=== PATIENT | male | born 1955 | race Hispanic/Latino ===

== ENCOUNTER 2017-04-12 15:05 | Emergency (ER) | payer MEDICARE ==
[~2017-04-12] VITALS: Ht 170.2 cm; Wt 64.4 kg
[~2017-04-12 15:05] MED LIST: ACTOS15 MG PO; ASPI325T32 PO; ATEN50TA PO; GABA-488 PO; HYDR1CAP2 PO; INSASP10V SC; LEVE1U SQ; METO-310 PO; NFMET1000 PO; OMEP20TA7 PO; PANT40TA2 PO; PREG50C PO; SUCR1TAB36 PO
--- OUTSIDE RECORDS SUMMARY | 2017-04-12 15:11 | XMS REPORT ---
Author Author ARACELI TOLBERT Organization [employer] Address Unknown Phone Unavailable Care Team Providers Care E/M Engineer Name Role Phone ARACELI TOLBERT CP Unavailable Allergies No Known Allergies Problems Problem Type Condition Code Onset Dates Condition Status Problem Hyperglycemia R73.9 Active Problem Diabetes 250.00 Active Problem Type 2 diabetes mellitus without complications E11.9 Active Problem Cough 786.2 Active Medications No Known Medications Results No Known Results Summary Purpose eClinicalWorks Submission
--- OUTSIDE RECORDS SUMMARY | 2017-04-12 15:11 | XMS REPORT ---
Author Author DEIDRA CORTEZ Organization [facility] Address [address] [place] [address] Care Team Providers Care Feeder Driver Name Role Phone DEIDRA CORTEZ Unavailable PROBLEMS Type Condition ICD9-CM Code [id number] Code Onset Dates Condition Status SNOMED Code Problem Diabetes type 2, uncontrolled E11.65 Active 306125310 Problem Type 2 diabetes mellitus without complications E11.9 Active 538057886 Problem Cough 786.2 Active 83467777 Problem Hyperglycemia R73.9 Active 33233288 Problem Diabetes 250.00 Active 20991994 ALLERGIES Substance Reaction Event Type Date Status N.K.D.A. Unknown Non Drug Allergy Jul, Unknown SOCIAL HISTORY No smoking Hx information available PLAN OF CARE Activity Details Follow Up 1 Week Reason:establish with new PCP VITAL SIGNS Height 67 in 2016-07-29 Weight 142.6 lbs 2016-07-29 Temperature 97.7 degrees Fahrenheit 2016-07-29 Heart Rate 76 bpm 2016-07-29 Respiratory Rate 18 2016-07-29 BMI 22.33 kg/m2 2016-07-29 Blood pressure systolic 164 mmHg 2016-07-29 Blood pressure diastolic 88 mmHg 2016-07-29 MEDICATIONS Medication Instructions Dosage Frequency Start Date End Date Duration Status Jeovany Contour Next Test 50 as directed May, Active Metformin HCl 1000 MG Orally Twice a day 1 tablet with meals 12h Active Lantus 100 UNIT/ML Subcutaneous BID 17 units 12h 30 days Active NovoLog 100 UNIT/ML 15 units subcutaneous. 8h Sep, Active Insulin Syringes (Disposable) U-100 1 ML as directed May, Active Ferrous Sulfate 325 (65 Fe) MG Orally Once a day 1 tablet 24h Nov, 30 day(s) Active Blood Glucose Meter Feb, Active RESULTS No Results PROCEDURES Procedure Date Ordered Related Diagnosis Body Site [facility] VISIT ESTABLISHED PATIENT Jul 29, 2016 Office Visit, Est Pt., Level 3 Jul 29, 2016 IMMUNIZATIONS No Known Immunizations
--- OUTSIDE RECORDS SUMMARY | 2017-04-12 15:11 | XMS REPORT ---
Author Author ARACELI TOLBERT Organization [employer] Address Unknown Phone Unavailable Care Team Providers Care Gluer Name Role Phone ARACELI TOLBERT CP Unavailable Allergies No Known Allergies Problems Problem Type Condition Code Onset Dates Condition Status Problem Hyperglycemia R73.9 Active Problem Diabetes 250.00 Active Problem Type 2 diabetes mellitus without complications E11.9 Active Problem Cough 786.2 Active Medications No Known Medications Results No Known Results Summary Purpose eClinicalWorks Submission
--- OUTSIDE RECORDS SUMMARY | 2017-04-12 15:11 | XMS REPORT ---
Author Author HERNÁN Cummins [facility] Address Unknown Care Team Providers Care Thread Inspector Name Role Phone niniHERNÁN PITTS Unavailable PROBLEMS Type Condition ICD9-CM Code [id number] Code Onset Dates Condition Status SNOMED Code Problem Diabetes type 2, uncontrolled E11.65 Active 320522994 Problem Type 2 diabetes mellitus without complications E11.9 Active 248562456 Problem Cough 786.2 Active 39857677 Problem Hyperglycemia R73.9 Active 25027158 Problem Diabetes 250.00 Active 96759800 ALLERGIES Substance Reaction Event Type Date Status N.K.D.A. Unknown Non Drug Allergy Jun, Unknown SOCIAL HISTORY No smoking Hx information available PLAN OF CARE Activity Details Follow Up 1 Week Reason:te VITAL SIGNS Height 67 in 2016-07-05 Blood pressure systolic 153 mmHg 2016-07-05 Blood pressure diastolic 96 mmHg 2016-07-05 MEDICATIONS Medication Instructions Dosage Frequency Start Date End Date Duration Status Ferrous Sulfate 325 (65 Fe) MG Orally Once a day 1 tablet 24h Nov, 30 day(s) Active Jeovany Contour Next Test 50 as directed May, Active NovoLog 100 UNIT/ML 15 units subcutaneous. 8h Sep, Active Amoxicillin 500 MG Orally Four times a day 1 capsule 6h Jun,Jul 7 days Active Metformin HCl 1000 MG Orally Twice a day 1 tablet with meals 12h Active Insulin Syringes (Disposable) U-100 1 ML as directed May, Active Cephalexin 500 MG Orally Three times a day 1 capsule 8h Active Levemir 100 UNIT/ML 20 units subcutaneous Sep, Active Brompheniramine-Phenylephrine 2-5 MG/5ML Orally every 6 hrs 10 ml as needed 6h 14 Jan, 2016 Active Blood Glucose Meter Feb, Active RESULTS No Results PROCEDURES Procedure Date Ordered Related Diagnosis Body Site LTD ORAL EVALUATION - PROBLEM FOCUS Jul 05, 2016 INTRAORL-PERIAPICAL 1 FILM 93603 Jul 05, 2016 INTRAORL-PERIAPICAL EA ADD FILM Jul 05, 2016 IMMUNIZATIONS No Known Immunizations
--- OUTSIDE RECORDS SUMMARY | 2017-04-12 15:11 | XMS REPORT ---
Author ARACELI Malloy [facility] eClinicalWorks Address Unknown Phone Unavailable Care Team Providers Care Deputy United [place] Marshal Name Role Phone ARACELI TOLBERT CP Unavailable Allergies, Adverse Reactions, Alerts Substance Reaction Event Type N.K.D.A. Info Not Available Non Drug Allergy Problems Problem Type Condition Code Onset Dates Condition Status Problem Hyperglycemia R73.9 Active Problem Diabetes 250.00 Active Problem Type 2 diabetes mellitus without complications E11.9 Active Problem Cough 786.2 Active Assessment Anemia, unspecified type D64.9 Active Medications Medication Code System Code Instructions Start Date End Date Status Dosage Gabapentin [facility] [address]-73 300 MG Orally Three times a day Apr 08, 2015 as directed Metformin HCl [facility] [address]-73 1000 MG Orally Twice a day 1 tablet with meals Jeovany Contour Next Test [facility] [address]-01 50 Jun 01, 2015 as directed Levemir [facility] [address]-50 100 UNIT/ML Once a day, voucher Sep 15, 2014 13 units subcutaneous NovoLog [facility] [address]-93 100 UNIT/ML 3 times a day Sep 15, 2014 13 units subcutaneous. Naproxen [facility] 69278079417 500 MG Orally every 12 hrs 1 tablet as needed Colace [facility] [address]-58 100 MG Orally Once a day Aug 31, 2015 February 27, 2016 1 capsule as needed Omeprazole [facility] [address]-56 20 MG Orally Once a day Aug 17, 2015 1 capsule Insulin Syringes (Disposable) [facility] 8080-467617 U-100 1 ML Jun 01, 2015 as directed Blood Glucose Meter [facility] 0 February 05, 2015 not defined Reglan [facility] [address]-71 10 MG Orally 2 times a day Aug 17, 2015 1 tablet Procedures Procedure Coding System Code Date Office Visit, Est Pt., Level 3 CPT-4 90610 Aug 31, 2015 AUTOMATED RETICULOCYTE COUNT CPT-4 85425 Aug 31, 2015 [facility] VISIT ESTABLISHED PATIENT CPT-4 G0467 Aug 31, 2015 VENIPUNCT, ROUTINE* CPT-4 11173 Aug 31, 2015 [facility] NO[facility] Aug 31, 2015 Vital Signs Date/Time: Aug 31, 2015 Temperature 97.8 F Weight 141 lbs Height 67 in BMI 22.08 Index Blood Pressure Diastolic 56 mmHg Blood Pressure Systolic 126 mmHg Cardiac Monitoring Heart Rate 96 bpm Results Name Result Date Reference Range Unit Abnormality Flag ANEMIA PANEL ----RDW 16.5 [id number] 12.3-15.4 % H ----MCHC 28.5 31971971 31.5-35.7 g/dL L ----Neutrophils 54 50535676 % ----RBC 4.25 83889887 4.14-5.80 x10E6/uL ----Platelets 688 99095362 150-379 x10E3/uL H ----WBC 6.5 39249959 3.4-10.8 x10E3/uL ----Monocytes 9 17520382 % ----Folate (Folic Acid), Serum 15.5 36912498 >3.0 ng/mL ----Lymphs 33 02841410 % ----Vitamin B12 688 12565807 211-946 pg/mL ----Ferritin, Serum 5 97724714 30-400 ng/mL L ----Hematocrit 32.3 24869939 37.5-51.0 % L ----Hemoglobin 9.2 75115075 12.6-17.7 g/dL L ----MCH 21.6 34195128 26.6-33.0 pg L ----MCV 76 49541120 79-97 fL L ----Eos 3 61412348 % ----Basos 1 89319831 % ----Neutrophils (Absolute) 3.5 24512227 1.4-7.0 x10E3/uL ----Lymphs (Absolute) 2.2 49617965 0.7-3.1 x10E3/uL ----Monocytes(Absolute) 0.6 02203201 0.1-0.9 x10E3/uL ----Eos (Absolute) 0.2 59123446 0.0-0.4 x10E3/uL ----Baso (Absolute) 0.1 20150831 0.0-0.2 x10E3/uL ----Immature Granulocytes 0 20150831 % ----Immature Grans (Abs) 0.0 20150831 0.0-0.1 x10E3/uL ----Reticulocyte Count 0.6 20150831 0.6-2.6 % ----Iron Bind.Cap.(TIBC) 368 20150831 250-450 ug/dL ----UIBC 355 20150831 111-343 ug/dL H ----Iron, Serum 13 20150831 38-169 ug/dL L ----Iron Saturation 4 20150831 15-55 % LL Summary Purpose eClinicalWorks Submission
--- OUTSIDE RECORDS SUMMARY | 2017-04-12 15:12 | XMS REPORT ---
Author Author HERNÁN Cummins [facility] Address Unknown Care Team Providers Care Drophammer Operator Name Role Phone HERNÁN Cummins Unavailable PROBLEMS Type Condition ICD9-CM Code XQI22-SE Code Onset Dates Condition Status SNOMED Code Problem Diabetes type 2, uncontrolled E11.65 Active 418127153 Problem Type 2 diabetes mellitus without complications E11.9 Active 954793934 Problem Cough 786.2 Active 54502208 Problem Hyperglycemia R73.9 Active 81505438 Problem Diabetes 250.00 Active 79216898 ALLERGIES Unknown Allergies SOCIAL HISTORY No smoking Hx information available PLAN OF CARE VITAL SIGNS MEDICATIONS Unknown Medications RESULTS No Results PROCEDURES Procedure Date Ordered Related Diagnosis Body Site Dental Prep[facility] for Future Services Aug 17, 2016 IMMUNIZATIONS No Known Immunizations
--- OUTSIDE RECORDS SUMMARY | 2017-04-12 15:12 | XMS REPORT ---
Author Author HERNÁN Cummins [facility] Address Unknown Care Team Providers Care Dimension Mill Worker Name Role Phone HERNÁN Cummins Unavailable PROBLEMS Type Condition ICD9-CM Code [id number] Code Onset Dates Condition Status SNOMED Code Problem Diabetes type 2, uncontrolled E11.65 Active 654419775 Problem Type 2 diabetes mellitus without complications E11.9 Active 103206364 Problem Cough 786.2 Active 00008028 Problem Hyperglycemia R73.9 Active 83979232 Problem Diabetes 250.00 Active 30501181 ALLERGIES Substance Reaction Event Type Date Status N.K.D.A. Unknown Non Drug Allergy Jul, Unknown SOCIAL HISTORY No smoking Hx information available PLAN OF CARE VITAL SIGNS Height 67 in 2016-07-12 Blood pressure systolic 162 mmHg 2016-07-12 Blood pressure diastolic 80 mmHg 2016-07-12 MEDICATIONS Medication Instructions Dosage Frequency Start Date End Date Duration Status Insulin Syringes (Disposable) U-100 1 ML as directed May, Active Ferrous Sulfate 325 (65 Fe) MG Orally Once a day 1 tablet 24h Nov, 30 day(s) Active Metformin HCl 1000 MG Orally Twice a day 1 tablet with meals 12h Active Brompheniramine-Phenylephrine 2-5 MG/5ML Orally every 6 hrs 10 ml as needed 6h 14 Jan, 2016 Active Levemir 100 UNIT/ML 20 units subcutaneous Sep, Active Blood Glucose Meter Feb, Active Jeovany Contour Next Test 50 as directed May, Active NovoLog 100 UNIT/ML 15 units subcutaneous. 8h Sep, Active Cephalexin 500 MG Orally Three times a day 1 capsule 8h Active Amoxicillin 500 MG Orally Four times a day 1 capsule 6h Jun,Jul 7 days Active RESULTS No Results PROCEDURES Procedure Date Ordered Related Diagnosis Body Site Dental no charge Jul 12, 2016 IMMUNIZATIONS No Known Immunizations
--- OUTSIDE RECORDS SUMMARY | 2017-04-12 15:12 | XMS REPORT ---
Author ARACELI Malloy [facility] eClinicalWorks Address Unknown Phone Unavailable Care Team Providers Care Stamping Press Operator Name Role Phone ARACELI TOLBERT CP Unavailable Allergies, Adverse Reactions, Alerts Substance Reaction Event Type N.K.D.A. Info Not Available Non Drug Allergy Problems Problem Type Condition Code Onset Dates Condition Status Problem Hyperglycemia R73.9 Active Problem Diabetes 250.00 Active Problem Type 2 diabetes mellitus without complications E11.9 Active Assessment Non-intractable vomiting with nausea, vomiting of unspecified type R11.2 Active Problem Cough 786.2 Active Assessment Type 2 diabetes mellitus without complications E11.9 Active Medications Medication Code System Code Instructions Start Date End Date Status Dosage Gabapentin [facility] [address]-43 300 MG Orally Three times a day Apr 08, 2015 as directed Naproxen [facility] [address]-77 500 MG Orally every 12 hrs Apr 08, 2015 1 tablet as needed NovoLog [facility] [address]-82 100 UNIT/ML 3 times a day Sep 15, 2014 13 units subcutaneous. Jeovany Contour Next Test [facility] [address]-94 50 Jun 01, 2015 as directed Metformin HCl [facility] [address]-96 1000 MG Orally Twice a day 1 tablet with meals Blood Glucose Meter [facility] 0 February 05, 2015 not defined Reglan [facility] [address]-30 10 MG Orally 2 times a day Aug 17, 2015 1 tablet Insulin Syringes (Disposable) [facility] 8080-985957 U-100 1 ML Jun 01, 2015 as directed Omeprazole [facility] [address]-00 20 MG Orally Once a day Aug 17, 2015 1 capsule Levemir [facility] [address]-34 100 UNIT/ML Once a day, voucher Sep 15, 2014 13 units subcutaneous Procedures Procedure Coding System Code Date MICROALBUMIN, SEMIQUANT CPT-4 22478 Aug 17, 2015 [facility] CPT-4 NOBLL Aug 17, 2015 GLYCATED HEMOGLOBIN TEST CPT-4 74178 Aug 17, 2015 [facility] VISIT ESTABLISHED PATIENT CPT-4 G0467 Aug 17, 2015 CHEST X-RAY CPT-4 49670 Aug 17, 2015 Office Visit, Est Pt., Level 3 CPT-4 96269 Aug 17, 2015 Vital Signs Date/Time: Aug 17, 2015 Temperature 98.2 F Weight 145.2 lbs Height 67 in BMI 22.74 Index Blood Pressure Diastolic 64 mmHg Blood Pressure Systolic 130 mmHg Cardiac Monitoring Heart Rate 88 bpm Results Name Result Date Reference Range Unit Abnormality Flag A1C (IN HOUSE) ----A1C IN HOUSE 10.4 20150817 4.30 - 5.6 % ----Previous A1c 12.7 20150817 ----Lot # [id number] ----Exp date [id number] MICROALBUMIN, URINE (IN HOUSE) ----CRE 200 mg/dL 20150817 ----ALB 150 mg/L 20150817 ----A:C (IN HOUSE) 30-300mg/g 20150817 ----Clarity clear 20150817 ----Color orange 20150817 ----Lot # [id number] ----Exp date 20150817 ----MICROALBUMIN abnormal 20150817 Summary Purpose eClinicalWorks Submission
--- OUTSIDE RECORDS SUMMARY | 2017-04-12 15:12 | XMS REPORT ---
Author ARACELI Malloy Organization [employer] Address Unknown Phone Unavailable Care Team Providers Care Supervisor Tunnel Heading Name Role Phone ARACELI TOLBERT CP Unavailable Allergies No Known Allergies Problems Problem Type Condition Code Onset Dates Condition Status Problem Type 2 diabetes mellitus without complications E11.9 Active Problem Hyperglycemia R73.9 Active Problem Diabetes type 2, uncontrolled E11.65 Active Problem Diabetes 250.00 Active Problem Cough 786.2 Active Medications Medication Code System Code Instructions Start Date End Date Status Dosage Ferrous Sulfate [facility] [address]-72 325 (65 Fe) MG Orally Once a day November 1 tablet Results No Known Results Summary Purpose eClinicalWorks Submission
--- OUTSIDE RECORDS SUMMARY | 2017-04-12 15:12 | XMS REPORT ---
Author Author ARACELI TOLBERT Organization [employer] Address Unknown Phone Unavailable Care Team Providers Care Professor Of Criminal Justice Name Role Phone ARACELI TOLBERT CP Unavailable Allergies No Known Allergies Problems Problem Type Condition Code Onset Dates Condition Status Problem Cough 786.2 Active Assessment Type 2 diabetes mellitus without complications E11.9 Active Problem Diabetes 250.00 Active Medications Medication Code System Code Instructions Start Date End Date Status Dosage Insulin Syringes (Disposable) [facility] 8080-401146 U-100 1 ML Jun 01, 2015 as directed Jeovany Contour Next Test [facility] [address]-45 50 Jun 01, 2015 as directed Results No Known Results Summary Purpose eClinicalWorks Submission
--- OUTSIDE RECORDS SUMMARY | 2017-04-12 15:12 | XMS REPORT ---
Author Author KARINE QURESHI [facility] eClinicalWorks Address Unknown Phone Unavailable Care Team Providers Care Border Patrol Agent Name Role Phone KARINE QURESHI Unavailable Allergies, Adverse Reactions, Alerts Substance Reaction Event Type N.K.D.A. Info Not Available Non Drug Allergy Problems Problem Type Condition Code Onset Dates Condition Status Problem Diabetes 250.00 Active Problem Cough 786.2 Active Problem Hyperglycemia R73.9 Active Assessment Hyperglycemia R73.9 Active Assessment Abdominal pain, generalized R10.84 Active Medications Medication Code System Code Instructions Start Date End Date Status Dosage Naproxen [facility] [address]-93 500 MG Orally every 12 hrs Apr 08, 2015 1 tablet as needed Insulin Syringes (Disposable) [facility] 8080-771179 U-100 1 ML Jun 01, 2015 as directed NovoLog [facility] [address]-61 100 UNIT/ML 3 times a day Sep 15, 2014 13 units subcutaneous. Gabapentin [facility] [address]-39 100 MG Orally Three times a day Apr 08, 2015 as directed Levemir [facility] [address]-32 100 UNIT/ML Once a day, voucher Sep 15, 2014 13 units subcutaneous Blood Glucose Meter [facility] 0 February 05, 2015 not defined Metformin HCl [facility] [address]-94 1000 MG Orally Twice a day 1 tablet with meals Jeovany Contour Next Test [facility] [address]-38 50 Jun 01, 2015 as directed Procedures Procedure Coding System Code Date VENIPUNCT, ROUTINE* CPT-4 35361 Jun 19, 2015 X-RAY EXAM OF ABDOMEN CPT-4 25850 Jun 19, 2015 HEMOGLOBIN CHROMOTOGRAPHY CPT-4 01272 Jun 19, 2015 Office Visit, Est Pt., Level 3 CPT-4 25993 Jun 19, 2015 [facility] VISIT ESTABLISHED PATIENT CPT-4 G0467 Jun 19, 2015 Vital Signs Date/Time: Jun 19, 2015 Temperature 98.2 F Weight 156.6 lbs Height 67 in BMI 24.52 Index Blood Pressure Diastolic 76 mmHg Blood Pressure Systolic 142 mmHg Cardiac Monitoring Heart Rate 102 bpm Results Name Result Date Reference Range Unit Abnormality Flag ROUTINE VENIPUNCTURE Summary Purpose eClinicalWorks Submission
--- OUTSIDE RECORDS SUMMARY | 2017-04-12 15:12 | XMS REPORT ---
Author ARACELI Malloy [facility] eClinicalWorks Address Unknown Phone Unavailable Care Team Providers Care Toddler Guide Name Role Phone ARACELI TOLBERT CP Unavailable Allergies, Adverse Reactions, Alerts Substance Reaction Event Type N.K.D.A. Info Not Available Non Drug Allergy Problems Problem Type Condition Code Onset Dates Condition Status Problem Type 2 diabetes mellitus without complications E11.9 Active Problem Hyperglycemia R73.9 Active Problem Diabetes type 2, uncontrolled E11.65 Active Assessment H. pylori infection A04.8 Active Problem Diabetes 250.00 Active Problem Cough 786.2 Active Medications Medication Code System Code Instructions Start Date End Date Status Dosage Levemir [facility] [address]-67 100 UNIT/ML Once a day, voucher Sep 15, 2014 20 units subcutaneous Metronidazole [facility] [address]-02 500 MG Orally Twice a day November 26, 2015 December 10, 2015 1 tablet Blood Glucose Meter [facility] 0 February 05, 2015 not defined NovoLog [facility] [address]-21 100 UNIT/ML 3 times a day Sep 15, 2014 15 units subcutaneous. Amoxicillin [facility] [address]-23 500 MG Orally twice a day November 26, 2015 December 10, 2015 2 capsules Metformin HCl [facility] [address]-66 1000 MG Orally Twice a day 1 tablet with meals Jeovany Contour Next Test [facility] [address]-25 50 Jun 01, 2015 as directed Insulin Syringes (Disposable) [facility] 8080-183524 U-100 1 ML Jun 01, 2015 as directed Procedures Procedure Coding System Code Date Office Visit, Est Pt., Level 3 CPT-4 43886 November 26, 2015 [facility] NO[facility] November 26, [facility] PAT[facility] CPT-4 G0467 November 26, 2015 VENIPUNCT, ROUTINE* CPT-4 29873 November 26, 2015 Vital Signs Date/Time: November 26, 2015 Temperature 97.8 F Weight 143.7 lbs Height 67 in BMI 22.50 Index Blood Pressure Diastolic 64 mmHg Blood Pressure Systolic 130 mmHg Cardiac Monitoring Heart Rate 100 bpm Results Name Result Date Reference Range Unit Abnormality Flag ROUTINE VENIPUNCTURE Summary Purpose eClinicalWorks Submission
--- OUTSIDE RECORDS SUMMARY | 2017-04-12 15:12 | XMS REPORT ---
Author Author ARACELI TOLBERT Organization [employer] Address Unknown Phone Unavailable Care Team Providers Care Wood Treating Inspector Name Role Phone ARACELI TOLBERT CP Unavailable Allergies No Known Allergies Problems Problem Type Condition Code Onset Dates Condition Status Problem Hyperglycemia R73.9 Active Problem Diabetes 250.00 Active Problem Type 2 diabetes mellitus without complications E11.9 Active Problem Cough 786.2 Active Assessment Type 2 diabetes mellitus without complications E11.9 Active Medications No Known Medications Procedures Procedure Coding System Code Date VENIPUNCT, ROUTINE* CPT-4 26822 Aug 21, 2015 LAB NOT BILLED BY [facility] CPT-4 NOBLL Aug 21, 2015 Results Name Result Date Reference Range Unit Abnormality Flag ROUTINE VENIPUNCTURE Summary Purpose eClinicalWorks Submission
[2017-04-12] MEDS ORDERED: TETANUS,DIPTH,PERTUSS P/F (BOOSTRIX) 0.5 ML VIAL IM ONE (15:45)
[2017-04-12] MEDS ORDERED: LIDOCAINE/EPI 1%-1:100,000 (XYLOCAINE) 20ML INJ ONE (15:45)
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
--- NOTE | 2017-04-12 16:22 | Diagnostic Imaging Report ---
CLINICAL INDICATION: Patient with left-sided neck pain and bilateral jaw pain with headache. EXAMS: Head CT without IV contrast. Axial CT scan of the maxillofacial structures with coronal reformatted images. Axial CT scan of the cervical spine with sagittal and coronal reformations. COMPARISON: None. FINDINGS: HEAD CT: There is no evidence of acute cerebral infarct, intracranial hemorrhage, or gross mass effect. There are a few focal areas of low-attenuation white matter changes throughout both cerebral hemispheres, likely representing chronic small vessel ischemic disease. There is a focal calcification near the parasagittal right parietal lobe and by the right tentorium, likely inconsequential. There is normal yin/white matter distinction. The brain parenchymal volume appears appropriate for the patient's age. There is no significant midline shift or herniation. There is no evidence of hydrocephalus. The basal cisterns are unremarkable. MAXILLOFACIAL CT: There is a small area of extracranial soft tissue swelling involving the left side of the head. There is no skull fracture. Otherwise, the skull, extracranial soft tissue, and orbits are unremarkable. The paranasal sinuses are unremarkable. CERVICAL SPINE CT: There is no acute cervical spine fracture or dislocation. There are multiple lucent/lytic appearing areas scattered throughout the visualized cervical and upper thoracic spine. There is multilevel cervical spine degenerative disease with vertebral body spurs which is most pronounced at the C6-C7 level with suggestion of diffuse disc bulge and posterior disc spurs. There is at least mild central canal narrowing at the C6-C7 level. There are posterior disc herniations at the C3-C4 and C4-C5 levels which cause at least mild to moderate central canal narrowing. There is no significant neck soft tissue abnormality. The visualized lung apices show no significant abnormality. IMPRESSION: 1. There is no evidence of an acute intracranial process. There is no intracranial hemorrhage. 2. There is a small area of extracranial soft tissue swelling on the left side of the head. There is no skull or maxillofacial fracture. 3. There is no acute cervical spine fracture or dislocation. 4. There are multiple lucent or lytic appearing areas involving the visualized cervical and upper thoracic spine. These are nonspecific but etiologies such as metastatic disease or multiple myeloma should be excluded. 5. Multilevel cervical spine degenerative disease. . Dictated by: Dictated on workstation # [id number]
[2017-04-12] MEDS ORDERED: LIDOCAINE 1% INJ 20 ML (XYLOCAINE) VIAL ONE (16:52)
[2017-04-12 17:15] VITALS: BP 180/100
== END 2017-04-12 17:15 | disposition home or self-care (01) ==
LOC: EDUNIT# 15:05 → ER 15:07
DX: S01.01XA Laceration without foreign body of scalp, initial encounter (principal); M89.9 Disorder of bone, unspecified; E11.9 Type 2 diabetes mellitus without complications; Z23 Encounter for immunization; Z79.4 Long term (current) use of insulin; Z90.2 Acquired absence of lung [part of]; Z79.84 Long term (current) use of oral hypoglycemic drugs; V49.40XA Driver injured in collision with unspecified motor vehicles in traffic accident, initial encounter; Y92.410 Unspecified street and highway as the place of occurrence of the external cause
CPT/HCPCS: 12031; 70450; 70486; 72125; 90471; 90715

== ENCOUNTER 2017-07-21 09:35 | Outpatient (RCR) | payer MEDICARE | END 2017-08-30 | disposition home or self-care (01) | PROVIDERS: ATTEND Family Medicine | DX: S13.4XXD Sprain of ligaments of cervical spine, subsequent encounter (principal); M54.2 Cervicalgia; V49.49XD Driver injured in collision with other motor vehicles in traffic accident, subsequent encounter ==

== ENCOUNTER 2017-11-11 22:12 | Inpatient (IN) | payer MEDICARE, OTHER ==
[~2017-11-11] VITALS: Ht 170.2 cm; Wt 61.9 kg
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
--- OUTSIDE RECORDS SUMMARY | 2017-11-11 22:19 | XMS REPORT ---
Author Author ARACELI TOLBERT Organization [facility] Address [address] [place] [address] Care Team Providers Care Java Development Manager Name Role Phone ARACELI TOLBERT Unavailable PROBLEMS Type Condition ICD9-CM Code PUI82-EX Code Onset Dates Condition Status SNOMED Code Problem Type 2 diabetes mellitus without complications E11.9 Active 505659486 Problem Type 2 diabetes mellitus with hyperglycemia E11.65 Active 779945195 Problem Diabetic mononeuropathy associated with type 2 diabetes mellitus E11.41 Active 166620312 Problem Diabetes type 2, uncontrolled E11.65 Active 481466528 Problem longterm current use of insulin Z79.4 Active 874235200 Problem Postconcussion syndrome F07.81 Active 70750799 ALLERGIES No Information ENCOUNTERS Encounter Location Date Diagnosis [place] [id number] [address] Oct, [facility] [address] [address] Sep, Type 2 diabetes mellitus without complications E11.9 [place] [address] [address] 14 Sep, 2017 Type 2 diabetes mellitus with hyperglycemia E11.65 ; longterm current use of insulin Z79.4 and Coughing R05 [facility] [address] [place] [id number] [place] [address] -[address]38 05 Sep, 2017 Cough R05 and Bronchitis J40 [facility] [address] [address] Jun, Type 2 diabetes mellitus without complications E11.9 [facility] [address] [address] Jun, Type 2 diabetes mellitus without complications E11.9 [place] [address], [place] [address] May, Type 2 diabetes mellitus without complications E11.9 [facility] [address] [place] [id number] [place] [address] 82091- 0044 May, [facility] [address] [place] [id number] [place] [address] 60627- 2004 24 May, 2017 [facility] [address] [place] [id number] [place] [address] -3871 16 Apr, 2017 [facility] [address] [place] [id number] [place] [address] 35017 -2075 13 Apr, 2017 Strain of rectus abdominis muscle, initial encounter S39.011A and Pectoralis muscle strain, initial encounter S29.011A [place] [address] [place] [address] 49463- 6[address] 07 Apr, 2017 Type 2 diabetes mellitus without complications E11.9 ; 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 ; Postconcussion syndrome F07.81 ; Diabetic mononeuropathy associated with type 2 diabetes mellitus E11.41 and Cervicalgia M54.2 [place] [address] [place] [id number] [place] [address]26- 9243 Feb, [place] [address] [place] [id number] [place] [address] 16176- 3621 Feb, Type 2 diabetes mellitus without complications E11.9 [place] [address] [place] [id number] [place] [address] 41296- 7835 Jan, Type 2 diabetes mellitus without complications E11.9 [facility] [address] [place] [address] [phone] Sep, Dental caries K02.9 [facility] [address] [place] [id number] [place] [address] [phone] Aug, Encounter for other specified administrative purpose Z02.89 [facility] [address] [place] [id number] [place] [address] 20520 -8482 Jul, Diabetes type 2, uncontrolled E11.65 and Wound healing well on examination R23.8 [facility] [address] [place] [address] 69023- 2377 06 Jul, 2016 Dental examination Z01.20 [facility] [address] [place] [id number] [place] [address] 53128- 2831 29 Jun, 2016 Dental examination Z01.20 [facility] [address] [place] [id number] [place] [address] 41702- 4264 14 Jan, 2016 Sore throat J02.9 and Post-nasal drip R09.82 [place] [address] [place] [id number] [place] [address] 54998- 8228 Nov, [place] [address] [place] [id number] [place] [address] 46609- 1506 Nov, H. pylori infection A04.8 [place] [address] [place] [id number] [place] [address] 01748- 7032 Oct, [place] [address] [place] [id number] [place] [address] 16351- 0151 Sep, Diabetes type 2, uncontrolled E11.65 and Gastric ulcer K25.9 [facility] [address] [place] [id number] [place] [address] 95892- 5697 Sep, [place] [address] [place] [address] 13392- 8665 Aug, [facility] [address] [place] [id number] [place] [address] 04677- 3100 Aug, [facility] [address] [place] [id number] [place] [address] 70620- 5150 Aug, Anemia, unspecified type D64.9 [facility] [address] [place] [id number] [place] [address] 41438- 8018 Aug, Type 2 diabetes mellitus without complications E11.9 [facility] [address] [place] [id number] [place] [address] 21113- 7553 Aug, Type 2 diabetes mellitus without complications E11.9 and Non -intractable vomiting with nausea, vomiting of unspecified type R11.2 [facility] [address] [place] [id number] [place] [address] 68136 -3201 Jun, Hyperglycemia R73.9 and Abdominal pain, generalized R10.84 [facility] [address] [place] [id number] [place] [address] 92084- 1841 May, Type 2 diabetes mellitus without complications E11.9 [facility] [address] [place] [id number] [place] [address] 14575- 2989 Apr, Diabetes 250.00 ; Arthritis 716.90 and Neuropathy 355.9 [facility] [address] [place] [id number] [place] [address] 96376- 0512 Feb, Diabetes 250.00 [facility] [address] [place] [id number] [place] [address] 35874- 1252 Feb, [facility] [address] [place] [id number] [place] [address] 02830- 6501 Nov, [facility] [address] [place] [id number] [place] [address] 68762- 1527 Nov, [facility] [address] [place] [id number] [place] [address] 95456- 9187 Sep, [facility] [address] [place] [id number] [place] [address] 71333- 9131 Sep, [facility] [address] [place] [id number] [place] [address] 62781- 8351 Sep, [facility] [address] [place] [id number] [place] [address] 96924- 3508 Sep, [facility] [address] [place] [id number] [place] [address] 493846- 5986 Sep, [facility] [address] [place] [id number] [place] [address] 86803- 3556 May, [facility] [place] [facility] [address] [id number] [place] [address] May, [facility] [place] [facility] [address] [id number] [place] [address]- 1649 Apr, [facility] [place] [facility] [address] [id number] [place] [address]- 3084 Apr, [facility] [place] [facility] [address] [id number] [place] [address]- 0693 Feb, [facility] [place] [facility] [address] [id number] [place] [address]- 9196 Feb, [facility] [place] [facility] [address] [id number] [place] [address]- 6554 Feb, [facility] [place] [facility] [address] [id number] [place] [address]- 3337 Feb, [facility] [place] [facility] [address] [id number] [place] [address]- 8723 Oct, [facility] [place] [facility] [address] [id number] [place] [address]- 6248 Oct, [facility] [place] [facility] [address] [id number] [place] [address]- 1031 Sep, [facility] [place] [facility] [address] [id number] [place] [address]- 9486 Sep, [facility] [place] [facility] [address] [id number] [place] [address]- 1129 Aug, [facility] [place] [facility] [address] [id number] [place] [address]- 8149 Aug, [facility] [place] [facility] [address] [id number] [place] [address]- 0876 Jul, [facility] [place] [facility] [address] [id number] [place] [address]- 7592 Jul, [facility] [place] [facility] [address] [id number] [address] Jul, [facility] [address] [id number] [place] [address]- 5240 Jul, [facility] [place] [facility] [address] [id number] [place] [address]- 4826 Feb, [facility] [place] [facility] [address] [facility] [id number] [place] [address]- 7399 Sep, [facility] [place] [facility] [address] [id number] [place] [address]- 8106 May, [facility] [place] [facility] [address] [id number] [place] [address]- 0281 May, [facility] [place] [facility] [address] [facility] [id number] [place] [address]- 3254 Apr, [facility] [address] [place] [id number] [place] [address]- 9209 Apr, [facility] [place] [facility] [address] [facility] [id number] [place] [address]- 7836 Mar, [facility] [place] [facility] [address] [place] [id number] [place] [address]- 1173 Oct, [facility] [place] [facility] [address] [facility] [id number] [place] [address]- 0276 Sep, [facility] [place] [facility] [address] [facility] [id number] [place] [address]- 1494 Aug, [facility] [place] [facility] [address] [facility] [id number] [place] [address]- 6791 Jul, [facility] [place] [facility] [address] [id number] [place] [address]- 2186 Jun, [facility] [place] [facility] [address] [facility] [id number] [place] [address]- 2513 Jun, [facility] [place] [facility] [address] [facility] [id number] [place] [address]- 2764 Jun, [facility] [place] [facility] [address] [facility] [id number], [place] [address]- [address]28 May, [facility] [address] [facility] [id number], [place] [address]- 7842 May, [facility] [address] [facility] [id number], [place] [address]- 6766 Sep, [facility] [address] [facility] [id number], [place] [address]- 3048 Jul, [facility] [address] [facility] [id number], [place] [address]- 1045 Mar, [facility] [address] [facility] [id number], [place] [address]- 1599 Feb, [facility] [address] Jul, [facility] [address] Jul, [facility] [address] [address] Jul, [facility] [address] Jan, [facility] [address] [place] [id number] [address]- 2749 Jul, [facility] [address] [place] [id number] [address]- 4779 May, IMMUNIZATIONS No Known Immunizations SOCIAL HISTORY Never Assessed REASON FOR VISIT insulin PLAN OF CARE VITAL SIGNS MEDICATIONS Medication Instructions Dosage Frequency Start Date End Date Duration Status Lantus 100 UNIT/ML Subcutaneous BID 17 units 12h 30 days Active RESULTS No Results PROCEDURES No Known procedures INSTRUCTIONS MEDICATIONS ADMINISTERED No Known Medications MEDICAL (GENERAL) HISTORY Type Description Date Medical History diabetes mellitus Surgical History lung 2007 Surgical History EGD; ulcer, h.pylori 10/2015 Hospitalization History surgeries
--- OUTSIDE RECORDS SUMMARY | 2017-11-11 22:19 | XMS REPORT ---
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 636799171 Problem Postconcussion syndrome F07.81 Active 32809704 Problem Type 2 diabetes mellitus without complications E11.9 Active 163658940 Problem Hyperglycemia R73.9 Active 35503227 Problem Diabetic mononeuropathy associated with type 2 diabetes mellitus E11.41 Active 558257302 Problem Diabetes type 2, uncontrolled E11.65 Active 691698749 ALLERGIES No Known Allergies SOCIAL HISTORY Never Assessed PLAN OF CARE Activity Details Follow Up prn Reason:PROPHY VITAL SIGNS Height 67 in 2016-10-04 Blood pressure systolic 138 mmHg 2016-10-04 Blood pressure diastolic 90 mmHg 2016-10-04 MEDICATIONS Medication Instructions Dosage Frequency Start Date End Date Duration Status Insulin Syringes (Disposable) U-100 1 ML as directed May, Active Blood Glucose Meter Feb, Active NovoLog 100 UNIT/ML 15 units subcutaneous. 8h 09 Sep, 2014 Active Jeovany Contour Next Test 50 as directed May, Active Metformin HCl 1000 MG Orally Twice a day 1 tablet with meals 12h Active Lantus 100 UNIT/ML Subcutaneous BID 17 units 12h 30 days Active Ferrous Sulfate 325 (65 Fe) MG Orally Once a day 1 tablet 24h Nov, 30 day(s) Active RESULTS No Results PROCEDURES Procedure Date Ordered Result Body Site EXTRAC ERUPTED TOOTH/EXPOSED ROOT Oct 04, 2016 EXTRAC ERUPTED TOOTH/EXPOSED ROOT Oct 04, 2016 IMMUNIZATIONS No Known Immunizations MEDICAL (GENERAL) HISTORY Type Description Date Medical History diabetes mellitus Surgical History lung 2006 Surgical History EGD; ulcer, h.pylori 10/2015 Hospitalization History surgeries
--- NOTE | 2017-11-11 22:42 | ED Lower Extremity ---
General Stated Complaint: TOE SWOLLEN,DIABETIC Source: patient, family, official court interpreter (SON IS CATERING SERVER) Exam Limitations: language barrier (PT SPEAKS VERY MINIMAL TOGOLESE) History of Present Illness Date Seen by Provider: Nov 11, 2017 Time Seen by Provider: 22:30 Initial Comments C/O PAIN AND SWELLING TO LEFT GREAT TOE--NOTICED TODAY NO KNOWN INJURY NO KNOWN FEVER NO DRAINAGE FROM AREA PT IS INSULIN DEPENDENT DIABETIC, WITH LIKELY PERIPHERAL NEUROPATHY--STATES HE DOESN'T HAVE MUCH FEELING IN FEET/TOES PT IS VERY NON-COMPLIANT, DOES NOT CHECK HIS BLOOD SUGARS ON A REGULAR BASIS, AND WHEN HE DOES, HE JUST TAKES HOWEVER MUCH INSULIN HE FEELS LIKE HE NEEDS. PT DOES NOT FOLLOW UP WITH [facility] ON A REGULAR BASIS EITHER PT DOES NOT KNOWN ANY OF HIS MEDICATIONS, ONLY THAT HE TAKES INSULIN, AND SON DOES NOT KNOW MEDICATIONS EITHER. PCP: [facility], VIOLA TOLBERT Allergies and Home Medications Allergies Coded Allergies: NKANo Known Allergies (Verified Allergy, Unknown, 01/30/07) Home Medications Gabapentin 300 Mg Capsule, 300 MG PO TID, (Reported) Insulin Aspart 10 Unit/0.1 Ml Susp, 13 UNIT SC BID, (Reported) Insulin Determir 100 U/Ml Insuln.pen, 13 UNITS SQ BID, (Reported) Metformin Hcl 1,000 Mg Tablet, 1,000 MG PO BID, (Reported) Pantoprazole Sodium 40 Mg Tablet.dr, 40 MG PO BID Prescribed by: FABIOLA RODRIGUEZ on 09/22/15 1203 Sucralfate 1 Gm Tablet, 1 GM PO QID Prescribed by: AFBIOLA RODRIGUEZ on 09/22/15 1203 Patient Home Medication List Home Medication List Reviewed: Yes Constitutional: no symptoms reported, No fever Respiratory: no symptoms reported Cardiovascular: no symptoms reported Musculoskeletal: see HPI Skin: see HPI Psychiatric/Neurological: See HPI Past Nuuliyd-Yvyveu-Bwdrwt Hx Patient Social History Alcohol Use: Denies Use Recreational Drug Use: No Smoking Status: Never a Smoker 2nd Hand Smoke Exposure: No Recent Hopitalizations: No Immunizations Up To Date Tetanus Booster (TDap): Unknown Past Medical History Surgeries: Yes (RIGHT LOWER LUNG LOBECTOMY--FUNGAL INFECTION; COLONOSCOPY/EGD) Lobectomy Respiratory: Yes (RIGHT LOWER LUNG LOBECTOMY--FUNGAL INFECTION) Cardiac: Yes (SVT) Irregular Heartbeat Neurological: Yes (LIKELY PERIPHERAL NEUROPATHY IN FEET) Neuropathy Reproductive Disorders: No Genitourinary: No Gastrointestinal: Yes (GASTRIC ULCER) Ulcer Musculoskeletal: No Endocrine: Yes Diabetes, Insulin dep HEENT: No Cancer: No Psychosocial: No Integumentary: No Blood Disorders: No Physical Exam Vital Signs Vital Signs - First Documented 11/11/17 22:20 Temp 98.2 Pulse 74 Resp 16 B/P (MAP) 155/89 (111) Pulse Ox 97 O2 Delivery Room Air Capillary Refill : General Appearance: WD/WN, no apparent distress, other (SMILING, DOES NOT APPEAR ILL OR TO BE IN ANY DISCOMFORT ) Feet: left foot other (MODERATE SWELLING OF ENTIRE LEFT FOOT, TO JUST ABOVE ANKLE. MILD ERYTHEMA TO DISTAL ASPECT OF FOOT. NO OPEN WOUNDS NOTED. LEFT GREAT TOE WITH SLIGHT TENDERNESS TO MEDIAL TIP OF NAIL EDGE. NAIL ITSELF IS COMPLETELY DETATCHED ALREADY--JUST BEING HELD IN PLACE BY OLD/DRIED CUTICLE AND SURROUNDING OLD/DRIED SKIN AROUND NAIL EDGE--LITERALLY 1 MM OR LESS. NAIL BED WITH SCANT AMOUNT OF SEROUS DRAINAGE. NAILBED VERY DEFORMED. NO STREAKS OR AREAS OF FLUCTUANCE. PT HAS GOOD CAPILLARY REFILL, AND FOOT/TOE IS WARM, AND VERY PINK. HAS FULL ROM, BUT HAS DECREASED SENSATION TO FOOT AND TOES. 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 operator II-XII nml as tested, alert, normal mood/affect, oriented x 3 Skin: normal color, warm/dry, other ( ABOVE) Progress/Results/Core Measures Lab Results Laboratory Tests Test 11/11/17 22:40 11/11/17 23:14 Range/Units White Blood Count 5.6 4.3-11.0 10^3/uL Red Blood Count 4.29 L 4.35-5.85 10^6/uL Hemoglobin 12.7 L 13.3-17.7 G/DL Hematocrit 36 L 40-54 % Mean Corpuscular Volume 85 80-99 FL Mean Corpuscular Hemoglobin 30 25-34 PG Mean Corpuscular Hemoglobin Concent 35 32-36 G/DL Red Cell Distribution Width 12.7 10.0-14.5 % Platelet Count 347 130-400 10^3/uL Mean Platelet Volume 9.4 7.4-10.4 FL Neutrophils (%) (Auto) 39 L 42-75 % Lymphocytes (%) (Auto) 44 12-44 % Monocytes (%) (Auto) 12 0-12 % Eosinophils (%) (Auto) 5 0-10 % Basophils (%) (Auto) 1 0-10 % Neutrophils # (Auto) 2.2 1.8-7.8 X 10^3 Lymphocytes # (Auto) 2.4 1.0-4.0 X 10^3 Monocytes # (Auto) 0.6 0.0-1.0 X 10^3 Eosinophils # (Auto) 0.3 0.0-0.3 10^3/uL Basophils # (Auto) 0.0 0.0-0.1 10^3/uL Erythrocyte Sedimentation Rate 55 H 0-30 MM/HR Prothrombin Time 12.7 12.2-14.7 SEC INR Comment 0.9 0.8-1.4 Activated Partial Thromboplast Time 28 24-35 SEC Sodium Level 137 135-145 MMOL/L Potassium Level 4.2 3.6-5.0 MMOL/L Chloride Level 102 98-107 MMOL/L Carbon Dioxide Level 29 21-32 MMOL/L Anion Gap 6 5-14 MMOL/L Blood Urea Nitrogen 15 7-18 MG/DL Creatinine 0.78 0.60-1.30 MG/DL Estimat Glomerular Filtration Rate > 60 BUN/Creatinine Ratio 19 Glucose Level 196 H 70-105 MG/DL Lactic Acid Level 0.92 0.50-2.00 MMOL/L Calcium Level 8.9 8.5-10.1 MG/DL Total Bilirubin 0.4 0.1-1.0 MG/DL Aspartate Amino Transf (AST/SGOT) 31 5-34 U/L Alanine Aminotransferase (ALT/SGPT) 30 0-55 U/L Alkaline Phosphatase 108 40-136 U/L C-Reactive Protein High Sensitivity 0.27 0.00-0.50 MG/DL Total Protein 7.6 6.4-8.2 GM/DL Albumin 3.8 3.2-4.5 GM/DL Glucometer 155 H 70-110 MG/DL My Orders Orders - LISA VU DO Saline Lock/Iv-Start (11/11/17 22:34) Ct Extremity Lower Left Wo (11/11/17 22:34) Cbc With Automated Diff (11/11/17 22:34) Comprehensive Metabolic Panel (11/11/17 22:34) Hs C Reactive Protein (11/11/17 22:34) Erythrocyte Sedimentation Rate (11/11/17 22:34) Lactic Acid Analyzer (11/11/17 22:34) Protime With Inr (11/11/17 22:34) Partial Thromboplastin Time (11/11/17 22:34) Blood Culture (11/11/17 22:34) Foot, Left, 3 Views (11/11/17 22:34) Wound Culture (11/11/17 23:24) Vancomycin Injection (Vancomycin Injecti (11/11/17 23:30) Medications Given in ED Current Medications Medications Dose Ordered Sig/Edu Route Start Time Stop Time Status Last Admin Dose Admin Vancomycin HCl 1000 mg/Sodium Chloride 250 ml @ 250 mls/hr ONCE ONCE IV 11/11/17 23:30 11/12/17 00:49 DC 11/11/17 23:40 250 MLS/HR Vital Signs/I&O 11/11/17 22:20 Temp 98.2 Pulse 74 Resp 16 B/P (MAP) 155/89 (111) Pulse Ox 97 O2 Delivery Room Air Comments XRAYS LEFT FOOT--NO ACUTE PROCESS, PENDING RADIOLOGIST REVIEW CT LEFT FOOT--CELLULITIS, NO SOFT TISSUE ABSCESS OR GAS. NO EVIDENCE OF OSTEOMYELITIS OR OSSEOUS ABNORMALITY. PER [facility] VIA FAX @ [phone] Reviewed: Reviewed by Hi Departure Communication (Admissions) 8160--SPOKE WITH DR. SERRATO, ACCEPTS PT FOR ADMIT. Impression Primary Impression: Cellulitis of left foot Additional Impressions: Insulin dependent diabetes mellitus Cellulitis of great toe of left foot NON TRAUMATIC AVULSION OF LEFT GREAT TOENAIL Non-compliance Disposition: ADMITTED INPATIENT Condition: Stable Admissions Decision to Admit Reason: Admit from ER (General) Decision to Admit/Date: Nov 11, 2017 Time/Decision to Admit Time: 23:30 Departure-Patient Inst. Referrals: NO,LOCAL PHYSICIAN (PCP/Family) Primary Care Physician LISA VU DO Nov 11, 2017 22:42
[2017-11-11 22:58] LABS: BASOPHILS % (AUTO) 1 % (0-10); EOSINOPHILS # (AUTO) 0.3 10^3/uL (0.0-0.3); EOSINOPHILS % (AUTO) 5 % (0-10); HEMATOCRIT 36 % (40-54); HEMOGLOBIN 12.7 G/DL (13.3-17.7); LYMPHOCYTES # (AUTO) 2.4 X 10^3 (1.0-4.0); LYMPHOCYTES % (AUTO) 44 % (12-44); MEAN CORPUSCULAR HEMOGLOBIN 30 PG (25-34); MEAN CORPUSCULAR HGB CONC 35 G/DL (32-36); MEAN CORPUSCULAR VOLUME 85 FL (80-99); MEAN PLATELET VOLUME 9.4 FL (7.4-10.4); MONOCYTES # (AUTO) 0.6 X 10^3 (0.0-1.0); MONOCYTES % (AUTO) 12 % (0-12); NEUTROPHILS # (AUTO) 2.2 X 10^3 (1.8-7.8); NEUTROPHILS % (AUTO) 39 % (42-75); PLATELET COUNT 347 10^3/uL (130-400); RED BLOOD COUNT 4.29 10^6/uL (4.35-5.85); RED CELL DISTRIBUTION WIDTH 12.7 % (10.0-14.5); WHITE BLOOD COUNT 5.6 10^3/uL (4.3-11.0)
[2017-11-11 23:06] LABS: INR 0.9 (0.8-1.4); PROTHROMBIN TIME PATIENT 12.7 SEC (12.2-14.7)
[2017-11-11 23:17] LABS: ALANINE AMINOTRANSFERASE 30 U/L (0-55); ALBUMIN 3.8 GM/DL (3.2-4.5); ALKALINE PHOSPHATASE 108 U/L (40-136); BILIRUBIN,TOTAL 0.4 MG/DL (0.1-1.0); BUN/CREATININE RATIO 19; CALCIUM 8.9 MG/DL (8.5-10.1); CARBON DIOXIDE 29 MMOL/L (21-32); CHLORIDE 102 MMOL/L (98-107); CREATININE SERUM 0.78 MG/DL (0.60-1.30); GFR ESTIMATED > 60; GLUCOSE 196 MG/DL (70-105); POTASSIUM 4.2 MMOL/L (3.6-5.0); SODIUM 137 MMOL/L (135-145); TOTAL PROTEIN 7.6 GM/DL (6.4-8.2)
[2017-11-11 23:18] LABS: ERYTHROCYTE SEDIMENTATION RATE 55 MM/HR (0-30)
[2017-11-11] MEDS ORDERED: VANCOMYCIN INJECTION 1,000 MG in NS (IVPB) 250 ML IV ONE (23:30)
[2017-11-11] MEDS ORDERED: VANCOMYCIN 1000 MG/VIAL ONE (23:31)
[2017-11-11] MEDS ORDERED: NS (IVPB) 250 ML ONE (23:31)
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
[2017-11-12 02:27] VITALS: BP 164/70
[2017-11-12 04:48] LABS: BASOPHILS # (AUTO) 0.1 10^3/uL (0.0-0.1); BASOPHILS % (AUTO) 1 % (0-10); EOSINOPHILS # (AUTO) 0.2 10^3/uL (0.0-0.3); EOSINOPHILS % (AUTO) 4 % (0-10); HEMATOCRIT 36 % (40-54); HEMOGLOBIN 12.4 G/DL (13.3-17.7); LYMPHOCYTES # (AUTO) 2.1 X 10^3 (1.0-4.0); LYMPHOCYTES % (AUTO) 38 % (12-44); MEAN CORPUSCULAR HEMOGLOBIN 30 PG (25-34); MEAN CORPUSCULAR HGB CONC 35 G/DL (32-36); MEAN CORPUSCULAR VOLUME 85 FL (80-99); MEAN PLATELET VOLUME 9.5 FL (7.4-10.4); MONOCYTES # (AUTO) 0.5 X 10^3 (0.0-1.0); MONOCYTES % (AUTO) 10 % (0-12); NEUTROPHILS # (AUTO) 2.7 X 10^3 (1.8-7.8); NEUTROPHILS % (AUTO) 48 % (42-75); PLATELET COUNT 336 10^3/uL (130-400); RED CELL DISTRIBUTION WIDTH 12.6 % (10.0-14.5); WHITE BLOOD COUNT 5.6 10^3/uL (4.3-11.0)
[2017-11-12 04:55] VITALS: BP 165/73
[2017-11-12 05:15] LABS: ALANINE AMINOTRANSFERASE 29 U/L (0-55); ALBUMIN 3.4 GM/DL (3.2-4.5); ALKALINE PHOSPHATASE 101 U/L (40-136); BILIRUBIN,TOTAL 0.4 MG/DL (0.1-1.0); BUN/CREATININE RATIO 18; CALCIUM 9.1 MG/DL (8.5-10.1); CARBON DIOXIDE 25 MMOL/L (21-32); CHLORIDE 105 MMOL/L (98-107); GFR ESTIMATED > 60; GLUCOSE 290 MG/DL (70-105); POTASSIUM 4.3 MMOL/L (3.6-5.0); SODIUM 138 MMOL/L (135-145); TOTAL PROTEIN 6.7 GM/DL (6.4-8.2)
[2017-11-12] MEDS: inSUlin (REGULAR) HUMAN 1 UNIT/0.01 ML (CHARGE PER UNIT) SC SCH ×2 (05:54→11:03)
--- NOTE | 2017-11-12 07:32 | Diagnostic Imaging Report ---
EXAMINATION: Left foot series INDICATION: Foot swelling. FINDINGS: Alignment of the foot appears normal. There is no evidence of an acute fracture. There is no dislocation. There is mild soft tissue swelling but no focal soft tissue abnormality or foreign body. IMPRESSION: 1. Mild soft tissue swelling about the foot without evidence of acute fracture or malalignment. Dictated by: Dictated on workstation # [id number]
--- NOTE | 2017-11-12 07:35 | Discharge Instructions ---
Discharge Inst-[facility] Discharge Medications Continued Medications: Gabapentin (Gabapentin) 300 Mg Capsule 300 MG PO TID, CAP Insulin Aspart (Novolog Vial) 10 Unit/0.1 Ml Susp 13 UNIT SC BID Insulin Determir (Levemir Pen) 100 U/Ml Insuln.pen 13 UNITS SQ BID Metformin Hcl (Glucophage) 1,000 Mg Tablet 1000 MG PO BID Pantoprazole Sodium (Protonix) 40 Mg Tablet.dr 40 MG PO BID for 30 Days, TAB 3 Refills Sucralfate (Carafate) 1 Gm Tablet 1 GM PO QID for 30 Days, TAB 3 Refills Patient Instructions Goal/[facility]u appointment this week. Activity & Diet Discharge Diet: ADA Diet Orders-Post D/C & Referrals Pneu Vac Indicated: Yes CECILIO SERRATO DO Nov 12, 2017 07:35
[2017-11-12] MEDS ORDERED: CEPH-507 PO (07:36)
--- NOTE | 2017-11-12 07:38 | Short Stay Summary ---
History of Present Illness History of Present Illness Reason for visit/HPI This is a 61 yo male with hx of uncontrolled DM who presented to the ER with complaints of his toenail coming off. Pt denies any known trauma. States he has had some mild swelling to the toe but denies pain or drainage. Denies fever. Toenail was attached only by the cuticle and was removed in the ER by Dr. Raymond. Pt was admitted for cellulitis of the foot. CBC, CRP, lactic acid normal. Pt was diagnosed with cellulitis and admitted for IV vancomycin. This am patient reports no pain or swelling to the L great toe or foot. No fever since admission. Date of Admission Nov 11, 2017 at 23:30 Date of Discharge November 12, 2017 Time Seen by Provider: 06:45 Attending Physician Cecilio Serrato DO Admitting Physician Consult Allergies and Home Medications Allergies Coded Allergies: NKANo Known Allergies (Verified Allergy, Unknown, 01/30/07) Home Medications Cephalexin 500 Mg Capsule, 500 MG PO QID Prescribed by: CECILIO SERRATO on 11/12/17 0736 Gabapentin 100 Mg Capsule, 100 MG PO TID Prescribed by: CECILIO SERRATO on 11/12/17 09 Glipizide 10 Mg Tablet, 10 MG PO DAILY, (Reported) Insulin Glargine,Hum.rec.anlog 100 Unit/1 Ml Vial, 18 UNITS SQ BID Prescribed by: CECILIO SERRATO on 11/12/17921 Losartan Potassium 25 Mg Tablet, 25 MG PO DAILY, (Reported) Metformin HCl 1,000 Mg Tablet, 1,000 MG PO BID Prescribed by: CECILIO SERRATO on 11/12/17921 Metformin Hcl 1,000 Mg Tablet, 1,000 MG PO BID, (Reported) Patient Home Medication List Home Medication List Reviewed: Yes Past Qvflgal-Ecypim-Tjtrkf Hx Patient Social History Alcohol Use: Denies Use Recreational Drug Use: No Smoking Status: Never a Smoker 2nd Hand Smoke Exposure: No Physical Abuse Screen: No Sexual Abuse: No Recent Foreign Travel: No Contact w/other who traveled: No Recent Hopitalizations: No Recent Infectious Disease Expo: No Immunizations Up To Date Tetanus Booster (TDap): Unknown Surgeries Yes (RIGHT LOWER LUNG LOBECTOMY--FUNGAL INFECTION; COLONOSCOPY/EGD) Lobectomy Respiratory Yes (RIGHT LOWER LUNG LOBECTOMY--FUNGAL INFECTION) Currently Using CPAP: No Currently Using BIPAP: No Cardiovascular Yes (SVT) Irregular Heartbeat Neurological Yes (LIKELY PERIPHERAL NEUROPATHY IN FEET/HANDS) Neuropathy Reproductive System Hx Reproductive Disorders: No Genitourinary No Gastrointestinal Yes (GASTRIC ULCER) Ulcer Musculoskeletal No Endocrine History of Endocrine Disorders: Yes Endocrine Disorders: Diabetes, Insulin dep Are Your Blood Sugars Over 250: Yes HEENT History of HEENT Disorders: Yes (double vision-resolved at this time) Loss of Vision: Denies Hearing Impairment: Denies Cancer No Psychosocial History of Psychiatric Problem: No Integumentary History of Skin or Integumenta: No Blood Transfusions History of Blood Disorders: No Constitutional: No chills, No fever EENTM: no symptoms reported Respiratory: cough Cardiovascular: no symptoms reported Gastrointestinal: no symptoms reported Genitourinary: no symptoms reported Skin: see HPI Physical Exam Vital Signs Vital Signs - First Documented 11/11/17 22:20 Temp 98.2 Pulse 74 Resp 16 B/P (MAP) 155/89 (111) Pulse Ox 97 O2 Delivery Room Air Capillary Refill : Less Than 3 Seconds General Appearance: No Apparent Distress, WD/WN HEENT: PERRL/EOMI Respiratory: Lungs Clear, Normal Breath Sounds Cardiovascular: Regular Rate, Rhythm, No Edema Gastrointestinal: Normal Bowel Sounds Extremity: No Pedal Edema, Other (bandage removed from L great toe, no erythema , swelling or drainage noted; toenail previously removed but no evidence of trauma or active infection) Clinical Quality Measures DVT/VTE Risk/Contraindication: Risk Factor Score Per Nursin RFS Level Per Nursing on Admit: 3=High Short Stay Diagnosis Discharge Diagnosis-Short Stay Admission Diagnosis: 1. Cellulitis L great toe 2. DM Type 2 w/ peripheral neuropathy; uncontrolled Final Discharge Diagnosis: 1. avulsion of L great toenail w/o evidence of active infection 2. DM Type 2 w/ peripheral neuropathy; uncontrolled Conclusion Labs Laboratory Tests 11/11/17 22:40: White Blood Count 5.6, Red Blood Count 4.29L, Hemoglobin 12.7L, Hematocrit 36L, Mean Corpuscular Volume 85, Mean Corpuscular Hemoglobin 30, Mean Corpuscular Hemoglobin Concent 35, Red Cell Distribution Width 12.7, Platelet Count 347, Mean Platelet Volume 9.4, Neutrophils (%) (Auto) 39L, Lymphocytes (%) (Auto) 44 , Monocytes (%) (Auto) 12, Eosinophils (%) (Auto) 5, Basophils (%) (Auto) 1, Neutrophils # (Auto) 2.2, Lymphocytes # (Auto) 2.4, Monocytes # (Auto) 0.6, Eosinophils # (Auto) 0.3, Basophils # (Auto) 0.0, Erythrocyte Sedimentation Rate 55H, Prothrombin Time 12.7, INR Comment 0.9, Activated Partial Thromboplast Time 28, Sodium Level 137, Potassium Level 4.2, Chloride Level 102 , Carbon Dioxide Level 29, Anion Gap 6, Blood Urea Nitrogen 15, Creatinine 0.78 , Estimat Glomerular Filtration Rate > 60, BUN/Creatinine Ratio 19, Glucose Level 196H, Lactic Acid Level 0.92, Calcium Level 8.9, Total Bilirubin 0.4, Aspartate Amino Transf (AST/SGOT) 31, Alanine Aminotransferase (ALT/SGPT) 30, Alkaline Phosphatase 108, C-Reactive Protein High Sensitivity 0.27, Total Protein 7.6, Albumin 3.8 11/11/17 23:14: Glucometer 155H 11/12/17 04:25: White Blood Count 5.6, Red Blood Count 4.20L, Hemoglobin 12.4L, Hematocrit 36L, Mean Corpuscular Volume 85, Mean Corpuscular Hemoglobin 30, Mean Corpuscular Hemoglobin Concent 35, Red Cell Distribution Width 12.6, Platelet Count 336, Mean Platelet Volume 9.5, Neutrophils (%) (Auto) 48, Lymphocytes (%) (Auto) 38, Monocytes (%) (Auto) 10, Eosinophils (%) (Auto) 4, Basophils (%) (Auto) 1, Neutrophils # (Auto) 2.7, Lymphocytes # (Auto) 2.1, Monocytes # (Auto) 0.5, Eosinophils # (Auto) 0.2, Basophils # (Auto) 0.1, Sodium Level 138, Potassium Level 4.3, Chloride Level 105, Carbon Dioxide Level 25, Anion Gap 8, Blood Urea Nitrogen 14, Creatinine 0.80, Estimat Glomerular Filtration Rate > 60, BUN/ Creatinine Ratio 18, Glucose Level 290H, Calcium Level 9.1, Total Bilirubin 0.4 , Aspartate Amino Transf (AST/SGOT) 36H, Alanine Aminotransferase (ALT/SGPT) 29 , Alkaline Phosphatase 101, Total Protein 6.7, Albumin 3.4 Conclusion/Plan 1. avulsion of L great toenail w/o evidence of active infection - CBC, CRP normal; clinically no evidence of active infection - DC w/ prescription for Keflex x7d as pt is at risk for infection due to uncontrolled DM - thickened toenail on the R secondary to fungus - at risk for trauma and avulsion - recommend f/u w/ Podiatry. 2. DM Type 2 w/ peripheral neuropathy; uncontrolled - A1c in 09/2017 was 12.0% - Reviewed home medications per clinic record: Metformin discontinued per clinic record. Per pt report he was told he could stop it as his BS were not improving while on it. Lantus/Levemir - pt reports taking 18 units BID as he has episodes of hypoglycemia if he takes 20-25 units BID as prescribed. Glipizide - taking 10mg daily - Recommend re-starting Metformin to help with insulin sensitivity but will not be able to use it as monotherapy - new rx send to [facility]. - Continue Lantus/Levemir 18 units BID - Consider alternative to Glipizide as this along with insulin can contribute to episodes of hypoglycemia; BS not well controlled on current regimen w/ last A1c 12%. May need meal time short-acting insulin instead of Glipizide. Will continue on DC but need to be discussed with patient and treatment plan determine as out-patient - Recommend f/u w/ DM Educator at [facility]. Discharge Medications New, Converted or Re-Newed RX: Transmitted to Pharmacy ([facility]) New Medications: Cephalexin (Keflex) 500 Mg Capsule 500 MG PO QID for 5 Days, #20 CAP Metformin HCl (Metformin HCl) 1,000 Mg Tablet 1000 MG PO BID, #60 TAB 0 Refills Changed Medications: Insulin Glargine,Hum.rec.anlog (Lantus) 100 Unit/1 Ml Vial 18 UNITS SQ BID, #1 VIAL 0 Refills (Changed from: 25 UNITS; Refills: ) Continued Medications: Gabapentin (Gabapentin) 100 Mg Capsule 100 MG PO TID, #90 CAP Glipizide (Glipizide) 10 Mg Tablet 10 MG PO DAILY Losartan Potassium (Losartan Potassium) 25 Mg Tablet 25 MG PO DAILY Patient Instructions Goal/Follow Up Appt: [facility] patient to schedule follow-up appointment this week. Patient Instructions: New prescription for Keflex (antibiotic) sent to [facility] Re-started metformin 1000mg twice daily - sent to [facility] Activity & Diet Discharge Diet: ADA Diet Orders-Post D/C & Referrals Pneu Vac Indicated: Yes CECILIO SERRATO DO Nov 12, 2017 07:38
[2017-11-12] MEDS ORDERED: LISI-552 PO (07:56)
[2017-11-12] MEDS ORDERED: GLIP10TA13 PO (07:56)
[2017-11-12] MEDS ORDERED: LOSA25TA21 PO (07:56)
[2017-11-12] MEDS ORDERED: INSU100V6 SQ ×3 (07:56→09:22)
--- NOTE | 2017-11-12 08:10 | Diagnostic Imaging Report ---
PROCEDURE: CT left lower extremity without contrast. TECHNIQUE: Multiple contiguous axial images were obtained through the left lower extremity without the use of intravenous contrast. Sagittal and coronal reformations were then performed. INDICATION: Left foot swelling and redness, Mainly at the great toe, diabetes Comparison: None Findings: No acute fracture or dislocation is seen in the left foot. Alignment appears normal. There are mild degenerative changes scattered throughout the left foot. There is a moderate-sized Achilles tendon enthesophyte. A small plantar calcaneal enthesophyte is seen. No significant left ankle joint effusion is seen. No aggressive osseous lesions or cortical erosions are seen. There is calcific atherosclerosis. Moderate to marked subcutaneous and superficial fascial edema is seen at the medial and lateral aspects of the ankle. The musculature is unremarkable. IMPRESSION: 1. Superficial edema about the left ankle, medial more than lateral. No definite drainable fluid collection is seen, although suboptimally evaluated in the absence of contrast. 2. No acute osseous abnormality or CT evidence of osteomyelitis is seen. Dictated by: Dictated on workstation # [id number]
[2017-11-12 08:30] VITALS: BP 140/66
[2017-11-12] MEDS ORDERED: SILVER SULFADIAZINE 50 GM CREAM TOP SCH ×2 (09:00)
[2017-11-12] MEDS ORDERED: VANCOMYCIN 1 GM/NS 250 ML IVPB IV SCH ×2 (09:00)
[2017-11-12] MEDS ORDERED: GABA-486 PO (09:08)
[2017-11-12] MEDS ORDERED: METF1000 PO (09:22)
--- NOTE | 2017-11-12 09:25 | Discharge Instructions ---
Discharge [facility] Discharge Medications New, Converted or Re-Newed RX: [facility] New Medications: Cephalexin (Keflex) 500 Mg Capsule 500 MG PO QID for 5 Days, #20 CAP Metformin HCl (Metformin HCl) 1,000 Mg Tablet 1000 MG PO BID, #60 TAB 0 Refills Changed Medications: Insulin Glargine,Hum.rec.anlog (Lantus) 100 Unit/1 Ml Vial 18 UNITS SQ BID, #1 VIAL 0 Refills (Changed from: 25 UNITS; Refills: ) Continued Medications: Gabapentin (Gabapentin) 100 Mg Capsule 100 MG PO TID, #90 CAP Glipizide (Glipizide) 10 Mg Tablet 10 MG PO DAILY Losartan Potassium (Losartan Potassium) 25 Mg Tablet 25 MG PO DAILY Patient Instructions Goal/Follow Up Appt[facility] to schedule follow-up appointment this week. Patient Instructions: [facility] Activity & Diet Discharge Diet: ADA Diet Orders-Post D/C & Referrals Pneu Vac Indicated: Yes CECILIO SERRATO DO Nov 12, 2017 08:00
[2017-11-12 10:30] VITALS: BP 140/66
[2017-11-13] MEDS ORDERED: VANCOMYCIN 1 GM/NS 250 ML IVPB IV SCH ×2
[2017-11-13] MEDS ORDERED: TROUGH ORDER-PHARMACY XX NR (08:00)
== END 2017-11-12 10:40 | disposition home or self-care (01) | DRG 605 ==
LOC: EDUNIT# 22:12 → ER 22:14 → 4TH 23:30
PROVIDERS: ADMIT Family Medicine; ATTEND Family Medicine
DX: S91.202A Unspecified open wound of left great toe with damage to nail, initial encounter (principal); E11.65 Type 2 diabetes mellitus with hyperglycemia; E11.42 Type 2 diabetes mellitus with diabetic polyneuropathy; I47.1 Supraventricular tachycardia; B35.1 Tinea unguium; Z79.4 Long term (current) use of insulin; Z91.14 Patient's other noncompliance with medication regimen
CPT/HCPCS: 36415; 73630; 73700; 80053; 82962; 83605; 85025; 85610; 85652; 85730; 86141; 87040; 87070; 87077; 87186; 87205; 96365

== ENCOUNTER → 2018-09-11 | Outpatient (CLI) | payer MEDICARE ==
[~2018-09-11] MED LIST changes: +CEPH-507 PO; +GABA-486 PO; +GLIP10TA13 PO; +INSU100V6 SQ; +LISI-552 PO; +LOSA25TA41 PO; +METF-399 PO
--- NOTE | 2018-09-11 11:19 | Diagnostic Imaging Report ---
INDICATION: Left lower quadrant pain, hematuria. TECHNIQUE: CT of the abdomen and pelvis obtained without IV contrast. COMPARISON: 10/10/2008 FINDINGS: Visualized portions of the lung bases show some parenchymal scarring in the right base with pleural thickening along the right medial pleural surface. The liver shows no focal lesion without contrast. The spleen, adrenals, and kidneys appear unremarkable. There is no radiopaque stone or hydronephrosis. Pancreas is somewhat atrophic but shows no focal abnormality. There is no retroperitoneal mass or adenopathy. There is no ascites or abnormal fluid collection. There is moderately prominent stool in the colon. There is no overt bowel obstruction. Urinary bladder appears grossly unremarkable without contrast. There is no pelvic adenopathy. IMPRESSION: No evidence of urinary tract stone or hydronephrosis. There is some parenchymal scarring in the right lung base with pleural thickening in the right medial pleural surface inferiorly. There is no abdominal mass or abnormal fluid collection seen. There is moderately prominent stool in the colon with no overt bowel obstruction. Dictated by: Dictated on workstation # [id number]
== END ==
LOC: RAD 09:10
PROVIDERS: ATTEND Physician Assistant
DX: J92.9 Pleural plaque without asbestos (principal); J98.4 Other disorders of lung; R10.32 Left lower quadrant pain; R31.9 Hematuria, unspecified
CPT/HCPCS: 74176

== ENCOUNTER → 2019-06-04 | Outpatient (CLI) | payer MEDICARE ==
[~2019-06-04] MED LIST changes: +ACHD5005 PO; +AMLO10TA7 PO; +AMOX-358 PO; +GBPN600T PO; +IBUP-30 PO; +INSU100I14 SQ; +INSU100I29 SC; +LOSA50TA63 PO; +NYST1000 PO
--- NOTE | 2019-06-04 13:08 | Diagnostic Imaging Report ---
EXAMINATION: Left foot 3 views HISTORY: Soft tissue wound. FINDINGS: Comparison is 11/11/2017. Gas is seen in the subcutaneous tissues inferior to the left first metatarsophalangeal joint. No erosions are seen at this location to indicate osteomyelitis. No fracture. Alignment is normal. Joint spaces are normal. IMPRESSION: 1. Subcutaneous gas inferior to left first metatarsophalangeal joint without erosions of the underlying bone to indicate osteomyelitis. Dictated by: Dictated on workstation # [id number]
== END ==
LOC: RAD 10:58
PROVIDERS: ATTEND Nurse Practitioner
DX: E11.621 Type 2 diabetes mellitus with foot ulcer (principal); L97.522 Non-pressure chronic ulcer of other part of left foot with fat layer exposed; S91.302A Unspecified open wound, left foot, initial encounter
CPT/HCPCS: 36415; 73630; 83036

== ENCOUNTER → 2019-06-04 | Outpatient (CLI) | payer MEDICARE ==
[~2019-06-04] MED LIST changes: -ACHD5005 PO; -AMLO10TA7 PO; -AMOX-358 PO; -GBPN600T PO; -IBUP-30 PO; -INSU100I14 SQ; -INSU100I29 SC; -LOSA50TA63 PO; -NYST1000 PO
== END ==
LOC: WOUNDCARE 08:34
PROVIDERS: ATTEND Nurse Practitioner
DX: E11.621 Type 2 diabetes mellitus with foot ulcer (principal); L97.522 Non-pressure chronic ulcer of other part of left foot with fat layer exposed
CPT/HCPCS: 99214

== ENCOUNTER → 2019-06-05 | Outpatient (CLI) | payer MEDICARE | LOC: WOUNDCARE 13:51 | PROVIDERS: ATTEND Surgery | DX: M65.072 Abscess of tendon sheath, left ankle and foot (principal); E11.621 Type 2 diabetes mellitus with foot ulcer; E11.42 Type 2 diabetes mellitus with diabetic polyneuropathy; L97.523 Non-pressure chronic ulcer of other part of left foot with necrosis of muscle; E11.52 Type 2 diabetes mellitus with diabetic peripheral angiopathy with gangrene | CPT/HCPCS: 11043; 87070; 87077; 87186; 87205 ==

== ENCOUNTER 2019-06-09 00:58 | Emergency (ER) | payer MEDICARE ==
[2019-06-09] MEDS ORDERED: PIPERACILLIN SODIUM/TAZOBACTAM 4.5 GM in NS (IVPB) 100 ML IV ONE (01:15)
[2019-06-09] MEDS ORDERED: VANCOMYCIN INJECTION 1,000 MG in NS (IVPB) 250 ML IV ONE (01:15)
[2019-06-09 01:43] LABS: BILIRUBIN,URINE NEGATIVE (NEGATIVE); CLARITY,URINE CLEAR; COLOR,URINE YELLOW; GLUCOSE, URINE (UA) NEGATIVE (NEGATIVE); KETONES,URINE NEGATIVE (NEGATIVE); LEUKOCYTE ESTERASE ,URINE 1+ (NEGATIVE); NITRITE,URINE NEGATIVE (NEGATIVE); PH,URINE 6 (5-9); PROTEIN,URINE 3+ (NEGATIVE)
[2019-06-09 01:53] LABS: BACTERIA,URINE TRACE /HPF; RBC,URINE RARE /HPF; SQUAMOUS EPITHELIAL CELL,UR RARE /HPF
--- NOTE | 2019-06-09 02:40 | NUR ---
pt signs ama form despite conversations with dr solis and this nurse about the possible consequences of his decision.
--- NOTE | 2019-06-09 06:14 | Diagnostic Imaging Report ---
INDICATION: Left foot pain COMPARISON: 06/04/2019 FINDINGS: 3 views of the left foot demonstrate gas in the soft tissues adjacent to the 1st metatarsophalangeal joint. There is no radiopaque foreign body. No osteomyelitis, fracture-dislocation is seen. IMPRESSION: Soft tissue gas without underlying osteomyelitis or fracture Dictated by: Dictated on workstation # [id number]
== END 2019-06-09 02:40 | disposition left against medical advice (07) ==
LOC: EDUNIT# 00:58 → ER 01:00
DX: S91.302A Unspecified open wound, left foot, initial encounter (principal); X58.XXXA Exposure to other specified factors, initial encounter
CPT/HCPCS: 73630; 81000; 87088; 99282

== ENCOUNTER 2019-06-12 14:53 | Inpatient (IN) | payer MEDICARE ==
[~2019-06-12] VITALS: Ht 167.7 cm; Wt 67.4 kg
[~2019-06-12 14:53] MED LIST changes: -GBPN600T PO; -IBUP-30 PO; -INSU100I29 SC
[2019-06-12] MEDS ORDERED: ONDANSETRON 4 MG/2 ML (SDV) Z0FRAN IVP PRN (15:15)
[2019-06-12] MEDS ORDERED: fentaNYL INJECTION 100 MCG/2 ML AMP IVP PRN (15:15)
[2019-06-12] MEDS ORDERED: diphenhydrAMINE 25 MG TAB (BENADRYL) PO PRN (15:15)
[2019-06-12] MEDS ORDERED: MELATONIN 3 MG TABLET PO PRN (15:15)
[2019-06-12] MEDS ORDERED: LOPERAMIDE 2 MG (IMODIUM) TABLET PO PRN (15:15)
[2019-06-12] MEDS ORDERED: DOCUSATE SODIUM 100 MG (COLACE) CAP PO PRN (15:15)
[2019-06-12] MEDS ORDERED: CALCIUM CARBONATE 500 MG (TUMS) TAB.CHEW PO PRN (15:15)
[2019-06-12] MEDS ORDERED: ALPRAZolam 0.25 MG (XANAX) TAB PO PRN (15:15)
--- NOTE | 2019-06-12 15:58 | NUR ---
JAROD PEDRO admitted to room 419-1, with an admitting diagnosis of L foot wound abscess, on 06/12/19 from via wound care, accompanied by wound care staff. JAROD PEDRO introduced to surroundings, call light, bed controls, phone, TV, temperature control, lights, meal times, smoking policy, visitor policy, side rail policy, bathrooms and showers. Patient Rights given to patient in the handbook. JAROD PEDRO verbalizes understanding that [facility] is not responsible for the loss or damage to any personal effects or valuables that are kept in the patients possession during their hospitalization. The following Patient Care Plans were discussed with the patient: Discharge Planning, pain management, dehydration, and medications. JAROD PEDRO verbalizes understanding of Interdisciplinary Patient Education. Patient and/or family were informed about the Rapid Response Team and its purpose.
[2019-06-12 16:00] VITALS: BP 218/104
[2019-06-12] MEDS ORDERED: amLODIPine 5 MG (NORVASC) TAB PO NR (16:08)
[2019-06-12] MEDS ORDERED: PIPERACILLIN/TAZO 4.5 GM/NS 100 ML IV NR ×2 (16:15)
--- NOTE | 2019-06-12 16:16 | Progress Note-Pre Operative ---
Pre-Operative Progress Note H&P Reviewed The H&P was reviewed, patient examined and no changes noted. Date Seen by Provider: Jun 12, 2019 Time Seen by Provider: 14:00 Date H&P Reviewed: Jun 12, 2019 Time H&P Reviewed: 14:00 Pre-Operative Diagnosis: left foot diabetic plantar deep subfascial abscess. YOLANDA TOMLINSON MD Jun 12, 2019 16:16 POS
[2019-06-12] MEDS: ENOXAPARIN 40 MG/0.4 ML (LOVENOX) SYR SC SCH (16:33)
[2019-06-12] MEDS: NS IV 1000 ML 1,000 ML IV SCH (16:33)
[2019-06-12 16:49] VITALS: BP 218/104
[2019-06-12 16:58] LABS: BASOPHILS # (AUTO) 0.1 10^3/uL (0.0-0.1); BASOPHILS % (AUTO) 0 % (0-10); EOSINOPHILS # (AUTO) 0.3 10^3/uL (0.0-0.3); EOSINOPHILS % (AUTO) 2 % (0-10); HEMATOCRIT 29 % (40-54); HEMOGLOBIN 9.6 G/DL (13.3-17.7); LYMPHOCYTES # (AUTO) 2.4 X 10^3 (1.0-4.0); LYMPHOCYTES % (AUTO) 21 % (12-44); MEAN CORPUSCULAR HEMOGLOBIN 28 PG (25-34); MEAN CORPUSCULAR HGB CONC 33 G/DL (32-36); MEAN CORPUSCULAR VOLUME 86 FL (80-99); MEAN PLATELET VOLUME 9.3 FL (7.4-10.4); MONOCYTES # (AUTO) 0.9 X 10^3 (0.0-1.0); MONOCYTES % (AUTO) 8 % (0-12); NEUTROPHILS # (AUTO) 8.1 X 10^3 (1.8-7.8); NEUTROPHILS % (AUTO) 69 % (42-75); PLATELET COUNT 550 10^3/uL (130-400); RED CELL DISTRIBUTION WIDTH 12.8 % (10.0-14.5); WHITE BLOOD COUNT 11.7 10^3/uL (4.3-11.0)
[2019-06-12] MEDS ORDERED: VANCOMYCIN 1250 MG/NS 250 ML IVPB IV NR ×2 (17:00)
[2019-06-12] MEDS ORDERED: RT-ALBUTEROL SULF 2.5 MG/3 ML PRE-MIX VIAL INH PRN (17:00)
[2019-06-12 17:23] LABS: ALANINE AMINOTRANSFERASE 16 U/L (0-55); ALBUMIN 2.9 GM/DL (3.2-4.5); ALKALINE PHOSPHATASE 124 U/L (40-136); BILIRUBIN,TOTAL 0.2 MG/DL (0.1-1.0); BUN/CREATININE RATIO 19; CALCIUM 8.7 MG/DL (8.5-10.1); CARBON DIOXIDE 25 MMOL/L (21-32); CHLORIDE 105 MMOL/L (98-107); CREATININE SERUM 0.77 MG/DL (0.60-1.30); GFR ESTIMATED > 60; GLUCOSE 222 MG/DL (70-105); POTASSIUM 4.2 MMOL/L (3.6-5.0); SODIUM 139 MMOL/L (135-145); TOTAL PROTEIN 6.9 GM/DL (6.4-8.2)
--- NOTE | 2019-06-12 17:31 | NUR ---
CR 0.77; CR CL > 60; WT 67.5 KG; VANCO 1250 MG IV BOLUS THEN 1000 MG IV Q12H; TROUGH AFTER 4TH DOSE
[2019-06-12] MEDS: inSUlin ASPART (NovoLOG) 1 UNIT/0.01 ML (CHARGE PER UNIT) SC SCH ×2 (18:28→20:46)
[2019-06-12 19:03] LABS: BILIRUBIN,URINE NEGATIVE (NEGATIVE); CLARITY,URINE CLEAR; COLOR,URINE YELLOW; GLUCOSE, URINE (UA) 2+ (NEGATIVE); KETONES,URINE NEGATIVE (NEGATIVE); LEUKOCYTE ESTERASE ,URINE NEGATIVE (NEGATIVE); NITRITE,URINE NEGATIVE (NEGATIVE); PH,URINE 7 (5-9); PROTEIN,URINE 3+ (NEGATIVE)
[2019-06-12 19:18] LABS: BACTERIA,URINE TRACE /HPF; WBC,URINE RARE /HPF
--- NOTE | 2019-06-12 19:31 | History & Physical-Hospitalist ---
History of Present Illness HPI/Chief Complaint CC: Left DM foot ulcer with abscess HPI: This is a 63yoHM w/h/o DM and non-compliance who presented to wound care appt with left foot abscess in need of surgical debridement so Dr Renee was consulted and I have admitted him and placed him on empiric broad spectrum abx in order to try to salvage the limb and prevent amputation. Dr Renee will perform the I&D tomorrow. Patient speaks limited Khmer. Reviewed meds of which he has not been taking his ordered home meds for quite some time. Source: patient, RN/MD, old records Exam Limitations: no limitations Date Seen 06/12/19 Time Seen by a Provider: 17:10 Attending Physician Myrna Romeo DO [facility],On License Of [facility] Referring Physician Date of Admission Jun 12, 2019 at 15:28 Home Medications & Allergies Home Medications Reviewed patient Home Medication Reconciliation performed by pharmacy medication reconciliations vehicle technician and/or nursing. Patients Allergies have been reviewed. Allergies Allergies Coded Allergies NKANo Known Allergies (Verified Allergy, Unknown, 01/30/07) Past Xrnsuxo-Wnkbkq-Yeyoqh Hx Past Med/Social Hx: Reviewed Nursing Past Med/Soc Hx, Reviewed and Corrections made Patient Social History Alcohol Use: Denies Use Recreational Drug Use: No Smoking Status: Never a Smoker 2nd Hand Smoke Exposure: No Physical Abuse Screen: No Sexual Abuse: No Recent Foreign Travel: No Contact w/other who traveled: No Recent Hopitalizations: No Recent Infectious Disease Expo: No Immunizations Up To Date Tetanus Booster (TDap): Unknown Past Medical History Surgeries: Lobectomy Currently Using CPAP: No Currently Using BIPAP: No Cardiac: Irregular Heartbeat Neurological: Neuropathy Reproductive: No Gastrointestinal: Ulcer Endocrine: Diabetes, Insulin dep Loss of Vision: Denies Hearing Impairment: Denies History of Blood Disorders: No Review of Systems Constitutional: see HPI, weakness Musculoskeletal: joint pain Skin: rash (left foot) Physical Exam Physical Exam Vital Signs Vital Signs - First Documented 06/12/19 06/12/19 16:00 16:33 Temp 37.1 Pulse 92 Resp 20 B/P (MAP) 218/104 (142) Pulse Ox 99 O2 Delivery Room Air FiO2 21 Capillary Refill : Height, Weight, BMI Height: 5'7.00" Weight: 136lbs. 7.0oz. [id number]; 24.00 BMI Method:Stated General Appearance: No Apparent Distress, WD/WN, Chronically ill Eyes: Right Eye Normal Inspection, Right Eye PERRL HEENT: PERRL/EOMI, Normal ENT Inspection, Pharynx Normal, Moist Mucous Membranes Neck: Full Range of Motion, Normal Inspection, Non Tender Respiratory: Chest Non Tender, Lungs Clear, Normal Breath Sounds, No Accessory Muscle Use, No Respiratory Distress Cardiovascular: Regular Rate, Rhythm, No Edema, No Gallop, No JVD, No Murmur, Normal Peripheral Pulses Gastrointestinal: Normal Bowel Sounds, No Organomegaly, No Pulsatile Mass, Non Tender, Soft Back: Normal Inspection, No CVA Tenderness, No Vertebral Tenderness Extremity: Normal Capillary Refill, Normal Inspection, Normal Range of Motion, Non Tender, No Calf Tenderness, No Pedal Edema Neurologic/Psychiatric: Alert, Oriented x3, No Motor/Sensory Deficits, Normal Mood/Affect Skin: Normal Color, Warm/Dry, Other (abscess noted plantar left foot with erythema and cellulitis) Lymphatic: No Adenopathy Results Results/Procedures Labs Laboratory Tests 06/12/19 16:36 Patient resulted labs reviewed. Assessment/Plan Admission Diagnosis Assessment: Left DM foot ulcer with abscess DM insulin dependent HTN Non-compliance Plan: Monitor sugars IV abx DR Renee consultation [facility] Admission Status: Inpatient Order (span 2 midnights) Reason for Inpatient Admission: I&D DM foot ulcer Diagnosis/Problems Diagnosis/Problems (1) Ulcer of left foot due to type 2 diabetes mellitus (2) Cellulitis of left foot (3) Insulin dependent diabetes mellitus MYRNA ROMEO DO Jun 12, 2019 19:31 POS
[2019-06-12] MEDS: cloNIDine 0.1 MG (CATAPRES) TAB PO PRN (19:50)
[2019-06-12 19:53] VITALS: BP 210/86
[2019-06-12 20:43] VITALS: BP 164/72
[2019-06-12] MEDS: ACETAMINOPHEN 500 MG TAB (TYLENOL) PO PRN (20:45)
[2019-06-12] MEDS: SENNA W/DOCUSATE (SENOKOT S) TABLET PO SCH (20:46)
[2019-06-12] MEDS: PIPERACILLIN/TAZOBACTAM (BULK) 4.5 GM in NS (IVPB) 100 ML IV SCH (22:10)
[2019-06-13] VITALS (11 sets, daily range): BP systolic 123–177; BP diastolic 65–80
[2019-06-13] MEDS: VANCOMYCIN INJECTION 1,000 MG in NS (IVPB) 250 ML IV SCH ×2 (04:40→17:49)
[2019-06-13] MEDS: cloNIDine 0.1 MG (CATAPRES) TAB PO PRN ×2 (04:48→22:08)
[2019-06-13] MEDS: PIPERACILLIN/TAZOBACTAM (BULK) 4.5 GM in NS (IVPB) 100 ML IV SCH ×3 (06:44→23:19)
--- NOTE | 2019-06-13 07:20 | NUR ---
DR DELGADO NOTIFIED ABOUT CRITICAL Hgb 5.9 and Hct 19. ORDERS TO REPEAT hgb abd hct.
--- NOTE | 2019-06-13 07:25 | NUR ---
CALLED DR TOMLINSON ABOUT CRITICAL RESULT OF HGB 5.9 AND HCT 19. NEW ORDERS TO GIVE 2 UNITS OF BLOOD. INFORMED ABOUT PT BLOOD SUGAR OF 321 AND ORDERS TO GIVE SLIDING SCALE INSULIN.
[2019-06-13] MEDS: inSUlin ASPART (NovoLOG) 1 UNIT/0.01 ML (CHARGE PER UNIT) SC SCH ×4 (07:28→22:08)
[2019-06-13 08:02] LABS: BASOPHILS % (AUTO) 0 % (0-10); EOSINOPHILS # (AUTO) 0.2 10^3/uL (0.0-0.3); EOSINOPHILS % (AUTO) 2 % (0-10); HEMATOCRIT 29 % (40-54); HEMOGLOBIN 9.4 G/DL (13.3-17.7); LYMPHOCYTES # (AUTO) 2.2 X 10^3 (1.0-4.0); LYMPHOCYTES % (AUTO) 22 % (12-44); MEAN CORPUSCULAR HEMOGLOBIN 28 PG (25-34); MEAN CORPUSCULAR HGB CONC 33 G/DL (32-36); MEAN CORPUSCULAR VOLUME 87 FL (80-99); MEAN PLATELET VOLUME 9.1 FL (7.4-10.4); MONOCYTES # (AUTO) 0.9 X 10^3 (0.0-1.0); MONOCYTES % (AUTO) 9 % (0-12); NEUTROPHILS % (AUTO) 67 % (42-75); PLATELET COUNT 511 10^3/uL (130-400); RED CELL DISTRIBUTION WIDTH 12.8 % (10.0-14.5); WHITE BLOOD COUNT 10.3 10^3/uL (4.3-11.0)
[2019-06-13] MEDS: amLODIPine 5 MG (NORVASC) TAB PO SCH (08:13)
[2019-06-13] MEDS: HYDROcodone/APAP 5 MG/325 MG (LORTAB) TAB PO PRN ×2 (08:13→13:15)
[2019-06-13] MEDS: SENNA W/DOCUSATE (SENOKOT S) TABLET PO SCH ×2 (08:16→21:00)
[2019-06-13] MEDS: NS IV 1000 ML 1,000 ML IV SCH ×2 (08:16→17:50)
[2019-06-13 08:17] LABS: ALANINE AMINOTRANSFERASE 17 U/L (0-55); ALBUMIN 2.6 GM/DL (3.2-4.5); ALKALINE PHOSPHATASE 126 U/L (40-136); BILIRUBIN,TOTAL 0.2 MG/DL (0.1-1.0); BUN/CREATININE RATIO 18; CARBON DIOXIDE 22 MMOL/L (21-32); CHLORIDE 108 MMOL/L (98-107); CREATININE SERUM 0.89 MG/DL (0.60-1.30); GFR ESTIMATED > 60; GLUCOSE 301 MG/DL (70-105); POTASSIUM 4.4 MMOL/L (3.6-5.0); SODIUM 139 MMOL/L (135-145); TOTAL PROTEIN 6.3 GM/DL (6.4-8.2)
[2019-06-13] MEDS ORDERED: GBPN600T PO (09:21)
[2019-06-13] MEDS ORDERED: INSU100I29 SC (09:25)
[2019-06-13] MEDS ORDERED: IBUP-30 PO (09:26)
--- NOTE | 2019-06-13 09:26 | NUR ---
SPOKE WITH THE PATIENT ABOUT HIS MEDICATIONS. HIS SON INTERPRETED FOR ME. HE LISTED WHAT HE TAKES AND I COMPARED IT WITH THE EXT MED HX. HE STATES HE USES 20-25 UNITS BID OF LEVEMIR AND TAKES A BLOOD PRESSURE MEDICATION. HE ALSO STATES HE TAKES 2 ADVIL OTC NEEDED. HE FILLED GABAPENTIN 600MG #90 FOR 30 DAYS 05-01-19 - HE STATES HE HAD NEGATIVE SIDE EFFECTS WITH THIS MEDICATION AND NO LONGER TAKES IT. HE VERIFIED HE IS NOT TAKING ANY ORAL MEDICATION FOR BLOOD SUGAR AT THIS TIME.
--- NOTE | 2019-06-13 10:37 | Progress Note - Hospitalist ---
LILI VELAZQUEZ [facility] 06/13/19 1037: Subjective HPI/CC On Admission Date Seen by Provider: Jun 13, 2019 Time Seen by Provider: 08:32 CC: Left DM foot ulcer with abscess HPI: This is a 63yoHM w/h/o DM and non-compliance who presented to wound care appt with left foot abscess in need of surgical debridement so Dr Reene was consulted and I have admitted him and placed him on empiric broad spectrum abx in order to try to salvage the limb and prevent amputation. Dr Renee will perform the I&D tomorrow. Patient speaks limited Tunisian. Reviewed meds of which he has not been taking his ordered home meds for quite some time. Subjective/Events-last exam * Pt son was in the room to help translate due to limited Tunisian speaking patient * He did not report any pain, but he did say he had body aches that started yesterday * He reports having a cough for a little while now * He states that his foot has become less swollen and red since he started receiving the antibiotic treatment * He has an abscess that is present on the arch of the left foot near the site of a previous ulcer that was being treated Review of Systems General: No Chills, No Fatigue HEENT: No Head Aches, No Visual Changes Pulmonary: No Dyspnea; Cough Cardiovascular: No: Chest Pain, Palpitations Gastrointestinal: No: Nausea, Vomiting, Abdominal Pain, Diarrhea Genitourinary: No Dysuria, No Frequency Neurological: Numbness (Left foot) Focused Exam Lactate Level 06/12/19 15:09: Lactic Acid Level 0.93 Respiratory: Chest Non Tender, Lungs Clear, Normal Breath Sounds, No Accessory Muscle Use, No Respiratory Distress Cardiovascular: Regular Rate, Rhythm, No JVD, No Murmur, Normal Peripheral Pulses Peripheral Pulses: 2+ Dorsalis Pedis (R), 2+ Left Dors-Pedis (L), 2+ Radial Pulses (R), 2+ Radial Pulses (L) Skin: warm/dry, ulcerations (Left plantar surface) Objective Exam Vital Signs Vital Signs Date Time Temp Pulse Resp B/P (MAP) Pulse Ox O2 Delivery O2 Flow Rate FiO2 06/13/19 08:00 37.0 83 16 159/76 (103) 93 Room Air 06/12/19 16:33 21 Capillary Refill : General Appearance: No Apparent Distress, WD/WN Respiratory: Chest Non Tender, Lungs Clear, Normal Breath Sounds, No Accessory Muscle Use, No Respiratory Distress Cardiovascular: Regular Rate, Rhythm, No Gallop, No JVD, No Murmur, Normal Peripheral Pulses Extremity: Non Tender, No Calf Tenderness, No Pedal Edema, Other (Ulceration erythema to left plantar foot) Neurologic/Psychiatric: Alert, Normal Mood/Affect Skin: Warm/Dry, Erythema Results/Procedures Lab Laboratory Tests 06/12/19 16:36 06/13/19 07:40 Patient resulted labs reviewed. Assessment/Plan Assessment and Plan Assess & Plan/Chief Complaint Assessment: Cellulitis Abscess Diabetes HTN Plan: Consult surgery for wound management Manage HTN Manage Diabetes Continue antibiotic treatment for cellulitis DVT prophylaxis MYRNA DELGADO DO 06/13/19 1706: Subjective Subjective/Events-last exam Pt had a pretty good night. Awaiting Dr. Renee surgery of the left foot abscess. IV antibioticsmaintained. Lovenox maintained for DVT prophylaxis. Review of Systems Musculoskeletal: foot pain Objective Exam General Appearance: No Apparent Distress Respiratory: Lungs Clear Cardiovascular: Regular Rate, Rhythm Neurologic/Psychiatric: Alert, Normal Mood/Affect Assessment/Plan Assessment and Plan Assess & Plan/Chief Complaint Appreciate DR Renee IV abx Diagnosis/Problems Diagnosis/Problems (1) Ulcer of left foot due to type 2 diabetes mellitus (2) Cellulitis of left foot (3) Insulin dependent diabetes mellitus Supervisory-Addendum Brief Verification & Attestation Participated in pt care: history, MDM, physical Personally performed: exam, history, MDM, supervision of care Care discussed with: Medical Student Procedures: n/a Results interpretation: Verified all documentation Verification and Attestation of Medical Student E/M Service A medical student performed and documented this service in my presence. I reviewed and verified all information documented by the medical student and made modifications to such information, when appropriate. I personally performed the physical exam and medical decision making. Myrna Delgado, Jun 13, 2019,17:05 [facility]AZQUE[facility] Jun 13, 2019 10:37 MYRNA HEBERT DO Jun 13, 2019 17:06 POS
--- NOTE | 2019-06-13 11:40 | Diagnostic Imaging Report ---
PROCEDURE: MR imaging left lower extremity without contrast. TECHNIQUE: Multiplanar, multisequence non contrast enhanced MR imaging of the left lower extremity was accomplished. INDICATION: Foot pain. COMPARISON: There are no previous MRI examinations available for comparison. FINDINGS: The plain film examination of the left foot performed on 06/04/2019 failed to show any sign of a fracture or of a bony destruction. However there was soft tissue edema and subcutaneous gas inferior to the first metatarsophalangeal joint. That finding was also again identified on the subsequent plain film exam of 06/09/2019. On the STIR sagittal series of this exam there is increased signal in the soft tissues along the plantar aspect of the head of the first metatarsal and the proximal and distal phalanges of the first metatarsal. This abnormal signal does suggest edema/inflammation. On the T1 sagittal series there is a small area of diminished signal along the posterior aspect of the head of the first metatarsal. I suspect this finding is more likely due to degenerative disease than to osteomyelitis. There is no other abnormal signal arising from the osseous structures of the first ray to indicate osteomyelitis. The flexor tendon of the first ray appears to be intact. There is no other abnormality of the foot identified. IMPRESSION: 1. There is soft tissue edema along the plantar surface of the first metatarsal phalangeal joint and the proximal and distal phalanges. The area of altered signal within the head of the first metatarsal however is more likely due to degenerative disease than to osteomyelitis. Clinical follow-up is recommended. 2. There is no acute abnormality identified otherwise. Dictated by: Dictated on workstation # [id number]
--- NOTE | 2019-06-13 14:23 | NUR ---
RD ASSESSMENT PMHx: DM PT INTERACTION: Pt was awake and pleasant during nutrition assessment. Note pt speaks little Rwandan, but son was present. Pt states current appetite is good, and has been for some time. Pt states trying to follow a low-CHO diet, and currently has no issues with chewing/swallowing food. Pt states no recent issues with n/v/c/d at this time. Pt states last BM was 06/12. Note pt currently on bowel regimen of senna, colace, per chart review. Pt states no recent wt changes. Note unable to determine recent wt hx, per chart review. Pt states current DM management is pretty good and that his average glucose levels run between 120-150. Note unable to determine most recent HbA1c value, per chart review. Note pt has wound on left foot, per chart review. ABNORMAL NUTRITION-RELATED LAB VALUES: Cl 108 (H); glu 301 (H); Ca 8.0 (L); Pro 6.3 (L); alb 2.6 (L) Est. kcal needs: 0312-4764 kcal (25-30 kcal/kg) Est. Pro needs: 82-95 g Pro (1.2-1.4 g Pro/kg) PES STATEMENT: Inadequate oral intake (NI-5.6.1) related to increased protein needs as evidenced by wounds (left foot) INTERVENTION: Continue with current diet order of CHO 45g/m 3snack diet. Add Ensure HP (vary) to meals BID. Provides 160 kcal and 16 g Pro per serving, for perceived benefit to wound healing. Offered education on CHO counting and its relationship to blood glucose levels. Pt declined. MONITOR/EVALUATE: PO Intake; Plan of Care; Hydration Status; Weight Status; Lab Values Jo Ann Rockwell, MS, RD, LD Ext. [phone]
[2019-06-13] MEDS ORDERED: fentaNYL INJECTION 100 MCG/2 ML AMP ONE (15:17)
[2019-06-13] MEDS ORDERED: MIDAZOLAM 2 MG/2 ML (VERSED) VIAL ONE (15:17)
[2019-06-13] MEDS ORDERED: DEXAMETHASONE 10 MG/ML (DECADRON) 1 ML VIAL ONE (15:20)
[2019-06-13] MEDS ORDERED: SEVOFLURANE (ULTANE) 15 ML INHAL SOLN ONE ×3 (15:20→16:18)
[2019-06-13] MEDS ORDERED: ONDANSETRON 4 MG/2 ML (SDV) Z0FRAN ONE (15:20)
[2019-06-13] MEDS ORDERED: proPOfol 200 MG/20 ML (DIPRIVAN) VIAL IV ONE (15:20)
[2019-06-13] MEDS ORDERED: LIDOCAINE PF 2% 5 ML (XYLOCAINE) VIAL ONE (15:20)
[2019-06-13] MEDS: ENOXAPARIN 40 MG/0.4 ML (LOVENOX) SYR SC SCH (15:26)
[2019-06-13] MEDS: LACTATED RINGERS 1,000 ML IV PRN ×2 (15:29→16:21)
[2019-06-13] MEDS ORDERED: LIDOCAINE/EPI 1%-1:100,000 (XYLOCAINE) 20ML ONE (15:40)
--- NOTE | 2019-06-13 16:17 | Progress Note-Post Operative ---
Post-Operative Progess Note Surgeon (s)/Tariff Supervisor (s) Surgeon YOLANDA TOMLINSON MD Tariff Supervisor: kj lopez APRN Pre-Operative Diagnosis left foot diabetic plantar deep subfascial abscess. Post-Operative Diagnosis same Procedure & Operative Findings Date of Procedure 06/13/19 Procedure Performed/Findings incision and drainage and debridement deep subfacial left foot absess. Anesthesia Type general LMA Estimated Blood Loss Estimated blood loss (mL): minimal Specimens/Packing Specimens Removed drainage left foot. Packing: left foot YOLANDA TOMLINSON MD Jun 13, 2019 16:17 POS
[2019-06-13] MEDS ORDERED: morphine INJ 10 MG/ML 1ML (SYR OR VIAL) IVP ONE (16:30)
[2019-06-13] MEDS ORDERED: ONDANSETRON 4 MG/2 ML (SDV) Z0FRAN IVP PRN (16:30)
[2019-06-13] MEDS ORDERED: fentaNYL INJECTION 100 MCG/2 ML AMP IVP ONE (16:30)
[2019-06-13] MEDS ORDERED: CATHETER FLUSH 10 ML SYR IV PRN (17:00)
--- NOTE | 2019-06-13 18:04 | Anesthesia-General Post-Op ---
General Patient Condition Mental Status/LOC: Same as Preop Cardiovascular: Satisfactory Nausea/Vomiting: Absent Respiratory: Satisfactory Pain: Controlled Complications: Absent Post Op Complications Complications None Follow Up Care/Instructions Patient Instructions None needed. Anesthesia/Patient Condition Patient Condition Patient is doing well, no complaints, stable vital signs, no apparent adverse anesthesia problems. No complications reported per nursing. ANNA STOUT CRNA Jun 13, 2019 18:04 POS
--- NOTE | 2019-06-13 21:55 | NUR ---
pt heart rate 103, B/P 195/92, temp 37.8. pt reports feeling pressure in his chest and SOB, pt sating at 91% on 2L, does not wear O2 at home. Dr. Romeo notified at this time, Dr ordered to hep lock IV fluids.
[2019-06-13] MEDS: ACETAMINOPHEN 500 MG TAB (TYLENOL) PO PRN (22:08)
[2019-06-14] VITALS (7 sets, daily range): BP systolic 17–181; BP diastolic 58–85
--- NOTE | 2019-06-14 00:55 | NUR ---
pt O2 sating at 78% with 2L of oxygen, increased to 90% on 4L. RR 26. B/P 133/65. pulse 86. temperature at 38.[address] kunz notified. Ordered 20mg IV once.
[2019-06-14] MEDS ORDERED: FUROSEMIDE 40 MG/4 ML INJ (LASIX) ONE (00:58)
[2019-06-14] MEDS ORDERED: FUROSEMIDE 40 MG/4 ML INJ (LASIX) IVP ONE (01:00)
[2019-06-14] MEDS: VANCOMYCIN INJECTION 1,000 MG in NS (IVPB) 250 ML IV SCH ×2 (05:18→17:18)
[2019-06-14] MEDS: ACETAMINOPHEN 500 MG TAB (TYLENOL) PO PRN ×2 (05:23→22:33)
[2019-06-14 05:46] LABS: BASOPHILS % (AUTO) 0 % (0-10); EOSINOPHILS # (AUTO) 0.1 10^3/uL (0.0-0.3); EOSINOPHILS % (AUTO) 1 % (0-10); HEMATOCRIT 30 % (40-54); HEMOGLOBIN 9.8 G/DL (13.3-17.7); LYMPHOCYTES # (AUTO) 1.7 X 10^3 (1.0-4.0); LYMPHOCYTES % (AUTO) 13 % (12-44); MEAN CORPUSCULAR HEMOGLOBIN 28 PG (25-34); MEAN CORPUSCULAR HGB CONC 32 G/DL (32-36); MEAN CORPUSCULAR VOLUME 88 FL (80-99); MEAN PLATELET VOLUME 9.7 FL (7.4-10.4); MONOCYTES # (AUTO) 1.1 X 10^3 (0.0-1.0); MONOCYTES % (AUTO) 8 % (0-12); NEUTROPHILS # (AUTO) 10.9 X 10^3 (1.8-7.8); NEUTROPHILS % (AUTO) 79 % (42-75); PLATELET COUNT 562 10^3/uL (130-400); RED CELL DISTRIBUTION WIDTH 12.7 % (10.0-14.5); WHITE BLOOD COUNT 13.8 10^3/uL (4.3-11.0)
[2019-06-14 06:16] LABS: ALANINE AMINOTRANSFERASE 14 U/L (0-55); ALBUMIN 2.6 GM/DL (3.2-4.5); ALKALINE PHOSPHATASE 123 U/L (40-136); BILIRUBIN,TOTAL 0.4 MG/DL (0.1-1.0); BUN/CREATININE RATIO 15; CALCIUM 8.4 MG/DL (8.5-10.1); CARBON DIOXIDE 22 MMOL/L (21-32); CHLORIDE 102 MMOL/L (98-107); CREATININE SERUM 1.11 MG/DL (0.60-1.30); GFR ESTIMATED > 60; GLUCOSE 285 MG/DL (70-105); POTASSIUM 4.5 MMOL/L (3.6-5.0); SODIUM 136 MMOL/L (135-145); TOTAL PROTEIN 6.4 GM/DL (6.4-8.2)
[2019-06-14] MEDS: inSUlin ASPART (NovoLOG) 1 UNIT/0.01 ML (CHARGE PER UNIT) SC SCH ×4 (06:26→21:06)
[2019-06-14] MEDS: PIPERACILLIN/TAZOBACTAM (BULK) 4.5 GM in NS (IVPB) 100 ML IV SCH ×3 (06:26→23:48)
[2019-06-14] MEDS: amLODIPine 5 MG (NORVASC) TAB PO SCH (08:40)
[2019-06-14] MEDS: SENNA W/DOCUSATE (SENOKOT S) TABLET PO SCH ×2 (08:41→21:05)
[2019-06-14] MEDS: HYDROcodone/APAP 5 MG/325 MG (LORTAB) TAB PO PRN ×2 (10:29→15:39)
--- NOTE | 2019-06-14 11:40 | Progress Note - Hospitalist ---
LILI VELAZQUEZ [facility] 06/14/19 1140: Subjective HPI/CC On Admission Date Seen by Provider: Jun 14, 2019 Time Seen by Provider: 08:31 CC: Left DM foot ulcer with abscess HPI: This is a 63yoHM w/h/o DM and non-compliance who presented to wound care appt with left foot abscess in need of surgical debridement so Dr Renee was consulted and I have admitted him and placed him on empiric broad spectrum abx in order to try to salvage the limb and prevent amputation. Dr Renee will perform the I&D tomorrow. Patient speaks limited Kittitian. Reviewed meds of which he has not been taking his ordered home meds for quite some time. Subjective/Events-last exam * Pt reported having fever and chills overnight * He also reports a chest pain described as a pressure feeling that he states got better with Tylenol * He reports having some lung congestion at the same time the chest pressure began, and it was also relieved by Tylenol * He reports a dry cough as well * He had the abscess drainage yesterday and does not report any pain currently Review of Systems General: Chills HEENT: No Head Aches, No Visual Changes Pulmonary: No Dyspnea; Cough Cardiovascular: No: Chest Pain, Palpitations Gastrointestinal: No: Nausea, Vomiting, Abdominal Pain, Diarrhea Focused Exam Lactate Level 06/12/19 15:09: Lactic Acid Level 0.93 Objective Exam Vital Signs Vital Signs Date Time Temp Pulse Resp B/P (MAP) Pulse Ox O2 Delivery O2 Flow Rate FiO2 06/14/19 10:41 Nasal Cannula 4.00 06/14/19 10:22 37.8 80 88 32 06/14/19 08:00 18 136/74 (94) Capillary Refill : Less Than 3 Seconds General Appearance: No Apparent Distress, WD/WN Respiratory: Chest Non Tender, No Accessory Muscle Use, No Respiratory Distress, Rhonci Cardiovascular: Regular Rate, Rhythm, No Edema, No Gallop, No JVD, No Murmur, Normal Peripheral Pulses Extremity: Normal Inspection, No Calf Tenderness, No Pedal Edema Neurologic/Psychiatric: Alert, Oriented x3, No Motor/Sensory Deficits, Normal Mood/Affect Results/Procedures Lab Laboratory Tests 06/14/19 05:10 Patient resulted labs reviewed. Assessment/Plan Assessment and Plan Assess & Plan/Chief Complaint Assessment: Cellulitis Abscess drained yesterday Diabetes HTN Plan: Consult surgery for wound management Manage HTN Manage Diabetes Continue antibiotic treatment for cellulitis DVT prophylaxis Clinical Quality Measures DVT/VTE Risk/Contraindication: Risk Factor Score Per Nursin RFS Level Per Nursing on Admit: 3=High MYRNA DELGADO DO 06/14/19 1710: Subjective Subjective/Events-last exam White count is 13. Fever persists. Abscess was drained by Dr. Renee yesterday. Broad-spectrum antibiotics of Vancomycin and Zosyn maintained. Vague body ache complaints. Review of Systems General: Fatigue Musculoskeletal: foot pain Objective Exam General Appearance: No Apparent Distress, WD/WN, Chronically ill Respiratory: Lungs Clear Cardiovascular: Regular Rate, Rhythm Neurologic/Psychiatric: Alert, Oriented x3, No Motor/Sensory Deficits, Normal Mood/Affect Assessment/Plan Assessment and Plan Assess & Plan/Chief Complaint Monitor fever closely Abx OOB Diagnosis/Problems Diagnosis/Problems (1) Ulcer of left foot due to type 2 diabetes mellitus (2) Cellulitis of left foot (3) Insulin dependent diabetes mellitus Supervisory-Addendum Brief Verification & Attestation Participated in pt care: history, MDM, physical Personally performed: exam, history, MDM, supervision of care Care discussed with: Medical Student Procedures: n/a Results interpretation: Verified all documentation Verification and Attestation of Medical Student E/M Service A medical student performed and documented this service in my presence. I reviewed and verified all information documented by the medical student and made modifications to such information, when appropriate. I personally performed the physical exam and medical decision making. Myrna Delgado, Jun 14, 2019,17:09 [facility]IL[facility] VELAZQUE[facility] Jun 14, 2019 11:40 MYRNA HEBERT DO Jun 14, 2019 17:10 POS
--- NOTE | 2019-06-14 11:51 | NUR ---
Initial visit by Chaplain Heather Bhandari: Pt Nondenominational. Shared about struggles with foot abscess. Plasterer Journeyman engaged in rapport building and introduced Spiritual Care services. No follow up needs reported to department.
--- NOTE | 2019-06-14 15:06 | Progress Note ---
Subjective Date Seen by a Provider: Jun 14, 2019 Time Seen by a Provider: 14:00 Subjective/Events-last exam doing well. had some chills last night. slight elevation WBC due to bacterial translocation. pain controlled. Focused Exam Lactate Level 06/12/19 15:09: Lactic Acid Level 0.93 Objective Exam Vital Signs Date Time Temp Pulse Resp B/P (MAP) Pulse Ox O2 Delivery O2 Flow Rate FiO2 06/14/19 12:00 37.2 83 18 166/75 (105) 93 Room Air 06/14/19 10:41 Nasal Cannula 4.00 06/14/19 10:22 37.8 80 88 32 06/14/19 10:22 88 Nasal Cannula 3.00 06/14/19 08:00 Nasal Cannula 4.00 06/14/19 08:00 37.4 79 18 136/74 (94) 94 Room Air 06/14/19 06:26 38.1 06/14/19 05:23 38.3 06/14/19 03:00 37.6 06/14/19 00:43 38.1 89 25 133/65 (87) 90 Nasal Cannula 06/13/19 22:08 37.8 06/13/19 21:50 90 Nasal Cannula 2.00 06/13/19 19:11 36.6 80 20 177/80 (112) 94 06/13/19 17:35 36.5 72 16 145/69 (94) 92 Room Air 06/13/19 17:10 Room Air 06/13/19 17:10 36.5 18 145/74 (97) 93 Room Air 06/13/19 17:00 18 144/72 (96) 93 Room Air 06/13/19 16:59 Room Air 06/13/19 16:55 06/13/19 16:51 Room Air 06/13/19 16:50 18 143/71 (95) 95 Room Air 06/13/19 16:45 OxyMask 6 06/13/19 16:40 18 132/67 (88) 100 OxyMask 6 06/13/19 16:37 OxyMask 6 06/13/19 16:30 18 126/65 (85) 98 OxyMask 6 06/13/19 16:30 OxyMask 6 06/13/19 16:21 OxyMask 6 06/13/19 16:21 36.4 18 123/66 (85 94 OxyMask 6 I & O 06/14/19 07:00 Intake Total 2772 ml Output Total 2150 ml Balance 622 ml Capillary Refill : Less Than 3 Seconds General Appearance: No Apparent Distress HEENT: PERRL/EOMI Neck: Full Range of Motion Respiratory: Chest Non Tender, Lungs Clear, Normal Breath Sounds Cardiovascular: Regular Rate, Rhythm Gastrointestinal: normal bowel sounds, non tender, soft, other (wound dressed/dry) Extremity: Normal Capillary Refill Neurologic/Psychiatric: Alert, Oriented x3 Skin: Normal Color Lymphatic: No Adenopathy Results Lab Laboratory Tests 06/13/19 17:53: Glucometer 141H 06/13/19 21:11: Glucometer 276H 06/14/19 05:10: White Blood Count 13.8H, Red Blood Count 3.46L, Hemoglobin 9.8L, Hematocrit 30L, Mean Corpuscular Volume 88, Mean Corpuscular Hemoglobin 28, Mean Corpuscular Hemoglobin Concent 32, Red Cell Distribution Width 12.7, Platelet Count 562H, Mean Platelet Volume 9.7, Neutrophils (%) (Auto) 79H, Lymphocytes (%) (Auto) 13, Monocytes (%) (Auto) 8, Eosinophils (%) (Auto) 1, Basophils (%) (Auto) 0, Neutrophils # (Auto) 10.9H, Lymphocytes # (Auto) 1.7, Monocytes # (Auto) 1.1H, Eosinophils # (Auto) 0.1, Basophils # (Auto) 0.0, Sodium Level 136, Potassium Level 4.5, Chloride Level 102, Carbon Dioxide Level 22, Anion Gap 12, Blood Urea Nitrogen 17, Creatinine 1.11, Estimat Glomerular Filtration Rate > 60, BUN/Creatinine Ratio 15, Glucose Level 285H, Calcium Level 8.4L, Corrected Calcium 9.5, Total Bilirubin 0.4, Aspartate Amino Transf (AST/SGOT) 17, Alanine Aminotransferase (ALT/SGPT) 14, Alkaline Phosphatase 123, Total Protein 6.4, Albumin 2.6L 06/14/19 05:18: Glucometer 276H 06/14/19 11:07: Glucometer 309H Microbiology 06/12/19 Blood Culture - Preliminary, Resulted No growth 06/12/19 MRSA Screen - Final, Complete MRSA not isolated 06/13/19 Gram Stain - Final, Resulted 06/13/19 Anaerobic Culture, Resulted Pending 06/13/19 Surgical Culture, Resulted Pending Assessment/Plan Assessment/Plan Assess & Plan/Chief Complaint deep fascial abscess left foot s/p I&D. continue IV abx. consult wound care. Clinical Quality Measures DVT/VTE Risk/Contraindication: Risk Factor Score Per Nursin RFS Level Per Nursing on Admit: 3=High YOLANDA TOMLINSON MD Jun 14, 2019 15:06 POS
[2019-06-14] MEDS: ENOXAPARIN 40 MG/0.4 ML (LOVENOX) SYR SC SCH (15:39)
[2019-06-14] MEDS ORDERED: TROUGH ORDER-PHARMACY XX NR (16:00)
[2019-06-14] MEDS: RT-ALBUTEROL SULF 2.5 MG/3 ML PRE-MIX VIAL INH SCH (18:04)
[2019-06-14] MEDS: VANCOMYCIN 500 MG/NS 100 ML IVPB IV SCH ×2 (18:13)
--- NOTE | 2019-06-14 18:16 | Wound Care Assessment ---
Wound Care Assessment Date Seen by Provider: Jun 14, 2019 Time Seen by Provider: 14:40 Chief Complaint L foot abscess. HPI The patient is a 63 year old male with uncontrolled diabetes, L foot deep space abscess, and cellulitis of L foot. He is much improved post IV antibiotics and incision and drainage of deep space L foot abscess. Drs. Romeo and Víctor's assistance is much appreciated. Dressings are ordered. Will follow. Past Medical History: Admits Diabetes Type II Smoking Status: Never a Smoker Recreational Drug Use: No Alcohol Use: Denies Use Review of Systems Pulmonary: No Dyspnea Cardiovascular: No: Chest Pain Exam Vital Signs Date Time Temp Pulse Resp B/P (MAP) Pulse Ox O2 Delivery O2 Flow Rate FiO2 06/14/19 16:06 37.2 85 18 181/85 (117) 95 Nasal Cannula 3.00 06/14/19 10:22 32 Capillary Refill : Less Than 3 Seconds General Appearance: no apparent distress Respiratory: no respiratory distress Extremities: other (Infected L foot.) Results Laboratory Tests 06/13/19 21:11: Glucometer 276H 06/14/19 05:10: White Blood Count 13.8H, Red Blood Count 3.46L, Hemoglobin 9.8L, Hematocrit 30L, Mean Corpuscular Volume 88, Mean Corpuscular Hemoglobin 28, Mean Corpuscular Hemoglobin Concent 32, Red Cell Distribution Width 12.7, Platelet Count 562H, Mean Platelet Volume 9.7, Neutrophils (%) (Auto) 79H, Lymphocytes (%) (Auto) 13, Monocytes (%) (Auto) 8, Eosinophils (%) (Auto) 1, Basophils (%) (Auto) 0, Neutrophils # (Auto) 10.9H, Lymphocytes # (Auto) 1.7, Monocytes # (Auto) 1.1H, Eosinophils # (Auto) 0.1, Basophils # (Auto) 0.0, Sodium Level 136, Potassium Level 4.5, Chloride Level 102, Carbon Dioxide Level 22, Anion Gap 12, Blood Urea Nitrogen 17, Creatinine 1.11, Estimat Glomerular Filtration Rate > 60, BUN/Creatinine Ratio 15, Glucose Level 285H, Calcium Level 8.4L, Corrected Calcium 9.5, Total Bilirubin 0.4, Aspartate Amino Transf (AST/SGOT) 17, Alanine Aminotransferase (ALT/SGPT) 14, Alkaline Phosphatase 123, Total Protein 6.4, Albumin 2.6L 06/14/19 05:18: Glucometer 276H 06/14/19 11:07: Glucometer 309H 06/14/19 16:21: Glucometer 287H 06/14/19 16:27: Vancomycin Level Trough 20.0 Microbiology 06/12/19 Blood Culture - Preliminary, Resulted No growth 06/12/19 MRSA Screen - Final, Complete MRSA not isolated 06/13/19 Gram Stain - Final, Resulted 06/13/19 Anaerobic Culture, Resulted Pending 06/13/19 Surgical Culture, Resulted Pending Microbiology 06/12/19 MRSA Screen - Final, Complete MRSA not isolated 06/13/19 Gram Stain - Final, Resulted 06/13/19 Anaerobic Culture, Resulted Pending 06/13/19 Surgical Culture, Resulted Pending Assessment/Plan/Dx 1. Infected l foot diabetic ulcer. 2. Deep space infection, L foot Plan: Surgical drainage per Dr. Renee much appreciated. ALLEGRA KOHLI MD Jun 14, 2019 18:16 POS
[2019-06-14] MEDS: DAKIN'S 1/4 STRENGTH (0.125%) 473 ML BTL TOP SCH (21:07)
[2019-06-15] VITALS (7 sets, daily range): BP systolic 138–182; BP diastolic 69–81
[2019-06-15] MEDS: cloNIDine 0.1 MG (CATAPRES) TAB PO PRN (04:24)
[2019-06-15] MEDS: VANCOMYCIN 500 MG/NS 100 ML IVPB IV SCH ×4 (04:24→17:41)
[2019-06-15] MEDS: PIPERACILLIN/TAZOBACTAM (BULK) 4.5 GM in NS (IVPB) 100 ML IV SCH ×3 (06:33→21:07)
[2019-06-15] MEDS: inSUlin ASPART (NovoLOG) 1 UNIT/0.01 ML (CHARGE PER UNIT) SC SCH ×4 (06:33→21:06)
[2019-06-15] MEDS: DAKIN'S 1/4 STRENGTH (0.125%) 473 ML BTL TOP SCH ×2 (09:10→21:07)
[2019-06-15] MEDS: amLODIPine 5 MG (NORVASC) TAB PO SCH (09:10)
[2019-06-15] MEDS: SENNA W/DOCUSATE (SENOKOT S) TABLET PO SCH ×2 (09:10→21:06)
[2019-06-15] MEDS: ACETAMINOPHEN 500 MG TAB (TYLENOL) PO PRN (09:38)
--- NOTE | 2019-06-15 09:40 | NUR ---
TYLENOL 500MG PO AND COLACE PO FOR GENERAL DISCOMFORT AND CONSTIPATION.
--- NOTE | 2019-06-15 10:12 | Progress Note - Surgery ---
Subjective Date Seen by a Provider: Jun 15, 2019 Time Seen by a Provider: 10:07 Subjective/Events-last exam Patient pain controlled. Some shaking and chills over night. Wound dressed. Right foot feeling a little better. No other complaints. Denies n/v fever sweats shortness of breath or chest pain. Focused Exam Lactate Level 06/12/19 15:09: Lactic Acid Level 0.93 Objective Exam Vital Signs Date Time Temp Pulse Resp B/P (MAP) Pulse Ox O2 Delivery O2 Flow Rate FiO2 06/15/19 08:01 37.1 77 18 167/81 (109) 95 Nasal Cannula 3.00 06/15/19 04:11 37.2 78 18 182/80 (114) 96 Nasal Cannula 3.00 06/15/19 00:14 36.5 72 16 147/69 (95) 92 Nasal Cannula 3.00 06/14/19 23:05 36.5 06/14/19 22:33 37.9 06/14/19 20:09 36.9 81 18 118/58 (78) 94 Nasal Cannula 3.00 06/14/19 20:00 Nasal Cannula 4.00 06/14/19 18:04 92 Nasal Cannula 9.00 06/14/19 16:06 37.2 85 18 181/85 (117) 95 Nasal Cannula 3.00 06/14/19 12:00 37.2 83 18 166/75 (105) 93 Room Air 06/14/19 10:41 Nasal Cannula 4.00 06/14/19 10:22 37.8 80 88 32 06/14/19 10:22 88 Nasal Cannula 3.00 I & O 06/15/19 07:00 Intake Total 770 ml Output Total 800 ml Balance -30 ml Capillary Refill : Less Than 3 Seconds General Appearance: No Apparent Distress, WD/WN, Chronically ill HEENT: PERRL/EOMI Neck: Full Range of Motion Respiratory: Chest Non Tender, No Accessory Muscle Use, No Respiratory Distress Cardiovascular: Regular Rate, Rhythm Peripheral Pulses: 2+ Dorsalis Pedis (R), 2+ Left Dors-Pedis (L), 2+ Radial Pulses (R), 2+ Radial Pulses (L) Gastrointestinal: normal bowel sounds, non tender, soft, other (wound dressed/dry) Extremity: Normal Capillary Refill, Other (left foot open wound minimal erythema no purulent drainage) Neurologic/Psychiatric: Alert, Oriented x3, No Motor/Sensory Deficits, Normal Mood/Affect Skin: Normal Color Lymphatic: No Adenopathy Results Lab Laboratory Tests 06/14/19 11:07: Glucometer 309H 06/14/19 16:21: Glucometer 287H 06/14/19 16:27: Vancomycin Level Trough 20.0 06/14/19 20:41: Glucometer 243H 06/15/19 05:50: Glucometer 244H Microbiology 06/12/19 Blood Culture - Preliminary, Resulted No growth 06/12/19 MRSA Screen - Final, Complete MRSA not isolated 06/13/19 Gram Stain - Final, Resulted 06/13/19 Anaerobic Culture, Resulted Pending 06/13/19 Surgical Culture - Preliminary, Resulted Klebsiella oxytoca Staphylococcus aureus Staphylococcus haemolyticus Staphylococcus epidermidis Assessment/Plan Assessment/Plan Assessment/Plan deep fascial abscess left foot s/p I&D. continue IV abx. repeat labs in am continue wound care. Clinical Quality Measures DVT/VTE Risk/Contraindication: Risk Factor Score Per Nursin RFS Level Per Nursing on Admit: 3=High TYE CEDENO DO Jun 15, 2019 10:12 POS
[2019-06-15] MEDS: RT-ALBUTEROL SULF 2.5 MG/3 ML PRE-MIX VIAL INH SCH ×2 (10:15→18:20)
--- NOTE | 2019-06-15 13:27 | Progress Note - Hospitalist ---
Subjective HPI/CC On Admission Date Seen by Provider: Jun 15, 2019 Time Seen by Provider: 13:30 CC: Left DM foot ulcer with abscess HPI: This is a 63yoHM w/h/o DM and non-compliance who presented to wound care appt with left foot abscess in need of surgical debridement so Dr Renee was consulted and I have admitted him and placed him on empiric broad spectrum abx in order to try to salvage the limb and prevent amputation. Dr Renee will perform the I&D tomorrow. Patient speaks limited Korean. Reviewed meds of which he has not been taking his ordered home meds for quite some time. Subjective/Events-last exam patient complains of having a sore tongue and swelling in his right leg. He does note that the pain is better. In addition he's concerned about his blood pressure and getting back on his Levemir he used to take 20 units twice a day. Review of Systems Musculoskeletal: leg pain Focused Exam Lactate Level 06/12/19 15:09: Lactic Acid Level 0.93 Objective Exam Vital Signs Vital Signs Date Time Temp Pulse Resp B/P (MAP) Pulse Ox O2 Delivery O2 Flow Rate FiO2 06/15/19 12:00 37.0 83 20 138/71 (93) 97 Nasal Cannula 2.00 06/14/19 10:22 32 Capillary Refill : Less Than 3 Seconds General Appearance: No Apparent Distress, WD/WN HEENT: Normal ENT Inspection, Other (strawberry red tongue.) Neck: Normal Inspection, Supple Respiratory: Chest Non Tender, Lungs Clear, Normal Breath Sounds, No Accessory Muscle Use, No Respiratory Distress Cardiovascular: Regular Rate, Rhythm, No Gallop, No Murmur Gastrointestinal: Normal Bowel Sounds, Non Tender, Soft Rectal: Deferred Back: Normal Inspection Extremity: Pedal Edema Neurologic/Psychiatric: Alert, Oriented x3, Normal Mood/Affect Results/Procedures Lab Patient resulted labs reviewed. Assessment/Plan Assessment and Plan Assess & Plan/Chief Complaint postop day number 1 I&D abscess with staph on Zosyn and vancomycin oral thrush-start nystatin hypertension we'll restart Cozaar in addition to amlodipine Diabetes mellitus will start back on basal Levemir 15 units twice a day with sliding scale insulin Clinical Quality Measures DVT/VTE Risk/Contraindication: Risk Factor Score Per Nursin RFS Level Per Nursing on Admit: 3=High NAIMA REY MD Jun 15, 2019 13:26 POS
[2019-06-15] MEDS: LOSARTAN 25 MG (COZAAR) TAB PO SCH (15:16)
[2019-06-15] MEDS: ENOXAPARIN 40 MG/0.4 ML (LOVENOX) SYR SC SCH (15:16)
--- NOTE | 2019-06-15 15:26 | NUR ---
DOES NOT SLEEP IN BED, BUT IN RECLINER. HAS REFUSED SCD'S ALL DAY. Addendum: 06/15/19 at 1527 by QUIN SERRANO RN АЛЕКСАНДР AJ
[2019-06-15] MEDS ORDERED: TROUGH ORDER-PHARMACY XX NR (16:00)
[2019-06-15] MEDS: NYSTATIN ORAL SUSP 5 ML UDC PO SCH ×2 (17:39→23:01)
[2019-06-16] MEDS: VANCOMYCIN 500 MG/NS 100 ML IVPB IV SCH ×4 (03:59→16:27)
[2019-06-16 04:00] VITALS: BP 169/82
[2019-06-16] MEDS: NYSTATIN ORAL SUSP 5 ML UDC PO SCH ×4 (05:12→23:38)
[2019-06-16] MEDS: PIPERACILLIN/TAZOBACTAM (BULK) 4.5 GM in NS (IVPB) 100 ML IV SCH ×3 (05:12→23:38)
[2019-06-16] MEDS: inSUlin ASPART (NovoLOG) 1 UNIT/0.01 ML (CHARGE PER UNIT) SC SCH ×4 (05:13→21:42)
[2019-06-16] MEDS: HYDROcodone/APAP 5 MG/325 MG (LORTAB) TAB PO PRN ×2 (05:13→21:43)
[2019-06-16 06:11] LABS: HEMOGLOBIN 9.2 G/DL (13.3-17.7); MEAN PLATELET VOLUME 9.5 FL (7.4-10.4); RED CELL DISTRIBUTION WIDTH 12.7 % (10.0-14.5); WHITE BLOOD COUNT 9.5 10^3/uL (4.3-11.0)
[2019-06-16 06:30] LABS: BUN/CREATININE RATIO 11; CALCIUM 8.6 MG/DL (8.5-10.1); CARBON DIOXIDE 22 MMOL/L (21-32); CHLORIDE 106 MMOL/L (98-107); GFR ESTIMATED > 60; GLUCOSE 203 MG/DL (70-105); POTASSIUM 3.8 MMOL/L (3.6-5.0); SODIUM 140 MMOL/L (135-145)
[2019-06-16 08:00] VITALS: BP 150/73
[2019-06-16] MEDS: amLODIPine 5 MG (NORVASC) TAB PO SCH (09:49)
[2019-06-16] MEDS: DAKIN'S 1/4 STRENGTH (0.125%) 473 ML BTL TOP SCH ×2 (09:49→21:44)
[2019-06-16] MEDS: LOSARTAN 25 MG (COZAAR) TAB PO SCH (09:49)
[2019-06-16] MEDS: SENNA W/DOCUSATE (SENOKOT S) TABLET PO SCH ×2 (09:49→21:43)
--- NOTE | 2019-06-16 11:30 | NUR ---
B/P 184/84. CATAPRES PO PER ORDER.
--- NOTE | 2019-06-16 11:30 | Progress Note - Surgery ---
[facility] 06/16/19 1130: Subjective Date Seen by a Provider: Jun 16, 2019 Time Seen by a Provider: 09:35 Subjective/Events-last exam Pt was alert and oriented and in no acute distress, Family at bedside Patient is moving his bowels and urinating without issues Nurse had wound open when we came in. Minor erythema around wound but no abnormal discharge noted. No pain noted on surrounding areas upon palpation. Both R and L Dorsal pedal pulses 2/4 Patient denied any F/C, N/V, SOB or chest pain WBC count has come down from 13.8 to 9.5 Objective Exam Vital Signs Date Time Temp Pulse Resp B/P (MAP) Pulse Ox O2 Delivery O2 Flow Rate FiO2 06/16/19 08:00 37.2 74 18 150/73 (98) 95 Nasal Cannula 2.00 06/16/19 08:00 Nasal Cannula 2.00 06/16/19 04:00 37.4 96 17 169/82 (111) 95 Nasal Cannula 2.00 06/15/19 23:51 37.6 85 18 161/75 (103) 95 Nasal Cannula 2.00 06/15/19 20:00 Nasal Cannula 3.00 06/15/19 19:08 37.0 89 20 167/76 (106) 97 Nasal Cannula 2.00 06/15/19 18:20 97 Nasal Cannula 2.00 06/15/19 16:00 37.0 89 20 153/77 (102) 93 Room Air 06/15/19 12:00 37.0 83 20 138/71 (93) 97 Nasal Cannula 2.00 I & O 06/16/19 07:00 Intake Total 2540 ml Output Total 300 ml Balance 2240 ml Capillary Refill : Less Than 3 Seconds General Appearance: No Apparent Distress, WD/WN HEENT: Other (strawberry red tongue.) Neck: Normal Inspection, Supple Respiratory: Chest Non Tender, Lungs Clear, Normal Breath Sounds, No Accessory Muscle Use, No Respiratory Distress Cardiovascular: Regular Rate, Rhythm, No Gallop, No Murmur Peripheral Pulses: 2+ Dorsalis Pedis (R), 2+ Left Dors-Pedis (L), 2+ Radial Pulses (R), 2+ Radial Pulses (L) Gastrointestinal: normal bowel sounds, non tender, soft, other (wound dressed/dry) Extremity: Pedal Edema Neurologic/Psychiatric: Alert, Oriented x3, Normal Mood/Affect Skin: Normal Color Lymphatic: No Adenopathy Results Lab Laboratory Tests 06/15/19 16:00: Vancomycin Level Trough 12.0 06/15/19 16:01: Glucometer 348H 06/15/19 20:55: Glucometer 340H 06/16/19 05:04: Glucometer 232H 06/16/19 05:48: White Blood Count 9.5, Red Blood Count 3.22L, Hemoglobin 9.2L, Hematocrit 28L, Mean Corpuscular Volume 86, Mean Corpuscular Hemoglobin 29, Mean Corpuscular Hemoglobin Concent 33, Red Cell Distribution Width 12.7, Platelet Count 588H, Mean Platelet Volume 9.5, Sodium Level 140, Potassium Level 3.8, Chloride Level 106, Carbon Dioxide Level 22, Anion Gap 12, Blood Urea Nitrogen 10, Creatinine 0.90, Estimat Glomerular Filtration Rate > 60, BUN/Creatinine Ratio 11, Glucose Level 203H, Calcium Level 8.6, C-Reactive Protein High Sensitivity 8.42H 06/16/19 10:42: Glucometer 204H Microbiology 06/12/19 Blood Culture - Preliminary, Resulted No growth 06/12/19 MRSA Screen - Final, Complete MRSA not isolated 06/13/19 Gram Stain - Final, Resulted 06/13/19 Anaerobic Culture, Resulted Pending 06/13/19 Surgical Culture - Preliminary, Resulted Klebsiella oxytoca Staphylococcus aureus Staphylococcus haemolyticus Staphylococcus epidermidis Assessment/Plan Assessment/Plan Assessment/Plan deep fascial abscess left foot s/p I&D. - continue IV abx. - continue wound care - Consider a D/C date Clinical Quality Measures DVT/VTE Risk/Contraindication: Risk Factor Score Per Nursin RFS Level Per Nursing on Admit: 3=High TYE BENSON DO 06/16/19 1257: Subjective Subjective/Events-last exam Patient with no new complaints. Seen and examined with students. Patient family at bedside. Objective Exam General Appearance: No Apparent Distress Neck: Normal Inspection Respiratory: Chest Non Tender, No Accessory Muscle Use, No Respiratory Distress Cardiovascular: Regular Rate, Rhythm Gastrointestinal: non tender, soft Extremity: Other (left lower extremity openn wound minimal erythema, no purulent drainage) Neurologic/Psychiatric: Alert, Oriented x3 Skin: Normal Color Lymphatic: No Adenopathy Assessment/Plan Assessment/Plan Assessment/Plan s/p i and d of deep fascial abscess continue abx and wound [facility] soon Supervisory-Addendum Brief Verification & Attestation Participated in pt care: history, MDM, physical Personally performed: exam, history, MDM, supervision of care Care discussed with: Medical Student Procedures: n/a Results interpretation: Verified all documentation Verification and Attestation of Medical Student E/M Service A medical student performed and documented this service in my presence. I reviewed and verified all information documented by the medical student and made modifications to such information, when appropriate. I personally performed the physical exam and medical decision making. Tye Benson, Jun 16, 2019,12:57 [facility] Jun 16, 2019 11:30 TYE MOTLEY DO Jun 16, 2019 12:57 POS
[2019-06-16] MEDS: cloNIDine 0.1 MG (CATAPRES) TAB PO PRN ×2 (11:34→21:43)
[2019-06-16 11:56] VITALS: BP 184/88
[2019-06-16] MEDS: RT-ALBUTEROL SULF 2.5 MG/3 ML PRE-MIX VIAL INH SCH ×2 (12:32→20:12)
[2019-06-16 16:00] VITALS: BP 151/72
--- NOTE | 2019-06-16 16:29 | Diagnostic Imaging Report ---
INDICATION: Cough, left foot abscess. EXAMINATION: Two views of the chest were obtained. FINDINGS: The heart size is mildly enlarged and the heart has increased in size since the prior exam of 01/12/2016. The central pulmonary vascularity is also prominent and most likely there is an element of mild pulmonary congestion present. In addition, both lung bases are obscured by atelectasis/infiltrate and fluid. There is also fluid extending along the periphery of the right lower lobe. The mediastinum is not widened. The osseous structures are intact. IMPRESSION: The appearance of the chest has worsened since the prior study as cardiomegaly and pulmonary congestion have developed. There is also bibasilar atelectasis/infiltrate and bilateral pleural effusions with greater involvement on the right. A followup study would be recommended for continued evaluation. Dictated by: Dictated on workstation # [id number]
[2019-06-16] MEDS: ENOXAPARIN 40 MG/0.4 ML (LOVENOX) SYR SC SCH (16:30)
[2019-06-16 19:14] VITALS: BP 175/83
[2019-06-16] MEDS: POLYETHYLENE GLYCOL 17 GM (MIRALAX) PACK PO SCH (21:44)
[2019-06-17] VITALS (7 sets, daily range): BP systolic 146–188; BP diastolic 70–88
[2019-06-17 05:26] LABS: HEMOGLOBIN 8.9 G/DL (13.3-17.7); MEAN PLATELET VOLUME 8.8 FL (7.4-10.4); RED CELL DISTRIBUTION WIDTH 13.1 % (10.0-14.5); WHITE BLOOD COUNT 7.4 10^3/uL (4.3-11.0)
[2019-06-17] MEDS: VANCOMYCIN 500 MG/NS 100 ML IVPB IV SCH ×4 (05:33→17:00)
[2019-06-17] MEDS: inSUlin ASPART (NovoLOG) 1 UNIT/0.01 ML (CHARGE PER UNIT) SC SCH ×4 (06:14→21:36)
[2019-06-17] MEDS: NYSTATIN ORAL SUSP 5 ML UDC PO SCH ×3 (06:19→17:00)
[2019-06-17] MEDS: PIPERACILLIN/TAZOBACTAM (BULK) 4.5 GM in NS (IVPB) 100 ML IV SCH ×2 (06:19→14:40)
[2019-06-17] MEDS: RT-ALBUTEROL SULF 2.5 MG/3 ML PRE-MIX VIAL INH SCH ×2 (08:00→20:23)
[2019-06-17] MEDS: LOSARTAN 25 MG (COZAAR) TAB PO SCH (08:52)
[2019-06-17] MEDS: amLODIPine 5 MG (NORVASC) TAB PO SCH (08:52)
[2019-06-17] MEDS: SENNA W/DOCUSATE (SENOKOT S) TABLET PO SCH ×2 (08:52→21:36)
[2019-06-17] MEDS: DAKIN'S 1/4 STRENGTH (0.125%) 473 ML BTL TOP SCH ×2 (08:53→21:35)
[2019-06-17] MEDS: HYDROcodone/APAP 5 MG/325 MG (LORTAB) TAB PO PRN (11:51)
[2019-06-17] MEDS: cloNIDine 0.1 MG (CATAPRES) TAB PO PRN ×2 (11:51→20:02)
[2019-06-17] MEDS ORDERED: FUROSEMIDE 40 MG (LASIX) TAB PO NR (12:30)
--- NOTE | 2019-06-17 15:09 | Progress Note ---
Subjective Subjective/Events-last exam Seen at 1113 am. Afebrile, states he feels like he is cold at night. Is having a lot of coughing, especially if he lays on his side. Objective Exam Last Set of Vital Signs Vital Signs Date Time Temp Pulse Resp B/P (MAP) Pulse Ox O2 Delivery O2 Flow Rate FiO2 06/17/19 13:32 36.8 70 92 06/17/19 12:00 20 172/70 (104) Room Air 06/17/19 08:00 2.00 06/16/19 20:12 92 Capillary Refill : Less Than 3 Seconds I&O Intake and Output 06/17/19 00:00 Intake Total 2130 ml Output Total 600 ml Balance 1530 ml Intake Oral 1790 ml IV Total 340 ml Output Urine Total 600 ml # Voids 3 General: Alert, No Acute Distress Lungs: Clear to Auscultation, Normal Air Movement Heart: Regular Rate, No Murmurs Abdomen: Normal Bowel Sounds, Soft Skin: Other (foot wrapped and dressed with no drainage) Psych/Mental Status: Mood NL Results/Procedures Lab Laboratory Tests 06/16/19 15:58: Glucometer 232H 06/16/19 21:17: Glucometer 202H 06/17/19 05:05: White Blood Count 7.4, Red Blood Count 3.16L, Hemoglobin 8.9L, Hematocrit 27L, Mean Corpuscular Volume 87, Mean Corpuscular Hemoglobin 28, Mean Corpuscular Hemoglobin Concent 33, Red Cell Distribution Width 13.1, Platelet Count 616H, Mean Platelet Volume 8.8 06/17/19 05:25: B-Type Natriuretic Peptide 103.7H 06/17/19 06:14: Glucometer 73 06/17/19 11:37: Glucometer 279H Microbiology 06/12/19 Blood Culture - Preliminary, Resulted No growth 06/12/19 MRSA Screen - Final, Complete MRSA not isolated 06/13/19 Gram Stain - Final, Complete 06/13/19 Anaerobic Culture - Final, Complete No anaerobes isolated 06/13/19 Surgical Culture - Final, Complete Klebsiella oxytoca Staphylococcus aureus Staphylococcus haemolyticus Staphylococcus epidermidis Assessment/Plan Assessment/Plan (1) Hematuria Status: Acute Assessment & Plan: Without evidence of infection on UA. Per clinic hcart was also present 07/[address] abdomen was ordered, he did not have done until 09/2018 but it did not show any renal pathology. May need cystoscopy outpatient. (2) Insulin dependent diabetes mellitus Status: Chronic Assessment & Plan: A1c above 13. Blood sugar running 200s last 24 hours on levemir 15 units BID and sliding scale insulin. Increase levemir to 20 units BID. (3) Hypertension Status: Chronic (4) Anemia Assessment & Plan: Unknown etiology, will check iron and peripheral smear. (5) Cellulitis of left foot Status: Acute Assessment & Plan: s/p I&D. On vancomycin and zosyn. Culture with klebsiella, s. aureus, s. haemolyticus, s. epi. (6) Thrombocytosis Status: Acute Assessment & Plan: Suspect secondary to infection, monitor. (7) Cough Status: Acute Assessment & Plan: CXR with some edema and atelectasis. Will give furosemide x 1 dose. Check BNP. Encouraged IS. (8) DVT prophylaxis Status: Acute Assessment & Plan: Enoxaparin. Clinical Quality Measures DVT/VTE Risk/Contraindication: Risk Factor Score Per Nursin RFS Level Per Nursing on Admit: 3=High AMY ALLEN MD Jun 17, 2019 15:09 POS
[2019-06-17 15:25] LABS: ABSOLUTE RETIC # 64 10e9/L (24-90); BASOPHILS # (AUTO) 0.1 10^3/uL (0.0-0.1); BASOPHILS % (AUTO) 1 % (0-10); EOSINOPHILS # (AUTO) 0.3 10^3/uL (0.0-0.3); EOSINOPHILS % (AUTO) 4 % (0-10); HEMATOCRIT 28 % (40-54); HEMOGLOBIN 9.1 G/DL (13.3-17.7); LYMPHOCYTES # (AUTO) 2.4 X 10^3 (1.0-4.0); LYMPHOCYTES % (AUTO) 31 % (12-44); MEAN CORPUSCULAR HEMOGLOBIN 28 PG (25-34); MEAN CORPUSCULAR HGB CONC 32 G/DL (32-36); MEAN CORPUSCULAR VOLUME 87 FL (80-99); MONOCYTES # (AUTO) 0.8 X 10^3 (0.0-1.0); MONOCYTES % (AUTO) 10 % (0-12); NEUTROPHILS # (AUTO) 4.1 X 10^3 (1.8-7.8); NEUTROPHILS % (AUTO) 54 % (42-75); PLATELET COUNT 626 10^3/uL (130-400); RED CELL DISTRIBUTION WIDTH 13.3 % (10.0-14.5); RETICULOCYTE % 1.95 % (0.50-2.40); WHITE BLOOD COUNT 7.6 10^3/uL (4.3-11.0)
--- NOTE | 2019-06-17 16:00 | NUR ---
PT FOUND ON ROOM AIR @ REST WITH SPO2 @ 88%. REPLACED O2 @ 2 LPM, SPO2 INCREASED TO 92%. WALKED PT FOR 3 MINUTES, PT REQUIRED 3 LPM TO KEEP SPO2 ABOVE 90%. Addendum: 06/17/19 at 1620 by PETE BENJAMIN RT Amended: Links added.
[2019-06-17 16:09] LABS: BAND NEUTROPHILS 0 %; BASOPHILS % (MANUAL) 0 %; EOSINOPHILS % (MANUAL) 5 %; LYMPHOCYTES % (MANUAL) 33 %; MONOCYTES % (MANUAL) 6 %; NEUTROPHILS % (MANUAL) 56 %; RBC MORPH NORMAL
[2019-06-17] MEDS: ENOXAPARIN 40 MG/0.4 ML (LOVENOX) SYR SC SCH (17:00)
[2019-06-17] MEDS: POLYETHYLENE GLYCOL 17 GM (MIRALAX) PACK PO SCH (21:36)
[2019-06-17] MEDS: ACETAMINOPHEN 500 MG TAB (TYLENOL) PO PRN (22:04)
[2019-06-18] VITALS (7 sets, daily range): BP systolic 146–177; BP diastolic 7–78
[2019-06-18] MEDS: NYSTATIN ORAL SUSP 5 ML UDC PO SCH ×3 (00:13→11:50)
--- NOTE | 2019-06-18 04:35 | NUR ---
PT CALLED ME BECAUSE PT THINKS HIS "SUGAR IS LOW". ASKED TO CHECK BLOOD SUGAR. BLOOD SUGAR 69. OFFERED JUICE AND PEANUT BUTTER AND CRACKERS. PT ATE SOME CRACKERS WITH PEANUT BUTTER AND JUICE. WILL CONTINUE TO MONITOR.
[2019-06-18] MEDS: VANCOMYCIN 500 MG/NS 100 ML IVPB IV SCH ×2 (05:33)
[2019-06-18] MEDS: inSUlin ASPART (NovoLOG) 1 UNIT/0.01 ML (CHARGE PER UNIT) SC SCH ×2 (05:33→11:46)
[2019-06-18 06:12] LABS: HEMOGLOBIN 12.2 G/DL (13.3-17.7); MEAN PLATELET VOLUME 12.1 FL (7.4-10.4); RED CELL DISTRIBUTION WIDTH 14.6 % (10.0-14.5); WHITE BLOOD COUNT 15.1 10^3/uL (4.3-11.0)
[2019-06-18 06:20] LABS: BUN/CREATININE RATIO 10; CALCIUM 8.6 MG/DL (8.5-10.1); CARBON DIOXIDE 24 MMOL/L (21-32); CHLORIDE 105 MMOL/L (98-107); CREATININE SERUM 0.84 MG/DL (0.60-1.30); GFR ESTIMATED > 60; GLUCOSE 128 MG/DL (70-105); POTASSIUM 3.5 MMOL/L (3.6-5.0); SODIUM 140 MMOL/L (135-145)
[2019-06-18] MEDS: RT-ALBUTEROL SULF 2.5 MG/3 ML PRE-MIX VIAL INH SCH (07:22)
[2019-06-18] MEDS ORDERED: KCL 20 MEQ TAB (K-DUR) PO ONE (08:15)
[2019-06-18] MEDS ORDERED: LOSARTAN 25 MG (COZAAR) TAB PO SCH (09:00)
[2019-06-18] MEDS: SENNA W/DOCUSATE (SENOKOT S) TABLET PO SCH (09:00)
[2019-06-18] MEDS: amLODIPine 5 MG (NORVASC) TAB PO SCH (09:46)
[2019-06-18] MEDS: ACETAMINOPHEN 500 MG TAB (TYLENOL) PO PRN (09:54)
[2019-06-18] MEDS ORDERED: AMLO10TA7 PO (11:36)
[2019-06-18] MEDS ORDERED: NYST1000 PO (11:36)
[2019-06-18] MEDS ORDERED: INSU100I14 SQ (11:36)
[2019-06-18] MEDS ORDERED: LOSA50TA63 PO (11:36)
[2019-06-18] MEDS ORDERED: INSU100I29 SC (11:36)
[2019-06-18] MEDS ORDERED: ACHD5005 PO (11:36)
[2019-06-18] MEDS ORDERED: AMOX-358 PO (11:36)
--- NOTE | 2019-06-18 11:36 | Diagnostic Imaging Report ---
INDICATION: Cough. Leukocytosis. COMPARISON: 06/16/2019 FINDINGS: Frontal and lateral radiographic views of the chest were obtained and show persistent, although diminished bibasilar effusions. Background interstitial lung disease is again noted. There is ill-defined ovoid opacity within the left base that measures 5 x 2.9 cm. No pneumothorax is seen on either side. Cardiac silhouette and pulmonary vasculature are within normal limits. Osseous structures show no acute abnormalities. IMPRESSION: 1. Persistent, although diminished bibasilar effusions. 2. Ovoid opacity within the left base, which may be on the basis of rounded atelectasis or infiltrate. Pulmonary mass cannot be excluded. Continued follow-up to resolution is recommended. Dictated by: Dictated on workstation # [id number]
--- NOTE | 2019-06-18 11:40 | D/C HH Face to Face Order ---
D/C Face to Face Orders Instructions for Patient Patient Instructions/FollowUp: Follow up with Edvin Macias APRN on 06/19 at 11:20 am. Follow up with Dr. Dee as scheduled. Physician to follow Patient: Edvin Macias APRN Discharge Diet for Home: ADA Diet Patient Problems: Cellulitis/abscess left foot s/p I&D Uncontrolled diabetes Hypoxia secondary to pleural effusion and atelectasis requiring supplemental oxygen Thrush Patient Data-Allergies,Ht & Wt Patient Allergies: Coded Allergies: NKANo Known Allergies (Verified Allergy, Unknown, 01/30/07) Height (Feet): 5 Height (Inches): 7.00 Weight (Pounds): 136 Weight (Ounces): 7.0 Home Health Need/Face to Face Date of Face to Face: Jun 18, 2019 Clinical Findings: Pain with ambulation, Shortness of breath, Non-healing wound I have seen Pt [id number]: Yes Discharged To: Home Diagnosis/Conditions: Cellulitis/abscess left foot s/p I&D Uncontrolled diabetes Hypoxia secondary to pleural effusion and atelectasis requiring supplemental oxygen Thrush Patient is Homebound due to: Pain w/ambulation, Shortness of breath/distress Homebound Status Due to the above stated illness, injury or surgical procedure (medical condition or diagnosis) and associated clinical findings, the patient is home bound because of his/her inability to leave home except with aid of a supportive device and/or person AND leaving the home requires a considerable and taxing effort or is medically contraindicated. Pt req the following assistanc: [facility] Nursing Orders Home Health Services Order: Nursing Services, Wound Care-Eval/Treat Home Health Infusion Therapy Line Start Date: Jun 13, 2019 Therapy Orders Wound care- dressing change BID with Dakin's solution. Certify Stmt I certify that this patient is under my care and that I, a nurse practitioner or a physician; a child life assistant working with me, had a face to face encounter that -m eets the physician face to face encounter requirements with this patient as dated. AMY ALLEN MD Jun 18, 2019 11:40 POS
--- NOTE | 2019-06-18 11:44 | Discharge Summary ---
Discharge Summary Hospital Course Problems Reviewed?: Yes Problems/Diagnosis: (1) Hematuria Status: Acute Assessment & Plan: Without evidence of infection on UA. Per clinic hcart was also present 07/[address] abdomen was ordered, he did not have done until 09/2018 but it did not show any renal pathology. May need cystoscopy outpatient. (2) Insulin dependent diabetes mellitus Status: Chronic Assessment & Plan: A1c above 13. Blood sugar running 200s last 24 hours on levemir 15 units BID and sliding scale insulin. Increase levemir to 20 units BID. 06/18 on d/c continued on levemir 20 units BID and added novolog 3 units AC, will need further adjustments outpatient. (3) Hypertension Status: Chronic Assessment & Plan: Increased amlodipine dose on d/c due to elevated BP. Qualifiers: Qualified Codes: I10 - Essential (primary) hypertension (4) Anemia Assessment & Plan: Unknown etiology, iron studies with slightly low iron, low TIBC and normal ferritin suggesting anemia of chronic disease. (5) Cellulitis of left foot Status: Acute Assessment & Plan: s/p I&D. On vancomycin and zosyn. Culture with klebsiella, s. aureus, s. haemolyticus, s. epi. 06/18 continued on Augmentin x 7 more days on d/c. To follow up with Dr. Dee for wound care. Home health ordered on d/c. (6) Thrombocytosis Status: Resolved Resolution Date/Time: 06/18/19 @ 14:29 Assessment & Plan: Suspect secondary to infection, monitor. (7) Cough Status: Acute Assessment & Plan: Initial CXR with some edema and atelectasis. Checked BNP which was 103 (normal up to 100). Given furosemide one dose and had improvement next day. Encouraged IS. Repeat CXR 06/18- "1. Persistent, although diminished bibasilar effusions. 2. Ovoid opacity within the left base, which may be on the basis of rounded atelectasis or infiltrate. Pulmonary mass cannot be excluded. Continued follow- up to resolution is recommended." (8) Hypoxia Status: Acute Assessment & Plan: Thought to be secondary to atelectasis and fluid. Required supplemental oxygen on d/c which was ordered. (9) Abnormal chest xray Status: Acute Assessment & Plan: See cough diagnosis. Will need repeat imaging outpatient for follow up. Hospital Course Date of Admission: Jun 12, 2019 at 15:28 Admission Diagnosis : See problem list Family Physician/Provider: Vinicius Macias Date of Discharge: 06/18/19 Discharge Diagnosis: See problem list Hospital Course: See problem list Labs and Pending Lab Test: Laboratory Tests 06/17/19 15:37: Glucometer 127H 06/17/19 20:45: Glucometer 157H 06/18/19 04:42: Glucometer 69L 06/18/19 05:16: Glucometer 124H 06/18/19 05:40: White Blood Count 15.1H, Red Blood Count 4.28L, Hemoglobin 12.2#L, Hematocrit 40, Mean Corpuscular Volume 93, Mean Corpuscular Hemoglobin 29, Mean Corpuscular Hemoglobin Concent 31L, Red Cell Distribution Width 14.6H, Platelet Count 277, Mean Platelet Volume 12.1H, Sodium Level 140, Potassium Level 3.5L, Chloride Level 105, Carbon Dioxide Level 24, Anion Gap 11, Blood Urea Nitrogen 8, Creatinine 0.84, Estimat Glomerular Filtration Rate > 60, BUN/Creatinine Ratio 10, Glucose Level 128H, Calcium Level 8.6 06/18/19 11:14: Glucometer 235H Microbiology 06/12/19 Blood Culture - Final, Complete No growth 06/12/19 MRSA Screen - Final, Complete MRSA not isolated 06/13/19 Gram Stain - Final, Complete 06/13/19 Anaerobic Culture - Final, Complete No anaerobes isolated 06/13/19 Surgical Culture - Final, Complete Klebsiella oxytoca Staphylococcus aureus Staphylococcus haemolyticus Staphylococcus epidermidis Home Meds Active Augmentin 875-125 Tablet (Amoxicillin/Potassium Clav) 1 Each Tablet 1 Each PO BID Novolog Flexpen (Insulin Aspart) 300 Units/3 Ml Solution 3 Units SQ AC Hydrocodone/Acetaminophen 5/325mg Tablet (Acetaminophen/Hydrocodone Bitart) 1 Tab Tab 1 Tab PO Q4H PRN Amlodipine Besylate 10 Mg Tablet 10 Mg PO DAILY Nystatin 100,000 Unit/1 Ml Oral.susp 5 Ml PO Q6HR 7 Days Levemir Flextouch (Insulin Detemir) 100 Unit/1 Ml Insuln.pen 20 Units SC BID Losartan Potassium 50 Mg Tablet 50 Mg PO DAILY Reported Advil (Ibuprofen) 200 Mg Tablet 400 Mg PO BID PRN Assessment/Pt DC Instructions See separate d/c instructions. Discharge Diet: ADA Diet Discharge Physical Examination Allergies: Coded Allergies: NKANo Known Allergies (Verified Allergy, Unknown, 01/30/07) General Appearance: No Apparent Distress, WD/WN Respiratory: Lungs Clear, Normal Breath Sounds Cardiovascular: Regular Rate, Rhythm, No Murmur Extremity: No Pedal Edema Skin: Normal Color, Warm/Dry, Other (left foot wrapped with no drainage) Neurologic/Psychiatric: Alert, Normal Mood/Affect Copy Copies To 1: Edvin Macias APRN Discharge Summary Date of Admission Jun 12, 2019 at 15:28 Date of Discharge Discharge Date: Jun 18, 2019 Admission Diagnosis Assessment: Left DM foot ulcer with abscess DM insulin dependent HTN Non-compliance Plan: Monitor sugars IV abx DR Renee consultation [facility] Discharge Diagnosis (1) Ulcer of left foot due to type 2 diabetes mellitus (2) Cellulitis of left foot Status: Acute (3) Insulin dependent diabetes mellitus Status: Chronic Clinical Quality Measures DVT/VTE Risk/Contraindication: Risk Factor Score Per Nursin RFS Level Per Nursing on Admit: 3=High AMY ALLEN MD Jun 18, 2019 11:44 POS
[2019-06-18] MEDS: DAKIN'S 1/4 STRENGTH (0.125%) 473 ML BTL TOP SCH (11:47)
--- NOTE | 2019-06-18 12:31 | NUR ---
DR ALLEN NOTIFIED OF BP 175/85 AFTER AM BLOOD PRESSURE MEDICATIONS. ORDER RECEIVED TO GIVE ONCE TIME 5MG AMLODIPINE AT THIS TIME. ORDER PLACED IN EMAR.
[2019-06-18] MEDS ORDERED: amLODIPine 5 MG (NORVASC) TAB PO NR (12:45)
--- NOTE | 2019-06-18 13:29 | NUR ---
DISCHARGE PLANNING: Patient is discharge today to home with [facility]. Choices given and they chose [facility] as there provider. He is also requiring O2 and again chose [facility] to provide this service. Referrals of clinical and orders sent to each and verbal communication as well. He will need portable delivered to the hospital prior to discharge.
--- NOTE | 2019-06-18 15:00 | NUR ---
PORTABLE OXYGEN DELIVERED AT THIS TIME
--- NOTE | 2019-07-17 01:44 | OPERATIVE REPORT ---
DATE OF SERVICE: 06/13/2019 ATTENDING OUTSIDE DELIVERER: Brittany Person APRN PREOPERATIVE DIAGNOSES: Left mid foot diabetic abscess in the deep fascial planes and tenosynovitis. POSTOPERATIVE DIAGNOSES: Left mid foot diabetic abscess in the deep fascial planes and tenosynovitis. PROCEDURE: Incision and drainage deep left foot abscess. SURGEON: Yolanda Tomlinson MD. [employer]: Shahzad Hammond APRN. ANESTHESIA: General laryngeal mask airway. ESTIMATED BLOOD LOSS: Minimal. FINDINGS: Deep left foot diabetic abscess traversing the deep fascial planes to the first and second interosseous muscles of the metatarsals. DISPOSITION: The patient tolerated the procedure well. INDICATIONS: The patient is a 63-year-old male with longstanding history of noncompliance and insulin-dependent diabetes. He has had issues with lower extremity wounds and peripheral neuropathy. He was seen on 06/05/2019 at wound care and found to have a hemoglobin A1c of 13.8. At that time, he also was found to have an open wound along the left metatarsal along the plantar aspect. He has been seen on regular visits and there appeared to be tracking as well as an abscess consistent with a deep fascial abscess and tenosynovitis. He does have a normal ankle brachial index to indicate normal large vessel arterial perfusion. DESCRIPTION OF PROCEDURE: The patient was brought to the operating room, laid supine on the table. After adequate IV pain and sedative medications and general laryngeal mask airway intubation, the left foot was prepped and draped in standard surgical fashion. A 0.5% Marcaine with epinephrine was then used to anesthetize the plantar aspect of the skin. An incision was then made through the skin and subcutaneous tissue using a 15 blade starting at the metatarsophalangeal joint to the mid portion of the foot. There was a superficial abscess identified, which was drained. However, there was a deep abscess in the interosseous muscles between the first and second tarsal bones were then opened using Metzenbaum scissors as well as blunt dissection. The abscess cavity was identified and bluntly dissected using finger dissection. The abscess cavity was then copiously irrigated and suctioned out. This was then packed with one inch iodoform packing. The open wound was then covered with sterile gauze followed by 4 x 4, followed by Kerlix and then Coban. The patient tolerated the procedure well. We will admit him back to the floor and continue IV antibiotics and await culture and sensitivity results to tailor his antibiotic regimen. Job ID: [id number] DocumentID: [id number] Dictated Date: 07/16/2019 18:12:58 Special Tester Date: 07/17/2019 01:43:33 Dictated By: YOLANDA TOMLINSON MD MTDD
== END 2019-06-18 16:56 | disposition home health service (06) | DRG 988 ==
LOC: 4TH 15:28
PROVIDERS: ADMIT Internal Medicine; ATTEND Family Medicine
PROC: 0K9W0ZZ Drainage of Left Foot Muscle, Open Approach (ICD-10-PCS; principal; 2019-06-13 15:29)
DX: E11.621 Type 2 diabetes mellitus with foot ulcer (principal); M60.074 Infective myositis, left foot; L03.116 Cellulitis of left lower limb; E11.42 Type 2 diabetes mellitus with diabetic polyneuropathy; J81.1 Chronic pulmonary edema; J98.11 Atelectasis; B37.0 Candidal stomatitis; R07.89 Other chest pain; R05 Cough; R31.9 Hematuria, unspecified; I10 Essential (primary) hypertension; M25.50 Pain in unspecified joint; K21.9 Gastro-esophageal reflux disease without esophagitis; D64.9 Anemia, unspecified; D47.2 Monoclonal gammopathy; D47.3 Essential (hemorrhagic) thrombocythemia; Z90.2 Acquired absence of lung [part of]; Z79.4 Long term (current) use of insulin; Z91.19 Patient's noncompliance with other medical treatment and regimen
CPT/HCPCS: 36415; 71046; 73630; 80048; 80053; 80202; 81000; 82728; 82962; 83036; 83540; 83605; 83880; 85007; 85025; 85027; 85045; 86141; 87040; 87070; 87075; 87077; 87081; 87088; 87186; 87205; 94640; 94664; 94760; 94761; 99213; 99282

== ENCOUNTER → 2019-06-12 | Outpatient (CLI) | payer MEDICARE ==
[~2019-06-12] MED LIST changes: +GBPN600T PO; +IBUP-30 PO; +INSU100I29 SC
--- NOTE | 2019-06-12 16:35 | CONSULTATION REPORT ---
DATE OF SERVICE: ATTENDING PRIMARY SEWAGE DISPOSAL ENGINEER: Brittany Jo APRN at [facility]. HISTORY OF PRESENT ILLNESS: The patient is a 63-year-old male who has had long-standing history of non- compliant diabetic blood sugar control as well as wounds of his lower extremities. He was seen on 06/05/2019 at wound care and was found to have a hemoglobin A1c of 13.8. He was found to have an open wound as well as drainage along the left distal first metatarsal joint. This was opened and debrided. However, on today's clinic visit, there appears to be tracking as well as an abscess more proximal consistent with spreading of the infection as well as tenosynovitis. He did have a normal ankle brachial indexes, which wound indicate adequate arterial blood perfusion. PAST MEDICAL HISTORY: Insulin-dependent diabetes, peripheral neuropathy, gastroesophageal reflux disease. PAST SURGICAL HISTORY: Right thoracotomy and partial lung resection due to fungemia. ALLERGIES: No known drug allergies. MEDICATIONS: Levemir insulin, NovoLog insulin, Reglan 10 mg b.i.d., gabapentin 300 mg t.i.d., metformin 1000 mg b.i.d., omeprazole 20 mg daily. SOCIAL HISTORY: Negative smoke, negative alcohol. FAMILY HISTORY: Mother with diabetes. VITAL SIGNS: Stable, afebrile. REVIEW OF SYSTEMS: Well-nourished male currently, in no acute distress. He is not experiencing any shortness of breath or difficulty breathing. No chest pain, palpitations, diaphoresis. No nausea, vomiting. No diarrhea or constipation. No fever, chills, no recent inadvertent weight loss. All other review of systems negative. PHYSICAL EXAMINATION: CHEST: Clear. Good breath sounds bilaterally. HEART: Regular, no murmurs. EXTREMITIES: No lower extremity edema, negative Homans sign. HEENT: No scleral icterus or cervical lymphadenopathy. NECK: No cervical lymphadenopathy. ABDOMEN: Soft, nontender, nondistended. SKIN: Along the plantar aspect of the left foot, there is an open tunneling wound along the distal metatarsal bone. There seems to be some tracking more proximally with a fluctuance, redness consistent with an abscess. ABDOMEN: Soft, nontender, nondistended. SKIN: Warm, dry. ASSESSMENT AND PLAN: A 63-year-old male with right foot diabetic abscess with the abscess traversing the deep fascial planes and causing tenosynovitis. We will proceed with exploration as well as identifying and opening any abscess cavities and proper irrigation and drainage. He will also be admitted and started on IV antibiotics as well as medical therapy. Job ID: [id number] DocumentID: [id number] Dictated Date: 06/12/2019 16:14:53 Predatory Animal Hunter Date: 06/12/2019 16:35:06 Dictated By: YOLANDA TOMILNSON MD MTDD
== END ==
LOC: WOUNDCARE 13:33
PROVIDERS: ATTEND Surgery
DX: M65.072 Abscess of tendon sheath, left ankle and foot (principal); E11.621 Type 2 diabetes mellitus with foot ulcer; E11.42 Type 2 diabetes mellitus with diabetic polyneuropathy; L97.523 Non-pressure chronic ulcer of other part of left foot with necrosis of muscle
CPT/HCPCS: 87070; 87077; 87205; 99213

== ENCOUNTER → 2019-06-19 | Outpatient (CLI) | payer MEDICARE ==
[~2019-06-19] MED LIST changes: +ACHD5005 PO; +AMLO10TA7 PO; +AMOX-358 PO; +GBPN600T PO; +IBUP-30 PO; +INSU100I14 SQ; +INSU100I29 SC; +LOSA50TA63 PO; +NYST1000 PO
== END ==
LOC: WOUNDCARE 13:35
PROVIDERS: ATTEND Surgery
DX: M65.072 Abscess of tendon sheath, left ankle and foot (principal); E11.621 Type 2 diabetes mellitus with foot ulcer; E11.42 Type 2 diabetes mellitus with diabetic polyneuropathy; L97.526 Non-pressure chronic ulcer of other part of left foot with bone involvement without evidence of necrosis; E11.52 Type 2 diabetes mellitus with diabetic peripheral angiopathy with gangrene
CPT/HCPCS: 11043

== ENCOUNTER → 2019-06-26 | Outpatient (CLI) | payer MEDICARE | LOC: WOUNDCARE 13:27 | PROVIDERS: ATTEND Surgery | DX: M65.072 Abscess of tendon sheath, left ankle and foot (principal); E11.621 Type 2 diabetes mellitus with foot ulcer; E11.42 Type 2 diabetes mellitus with diabetic polyneuropathy; L97.523 Non-pressure chronic ulcer of other part of left foot with necrosis of muscle; E11.52 Type 2 diabetes mellitus with diabetic peripheral angiopathy with gangrene | CPT/HCPCS: 11043 ==

== ENCOUNTER → 2019-07-03 | Outpatient (CLI) | payer MEDICARE | LOC: WOUNDCARE 13:27 | PROVIDERS: ATTEND Surgery | DX: E11.621 Type 2 diabetes mellitus with foot ulcer (principal); E11.42 Type 2 diabetes mellitus with diabetic polyneuropathy; E11.52 Type 2 diabetes mellitus with diabetic peripheral angiopathy with gangrene; I96 Gangrene, not elsewhere classified; L97.523 Non-pressure chronic ulcer of other part of left foot with necrosis of muscle; M65.072 Abscess of tendon sheath, left ankle and foot | CPT/HCPCS: 11043 ==

== ENCOUNTER → 2019-07-03 | Outpatient (CLI) | payer MEDICARE | LOC: LAB 15:20 | PROVIDERS: ATTEND Surgery | DX: L97.519 Non-pressure chronic ulcer of other part of right foot with unspecified severity (principal); I73.9 Peripheral vascular disease, unspecified | CPT/HCPCS: 36415; 84134 ==

== ENCOUNTER → 2019-07-10 | Outpatient (CLI) | payer MEDICARE | LOC: WOUNDCARE 13:32 | PROVIDERS: ATTEND Surgery | DX: E11.621 Type 2 diabetes mellitus with foot ulcer (principal); E11.52 Type 2 diabetes mellitus with diabetic peripheral angiopathy with gangrene; E11.42 Type 2 diabetes mellitus with diabetic polyneuropathy; I96 Gangrene, not elsewhere classified; M65.072 Abscess of tendon sheath, left ankle and foot; L97.522 Non-pressure chronic ulcer of other part of left foot with fat layer exposed | CPT/HCPCS: 11042 ==

== ENCOUNTER → 2019-07-17 | Outpatient (CLI) | payer MEDICARE | LOC: WOUNDCARE 13:27 | PROVIDERS: ATTEND Surgery | DX: L97.523 Non-pressure chronic ulcer of other part of left foot with necrosis of muscle (principal); E11.621 Type 2 diabetes mellitus with foot ulcer; E11.42 Type 2 diabetes mellitus with diabetic polyneuropathy; E11.52 Type 2 diabetes mellitus with diabetic peripheral angiopathy with gangrene; M65.072 Abscess of tendon sheath, left ankle and foot | CPT/HCPCS: 11042 ==

== ENCOUNTER → 2019-07-24 | Outpatient (CLI) | payer MEDICARE | LOC: WOUNDCARE 13:28 | PROVIDERS: ATTEND Surgery | DX: L97.522 Non-pressure chronic ulcer of other part of left foot with fat layer exposed (principal); E11.621 Type 2 diabetes mellitus with foot ulcer; E11.42 Type 2 diabetes mellitus with diabetic polyneuropathy; E11.52 Type 2 diabetes mellitus with diabetic peripheral angiopathy with gangrene; M65.072 Abscess of tendon sheath, left ankle and foot | CPT/HCPCS: 11042 ==

== ENCOUNTER → 2019-08-14 | Outpatient (CLI) | payer MEDICARE | LOC: WOUNDCARE 13:30 | PROVIDERS: ATTEND Orthopaedic Surgery Hand Surgery | DX: E11.621 Type 2 diabetes mellitus with foot ulcer (principal); E11.42 Type 2 diabetes mellitus with diabetic polyneuropathy; E11.52 Type 2 diabetes mellitus with diabetic peripheral angiopathy with gangrene; L97.522 Non-pressure chronic ulcer of other part of left foot with fat layer exposed; M65.072 Abscess of tendon sheath, left ankle and foot; I73.9 Peripheral vascular disease, unspecified; I10 Essential (primary) hypertension | CPT/HCPCS: 99213 ==

== ENCOUNTER → 2019-08-21 | Outpatient (CLI) | payer MEDICARE | LOC: WOUNDCARE 13:29 | PROVIDERS: ATTEND Orthopaedic Surgery Hand Surgery | DX: E11.621 Type 2 diabetes mellitus with foot ulcer (principal); E11.42 Type 2 diabetes mellitus with diabetic polyneuropathy; L97.522 Non-pressure chronic ulcer of other part of left foot with fat layer exposed; M65.072 Abscess of tendon sheath, left ankle and foot; E11.52 Type 2 diabetes mellitus with diabetic peripheral angiopathy with gangrene; I10 Essential (primary) hypertension | CPT/HCPCS: 11042 ==

== ENCOUNTER 2019-08-26 14:23 | Emergency (ER) | payer MEDICARE ==
[~2019-08-26] VITALS: Ht 170.2 cm; Wt 65.9 kg
[2019-08-26 15:37] LABS: BASOPHILS % (AUTO) 1 % (0-10); EOSINOPHILS # (AUTO) 0.2 10^3/uL (0.0-0.3); EOSINOPHILS % (AUTO) 3 % (0-10); HEMATOCRIT 35 % (40-54); HEMOGLOBIN 11.6 G/DL (13.3-17.7); LYMPHOCYTES # (AUTO) 2.1 X 10^3 (1.0-4.0); LYMPHOCYTES % (AUTO) 31 % (12-44); MEAN CORPUSCULAR HEMOGLOBIN 28 PG (25-34); MEAN CORPUSCULAR HGB CONC 33 G/DL (32-36); MEAN CORPUSCULAR VOLUME 83 FL (80-99); MEAN PLATELET VOLUME 9.8 FL (7.4-10.4); MONOCYTES # (AUTO) 0.7 X 10^3 (0.0-1.0); MONOCYTES % (AUTO) 9 % (0-12); NEUTROPHILS % (AUTO) 57 % (42-75); PLATELET COUNT 402 10^3/uL (130-400); RED CELL DISTRIBUTION WIDTH 13.8 % (10.0-14.5)
[2019-08-26 16:01] LABS: ALANINE AMINOTRANSFERASE 32 U/L (0-55); ALBUMIN 3.4 GM/DL (3.2-4.5); ALKALINE PHOSPHATASE 131 U/L (40-136); BILIRUBIN,TOTAL 0.3 MG/DL (0.1-1.0); BUN/CREATININE RATIO 19; CALCIUM 9.1 MG/DL (8.5-10.1); CARBON DIOXIDE 27 MMOL/L (21-32); CHLORIDE 104 MMOL/L (98-107); CREATININE SERUM 1.16 MG/DL (0.60-1.30); GFR ESTIMATED > 60; GLUCOSE 321 MG/DL (70-105); LIPASE 9 U/L (8-78); POTASSIUM 4.2 MMOL/L (3.6-5.0); SODIUM 138 MMOL/L (135-145); TOTAL PROTEIN 7.6 GM/DL (6.4-8.2)
[2019-08-26 16:28] LABS: BILIRUBIN,URINE NEGATIVE (NEGATIVE); CLARITY,URINE CLEAR; COLOR,URINE YELLOW; GLUCOSE, URINE (UA) 1+ (NEGATIVE); KETONES,URINE TRACE (NEGATIVE); LEUKOCYTE ESTERASE ,URINE NEGATIVE (NEGATIVE); NITRITE,URINE NEGATIVE (NEGATIVE); PROTEIN,URINE 3+ (NEGATIVE)
--- NOTE | 2019-08-26 16:28 | Diagnostic Imaging Report ---
PROCEDURE: US Gallbladder. TECHNIQUE: Multiple real-time grayscale images were obtained over the right upper quadrant in various projections. INDICATION: Right upper quadrant abdominal pain. FINDINGS: Liver parenchyma is homogeneous with normal echotexture. Portal vein is patent with hepatopetal flow. Gallbladder is clear. There is no stone or wall thickening. Common duct is not dilated. Pancreas is obscured by bowel gas. Aorta and IVC are not seen. Right kidney measures 11.3 cm in length and appears normal. There is no ascites. IMPRESSION: Negative gallbladder sonogram. Dictated by: Dictated on workstation # [id number]
[2019-08-26 16:43] LABS: BACTERIA,URINE TRACE /HPF
[2019-08-26] MEDS ORDERED: NS IV 1000 ML 1,000 ML IV SCH (17:15)
[2019-08-26] MEDS ORDERED: NS 100 ML (IVPB) BAG IV ONE (18:15)
[2019-08-26] MEDS ORDERED: IOHEXOL 350 MG/ML 100 ML (OMNIPAQUE 350) VIAL IV ONE (18:15)
[2019-08-26] MEDS ORDERED: CATHETER FLUSH 10 ML SYR IV PRN (18:15)
[2019-08-26] MEDS ORDERED: HOLD METFORMIN - RECEIVED CONTRAST 20 ML VIAL IV SCH (18:15)
--- NOTE | 2019-08-26 18:20 | ED Abdominal Pain ---
General Chief Complaint: Abdominal/GI Problems Stated Complaint: ABD PAIN Nursing Triage Note: PT AMB TO RM 8 WITH COMPLAINT OF RIGHT SIDED ABD PAIN. FAMILY STATES HAS BEEN ONGOING FOR THE LAST TWO MONTHS BUT WORSENED WITH IN THE LAST 4 DAYS. LAST BM WAS YESTERDAY. Sepsis Screen: No Definite Risk Source of Information: Patient Exam Limitations: No Limitations History of Present Illness Date Seen by Provider: Aug 26, 2019 Time Seen by Provider: 15:35 Initial Comments 63-year-old male who presents to emergency room with complaints of right upper quadrant abdominal pain that started 2 months ago but has became worse the last 4 days. He reports that he has history of gallstones that were detected by x-ray at [facility]. He reports that last bowel movement was yesterday and denies nausea, vomiting, diarrhea or fevers. Timing/Duration: Other Allergies and Home Medications Allergies Coded Allergies: Tyson Known Allergies (Verified Allergy, Unknown, 01/30/07) Home Medications Amlodipine Besylate 10 Mg Tablet, 10 MG PO DAILY Prescribed by: AMY ALLEN on 06/18/19 1136 Amoxicillin/Potassium Clav 1 Each Tablet, 1 EACH PO BID Prescribed by: AMY ALLEN on 06/18/19 1136 Hydrocodone Bit/Acetaminophen 1 Tab Tab, 1 TAB PO Q4H PRN for PAIN-MODERATE Prescribed by: AMY ALLEN on 06/18/19 1136 Ibuprofen 200 Mg Tablet, 400 MG PO BID PRN for PAIN-MILD, (Reported) Insulin Aspart 300 Units/3 Ml Solution, 3 UNITS SQ AC Prescribed by: AMY ALLEN on 06/18/19 1136 Insulin Detemir 100 Unit/1 Ml Insuln.pen, 20 UNITS SC BID Prescribed by: AMY ALLEN on 06/18/19 113 Losartan Potassium 50 Mg Tablet, 50 MG PO DAILY Prescribed by: AMY ALLEN on 06/18/19 1136 Nystatin 100,000 Unit/1 Ml Oral.susp, 5 ML PO Q6HR Prescribed by: AMY ALLEN on 06/18/19 1136 Past Yyxkwjt-Gtwkfu-Uskfka Hx Patient Social History Alcohol Use: Denies Use Recreational Drug Use: No Smoking Status: Never a Smoker 2nd Hand Smoke Exposure: No Recent Foreign Travel: No Contact w/Someone Who Travel: No Recent Infectious Disease Expo: No Recent Hopitalizations: No Immunizations Up To Date Tetanus Booster (TDap): Unknown Past Medical History Surgeries: Yes (RIGHT LOWER LUNG LOBECTOMY--FUNGAL INFECTION; COLONOSCOPY/EGD) Lobectomy Respiratory: Yes (RIGHT LOWER LUNG LOBECTOMY--FUNGAL INFECTION) Currently Using CPAP: No Currently Using BIPAP: No Cardiac: Yes (SVT) Hypertension, Irregular Heartbeat Neurological: Yes (LIKELY PERIPHERAL NEUROPATHY IN FEET/HANDS) Neuropathy Reproductive Disorders: No Genitourinary: No Gastrointestinal: Yes (GASTRIC ULCER) Ulcer Musculoskeletal: No Endocrine: Yes Diabetes, Insulin dep HEENT: Yes (double vision-resolved at this time) Loss of Vision: Denies Hearing Impairment: Denies Cancer: No Psychosocial: No Integumentary: No Blood Disorders: No Physical Exam Vital Signs Vital Signs - First Documented 08/26/19 15:08 Temp 36.9 Pulse 83 Resp 18 B/P (MAP) 195/91 (125) Pulse Ox 99 O2 Delivery Room Air Capillary Refill : Less Than 3 Seconds Height/Weight/BMI Height: 5'7.00" Weight: 136lbs. 7.0oz. 61.106097tw; 22.00 BMI Method:Stated Progress/Results/Core Measures Results/Orders Lab Results Laboratory Tests Test 08/26/19 15:30 08/26/19 16:17 Range/Units White Blood Count 7.0 4.3-11.0 10^3/uL Red Blood Count 4.22 L 4.35-5.85 10^6/uL Hemoglobin 11.6 L 13.3-17.7 G/DL Hematocrit 35 L 40-54 % Mean Corpuscular Volume 83 80-99 FL Mean Corpuscular Hemoglobin 28 25-34 PG Mean Corpuscular Hemoglobin Concent 33 32-36 G/DL Red Cell Distribution Width 13.8 10.0-14.5 % Platelet Count 402 H 130-400 10^3/uL Mean Platelet Volume 9.8 7.4-10.4 FL Neutrophils (%) (Auto) 57 42-75 % Lymphocytes (%) (Auto) 31 12-44 % Monocytes (%) (Auto) 9 0-12 % Eosinophils (%) (Auto) 3 0-10 % Basophils (%) (Auto) 1 0-10 % Neutrophils # (Auto) 4.0 1.8-7.8 X 10^3 Lymphocytes # (Auto) 2.1 1.0-4.0 X 10^3 Monocytes # (Auto) 0.7 0.0-1.0 X 10^3 Eosinophils # (Auto) 0.2 0.0-0.3 10^3/uL Basophils # (Auto) 0.0 0.0-0.1 10^3/uL Sodium Level 138 135-145 MMOL/L Potassium Level 4.2 3.6-5.0 MMOL/L Chloride Level 104 98-107 MMOL/L Carbon Dioxide Level 27 21-32 MMOL/L Anion Gap 7 5-14 MMOL/L Blood Urea Nitrogen 22 H 7-18 MG/DL Creatinine 1.16 0.60-1.30 MG/DL Estimat Glomerular Filtration Rate > 60 BUN/Creatinine Ratio 19 Glucose Level 321 H 70-105 MG/DL Calcium Level 9.1 8.5-10.1 MG/DL Corrected Calcium 9.6 8.5-10.1 MG/DL Total Bilirubin 0.3 0.1-1.0 MG/DL Aspartate Amino Transf (AST/SGOT) 30 5-34 U/L Alanine Aminotransferase (ALT/SGPT) 32 0-55 U/L Alkaline Phosphatase 131 40-136 U/L C-Reactive Protein High Sensitivity 0.21 0.00-0.50 MG/DL Total Protein 7.6 6.4-8.2 GM/DL Albumin 3.4 3.2-4.5 GM/DL Lipase 9 8-78 U/L Urine Color YELLOW Urine Clarity CLEAR Urine pH 6.0 5-9 Urine Specific [place] 1.025 H 1.016-1.022 Urine Protein 3+ H NEGATIVE Urine Glucose (UA) 1+ H NEGATIVE Urine Ketones TRACE H NEGATIVE Urine Nitrite NEGATIVE NEGATIVE Urine Bilirubin NEGATIVE NEGATIVE Urine Urobilinogen 0.2 < = 1.0 MG/DL Urine Leukocyte Esterase NEGATIVE NEGATIVE Urine RBC (Auto) 2+ H NEGATIVE Urine RBC NONE /HPF Urine WBC NONE /HPF Urine Crystals NONE /LPF Urine Bacteria TRACE /HPF Urine Casts NONE /LPF Urine Mucus NEGATIVE /LPF Urine Culture Indicated NO My Orders Orders - XOCHITL MOYA Us Gallbladder [id number] (08/26/19 15:35) Ns Iv 1000 Ml (Sodium Chloride 0.9%) (08/26/19 17:15) Ct Abdomen/Pelvis W (08/26/19 17:45) Iohexol Injection (Omnipaque 350 Mg/Ml 1 (08/26/19 18:15) Received Contrast (Hold Metformin- Contr (08/26/19 18:15) Sodium Chloride Flush (Catheter Flush Sy (08/26/19 18:15) Ns (Ivpb) (Sodium Chloride 0.9% Ivpb Bag (08/26/19 18:15) Medications Given in ED Current Medications Medications Dose Ordered Sig/Edu Route Start Time Stop Time Status Last Admin Dose Admin Iohexol 100 ml ONCE ONCE IV 08/26/19 18:15 08/26/19 18:16 DC 08/26/19 18:15 83 ML Sodium Chloride 10 ml NEEDED PRN IV 08/26/19 18:15 08/26/19 18:15 10 ML Sodium Chloride 100 ml ONCE ONCE IV 08/26/19 18:15 08/26/19 18:16 DC 08/26/19 18:15 80 ML Vital Signs/I&O 08/26/19 15:08 Temp 36.9 Pulse 83 Resp 18 B/P (MAP) 195/91 (125) Pulse Ox 99 O2 Delivery Room Air Blood Pressure Mean: 125 Departure Impression Primary Impression: Constipation Disposition: 01 HOME, SELF-CARE Condition: Stable/Unchanged Departure-Patient Inst. Decision time for Depature: 18:37 Referrals: [facility] (PCP) Primary Care Physician ARACELI TOLBERT (Family) Primary Care Physician Patient Instructions: Constipation, Adult (DC) Add. Discharge Instructions: You may use ibuprofen and Tylenol for discomfort. You need to use MiraLAX 1 capful twice a day until you have regulated your bowel movements and thereafter you may use 1 capful once a day as needed for constipation. Follow-up with your primary care provider at [facility] within 1 week for recheck. Return back to the emergency room for worsening symptoms or concerns as needed. All discharge instructions reviewed with patient and/or family. Voiced understanding. XOCHITL MOYA Aug 26, 2019 18:20
--- NOTE | 2019-08-26 18:26 | Diagnostic Imaging Report ---
PROCEDURE: CT abdomen and pelvis with contrast. TECHNIQUE: Multiple contiguous axial images were obtained through the abdomen and pelvis after administration of intravenous contrast. Auto Exposure Controls were utilized during the CT exam to meet ALARA standards for radiation dose reduction. INDICATION: Previous right lower lobectomy for fungal infection. Abdominal pain. FINDINGS: There is scarring noted medially in the right lung base. Left lung base is clear. Liver appears normal. Gallbladder and bile ducts are normal. The pancreas is atrophic. The spleen is normal. The adrenal glands are normal. The kidneys are normal. There is normal enhancement of the abdominal organs and vessels following IV contrast. Mild atherosclerotic change of the aorta without aneurysm or dissection. There is considerable stool throughout the colon from the cecum to the rectum. The stomach and small bowel are not distended. There is no bowel wall thickening. The appendix is normal. The bladder is moderately distended. Prostate is mildly enlarged. No free air or free fluid. No intra-abdominal adenopathy of pathologic size. No bony lesions demonstrated. IMPRESSION: 1. Findings are consistent with moderate constipation. The overall appearance is quite similar to CT scan of 09/11/2018. 2. Appendix is normal. No evidence of acute inflammatory changes within the bowel. 3. The bladder is moderately distended with enlarged prostate. 4. Atherosclerotic aorta without evidence of aneurysm. 5. Considerable scarring noted medially in the right lung base. This is quite similar in appearance to previous CT scan as well. Dictated by: Dictated on workstation # [id number]
--- NOTE | 2019-08-26 18:55 | NUR ---
PT NOTED TO BE HYPERTENSIVE WHILE GIVING DISCHARGE DOCUMENTATION, IV SITE NOT REMOVED, PROVIDER NOTIFIED. [facility] PT FROM ROOM 8 TO FAST TRACK ROOM 2
[2019-08-26] MEDS ORDERED: KETOROLAC 30 MG/ML VIAL IVP ONE (19:15)
[2019-08-26] MEDS ORDERED: cloNIDine 0.2 MG (CATAPRES) TAB PO ONE (19:15)
[2019-08-26 19:46] VITALS: BP 176/88
== END 2019-08-26 19:52 | disposition home or self-care (01) ==
LOC: EDUNIT# 14:23 → ER 14:24
DX: K59.00 Constipation, unspecified (principal); I10 Essential (primary) hypertension; E11.40 Type 2 diabetes mellitus with diabetic neuropathy, unspecified; Z79.4 Long term (current) use of insulin
CPT/HCPCS: 36415; 74177; 76705; 80053; 81000; 82962; 83690; 85025; 86141; 96361; 96374

== ENCOUNTER → 2019-08-28 | Outpatient (CLI) | payer MEDICARE | LOC: WOUNDCARE 13:32 | PROVIDERS: ATTEND Orthopaedic Surgery Hand Surgery | DX: E11.621 Type 2 diabetes mellitus with foot ulcer (principal); E11.42 Type 2 diabetes mellitus with diabetic polyneuropathy; M65.072 Abscess of tendon sheath, left ankle and foot; I73.9 Peripheral vascular disease, unspecified; I10 Essential (primary) hypertension | CPT/HCPCS: 99212 ==

== ENCOUNTER 2019-12-28 12:34 | Emergency (ER) | payer MEDICARE ==
[~2019-12-28] VITALS: Ht 165 cm; Wt 65.9 kg
--- OUTSIDE RECORDS SUMMARY | 2019-12-28 12:41 | XMS REPORT ---
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 390070447 Problem Diabetic mononeuropathy associated with type 2 d iabetes mellitus E11.41 Active 036181821 Problem Migraine without aura and without status migrain osus, not intractable G43.009 Active 669727492 Problem Type 2 diabetes mellitus with hyperglycemia E11.65 Active 813136241 Problem Diabetic polyneuropathy associated with type 2 d iabetes mellitus E11.42 Active 20262492 Problem Uncontrolled type 2 diabetes mellitus with hyperglycemia E11.65 Active 964536230 Problem Type 2 diabetes mellitus without complications E11 .9 Active 002112118 Problem Type 2 diabetes mellitus with diabetic polyneuropathy E11.42 Active 307386031 Problem Supraventricular tachycardia I47.1 A ctive 0273391 Problem [facility] (current) use of insulin Z79.4 Active 265626133 Problem Diabetic autonomic neuropathy associated with type 2 diabetes mellitus E11.43 Active 377614855 Problem Neuropathy G62.9 Active 604917221 Problem Slow transit constipation K59.01 Acti ve 09033731 Problem Hypertension, benign I10 Active 08021958 Problem Neuropathy of right foot G57.91 Activ e 971395216 Problem Constipation, unspecified constipation type K59.00 Active 37647508 Problem Other chronic pain G89.29 Active 8 [id number] ALLERGIES No Information ENCOUNTERS Encounter Location Date Diagnosis [facility] [address] [facility] [id number] [address] [place] [address] Nov, [facility] [address] [facility] [id number] [address] [place] [address] Oct, [facility] [address] [place] [address] Sep, [place] [address] [address] Sep, Abdominal pain in male R10.9 ; Neuropathy G62.9 and Anemia, unspecified type D64.9 [facility] [address] [place] [address] Sep, [facility] [address] [address] Sep, [place] [address] [address] Aug, Type 2 diabetes mellitus wit h diabetic polyneuropathy E11.42 ; 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 and Supraventricular tachycardia I47.1 [place] [address] [address] Aug, [place] [address] [place] [id number] [address] [place] [address] Aug, [place] [address] [address] Aug, Type 2 diabetes mellitus wit h hyperglycemia E11.65 [facility] [address] [place] [id number] [address] [place] [address] Jul, Allergic conjunctivitis of b oth eyes H10.13 ; Low back pain M54.5 ; Other chronic pain G89.29 and Uncontrolled type 2 diabetes mellitus with hyperglycemia E11.65 [facility] [address] [place] [id number] [address] [place] [address] Jul, Right lower quadrant abdomin al pain R10.31 and Constipation, unspecified constipation type K59.00 [facility] [address] [place] [id number] [address] [place] [address] Jul, Type 2 diabetes mellitus wit h hyperglycemia E11.65 ; Hypertension, benign I10 ; Neuropathy of right foot G57.91 and Abdominal pain, right upper quadrant R10.11 [facility] [address] [facility] [id number] [address] [place] [address] Jul, [facility] [address] [facility] [id number] [address] [place] [address] May, [facility] [address] [facility] [id number] [address] [place] [address] May, Onychomycosis B35.1 [facility] [address] [facility] [id number] [address] [place] [address] May, Cellulitis of right lower ex tremity L03.115 and Encounter for immunization Z23 [place] [address] [facility] [id number] [address] [place] [address] Apr, [place] [address] [facility] [id number] [address] [place] [address] Apr, Supraventricular tachycardia I47.1 ; Uncontrolled type 2 diabetes mellitus with hyperglycemia E11.65 ; Onychomycosis B35.1 ; Diabetic polyneuropathy associated with type 2 diabetes mellitus E11.42 ; Flank pain R10.9 ; Pain of left leg M79.605 and Type 2 diabetes mellitus with diabetic polyneuropathy E11.42 [facility] [address] [facility] [id number] [address] [place] [address] Feb, Type 2 diabetes mellitus wit hout complications E11.9 [facility] [address] [facility] [id number] [address] [place] [address] Jan, Type 2 diabetes mellitus wit h hyperglycemia E11.65 [facility] [address] [facility] [id number] [address] [place] [address] Oct, Encounter for Medicare annua l wellness exam Z00.00 and Type 2 diabetes mellitus with hyperglycemia E11.65 [facility] [address] [facility] [id number] [address] [place] [address] Sep, Left lower quadrant pain R10 .32 ; Hematuria, unspecified type R31.9 and Flank pain R10.9 [place] [address] [address] Aug, [place] [address] [address] Jul, Uncontrolled type 2 diabetes mellitus with hyperglycemia E11.65 ; Slow transit constipation K59.01 and Diabetic autonomic neuropathy associated with type 2 diabetes mellitus E11.43 [facility] [address] [address] 07 Jul, 2018 Hematuria R31.9 and Abdomina l pain R10.9 [place] [address] [address] Jun, [place] [address] [address] May, Uncontrolled type 2 diabetes mellitus with hyperglycemia E11.65 ; Diabetic polyneuropathy associated with type 2 diabetes mellitus E11.42 and Encounter for immunization Z23 [place] [address] [address] May, Diabetes type 2, uncontrolle d E11.65 [place] [address] [address] Feb, Diabetes type 2, uncontrolle d E11.65 and Cellulitis of toe of right foot L03.031 [place] [address] [address] Feb, [place] [address] [address] Nov, Migraine without aura and wi thout status migrainosus, not intractable G43.009 ; Pain of left leg M79.605 and Pain in right leg M79.604 [place] [address] [address] Nov, [place] [address] [address] Oct, Type 2 diabetes mellitus wit h hyperglycemia E11.65 [facility] [address] [facility] [id number] [address] [place] [address] 22 Sep, 2017 Type 2 diabetes mellitus wit hout complications E11.9 [facility] [address] [facility] [id number] [address] [place] [address] 14 Sep, 2017 Type 2 diabetes mellitus wit h hyperglycemia E11.65 ; [facility] current use of insulin Z79.4 and Coughing R05 [facility] [address] [facility] [id number] [address] [place] [address] 05 Sep, 2017 Cough R05 and Bronchitis J40 [place] [address] [facility] [id number] [address] [place] [address] 10 Jun, 2017 Type 2 diabetes mellitus wit hout complications E11.9 [place] [address] [facility] [id number] [address] [place] [address] 10 Jun, 2017 Type 2 diabetes mellitus wit hout complications E11.9 [place] [address] [facility] [id number] [address] [place] [address] May, Type 2 diabetes mellitus wit hout complications E11.9 [facility] [address] [facility] [id number] [address] [place] [address] 26 May, 2017 [facility] [address] [facility] [id number] [address] [place] [address] 24 May, 2017 [facility] [address] [place] [id number] [address] [place] [address] 16 Apr, 2017 [facility] [place] [address] [facility] [id number] [address] [place] [address] 13 Apr, 2017 Strain of rectus abdominis m uscle, initial encounter S39.011A and Pectoralis muscle strain, initial encounter S29.011A [facility] [address] [facility] [id number] [address] [place] [address] 07 Apr, 2017 Type 2 diabetes mellitus wit hout complications E11.9 ; [facility] current use of insulin Z79.4 ; Postconcussion syndrome F07.81 ; Diabetic mononeuropathy associated with type 2 diabetes mellitus E11.41 and Cervicalgia M54.2 [facility] [address] [facility] [id number] [address] [place] [address] Feb, [facility] [address] [facility] [id number] [address] [place] [address] Feb, Type 2 diabetes mellitus wit hout complications E11.9 [facility] [address] [facility] [id number] [address] [place] [address] Jan, Type 2 diabetes mellitus wit hout complications E11.9 [facility] [id number] [place] [id number] Sep, Dental caries K02.9 [facility] [address] [id number] [place] [id number] Aug, Encounter for other specifie d administrative purpose Z02.89 [facility] [address] [place] [address] Jul, Diabetes type 2, uncontrolle d E11.65 and Wound healing well on examination R23.8 [facility] [address] [address] Jul, Dental examination Z01.20 [facility] [address] [place] [id number] [address] [place] [address] Jun, Dental examination Z01.20 [facility] [address] [place] [id number] [address] [place] [address] Jan, Sore throat J02.9 and Post-n maryuri drip R09.82 [facility] [address] [place] [id number] [address] [place] [address] Nov, [facility] [address] [place] [id number] [address] [place] [address] Nov, H. pylori infection A04.8 [facility] [address] [place] [id number] [address] [place] [address] Oct, [facility] [address] [facility] [id number] [address] [place] [address] Sep, Diabetes type 2, uncontrolle d E11.65 and Gastric ulcer K25.9 [facility] [address] [facility] [id number] [address] [place] [address] Sep, [facility] [address] [place] [id number] [address] [place] [address] Aug, [facility] [address] [facility] [id number] [address] [place] [address] Aug, [facility] [address] [place] [id number] [place] [phone] Aug, Anemia, unspecified type D64 .9 [facility] [address] [place] [id number] [address] [place] [address] Aug, Type 2 diabetes mellitus wit hout complications E11.9 [facility] [address] [place] [id number] [address] [place] [address] Aug, Type 2 diabetes mellitus wit hout complications E11.9 and Non- intractable vomiting with nausea, vomiting of unspecified type R11.2 [facility] [address] [place] [id number] [address] [place] [address] Jun, Hyperglycemia R73.9 and Abdo gege pain, generalized R10.84 [facility] [address] [facility] [id number] [address] [place] [address] May, Type 2 diabetes mellitus wit hout complications E11.9 [facility] [address] [facility] [id number] [address] [place] [address] Apr, Diabetes 250.00 ; Arthritis 716.90 and Neuropathy 355.9 [facility] [address] [facility] [id number] [address] [place] [address] Feb, Diabetes 250.00 [facility] [address] [address] Feb, 2014 [facility] [address] [id number] [address] [place] [address], [place] [address] 14 Nov, 2014 [facility] [address] [id number] [address] [place] [address], [place] [address] Nov, [facility] [address] [id number] [address] [place] [address], [place] [address] Sep, 2014 [facility] [address] [id number] [address] [place] [address], [place] [address] Sep, 2014 [facility] [address] [id number] [address] [place] [address], [place] [address] Sep, 2014 [facility] [address] [id number] [address] [place] [address], [place] [address] Sep, 2014 [facility] [address] [id number] [address] [place] [address], [place] [address] Sep, 2014 [facility] [address] [id number] [address] [place] [address], [place] [address] May, [facility] [address] [id number] [address] [place] [address], [place] [address] May, [facility] [address] [id number] [address] [place] [address], [place] [address] Apr, [facility] [address] [id number] [address] [place] [address], [place] [address] Apr, [facility] [address] [id number] [address] [place] [address], [place] [address] Feb, [facility] [address] [id number] [address] [place] [address], [place] [address] Feb, [facility] [address] [id number] [address] [place] [address], [place] [address] Feb, [facility] [address] [id number] [address] [place] [address], [place] [address] Feb, [facility] [address] [id number] [address] [place] [address], [place] [address] Oct, [facility] [address] [id number] [address] [place] [address], [place] [address] Oct, [facility] [address] [id number] [address] [place] [address], [place] [address] Sep, [facility] [address] [id number] [address] [place] [address], [place] [address] Sep, [facility] [address] [id number] [address] [place] [address], [place] [address] Aug, [facility] [address] [id number] [address] [place] [address], [place] [address] Aug, [facility] [address] [id number] [address] [place] [address], [place] [address] Jul, [facility] [address] [id number] [address] [place] [address], [place] [address] Jul, [facility] [address] [id number] [address] [place] [address], [place] [address] Jul, [facility] [address] [id number] [address] [place] [address], [place] [address] Jul, [facility] [address] [id number] [address] [place] [address], [place] [address] Feb, [facility] [address] [id number] [address] [place] [address], [place] [address] Sep, [facility] [address] [id number] [address] [place] [address], [place] [address] May, [facility] [address] [id number] [address] [place] [address], [place] [address] May, [facility] [address] [id number] [address] [place] [address], [place] [address] Apr, [facility] [address] [id number] [address] [place] [address], [place] [address] Apr, [facility] [address] [id number] [address] [place] [address], [place] [address] Mar, [facility] [address] [id number] [address] [place] [address], [place] [address] Oct, [facility] [address] [id number] [address] [place] [address], [place] [address] Sep, [facility] [address] [id number] [address] [place] [address], [place] [address] Aug, [facility] [address] [id number] [address] [place] [address], [place] [address] Jul, [facility] [address] [id number] [address] [place] [address], [place] [address] Jun, [facility] [address] [id number] [address] [place] [address], [place] [address] Jun, [facility] [address] [id number] [address] [place] [address], [place] [address] Jun, [facility] [address] [id number] [address] [place] [address], [place] [address] May, [facility] [address] [id number] [address] [place] [address], [place] [address] May, [facility] [address] [id number] [address] [place] [address], [place] [address] Sep, [facility] [address] [id number] [address] [place] [address], [place] [address] Jul, [facility] [address] [id number] [address] [place] [address], [place] [address] Mar, [facility] [address] [id number] [address] [place] [address], [place] [address] Feb, [facility] [address] [id number] [address] [place] [address], [place] [address] Jul, [facility] [address] [id number] [address] [place] [address] Jul, [facility] [address] [facility] [id number] [address] [place] [address] Jul, [facility] [address] [facility] [id number] [address] [place] [address] Jan, [facility] [address] [facility] [id number] [address] [place] [address] Jul, [facility] [address] [facility] [id number] [address] [place] [id number] May, IMMUNIZATIONS No Known Immunizations SOCIAL HISTORY Never Assessed REASON FOR VISIT PLAN OF CARE VITAL SIGNS MEDICATIONS Unknown Medications RESULTS No Results PROCEDURES No Known procedures INSTRUCTIONS MEDICATIONS ADMINISTERED No Known Medications MEDICAL (GENERAL) HISTORY Type Description Date Medical History diabetes mellitus Surgical History lung 2006 Surgical History EGD; ulcer, h.pylori 10/2015 Hospitalization History surgeries
--- OUTSIDE RECORDS SUMMARY | 2019-12-28 12:41 | XMS REPORT ---
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 725486577 Problem Diabetic mononeuropathy associated with type 2 d iabetes mellitus E11.41 Active 410547300 Problem Migraine without aura and without status migrain osus, not intractable G43.009 Active 004516719 Problem Type 2 diabetes mellitus with hyperglycemia E11.65 Active 201752071 Problem Diabetic polyneuropathy associated with type 2 d iabetes mellitus E11.42 Active 69543320 Problem Uncontrolled type 2 diabetes mellitus with hyperglycemia E11.65 Active 629578600 Problem Type 2 diabetes mellitus without complications E11 .9 Active 118552719 Problem Type 2 diabetes mellitus with diabetic polyneuropathy E11.42 Active 984700428 Problem Supraventricular tachycardia I47.1 A ctive 1222363 Problem FPC (current) use of insulin Z79.4 Active 033667731 Problem Diabetic autonomic neuropathy associated with type 2 diabetes mellitus E11.43 Active 410457081 Problem Neuropathy G62.9 Active 052426342 Problem Slow transit constipation K59.01 Acti ve 35003941 Problem Hypertension, benign I10 Active 82123449 Problem Neuropathy of right foot G57.91 Activ e 105681580 Problem Constipation, unspecified constipation type K59.00 Active 91729394 Problem Other chronic pain G89.29 Active 8 [id number] ALLERGIES No Information ENCOUNTERS Encounter Location Date Diagnosis [facility] [address] [facility] [id number] [address] [place] [address] Nov, [facility] [address] [facility] [id number] [address] [place] [phone] Nov, [facility] [address] [place] [id number] [address] [place] [address] Nov, Open wound of right lower le g, initial encounter S81.801A [place] [address] [address] Oct, [place] [address] [place] [id number] [address] [place] [address] Sep, [place] [address] [address] Sep, Abdominal pain in male R10.9 ; Neuropathy G62.9 and Anemia, unspecified type D64.9 [place] [address] [address] Sep, [place] [address] [address] Sep, [place] [address] [address] Aug, Type 2 diabetes mellitus wit h diabetic polyneuropathy E11.42 ; FPC (current) use of insulin Z79.4 and Supraventricular tachycardia I47.1 [place] [address] [place] [id number] [address] [place] [address] Aug, [place] [address] [address] Aug, [place] [address] [address] Aug, Type 2 diabetes mellitus wit h hyperglycemia E11.65 [place] [address] [facility] [id number] [address] [place] [address] Jul, Allergic conjunctivitis of b oth eyes H10.13 ; Low back pain M54.5 ; Other chronic pain G89.29 and Uncontrolled type 2 diabetes mellitus with hyperglycemia E11.65 [facility] [address] [facility] [id number] [address] [place] [address] Jul, Right lower quadrant abdomin al pain R10.31 and Constipation, unspecified constipation type K59.00 [place] [address] [facility] [id number] [address] [place] [address] Jul, Type 2 diabetes mellitus wit h hyperglycemia E11.65 ; Hypertension, benign I10 ; Neuropathy of right foot G57.91 and Abdominal pain, right upper quadrant R10.11 [place] [address] [facility] [id number] [address] [place] [address] Jul, [facility] [address] [facility] [id number] [address] [place] [address] May, [place] [address] [facility] [id number] [address] [place] [phone] May, Onychomycosis B35.1 [facility] [address] [facility] [id number] [address] [place] [phone] May, Cellulitis of right lower ex tremity L03.115 and Encounter for immunization Z23 [place] [address] [facility] [id number] [address] [place] [address] Apr, [place] [address] [facility] [id number] [address] [place] [address] Apr, Supraventricular tachycardia I47.1 ; Uncontrolled type 2 diabetes mellitus with hyperglycemia E11.65 ; Onychomycosis B35.1 ; Diabetic polyneuropathy associated with type 2 diabetes mellitus E11.42 ; Flank pain R10.9 ; Pain of left leg M79.605 and Type 2 diabetes mellitus with diabetic polyneuropathy E11.42 [place] [address] [facility] [id number] [address] [place] [address] Feb, Type 2 diabetes mellitus wit hout complications E11.9 [place] [address] [facility] [id number] [address] [place] [address] Jan, Type 2 diabetes mellitus wit h hyperglycemia E11.65 [place] [address] [facility] [id number] [address] [place] [address] Oct, Encounter for Medicare annua l wellness exam Z00.00 and Type 2 diabetes mellitus with hyperglycemia E11.65 [facility] [address] [facility] [id number] [address] [place] [address] Sep, Left lower quadrant pain R10 .32 ; Hematuria, unspecified type R31.9 and Flank pain R10.9 [facility] [address] [place] [id number] [address] [place] [address] Aug, [place] [address] [place] [id number] [place] [address] Jul, Uncontrolled type 2 diabetes mellitus with hyperglycemia E11.65 ; Slow transit constipation K59.01 and Diabetic autonomic neuropathy associated with type 2 diabetes mellitus E11.43 [facility] [address] [place] [id number] [address] [place] [address] Jul, Hematuria R31.9 and Abdomina l pain R10.9 [place] [address] [place] [id number] [place] [address] Jun, [place] [address] [place] [id number] [place] [address] May, Uncontrolled type 2 diabetes mellitus with hyperglycemia E11.65 ; Diabetic polyneuropathy associated with type 2 diabetes mellitus E11.42 and Encounter for immunization Z23 [place] [address] [place] [id number] [address] [place] [address] May, Diabetes type 2, uncontrolle d E11.65 [place] [address] [place] [id number] [address] [place] [address] Feb, Diabetes type 2, uncontrolle d E11.65 and Cellulitis of toe of right foot L03.031 [place] [address] [address] Feb, [place] [address] [place] [id number] [address] [place] [address] Nov, Migraine without aura and wi thout status migrainosus, not intractable G43.009 ; Pain of left leg M79.605 and Pain in right leg M79.604 [facility] [address] [facility] [id number] [address] [place] [phone] Nov, [facility] [address] [facility] [id number] [address] [place] [address] Oct, Type 2 diabetes mellitus wit h hyperglycemia E11.65 [place] [address] [facility] [id number] [address] [place] [address] Sep, Type 2 diabetes mellitus wit hout complications E11.9 [facility] [address] [facility] [id number] [address] [place] [address] Sep, Type 2 diabetes mellitus wit h hyperglycemia E11.65 ; 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 and Coughing R05 [facility] [address] [facility] [id number] [address] [place] [address] Sep, Cough R05 and Bronchitis J40 [place] [address] [facility] [id number] [address] [place] [address] Jun, Type 2 diabetes mellitus wit hout complications E11.9 [place] [address] [facility] [id number] [address] [place] [address] Jun, Type 2 diabetes mellitus wit hout complications E11.9 [place] [address] [facility] [id number] [address] [place] [address] May, Type 2 diabetes mellitus wit hout complications E11.9 [facility] [address] [facility] [id number] [address] [place] [phone] May, [facility] [address] [facility] [id number] [address] [place] [address] May, [facility] [address] [place] [id number] [address] [place] [id number] 16 Apr, 2017 [facility] [address] [facility] [id number] [address] [place] [id number] 13 Apr, 2017 Strain of rectus abdominis m uscle, initial encounter S39.011A and Pectoralis muscle strain, initial encounter S29.011A [facility] [address] [facility] [id number] [address] [place] [address] 07 Apr, 2017 Type 2 diabetes mellitus wit hout complications E11.9 ; 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 ; Postconcussion syndrome F07.81 ; Diabetic mononeuropathy associated with type 2 diabetes mellitus E11.41 and Cervicalgia M54.2 [facility] [address] [facility] [id number] [address] [place] [address] Feb, [facility] [address] [facility] [id number] [address] [place] [address] Feb, Type 2 diabetes mellitus wit hout complications E11.9 [facility] [address] [facility] [id number] [address] [place] [id number] Jan, Type 2 diabetes mellitus wit hout complications E11.9 [facility] [address] [facility] [id number] [address] [place] [id number] Sep, Dental caries K02.9 [facility] [address] [facility] [id number] [place] [id number] Aug, Encounter for other specifie d administrative purpose Z02.89 [facility] [address] [facility] [id number] [address] [place] [address] Jul, Diabetes type 2, uncontrolle d E11.65 and Wound healing well on examination R23.8 [facility] [address] [facility] [id number] [address] [place] [phone] 06 Jul, 2016 Dental examination Z01.20 [facility] [address] [facility] [id number] [address] [place] [address] Jun, Dental examination Z01.20 [facility] [address] [facility] [id number] [address] [place] [id number] 14 Jan, 2016 Sore throat J02.9 and Post-n maryuri drip R09.82 [facility] [address] [place] [id number] [address] [place] [address] Nov, [facility] [address] [address] Nov, H. pylori infection A04.8 [facility] [address] [place] [id number] [address] [place] [address] Oct, [facility] [address] [address] Sep, Diabetes type 2, uncontrolle d E11.65 and Gastric ulcer K25.9 [facility] [address] [address] Sep, [facility] [address] [address] Aug, [facility] [address] [address] Aug, [facility] [address] [address] Aug, Anemia, unspecified type D64 .9 [facility] [address] [address] Aug, Type 2 diabetes mellitus wit hout complications E11.9 [facility] [address] [address] Aug, Type 2 diabetes mellitus wit hout complications E11.9 and Non- intractable vomiting with nausea, vomiting of unspecified type R11.2 [facility] [address] [place] [id number] [address] [place] [id number] Jun, Hyperglycemia R73.9 and Abdo gege pain, generalized R10.84 [facility] [address] [place] [id number] [address] [place] [id number] May, Type 2 diabetes mellitus wit hout complications E11.9 [facility] [address] [address] Apr, Diabetes 250.00 ; Arthritis 716.90 and Neuropathy 355.9 [facility] [address] [id number] [address] [place] [address] Feb, Diabetes 250.00 [facility] [address] [id number] [address] [place] [phone] Feb, [facility] [address] [id number] [address] [place] [address] Nov, [facility] [address] [id number] [address] [place] [phone] Nov, [facility] [address] [id number] [address] [place] [phone] Sep, [facility] [address] [id number] [address] [place] [id number] Sep, [facility] [address] [id number] [address] [place] [address], [place] [address] Sep, [facility] [address] [id number] [address] [place] [phone] Sep, [facility] [address] [id number] [address] [place] [phone] Sep, [facility] [address] [id number] [address] [place] [phone] May, [facility] [address] [id number] [address] [place] [phone] May, [facility] [address] [id number] [address] [place] [phone] Apr, [facility] [address] [id number] [address] [place] [phone] Apr, [facility] [address] [id number] [address] [place] [phone] Feb, [facility] [address] [id number] [address] [place] [phone] Feb, [facility] [address] [id number] [address] [place] [address], [place] [address] Feb, [facility] [address] [id number] [address] [place] [address], [place] [address] Feb, [facility] [address] [id number] [address] [place] [address], [place] [address] Oct, [facility] [address] [id number] [address] [place] [address], [place] [address] Oct, [facility] [address] [id number] [address] [place] [address], [place] [address] Sep, [facility] [address] [id number] [address] [place] [address], [place] [address] Sep, [facility] [address] [id number] [address] [place] [address], [place] [address] Aug, [facility] [address] [id number] [address] [place] [address], [place] [address] Aug, [facility] [address] [id number] [address] [place] [address], [place] [address] Jul, [facility] [address] [id number] [address] [place] [address], [place] [address] Jul, [facility] [address] [id number] [address] [place] [address], [place] [address] Jul, [facility] [address] [id number] [address] [place] [address], [place] [address] Jul, [facility] [address] [id number] [address] [place] [address], [place] [address] Feb, [facility] [address] [id number] [address] [place] [address], [place] [id number] 08 Sep, 2012 [facility] [address] [id number] [address] [place] [address], [place] [address] May, [facility] [address] [id number] [address] [place] [address], [place] [address] 16 May, 2012 [facility] [address] [id number] [address] [place] [address], [place] [address] Apr, [facility] [address] [id number] [address] [place] [address], [place] [address] Apr, [facility] [address] [id number] [address] [place] [address], [place] [address] Mar, [facility] [address] [id number] [address] [place] [address], [place] [address] Oct, [facility] [address] [id number] [address] [place] [address], [place] [address] Sep, [facility] [address] [id number] [address] [place] [address], [place] [address] Aug, [facility] [address] [id number] [address] [place] [address], [place] [address] Jul, [facility] [address] [id number] [address] [place] [address], [place] [id number] Jun, [facility] [address] [id number] [address] [place] [address], [place] [id number] Jun, [facility] [address] [id number] [address] [place] [address], [place] [address] Jun, [facility] [address] [id number] [address] [place] [address], [place] [address] May, [facility] [address] [id number] [address] [place] [address], [place] [address] May, [facility] [address] [id number] [address] [place] [address], [place] [address] Sep, [facility] [address] [id number] [address] [place] [address], [place] [address] Jul, [facility] [address] [id number] [address] [place] [address], [place] [address] Mar, [facility] [address] [id number] [address] [place] [phone] Feb, [facility] [address] [id number] [address] [place] [address] Jul, [facility] [address] [facility] [id number] [address] [place] [address] Jul, [facility] [address] [id number] [address] [place] [phone] Jul, [facility] [address] [facility] [id number] [address] [place] [phone] Jan, [facility] [address] [id number] [address] [place] [phone] Jul, [facility] [address] [facility] [id number] [address] [place] [address] May, IMMUNIZATIONS No Known Immunizations SOCIAL HISTORY Never Assessed REASON FOR VISIT PLAN OF CARE VITAL SIGNS MEDICATIONS Unknown Medications RESULTS No Results PROCEDURES No Known procedures INSTRUCTIONS MEDICATIONS ADMINISTERED No Known Medications MEDICAL (GENERAL) HISTORY Type Description Date Medical History diabetes mellitus Surgical History lung 2006 Surgical History EGD; ulcer, h.pylori 10/2015 Hospitalization History surgeries
--- OUTSIDE RECORDS SUMMARY | 2019-12-28 12:41 | XMS REPORT ---
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 Name Role Phone ARACELI TOLBERT Unavailable PROBLEMS Type Condition ICD9-CM Code XIF04-OX Code Onset Dates Condition S tatus SNOMED Code Problem exterminator termite current use of insulin Z79.4 Active 996769605 Problem Diabetic mononeuropathy associated with type 2 d iabetes mellitus E11.41 Active 667690500 Problem Migraine without aura and without status migrain osus, not intractable G43.009 Active 024218940 Problem Type 2 diabetes mellitus with hyperglycemia E11.65 Active 554225619 Problem Diabetic polyneuropathy associated with type 2 d iabetes mellitus E11.42 Active 38751614 Problem Uncontrolled type 2 diabetes mellitus with hyperglycemia E11.65 Active 014023891 Problem Type 2 diabetes mellitus without complications E11 .9 Active 453193579 Problem Type 2 diabetes mellitus with diabetic polyneuropathy E11.42 Active 864428431 Problem Supraventricular tachycardia I47.1 A ctive 5940932 Problem residential (current) use of insulin Z79.4 Active 931055447 Problem Diabetic autonomic neuropathy associated with type 2 diabetes mellitus E11.43 Active 176514382 Problem Neuropathy G62.9 Active 119084879 Problem Slow transit constipation K59.01 Acti ve 58405038 Problem Hypertension, benign I10 Active 56825565 Problem Neuropathy of right foot G57.91 Activ e 206559083 Problem Constipation, unspecified constipation type K59.00 Active 76728588 Problem Other chronic pain G89.29 Active 8 [id number] ALLERGIES No Information ENCOUNTERS Encounter Location Date Diagnosis [facility] [address] [facility] [id number] [address] [place] [address] December, [facility] [address] [facility] [id number] [address] [place] [address] Nov, Encounter for Medicare annua l wellness exam Z00.00 [place] [address] [facility] [id number] [address] [place] [address] Nov, Open wound of lower extremit y, unspecified laterality, initial encounter S81.809A [facility] [address] [facility] [id number] [address] [place] [address] 09 Nov, 2019 Open wound of right lower le g, initial encounter S81.801A [place] [address] [address] [facility] [id number] [address] [place] [address] Oct, [place] [address] [facility] [id number] [address] [place] [address] Sep, [place] [address] [facility] [id number] [address] [place] [address] Sep, Abdominal pain in male R10.9 ; Neuropathy G62.9 and Anemia, unspecified type D64.9 [place] [address] [facility] [id number] [address] [place] [address] Sep, [place] [address] [place] [id number] [address] [place] [address] Sep, [place] [address] [place] [id number] [address] [place] [address] Aug, Type 2 diabetes mellitus wit h diabetic polyneuropathy E11.42 ; exterminator termite (current) use of insulin Z79.4 and Supraventricular tachycardia I47.1 [place] [address] [facility] [id number] [address] [place] [address] Aug, [place] [address] [facility] [id number] [address] [place] [address] Aug, [place] [address] [place] [id number] [address] [place] [address] Aug, Type 2 diabetes mellitus wit h hyperglycemia E11.65 [place] [address] [place] [id number] [address] [place] [address] Jul, Allergic conjunctivitis of b oth eyes H10.13 ; Low back pain M54.5 ; Other chronic pain G89.29 and Uncontrolled type 2 diabetes mellitus with hyperglycemia E11.65 [facility] [address] [place] [id number] [address] [place] [address] Jul, Right lower quadrant abdomin al pain R10.31 and Constipation, unspecified constipation type K59.00 [place] [address] [place] [id number] [address] [place] [address] Jul, Type 2 diabetes mellitus wit h hyperglycemia E11.65 ; Hypertension, benign I10 ; Neuropathy of right foot G57.91 and Abdominal pain, right upper quadrant R10.11 [place] [address] [address] Jul, [place] [address] [place] [address] May, [place] [address] [address] May, Onychomycosis B35.1 [facility] [address] [place] [id number] [address] [place] [address] May, Cellulitis of right lower ex tremity L03.115 and Encounter for immunization Z23 [place] [address] [place] [id number] [address] [place] [address] Apr, [place] [address] [place] [id number] [address] [place] [address] 09 Apr, 2019 Supraventricular tachycardia I47.1 ; Uncontrolled type 2 diabetes mellitus with hyperglycemia E11.65 ; Onychomycosis B35.1 ; Diabetic polyneuropathy associated with type 2 diabetes mellitus E11.42 ; Flank pain R10.9 ; Pain of left leg M79.605 and Type 2 diabetes mellitus with diabetic polyneuropathy E11.42 [facility] [address] [place] [id number] [address] [place] [address] Feb, Type 2 diabetes mellitus wit hout complications E11.9 [place] [address] [place] [id number] [address] [place] [address] 05 Jan, 2019 Type 2 diabetes mellitus wit h hyperglycemia E11.65 [place] [address] [place] [id number] [address] [place] [address] 14 Oct, 2018 Encounter for Medicare annua l wellness exam Z00.00 and Type 2 diabetes mellitus with hyperglycemia E11.65 [facility] [id number] [place] [address] Sep, Left lower quadrant pain R10 .32 ; Hematuria, unspecified type R31.9 and Flank pain R10.9 [place] [address] [place] [id number] [place] [address] Aug, [place] [address] [place] [id number] [place] [address] Jul, Uncontrolled type 2 diabetes mellitus with hyperglycemia E11.65 ; Slow transit constipation K59.01 and Diabetic autonomic neuropathy associated with type 2 diabetes mellitus E11.43 [facility] [address] [address] Jul, Hematuria R31.9 and Abdomina l pain R10.9 [facility] [address] [address] Jun, [place] [address] [address] May, Uncontrolled type 2 diabetes mellitus with hyperglycemia E11.65 ; Diabetic polyneuropathy associated with type 2 diabetes mellitus E11.42 and Encounter for immunization Z23 [place] [address] [place] [id number] [address] [place] [address] May, Diabetes type 2, uncontrolle d E11.65 [place] [address] [place] [id number] [address] [place] [address] Feb, Diabetes type 2, uncontrolle d E11.65 and Cellulitis of toe of right foot L03.031 [place] [address] [address] Feb, [facility] [address] [facility] [id number] [address] [place] [address] Nov, Migraine without aura and wi thout status migrainosus, not intractable G43.009 ; Pain of left leg M79.605 and Pain in right leg M79.604 [facility] [address] [facility] [id number] [address] [place] [address] Nov, [facility] [address] [facility] [id number] [address] [place] [address] Oct, Type 2 diabetes mellitus wit h hyperglycemia E11.65 [place] [address] [place] [id number] [place] [address] Sep, Type 2 diabetes mellitus wit hout complications E11.9 [place] [address] [place] [id number] [address] [place] [address] Sep, Type 2 diabetes mellitus wit h hyperglycemia E11.65 ; exterminator termite current use of insulin Z79.4 and Coughing R05 [facility] [address] [place] [id number] [address] [place] [address] Sep, Cough R05 and Bronchitis J40 [facility] [address] [facility] [id number] [address] [place] [address] Jun, Type 2 diabetes mellitus wit hout complications E11.9 [facility] [address] [place] [id number] [address] [place] [address] Jun, Type 2 diabetes mellitus wit hout complications E11.9 [facility] [address] [facility] [id number] [address] [place] [address] May, Type 2 diabetes mellitus wit hout complications E11.9 [facility] [address] [facility] [id number] [address] [place] [address] May, [facility] [address] [facility] [id number] [address] [place] [address] May, [facility] [address] [place] [id number] [address] [place] [address] 16 Apr, 2017 [facility] [address] [facility] [id number] [address] [place] [address] 13 Apr, 2017 Strain of rectus abdominis m uscle, initial encounter S39.011A and Pectoralis muscle strain, initial encounter S29.011A [facility] [address] [facility] [id number] [address] [place] [address] 07 Apr, 2017 Type 2 diabetes mellitus wit hout complications E11.9 ; residential current use of insulin Z79.4 ; Postconcussion syndrome F07.81 ; Diabetic mononeuropathy associated with type 2 diabetes mellitus E11.41 and Cervicalgia M54.2 [facility] [address] [facility] [id number] [address] [place] [address] Feb, [facility] [address] [facility] [id number] [address] [place] [address] Feb, Type 2 diabetes mellitus wit hout complications E11.9 [facility] [address] [facility] [id number] [address] [place] [address] Jan, Type 2 diabetes mellitus wit hout complications E11.9 [facility] [id number] [place] [id number] Sep, Dental caries K02.9 [facility] [address] [place] [id number] [place] [id number] Aug, Encounter for other specifie d administrative purpose Z02.89 [facility] [address] [facility] [id number] [address] [place] [address] Jul, Diabetes type 2, uncontrolle d E11.65 and Wound healing well on examination R23.8 [place] [address] [facility] [id number] [address] [place] [address] 06 Jul, 2016 Dental examination Z01.20 [facility] [address] [facility] [id number] [address] [place] [address] Jun, Dental examination Z01.20 [place] [address] [facility] [id number] [address] [place] [address] 14 Jan, 2016 Sore throat J02.9 and Post-n maryuri drip R09.82 [facility] [address] [facility] [id number] [address] [place] [address] Nov, [facility] [address] [facility] [id number] [address] [place] [address] Nov, H. pylori infection A04.8 [facility] [address] [facility] [id number] [address] [place] [address] Oct, [place] [address] [facility] [id number] [address] [place] [address] Sep, Diabetes type 2, uncontrolle d E11.65 and Gastric ulcer K25.9 [place] [address] [facility] [id number] [address] [place] [address] Sep, [facility] [address] [facility] [id number] [address] [place] [address] Aug, [facility] [address] [facility] [id number] [address] [place] [address] Aug, [facility] [address] [facility] [id number] [address] [place] [address] Aug, Anemia, unspecified type D64 .9 [facility] [address] [facility] [id number] [address] [place] [address] Aug, Type 2 diabetes mellitus wit hout complications E11.9 [facility] [address] [facility] [id number] [address] [place] [address] 11 Aug, 2015 Type 2 diabetes mellitus wit hout complications E11.9 and Non- intractable vomiting with nausea, vomiting of unspecified type R11.2 [facility] [address] [facility] [id number] [address] [place] [address] 13 Jun, 2015 Hyperglycemia R73.9 and Abdo gege pain, generalized R10.84 [facility] [address] [facility] [id number] [address] [place] [address] May, Type 2 diabetes mellitus wit hout complications E11.9 [facility] [address] [id number] [address] [place] [address] Apr, Diabetes 250.00 ; Arthritis 716.90 and Neuropathy 355.9 [facility] [address] [facility] [id number] [address] [place] [address] Feb, Diabetes 250.00 [facility] [address] [id number] [address] [place] [address] Feb, [facility] [address] [id number] [address] [place] [address] Nov, [facility] [address] [facility] [id number] [address] [place] [address] Nov, [facility] [address] [id number] [address] [place] [address] Sep, [facility] [address] [id number] [address] [place] [address] Sep, [facility] [address] [id number] [address] [place] [address] Sep, [facility] [address] [facility] [id number] [address] [place] [address] Sep, [facility] [address] [id number] [address] [place] [address] Sep, [facility] [address] [id number] [address] [place] [address] May, [facility] [address] [id number] [address] [place] [address] May, [facility] [address] [id number] [address] [place] [address] Apr, [facility] [address] [id number] [address] [place] [address] Apr, [facility] [address] [id number] [address] [place] [address], [place] [address] Feb, [facility] [address] [id number] [address] [place] [address], [place] [address] Feb, [facility] [address] [id number] [address] [place] [address], [place] [address] Feb, [facility] [address] [id number] [address] [place] [address], [place] [address] Feb, [facility] [address] [id number] [address] [place] [address], [place] [address] Oct, [facility] [address] [id number] [address] [place] [address], [place] [address] Oct, [facility] [address] [id number] [address] [place] [address], [place] [address] Sep, [facility] [address] [id number] [address] [place] [address], [place] [address] Sep, [facility] [address] [id number] [address] [place] [address], [place] [address] Aug, [facility] [address] [id number] [address] [place] [address], [place] [address] Aug, [facility] [address] [id number] [address] [place] [address], [place] [address] Jul, [facility] [address] [id number] [address] [place] [address], [place] [address] Jul, [facility] [address] [id number] [address] [place] [address], [place] [address] Jul, [facility] [address] [id number] [address] [place] [address], [place] [address] Jul, [facility] [address] [id number] [address] [place] [address], [place] [address] Feb, [facility] [address] [id number] [address] [place] [address], [place] [address] 08 Sep, 2012 [facility] [address] [id number] [address] [place] [address], [place] [address] May, [facility] [address] [id number] [address] [place] [address], [place] [address] May, [facility] [address] [id number] [address] [place] [address], [place] [address] Apr, [facility] [address] [id number] [address] [place] [address], [place] [address] Apr, [facility] [address] [id number] [address] [place] [address], [place] [address] Mar, [facility] [address] [id number] [address] [place] [address], [place] [address] Oct, [facility] [address] [id number] [address] [place] [address], [place] [address] Sep, [facility] [address] [id number] [address] [place] [address], [place] [address] Aug, [facility] [address] [id number] [address] [place] [address], [place] [address] Jul, [facility] [address] [id number] [address] [place] [address], [place] [address] Jun, [facility] [address] [id number] [address] [place] [address], [place] [address] Jun, [facility] [address] [id number] [address] [place] [address], [place] [address] Jun, [facility] [address] [id number] [address] [place] [address], [place] [address] May, [facility] [address] [id number] [address] [place] [address], [place] [address] May, [facility] [address] [id number] [address] [place] [address], [place] [address] Sep, [facility] [address] [id number] [address] [place] [address] Jul, [facility] [address] [id number] [address] [place] [address] Mar, [facility] [address] [id number] [address] [place] [address] Feb, [facility] [address] [id number] [address] [place] [address] Jul, [facility] [address] [id number] [address] [place] [address] Jul, [facility] [address] [id number] [address] [place] [address] Jul, [facility] [address] [facility] [id number] [address] [place] [address] Jan, [facility] [address] [id number] [address] [place] [address] Jul, [facility] [address] [facility] [id number] [address] [place] [address] May, IMMUNIZATIONS No Known Immunizations SOCIAL HISTORY Never Assessed REASON FOR VISIT PLAN OF CARE VITAL SIGNS MEDICATIONS Unknown Medications RESULTS No Results PROCEDURES No Known procedures INSTRUCTIONS MEDICATIONS ADMINISTERED No Known Medications MEDICAL (GENERAL) HISTORY Type Description Date Medical History diabetes mellitus Surgical History lung 2006 Surgical History EGD; ulcer, h.pylori 10/2015 Hospitalization History surgeries
--- OUTSIDE RECORDS SUMMARY | 2019-12-28 12:42 | XMS REPORT ---
Author Author Dayne Simpson Doctor Organization [facility] Address Unknown Phone Unavailable Care Team Providers Care Student Support Advisor Name Role Phone Migration, Doctor Unavailable Unavailable PROBLEMS Type Condition ICD9-CM Code HRL90-FB Code Onset Dates Condition S tatus SNOMED Code Problem assisted current use of insulin Z79.4 Active 605409665 Problem Diabetic mononeuropathy associated with type 2 d iabetes mellitus E11.41 Active 833433980 Problem Migraine without aura and without status migrain osus, not intractable G43.009 Active 823504947 Problem Type 2 diabetes mellitus with hyperglycemia E11.65 Active 372606251 Problem Diabetic polyneuropathy associated with type 2 d iabetes mellitus E11.42 Active 25073452 Problem Uncontrolled type 2 diabetes mellitus with hyperglycemia E11.65 Active 545097970 Problem Type 2 diabetes mellitus without complications E11 .9 Active 634258870 Problem Type 2 diabetes mellitus with diabetic polyneuropathy E11.42 Active 462573339 Problem Supraventricular tachycardia I47.1 A ctive 2727258 Problem 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.4 Active 163078616 Problem Diabetic autonomic neuropathy associated with type 2 diabetes mellitus E11.43 Active 666508859 Problem Neuropathy G62.9 Active 416284106 Problem Slow transit constipation K59.01 Acti ve 15228101 Problem Hypertension, benign I10 Active 06264256 Problem Neuropathy of right foot G57.91 Activ e 857056055 Problem Constipation, unspecified constipation type K59.00 Active 30479114 Problem Other chronic pain G89.29 Active 8 [id number] ALLERGIES No Information ENCOUNTERS Encounter Location Date Diagnosis [facility] [id number] [place] [address] Nov, [facility] [address] [address] Sep, [facility] [id number] [place] [address] Sep, Abdominal pain in male R10.9 ; Neuropath y G62.9 and Anemia, unspecified type D64.9 [place] [address] [address] Sep, [place] [address] [address] Sep, [place] [address] [address] Aug, Type 2 diabetes mellitus with diabetic p olyneuropathy E11.42 ; assisted (current) use of insulin Z79.4 and Supraventricular tachycardia I47.1 [place] [address] [address] Aug, [place] [address] [address] Aug, [place] [address] [address] Aug, Type 2 diabetes mellitus with hyperglyce jovanny E11.65 [place] [address] [address] Jul, Allergic conjunctivitis of both eyes H10 .13 ; Low back pain M54.5 ; Other chronic pain G89.29 and Uncontrolled type 2 diabetes mellitus with hyperglycemia E11.65 [facility] [address] [facility] [id number] [address] [place] [address] Jul, Right lower quadrant abdomin al pain R10.31 and Constipation, unspecified constipation type K59.00 [place] [address] [address] Jul, Type 2 diabetes mellitus with hyperglyce jovanny E11.65 ; Hypertension, benign I10 ; Neuropathy of right foot G57.91 and Abdominal pain, right upper quadrant R10.11 [place] [address] [address] Jul, [place] [address] [address] May, [place] [address] [address] May, Onychomycosis B35.1 [facility] [id number] [place] [address] May, Cellulitis of right lower ex tremity L03.115 and Encounter for immunization Z23 [place] [address] [address] Apr, [place] [address] [address] Apr, Supraventricular tachycardia I47.1 ; Unc ontrolled type 2 diabetes mellitus with hyperglycemia E11.65 ; Onychomycosis B35.1 ; Diabetic polyneuropathy associated with type 2 diabetes mellitus E11.42 ; Flank pain R10.9 ; Pain of left leg M79.605 and Type 2 diabetes mellitus with diabetic polyneuropathy E11.42 [place] [address] [address] Feb, Type 2 diabetes mellitus without complic ations E11.9 [place] [address] [address] Jan, Type 2 diabetes mellitus with hyperglyce jovanny E11.65 [place] [address] [address] Oct, Encounter for Medicare annual wellness e xam Z00.00 and Type 2 diabetes mellitus with hyperglycemia E11.65 [facility] [address] [facility] [id number] [address] [place] [address] Sep, Left lower quadrant pain R10 .32 ; Hematuria, unspecified type R31.9 and Flank pain R10.9 [place] [address] [address] Aug, [place] [address] [address] Jul, Uncontrolled type 2 diabetes mellitus wi th hyperglycemia E11.65 ; Slow transit constipation K59.01 and Diabetic autonomic neuropathy associated with type 2 diabetes mellitus E11.43 [facility] [address] [facility] [id number] [address] [place] [address] 07 Jul, 2018 Hematuria R31.9 and Abdomina l pain R10.9 [place] [address] [address] Jun, [place] [address] [address] May, Uncontrolled type 2 diabetes mellitus wi th hyperglycemia E11.65 ; Diabetic polyneuropathy associated with type 2 diabetes mellitus E11.42 and Encounter for immunization Z23 [address] [address] [address] May, Diabetes type 2, uncontrolled E11.65 [place] [address] [address] Feb, Diabetes type 2, uncontrolled E11.65 and Cellulitis of toe of right foot L03.031 [place] [address] [address] Feb, [place] [address] [address] Nov, Migraine without aura and without status migrainosus, not intractable G43.009 ; Pain of left leg M79.605 and Pain in right leg M79.604 [place] [address] [address] Nov, [place] [address] [address] Oct, Type 2 diabetes mellitus with hyperglyce jovanny E11.65 [place] [address] [address] Sep, Type 2 diabetes mellitus without complic ations E11.9 [place] [address] [address] Sep, Type 2 diabetes mellitus with hyperglyce jovanny E11.65 ; assisted current use of insulin Z79.4 and Coughing R05 [facility] [address] [facility] [id number] [address] [place] [address] Sep, Cough R05 and Bronchitis J40 [place] [address] [address] Jun, Type 2 diabetes mellitus without complic ations E11.9 [place] [address] [address] Jun, Type 2 diabetes mellitus without complic ations E11.9 [place] [address] [address] May, Type 2 diabetes mellitus without complic ations E11.9 [place] [address] [address] May, [place] [address] [address] May, [facility] [address] [id number] [place] [address] 16 Apr, 2017 [facility] [place] [id number] [place] [address] 13 Apr, 2017 Strain of rectus abdominis m uscle, initial encounter S39.011A and Pectoralis muscle strain, initial encounter S29.011A [place] [address] [address] Apr, Type 2 diabetes mellitus without complic ations E11.9 ; tank terminal gauger current use of insulin Z79.4 ; Postconcussion syndrome F07.81 ; Diabetic mononeuropathy associated with type 2 diabetes mellitus E11.41 and Cervicalgia M54.2 [place] [address] [address] Feb, [place] [address] [address] Feb, Type 2 diabetes mellitus without complic ations E11.9 [place] [address] [address] Jan, Type 2 diabetes mellitus without complic ations E11.9 [facility] [address] [id number] [place] [id number] Sep, Dental caries K02.9 [facility] [address] [id number] [place] [id number] Aug, Encounter for other specified administra tive purpose Z02.89 [facility] [address] [facility] [id number] [address] [place] [address] Jul, Diabetes type 2, uncontrolle d E11.65 and Wound healing well on examination R23.8 [place] [address] [address] Jul, Dental examination Z01.20 [facility] [address] [address] Jun, Dental examination Z01.20 [place] [address] [address] Jan, Sore throat J02.9 and Post-nasal drip R0 9.82 [place] [address] [address] Nov, [facility] [address] [address] Nov, H. pylori infection A04.8 [place] [address] [address] Oct, [facility] [address] [address] Sep, Diabetes type 2, uncontrolled E11.65 and Gastric ulcer K25.9 [facility] [address] [address] Sep, [facility] [address] [address] Aug, [place] [address] [address] Aug, [facility] [id number] [place] [address] Aug, Anemia, unspecified type D64.9 [facility] [address] [address] Aug, Type 2 diabetes mellitus without complic ations E11.9 [facility] [address] [address] Aug, Type 2 diabetes mellitus without complic ations E11.9 and Non- intractable vomiting with nausea, vomiting of unspecified type R11.2 [facility] [address] [facility] [id number] [address] [place] [address] Jun, Hyperglycemia R73.9 and Abdo gege pain, generalized R10.84 [facility] [address] [address] May, Type 2 diabetes mellitus without complic ations E11.9 [facility] [address] [address] Apr, Diabetes 250.00 ; Arthritis 716.90 and N europathy 355.9 [facility] [address] [address] Feb, Diabetes 250.00 [facility] [address] [address] Feb, [facility] [address] [address] Nov, [facility] [address] [address] Nov, [facility] [address] [address] Sep, [facility] [address] [address] Sep, [facility] [address] [address] Sep, [facility] [address] [facility] [id number] [place] [address] Sep, [facility] [address] [facility] [id number] [facility] [place] [address] Sep, [facility] [address] [facility] [id number] [facility] [place] [address] May, [facility] [address] [id number] [facility] [place] [address] May, [facility] [address] [facility] [id number] [place] [address] Apr, [facility] [address] [id number] [place] [address] Apr, [facility] [address] [id number] [place] [address] Feb, [facility] [address] [id number] [place] [address] Feb, [facility] [address] [id number] [place] [address] Feb, [facility] [address] [id number] [place] [address] Feb, [facility] [address] [id number] [place] [address] Oct, [facility] [address] [id number] [place] [address] Oct, [facility] [address] [facility] [id number] [place] [address] Sep, [facility] [address] [facility] [id number] [place] [address] Sep, [facility] [address] [id number] [place] [address] Aug, [facility] [address] [id number] [place] [address] Aug, [facility] [address] [id number] [facility] [place] [address] Jul, [facility] [address] [id number] [place] [address] Jul, [facility] [address] [id number] [place] [address] Jul, [facility] [address] [id number] [place] [address] Jul, [facility] [address] [id number] [place] [address] Feb, [facility] [address] [id number] [place] [address] Sep, [facility] [id number] [place] [address] May, [facility] [id number] [place] [address] May, [facility] [id number] [place] [address] Apr, [facility] [address] [id number] [place] [address] Apr, [facility] [id number] [place] [address] Mar, [facility] [address] [id number] [place] [address] Oct, [facility] [id number] [place] [address] Sep, [facility] [address] [id number] [place] [address] Aug, [facility] [id number] [place] [address] Jul, [facility] [id number] [place] [address] Jun, [facility] [id number] [place] [address] Jun, [facility] [id number] [place] [address] Jun, [facility] [id number] [place] [address] May, [facility] [id number] [place] [address] May, [facility] [id number] [place] [address] Sep, [facility] [id number] [place] [address] Jul, [facility] [address] [address] Mar, [facility] [id number] [place] [address] Feb, [facility] [id number] [place] [address] Jul, [facility] [id number] [place] [address] Jul, [facility] [address] [address] Jul, [facility] [id number] [place] [address] Jan, [facility] [id number] [place] [address] Jul, [facility] [id number] [place] [address] May, IMMUNIZATIONS No Known Immunizations SOCIAL HISTORY Never Assessed REASON FOR VISIT PLAN OF CARE VITAL SIGNS Height 67 in 2013-10-25 Weight 142.3 lbs 2013-10-25 Temperature 97.2 degrees Fahrenheit 2013-10-25 Heart Rate 80 bpm 2013-10-25 Respiratory Rate 18 2013-10-25 Blood pressure systolic 112 mmHg 2013-10-25 Blood pressure diastolic 68 mmHg 2013-10-25 MEDICATIONS Unknown Medications RESULTS No Results PROCEDURES No Known procedures INSTRUCTIONS MEDICATIONS ADMINISTERED No Known Medications MEDICAL (GENERAL) HISTORY Type Description Date Medical History diabetes mellitus Surgical History lung 2007 Surgical History EGD; ulcer, h.pylori 10/2015 Hospitalization History surgeries
--- OUTSIDE RECORDS SUMMARY | 2019-12-28 12:42 | XMS REPORT ---
Author Author Dayne HADLEY Organization [facility] Address [address] [place] [address] Care Team Providers Care Pipeline Superintendent Name Role Phone MARQUIS HADLEY Unavailable PROBLEMS Type Condition ICD9-CM Code OEX32-SN Code Onset Dates Condition S tatus SNOMED Code Problem Diabetic mononeuropathy associated with type 2 d iabetes mellitus E11.41 Active 884514662 Problem group home current use of insulin Z79.4 Active 865314387 Problem Migraine without aura and without status migrain osus, not intractable G43.009 Active 135931997 Problem Type 2 diabetes mellitus with hyperglycemia E11.65 Active 295611240 Problem Diabetic polyneuropathy associated with type 2 d iabetes mellitus E11.42 Active 64687774 Problem Uncontrolled type 2 diabetes mellitus with hyperglycemia E11.65 Active 220013625 Problem Type 2 diabetes mellitus without complications E11 .9 Active 610559765 Problem Type 2 diabetes mellitus with diabetic polyneuropathy E11.42 Active 351589808 Problem Supraventricular tachycardia I47.1 A ctive 2816035 Problem 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.4 Active 931355705 Problem Diabetic autonomic neuropathy associated with type 2 diabetes mellitus E11.43 Active 060204355 Problem Neuropathy G62.9 Active 441562010 Problem Slow transit constipation K59.01 Acti ve 34218527 Problem Hypertension, benign I10 Active 59946827 Problem Neuropathy of right foot G57.91 Activ e 719656119 Problem Constipation, unspecified constipation type K59.00 Active 48407872 Problem Other chronic pain G89.29 Active 8 [id number] ALLERGIES No Information ENCOUNTERS Encounter Location Date Diagnosis [facility] [id number] [place] [address] Nov, [facility] [id number] [place] [address] Oct, [facility] [address] [address] Sep, [place] [address] [address] Sep, Abdominal pain in male R10.9 ; Neuropath y G62.9 and Anemia, unspecified type D64.9 [place] [address] [address] Sep, [place] [address] [address] Sep, [place] [address] [address] Aug, Type 2 diabetes mellitus with diabetic p olyneuropathy E11.42 ; group home (current) use of insulin Z79.4 and Supraventricular tachycardia I47.1 [place] [address] [address] Aug, [place] [address] [address] Aug, [place] [address] [address] Aug, Type 2 diabetes mellitus with hyperglyce jovanny E11.65 [place] [address] [address] Jul, Allergic conjunctivitis of both eyes H10 .13 ; Low back pain M54.5 ; Other chronic pain G89.29 and Uncontrolled type 2 diabetes mellitus with hyperglycemia E11.65 [facility] [address] [facility] [id number] [address] [place] [address] Jul, Right lower quadrant abdomin al pain R10.31 and Constipation, unspecified constipation type K59.00 [place] [address] [address] Jul, Type 2 diabetes mellitus with hyperglyce jovanny E11.65 ; Hypertension, benign I10 ; Neuropathy of right foot G57.91 and Abdominal pain, right upper quadrant R10.11 [place] [id number] [address] Jul, [facility] [address] [address] May, [facility] [address] [address] May, Onychomycosis B35.1 [facility] [address] [facility] [id number] [address] [address] May, Cellulitis of right lower ex tremity L03.115 and Encounter for immunization Z23 [place] [address] [address] Apr, [place] [address] [address] Apr, Supraventricular tachycardia I47.1 ; Unc ontrolled type 2 diabetes mellitus with hyperglycemia E11.65 ; Onychomycosis B35.1 ; Diabetic polyneuropathy associated with type 2 diabetes mellitus E11.42 ; Flank pain R10.9 ; Pain of left leg M79.605 and Type 2 diabetes mellitus with diabetic polyneuropathy E11.42 [place] [address] [address] Feb, Type 2 diabetes mellitus without complic ations E11.9 [place] [address] [address] Jan, Type 2 diabetes mellitus with hyperglyce jovanny E11.65 [facility] [address] [address] Oct, Encounter for Medicare annual wellness e xam Z00.00 and Type 2 diabetes mellitus with hyperglycemia E11.65 [facility] [address] [facility] [id number] [address] [address] Sep, Left lower quadrant pain R10 .32 ; Hematuria, unspecified type R31.9 and Flank pain R10.9 [place] [address] [address] Aug, [place] [address] [address] Jul, Uncontrolled type 2 diabetes mellitus wi hyperglycemia E11.65 ; Slow transit constipation K59.01 and Diabetic autonomic neuropathy associated with type 2 diabetes mellitus E11.43 [facility] [address] [facility] [id number] [address] [place] [address] 07 Jul, 2018 Hematuria R31.9 and Abdomina l pain R10.9 [place] [address] [address] Jun, [place] [address] [address] May, Uncontrolled type 2 diabetes mellitus wi hyperglycemia E11.65 ; Diabetic polyneuropathy associated with type 2 diabetes mellitus E11.42 and Encounter for immunization Z23 [place] [address] [address] May, Diabetes type 2, uncontrolled E11.65 [place] [address] [address] Feb, Diabetes type 2, uncontrolled E11.65 and Cellulitis of toe of right foot L03.031 [place] [address] [address] Feb, [place] [address] [address] Nov, Migraine without aura and without status migrainosus, not intractable G43.009 ; Pain of left leg M79.605 and Pain in right leg M79.604 [place] [address] [address] Nov, [place] [address] [address] Oct, Type 2 diabetes mellitus with hyperglyce jovanny E11.65 [facility] [address] [address] Sep, Type 2 diabetes mellitus without complic ations E11.9 [place] [address] [address] 14 Sep, 2017 Type 2 diabetes mellitus with hyperglyce jovanny E11.65 ; group home current use of insulin Z79.4 and Coughing R05 [facility] [address] [place] [id number] [address] [place] [address] 05 Sep, 2017 Cough R05 and Bronchitis J40 [place] [address] [address] Jun, Type 2 diabetes mellitus without complic ations E11.9 [place] [address] [address] Jun, Type 2 diabetes mellitus without complic ations E11.9 [place] [address] [address] May, Type 2 diabetes mellitus without complic ations E11.9 [place] [address] [address] May, [place] [address] [address] May, [facility] [place] [address] [place] [id number] [place] [address] 16 Apr, 2017 [facility] [place] [address] [place] [address] [id number] [place] [address] 13 Apr, 2017 Strain of rectus abdominis m uscle, initial encounter S39.011A and Pectoralis muscle strain, initial encounter S29.011A [place] [address] [address] 07 Apr, 2017 Type 2 diabetes mellitus without complic ations E11.9 ; manager long term care current use of insulin Z79.4 ; Postconcussion syndrome F07.81 ; Diabetic mononeuropathy associated with type 2 diabetes mellitus E11.41 and Cervicalgia M54.2 [place] [address] [address] Feb, [facility] [id number] [place] [address] Feb, Type 2 diabetes mellitus without complic ations E11.9 [facility] [address] [address] Jan, Type 2 diabetes mellitus without complic ations E11.9 [facility] [address] [id number] [place] [id number] Sep, Dental caries K02.9 [facility] [address] [id number] Aug, Encounter for other specified administra tive purpose Z02.89 [facility] [address] [facility] [id number] [address] [place] [address] Jul, Diabetes type 2, uncontrolle d E11.65 and Wound healing well on examination R23.8 [place] [address] [address] Jul, Dental examination Z01.20 [place] [address] [address] Jun, Dental examination Z01.20 [place] [address] [address] Jan, Sore throat J02.9 and Post-nasal drip R0 9.82 [place] [address] [address] Nov, [place] [address] [address] Nov, H. pylori infection A04.8 [place] [address] [address] Oct, [place] [address] [address] Sep, Diabetes type 2, uncontrolled E11.65 and Gastric ulcer K25.9 [facility] [address] [address] Sep, [facility] [id number] [place] [address] Aug, [facility] [address] [address] Aug, [facility] [address] [address] Aug, Anemia, unspecified type D64.9 [facility] [address] [address] Aug, Type 2 diabetes mellitus without complic ations E11.9 [facility] [address] [address] Aug, Type 2 diabetes mellitus without complic ations E11.9 and Non- intractable vomiting with nausea, vomiting of unspecified type R11.2 [facility] [address] [facility] [id number] [address] [place] [address] Jun, Hyperglycemia R73.9 and Abdo gege pain, generalized R10.84 [facility] [address] [address] May, Type 2 diabetes mellitus without complic ations E11.9 [facility] [address] [address] Apr, Diabetes 250.00 ; Arthritis 716.90 and N europathy 355.9 [facility] [address] [address] Feb, Diabetes 250.00 [facility] [address] [address] Feb, [facility] [address] [address] Nov, [facility] [address] [address] Nov, [facility] [address] [address] Sep, [facility] [address] [facility] [id number] [place] [address] Sep, 2014 [facility] [address] [facility] [id number] [place] [address] Sep, 2014 [facility] [address] [facility] [id number] [place] [address] Sep, 2014 [facility] [address] [id number] [place] [address] Sep, 2014 [facility] [address] [facility] [id number] [place] [address] May, [facility] [address] [id number] [place] [address] May, [facility] [address] [id number] [place] [address] Apr, [facility] [address] [id number] [place] [address] Apr, [facility] [address] [id number] [place] [address] Feb, [facility] [address] [id number] [place] [address] Feb, [facility] [address] [id number] [place] [address] Feb, [facility] [address] [id number] [place] [address] Feb, [facility] [address] [facility] [id number] [place] [address] Oct, [facility] [address] [facility] [id number] [place] [address] Oct, [facility] [address] [facility] [id number] [place] [address] Sep, [facility] [address] [id number] [place] [address] Sep, [facility] [address] [id number] [place] [address] Aug, [facility] [address] [id number] [place] [address] Aug, [facility] [address] [id number] [place] [address] Jul, [facility] [address] [id number] [place] [address] Jul, [facility] [address] [id number] [place] [address] Jul, [facility] [address] [id number] [place] [address] Jul, [facility] [address] [id number] [place] [address] Feb, [facility] [id number] [place] [address] Sep, [facility] [id number] [place] [address] May, [facility] [address] [id number] [place] [address] May, [facility] [id number] [place] [address] Apr, [facility] [address] [id number] [place] [address] Apr, [facility] [address] [id number] [place] [address] Mar, [facility] [address] [id number] [place] [address] Oct, [facility] [id number] [place] [address] Sep, [facility] [address] [id number] [place] [address] Aug, [facility] [id number] [place] [address] Jul, [facility] [address] [id number] [place] [address] Jun, [facility] [id number] [place] [address] Jun, [facility] [id number] [place] [address] Jun, [facility] [id number] [place] [address] May, [facility] [id number] [place] [address] May, [facility] [id number] [place] [address] Sep, [facility] [id number] [place] [address] Jul, [facility] [id number] [place] [address] Mar, [facility] [id number] [place] [address] Feb, [facility] [id number] [place] [address] Jul, [facility] [id number] [place] [address] Jul, [facility] [id number] [place] [address] Jul, [facility] [id number] [place] [address] Jan, [facility] [id number] [place] [address] Jul, [facility] [id number] [place] [address] May, IMMUNIZATIONS No Known Immunizations SOCIAL HISTORY Never Assessed REASON FOR VISIT PLAN OF CARE VITAL SIGNS Height 67 in 2013-09-18 Weight 139.6 lbs 2013-09-18 Temperature 98 degrees Fahrenheit 2013-09-18 Heart Rate 82 bpm 2013-09-18 Respiratory Rate 18 2013-09-18 Blood pressure systolic 116 mmHg 2013-09-18 Blood pressure diastolic 70 mmHg 2013-09-18 MEDICATIONS Unknown Medications RESULTS No Results PROCEDURES No Known procedures INSTRUCTIONS MEDICATIONS ADMINISTERED No Known Medications MEDICAL (GENERAL) HISTORY Type Description Date Medical History diabetes mellitus Surgical History lung 2006 Surgical History EGD; ulcer, h.pylori 10/2015 Hospitalization History surgeries
--- OUTSIDE RECORDS SUMMARY | 2019-12-28 12:42 | XMS REPORT ---
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 Active 944754469 Problem Postconcussion syndrome F07.81 Active 85663512 Problem Migraine without aura and without status migrain osus, not intractable G43.009 Active 385243526 Problem Type 2 diabetes mellitus with hyperglycemia E11.65 Active 638077484 Problem Slow transit constipation K59.01 Acti ve 17432212 Problem Diabetic autonomic neuropathy associated with type 2 diabetes mellitus E11.43 Active 974868374 Problem Type 2 diabetes mellitus without complications E11 .9 Active 523826466 Problem Constipation, unspecified constipation type K59.00 Active 14652808 Problem Diabetic polyneuropathy associated with type 2 d iabetes mellitus E11.42 Active 34331765 Problem Other chronic pain G89.29 Active 8 4398640 Problem Uncontrolled type 2 diabetes mellitus with hyperglycemia E11.65 Active 323881781 Problem Supraventricular tachycardia I47.1 A ctive 4161845 Problem Type 2 diabetes mellitus with diabetic polyneuropathy E11.42 Active 303537464 Problem Hypertension, benign I10 Active 65788363 Problem Neuropathy of right foot G57.91 Activ e [id number] ALLERGIES No Information ENCOUNTERS Encounter Location Date Diagnosis [facility] [id number] [place] [address] Aug, [facility] [address] [id number] [place] [address] Aug, Type 2 diabetes mellitus with hyperglyce jovanny E11.65 [facility] [address] [id number] [place] [address] Jul, Allergic conjunctivitis of both eyes H10 .13 ; Low back pain M54.5 ; Other chronic pain G89.29 and Uncontrolled type 2 diabetes mellitus with hyperglycemia E11.65 [facility] [id number] [place] [address] Jul, Right lower quadrant abdomin al pain R10.31 and Constipation, unspecified constipation type K59.00 [place] [address] [address] Jul, Type 2 diabetes mellitus with hyperglyce jovanny E11.65 ; Hypertension, benign I10 ; Neuropathy of right foot G57.91 and Abdominal pain, right upper quadrant R10.11 [place] [address] [address] Jul, [place] [address] [address] May, [place] [address] [address] May, Onychomycosis B35.1 [facility] [id number] [place] [address] May, Cellulitis of right lower ex tremity L03.115 and Encounter for immunization Z23 [place] [address] [address] Apr, [place] [address] [address] Apr, Supraventricular tachycardia I47.1 ; Unc ontrolled type 2 diabetes mellitus with hyperglycemia E11.65 ; Onychomycosis B35.1 ; Diabetic polyneuropathy associated with type 2 diabetes mellitus E11.42 ; Flank pain R10.9 ; Pain of left leg M79.605 and Type 2 diabetes mellitus with diabetic polyneuropathy E11.42 [place] [address] [address] Feb, Type 2 diabetes mellitus without complic ations E11.9 [place] [address] [address] Jan, Type 2 diabetes mellitus with hyperglyce jovanny E11.65 [place] [address] [address] Oct, Encounter for Medicare annual wellness e xam Z00.00 and Type 2 diabetes mellitus with hyperglycemia E11.65 [facility] [address] [address] Sep, Left lower quadrant pain R10 .32 ; Hematuria, unspecified type R31.9 and Flank pain R10.9 [place] [address] [address] Aug, [place] [address] [address] Jul, Uncontrolled type 2 diabetes mellitus wi th hyperglycemia E11.65 ; Slow transit constipation K59.01 and Diabetic autonomic neuropathy associated with type 2 diabetes mellitus E11.43 [facility] [id number] [place] [address] Jul, Hematuria R31.9 and Abdomina l pain R10.9 [place] [address] [address] Jun, [place] [address] [address] May, Uncontrolled type 2 diabetes mellitus wi th hyperglycemia E11.65 ; Diabetic polyneuropathy associated with type 2 diabetes mellitus E11.42 and Encounter for immunization Z23 [place] [id number] [place] [address] May, Diabetes type 2, uncontrolled E11.65 [place] [address] [address] Feb, Diabetes type 2, uncontrolled E11.65 and Cellulitis of toe of right foot L03.031 [place] [address] [address] Feb, [place] [address] [address] 16 Nov, 2017 Migraine without aura and without status migrainosus, not intractable G43.009 ; Pain of left leg M79.605 and Pain in right leg M79.604 [place] [address] [address] Nov, [place] [address] [address] Oct, Type 2 diabetes mellitus with hyperglyce jovanny E11.65 [place] [address] [address] Sep, Type 2 diabetes mellitus without complic ations E11.9 [place] [address] [address] Sep, Type 2 diabetes mellitus with hyperglyce jovanny E11.65 ; 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 and Coughing R05 [facility] [place] [id number] [place] [address] 05 Sep, 2017 Cough R05 and Bronchitis J40 [place] [address] [address] Jun, Type 2 diabetes mellitus without complic ations E11.9 [place] [address] [address] Jun, Type 2 diabetes mellitus without complic ations E11.9 [place] [address] [address] May, Type 2 diabetes mellitus without complic ations E11.9 [place] [address] [address] May, [place] [address] [address] May, [facility] [place] [address] [address] [facility] [id number] [address] [place] [address] Apr, [facility] [address] [facility] [id number] [address] [address] 13 Apr, 2017 Strain of rectus abdominis m uscle, initial encounter S39.011A and Pectoralis muscle strain, initial encounter S29.011A [facility] [address] [address] 07 Apr, 2017 Type 2 diabetes mellitus without complic ations E11.9 ; FDC current use of insulin Z79.4 ; Postconcussion syndrome F07.81 ; Diabetic mononeuropathy associated with type 2 diabetes mellitus E11.41 and Cervicalgia M54.2 [place] [address] [address] Feb, [place] [address] [address] Feb, Type 2 diabetes mellitus without complic ations E11.9 [place] [address] [address] Jan, Type 2 diabetes mellitus without complic ations E11.9 [facility] [address] [id number] Sep, Dental caries K02.9 [facility] [address] [id number] Aug, Encounter for other specified administra tive purpose Z02.89 [facility] [address] [facility] [id number] [address] [place] [address] 23 Jul, 2016 Diabetes type 2, uncontrolle d E11.65 and Wound healing well on examination R23.8 [place] [address] [address] 06 Jul, 2016 Dental examination Z01.20 [place] [address] [address] 29 Jun, 2016 Dental examination Z01.20 [place] [address] [address] 14 Jan, 2016 Sore throat J02.9 and Post-nasal drip R0 9.82 [place] [address] [address] Nov, [place] [address] [address] Nov, H. pylori infection A04.8 [place] [address] [address] Oct, [place] [address] [address] Sep, Diabetes type 2, uncontrolled E11.65 and Gastric ulcer K25.9 [place] [address] [address] Sep, [place] [address] [address] Aug, [place] [address] [address] Aug, [place] [address] [address] Aug, Anemia, unspecified type D64.9 [place] [address] [address] Aug, Type 2 diabetes mellitus without complic ations E11.9 [place] [address] [address] Aug, Type 2 diabetes mellitus without complic ations E11.9 and Non- intractable vomiting with nausea, vomiting of unspecified type R11.2 [facility] [address] [facility] [id number] [place] [address] Jun, Hyperglycemia R73.9 and Abdo gege pain, generalized R10.84 [facility] [address] [address] May, Type 2 diabetes mellitus without complic ations E11.9 [place] [address] [address] Apr, Diabetes 250.00 ; Arthritis 716.90 and N europathy 355.9 [facility] [id number] [place] [address] Feb, Diabetes 250.00 [facility] [id number] [place] [address] Feb, [facility] [id number] [place] [address] Nov, [facility] [id number] [place] [address] Nov, [facility] [id number] [place] [address] Sep, [facility] [id number] [place] [address] Sep, [facility] [id number] [place] [address] Sep, [facility] [id number] [place] [address] Sep, [facility] [id number] [place] [address] Sep, [facility] [id number] [place] [address] May, [facility] [id number] [place] [address] May, [facility] [id number] [place] [address] Apr, [facility] [id number] [place] [address] Apr, [facility] [id number] [place] [address] Feb, [facility] [id number] [place] [address] Feb, [facility] [id number] [place] [address] Feb, [facility] [address] [id number] [place] [address] Feb, [facility] [address] [id number] [place] [address] Oct, [facility] [address] [id number] [place] [address] Oct, [facility] [address] [id number] [place] [address] Sep, [facility] [address] [id number] [place] [address] Sep, [facility] [address] [id number] [place] [address] Aug, [facility] [address] [id number] [place] [address] Aug, [facility] [address] [id number] [place] [address] Jul, [facility] [address] [id number] [place] [address] Jul, [facility] [address] [id number] [place] [address] Jul, [facility] [address] [id number] [place] [address] Jul, [facility] [address] [id number] [place] [address] Feb, [facility] [address] [id number] [place] [address] Sep, [facility] [address] [id number] [place] [address] May, [facility] [address] [id number] [place] [address] May, [facility] [address] [id number] [place] [address] Apr, [facility] [address] [id number] [place] [address] Apr, [facility] [address] [id number] [place] [address] Mar, [facility] [address] [id number] [place] [address] Oct, [facility] [address] [id number] [place] [address] Sep, [facility] [address] [id number] [place] [address] Aug, [facility] [address] [id number] [place] [address] Jul, [facility] [address] [id number] [place] [address] Jun, [facility] [address] [id number] [place] [address] Jun, [facility] [address] [id number] [place] [address] Jun, [facility] [address] [id number] [place] [address] May, [facility] [address] [id number] [place] [address] May, [facility] [address] [id number] [place] [address] Sep, [facility] [address] [id number] [place] [address] Jul, [facility] [address] [id number] [place] [address] Mar, [facility] [address] [id number] [place] [address] Feb, [facility] [address] [id number] [place] [address] Jul, [facility] [address] [id number] [place] [address] Jul, [facility] [address] [id number] [place] [address] Jul, [facility] [address] [id number] [place] [address] Jan, [facility] [address] [id number] [place] [address] Jul, [facility] [address] [id number] [place] [address] May, IMMUNIZATIONS No Known Immunizations SOCIAL HISTORY Never Assessed REASON FOR VISIT PLAN OF CARE VITAL SIGNS MEDICATIONS Unknown Medications RESULTS No Results PROCEDURES No Known procedures INSTRUCTIONS MEDICATIONS ADMINISTERED No Known Medications MEDICAL (GENERAL) HISTORY Type Description Date Medical History diabetes mellitus Surgical History lung 2006 Surgical History EGD; ulcer, h.pylori 10/2015 Hospitalization History surgeries
--- OUTSIDE RECORDS SUMMARY | 2019-12-28 12:45 | XMS REPORT | Continuity of Care Document ---
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 E11.621 TYPE 2 DIABETES MELLITUS WITH FOOT ULCER 09/26/2019 ALLEGRA KOHLI MD, Ot L97.526 NON-PRS CHR ULC OTH PRT L FOOT WITH BNE 09/26/2019 ALLEGRA KOHLI MD, Ot M65.072 ABSCESS OF TENDON SHEATH, LEFT ANKLE AND 09/26/2019 ALLEGRA KOHLI MD, Ot E11.42 TYPE 2 DIABETES MELLITUS WITH DIABETIC P 09/26/2019 ALLEGRA KOHLI MD Ot E11.52 TYPE 2 DIABETES W DIABETIC PERIPHERAL AN 09/26/2019 ALLEGRA KOHLI MD, Ot E11.621 TYPE 2 DIABETES MELLITUS WITH FOOT ULCER 09/26/2019 ALLEGRA KOHLI MD, Ot L97.523 NON-PRS CHRONIC ULCER OTH PRT LEFT FOOT 09/26/2019 ALLEGRA KOHLI MD, Ot M65.072 ABSCESS OF TENDON SHEATH, LEFT ANKLE AND 09/26/2019 ALLEGRA KOHLI MD Ot E11.42 TYPE 2 DIABETES MELLITUS WITH DIABETIC P 09/26/2019 ALLEGRA KOHLI MD Ot E11.52 TYPE 2 DIABETES W DIABETIC PERIPHERAL AN 09/26/2019 ALLEGRA KOHLI MD Ot E11.621 TYPE 2 DIABETES MELLITUS WITH FOOT ULCER 09/26/2019 ALLEGRA KOHLI MD Ot I96 GANGRENE, NOT ELSEWHERE CLASSIFIED 09/26/2019 ALLEGRA KOHLI MD, Ot L97.523 NON-PRS CHRONIC ULCER OTH PRT LEFT FOOT 09/26/2019 ALLEGRA KOHLI MD, Ot M65.072 ABSCESS OF TENDON SHEATH, LEFT ANKLE AND 09/26/2019 ALLEGRA KOHLI MD, Ot I73 .9 PERIPHERAL VASCULAR DISEASE, UNSPECIFIED 09/26/2019 ALLEGRA KOHLI MD, Ot L97.519 NON-PRS CHRONIC ULCER OTH PRT RIGHT FOOT 09/26/2019 ALLEGRA KOHLI MD Ot E11.42 TYPE 2 DIABETES MELLITUS WITH DIABETIC P 09/26/2019 ALLEGRA KOHLI MD Ot E11.52 TYPE 2 DIABETES W DIABETIC PERIPHERAL AN 09/26/2019 ALLEGRA KOHLI MD, Ot E11.621 TYPE 2 DIABETES MELLITUS WITH FOOT ULCER 09/26/2019 ALLEGRA KOHLI MD, Ot I96 GANGRENE, NOT ELSEWHERE CLASSIFIED 09/26/2019 ALLEGRA KOHLI MD, Ot L97.522 NON-PRS CHRONIC ULCER OTH PRT LEFT FOOT 09/26/2019 ALLEGRA KOHLI MD, Ot M65.072 ABSCESS OF TENDON SHEATH, LEFT ANKLE AND 09/26/2019 ALLEGRA KOHLI MD Ot E11.42 TYPE 2 DIABETES MELLITUS WITH DIABETIC P 09/26/2019 ALLEGRA KOHLI MD Ot E11.52 TYPE 2 DIABETES W DIABETIC PERIPHERAL AN 09/26/2019 ALLEGRA KOHLI MD, Ot E11.621 TYPE 2 DIABETES MELLITUS WITH FOOT ULCER 09/26/2019 ALLEGRA KOHLI MD, Ot L97.523 NON-PRS CHRONIC ULCER OTH PRT LEFT FOOT 09/26/2019 ALLEGRA KOHLI MD, Ot M65.072 ABSCESS OF TENDON SHEATH, LEFT ANKLE AND 09/26/2019 ALLEGRA KOHLI MD Ot E11.42 TYPE 2 DIABETES MELLITUS WITH DIABETIC P 09/26/2019 ALLEGRA KOHLI MD Ot E11.52 TYPE 2 DIABETES W DIABETIC PERIPHERAL AN 09/26/2019 ALLEGRA KOHLI MD, Ot E11.621 TYPE 2 DIABETES MELLITUS WITH FOOT ULCER 09/26/2019 ALLEGRA KOHLI MD, Ot L97.522 NON-PRS CHRONIC ULCER OTH PRT LEFT FOOT 09/26/2019 ALLEGRA KOHLI MD, Ot M65.072 ABSCESS OF TENDON SHEATH, LEFT ANKLE AND 09/26/2019 JG VALERA MD, Ot E11.42 TYPE 2 DIABETES MELLITUS WITH DIABETIC P 09/26/2019 LO MD, KIRTIE Ot E11.52 TYPE 2 DIABETES W DIABETIC PERIPHERAL AN 09/26/2019 LO JG BELL Ot E11.621 TYPE 2 DIABETES MELLITUS WITH FOOT ULCER 09/26/2019 LO JG BELL Ot I10 ESSENTIAL (PRIMARY) HYPERTENSION 09/26/2019 JG VALERA MD Ot I73.9 PERIPHERAL VASCULAR DISEASE, UNSPECIFIED 09/26/2019 LO JG BELL Ot L97.522 NON- PRS CHRONIC ULCER OTH PRT LEFT FOOT 09/26/2019 LO JG BELL Ot M65.072 ABSCESS OF TENDON SHEATH, LEFT ANKLE AND 09/26/2019 LO JG BELL Ot E11.42 TYPE 2 DIABETES MELLITUS WITH DIABETIC P 09/26/2019 LO JG BELL Ot E11.52 TYPE 2 DIABETES W DIABETIC PERIPHERAL AN 09/26/2019 LO JG BELL Ot E11.621 TYPE 2 DIABETES MELLITUS WITH FOOT ULCER 09/26/2019 JG VALERA MD Ot I10 ESSENTIAL (PRIMARY) HYPERTENSION 09/26/2019 JG VALERA MD, Ot L97.522 NON- PRS CHRONIC ULCER OTH PRT LEFT FOOT 09/26/2019 JG VALERA MD, Ot M65.072 ABSCESS OF TENDON SHEATH, LEFT ANKLE AND 09/26/2019 LO JG BELL Ot E11.42 TYPE 2 DIABETES MELLITUS WITH DIABETIC P 09/26/2019 JG VALERA MD Ot E11.621 TYPE 2 DIABETES MELLITUS WITH FOOT ULCER 09/26/2019 JG VALERA MD Ot I10 ESSENTIAL (PRIMARY) HYPERTENSION 09/26/2019 JG VALERA MD Ot I73.9 PERIPHERAL VASCULAR DISEASE, UNSPECIFIED 09/26/2019 LO JG BELL Ot M65.072 ABSCESS OF TENDON SHEATH, LEFT ANKLE AND 09/26/2019 LO JG BELL Ot E11.42 TYPE 2 DIABETES MELLITUS WITH DIABETIC P 09/26/2019 JG VALERA MD Ot E11.52 TYPE 2 DIABETES W DIABETIC PERIPHERAL AN 09/26/2019 LO JG BELL Ot E11.621 TYPE 2 DIABETES MELLITUS WITH FOOT ULCER 09/26/2019 JG VALERA MD Ot I10 ESSENTIAL (PRIMARY) HYPERTENSION 09/26/2019 JG VALERA MD Ot I73.9 PERIPHERAL VASCULAR DISEASE, UNSPECIFIED 09/26/2019 JG VALERA MD Ot L97.522 NON- PRS CHRONIC ULCER OTH PRT LEFT FOOT 09/26/2019 JG VALERA MD Ot M65.072 ABSCESS OF TENDON SHEATH, LEFT ANKLE AND 09/26/2019 JG VALERA MD Ot E11.42 TYPE 2 DIABETES MELLITUS WITH DIABETIC P 09/26/2019 JG VALERA MD Ot E11.52 TYPE 2 DIABETES W DIABETIC PERIPHERAL AN 09/26/2019 JG VALERA MD Ot E11.621 TYPE 2 DIABETES MELLITUS WITH FOOT ULCER 09/26/2019 JG VALERA MD Ot I10 ESSENTIAL (PRIMARY) HYPERTENSION 09/26/2019 JG VALERA MD Ot L97.522 NON- PRS CHRONIC ULCER OTH PRT LEFT FOOT 09/26/2019 JG VALERA MD, Ot M65.072 ABSCESS OF TENDON SHEATH, LEFT ANKLE AND 09/26/2019 ALLEGRA KOHLI MD Ot E11.42 TYPE 2 DIABETES MELLITUS WITH DIABETIC P 09/26/2019 ALLEGRA KOHLI MD, Ot E11.52 TYPE 2 DIABETES W DIABETIC PERIPHERAL AN 09/26/2019 ALLEGRA KOHIL MD, Ot E11.621 TYPE 2 DIABETES MELLITUS WITH FOOT ULCER 09/26/2019 ALLEGRA KOHLI MD, Ot L97.522 NON-PRS CHRONIC ULCER OTH PRT LEFT FOOT 09/26/2019 ALLEGRA KOHLI MD, Ot M65.072 ABSCESS OF TENDON SHEATH, LEFT ANKLE AND 09/26/2019 ALLEGRA KOHLI MD Ot E11.42 TYPE 2 DIABETES MELLITUS WITH DIABETIC P 09/26/2019 ALLEGRA KOHLI MD Ot E11.52 TYPE 2 DIABETES W DIABETIC PERIPHERAL AN 09/26/2019 ALLEGRA KOHIL MD Ot E11.621 TYPE 2 DIABETES MELLITUS WITH FOOT ULCER 09/26/2019 ALLEGRA KOHLI MD Ot I96 GANGRENE, NOT ELSEWHERE CLASSIFIED 09/26/2019 ALLEGRA KOHLI MD, Ot L97.522 NON-PRS CHRONIC ULCER OTH PRT LEFT FOOT 09/26/2019 ALLEGRA KOHLI MD, Ot M65.072 ABSCESS OF TENDON SHEATH, LEFT ANKLE AND 09/26/2019 ALLEGRA KOHLI MD Ot E11.42 TYPE 2 DIABETES MELLITUS WITH DIABETIC P 09/26/2019 ALLEGRA KOHLI MD Ot E11.52 TYPE 2 DIABETES W DIABETIC PERIPHERAL AN 09/26/2019 ALLEGRA KOHLI MD Ot E11.621 TYPE 2 DIABETES MELLITUS WITH FOOT ULCER 09/26/2019 ALLEGRA KOHLI MD, Ot L97.523 NON-PRS CHRONIC ULCER OTH PRT LEFT FOOT 09/26/2019 ALLEGRA KOHLI MD, Ot M65.072 ABSCESS OF TENDON SHEATH, LEFT ANKLE AND 09/26/2019 ALLEGRA KOHLI MD, Ot E11.42 TYPE 2 DIABETES MELLITUS WITH DIABETIC P 09/26/2019 ALLEGRA KOHLI MD, Ot E11.52 TYPE 2 DIABETES W DIABETIC PERIPHERAL AN 09/26/2019 ALLEGRA KOHLI MD, Ot E11.621 TYPE 2 DIABETES MELLITUS WITH FOOT ULCER 09/26/2019 ALLEGRA KOHLI MD Ot I96 GANGRENE, NOT ELSEWHERE CLASSIFIED 09/26/2019 ALLEGRA KOHLI MD, Ot L97.523 NON-PRS CHRONIC ULCER OTH PRT LEFT FOOT 09/26/2019 ALLEGRA KOHLI MD, Ot M65.072 ABSCESS OF TENDON SHEATH, LEFT ANKLE AND 09/26/2019 ALLEGRA KOHLI MD, Ot E11.42 TYPE 2 DIABETES MELLITUS WITH DIABETIC P 09/26/2019 ALLEGRA KOHLI MD, Ot E11.52 TYPE 2 DIABETES W DIABETIC PERIPHERAL AN 09/26/2019 ALLEGRA KOHLI MD, Ot E11.621 TYPE 2 DIABETES MELLITUS WITH FOOT ULCER 09/26/2019 ALLEGRA KOHLI MD, Ot L97.523 NON-PRS CHRONIC ULCER OTH PRT LEFT FOOT 09/26/2019 ALLEGRA KOHLI MD, Ot M65.072 ABSCESS OF TENDON SHEATH, LEFT ANKLE AND 09/26/2019 ALLEGRA KOHLI MD Ot E11.42 TYPE 2 DIABETES MELLITUS WITH DIABETIC P 09/26/2019 ALLEGRA KOHLI MD Ot E11.52 TYPE 2 DIABETES W DIABETIC PERIPHERAL AN 09/26/2019 ALLEGRA KOHLI MD, Ot E11.621 TYPE 2 DIABETES MELLITUS WITH FOOT ULCER 09/26/2019 ALLEGRA KOHLI MD, Ot L97.526 NON-PRS CHR [facility] OTH PRT L FOOT WITH BNE 09/26/2019 ALLEGRA KOHLI MD, Ot M65.072 ABSCESS OF TENDON SHEATH, LEFT ANKLE AND 09/26/2019 ALLEGRA KOHLI MD, Ot E11.42 TYPE 2 DIABETES MELLITUS WITH DIABETIC P 09/26/2019 ALLEGRA KOHLI MD Ot E11.52 TYPE 2 DIABETES W DIABETIC PERIPHERAL AN 09/26/2019 ALLEGRA KOHLI MD, Ot E11.621 TYPE 2 DIABETES MELLITUS WITH FOOT ULCER 09/26/2019 ALLEGRA KOHLI MD, Ot L97.523 NON-PRS CHRONIC ULCER OTH PRT LEFT FOOT 09/26/2019 KAMILLA BELL, ALLEGRA Wilkerson Ot M65.072 ABSCESS OF TENDON SHEATH, LEFT ANKLE AND 09/26/2019 KAYLA TOPETE APRN Ot E11.621 TYPE 2 DIABETES MELLITUS WITH FOOT ULCER 09/26/2019 KAYLA TOPETE PSYCHIATRIC CNS Ot L97.522 NON-PRS CHRONIC ULCER OTH PRT LEFT FOOT 10/29/2019 JG VALERA MD Ot E11.42 TYPE 2 DIABETES MELLITUS WITH DIABETIC P 10/29/2019 JG VALERA MD, Ot E11.621 TYPE 2 DIABETES MELLITUS WITH FOOT ULCER 10/29/2019 JG VALERA MD Ot I10 ESSENTIAL (PRIMARY) HYPERTENSION 10/29/2019 JG VALERA MD, Ot I73.9 PERIPHERAL VASCULAR DISEASE, UNSPECIFIED 10/29/2019 JG VALERA MD, Ot M65.072 ABSCESS OF TENDON SHEATH, LEFT ANKLE AND 10/29/2019 TYE CEDENO DO Ot Z01.818 ENCOUNTER FOR OTHER PREPROCEDURAL EXAMIN 10/29/2019 XU DOYLE MD Ot R07.9 CHEST PAIN, UNSPECIFIED 10/29/2019 JACKSON GUADALUPE Ot J92 .9 PLEURAL PLAQUE WITHOUT ASBESTOS 10/29/2019 JACKSON GUADALUPE Ot J98 .4 OTHER DISORDERS OF LUNG 10/29/2019 JACKSON GUADALUPE Ot R10.32 LEFT LOWER QUADRANT PAIN 10/29/2019 JACKSON GUADALUPE Ot R31 .9 HEMATURIA, UNSPECIFIED 10/29/2019 KAYLA TOPETE PSYCHIATRIC CNS Ot E11.621 TYPE 2 DIABETES MELLITUS WITH FOOT ULCER 10/29/2019 KAYLA TOPETE APRN Ot L97.522 NON-PRS CHRONIC ULCER OTH PRT LEFT FOOT 10/29/2019 KAYLA TOPETE APRN Ot E11.621 TYPE 2 DIABETES MELLITUS WITH FOOT ULCER 10/29/2019 KAYLA TOPETE APRN Ot L97.522 NON-PRS CHRONIC ULCER OTH PRT LEFT FOOT 10/29/2019 KAYLA TOPETE APRN Ot S91.302A UNSPECIFIED OPEN WOUND, LEFT FOOT, INITI 10/29/2019 ALLEGRA KOHLI MD Ot E11.42 TYPE 2 DIABETES MELLITUS WITH DIABETIC P 10/29/2019 ALLEGRA KOHLI MD Ot E11.52 TYPE 2 DIABETES W DIABETIC PERIPHERAL AN 10/29/2019 ALLEGRA KOHLI MD Ot E11.621 TYPE 2 DIABETES MELLITUS WITH FOOT ULCER 10/29/2019 ALLEGRA KOHLI MD, Ot L97.523 NON-PRS CHRONIC ULCER OTH PRT LEFT FOOT 10/29/2019 ALLEGRA KOHLI MD, Ot M65.072 ABSCESS OF TENDON SHEATH, LEFT ANKLE AND 10/29/2019 ALLEGRA KOHLI MD Ot E11.42 TYPE 2 DIABETES MELLITUS WITH DIABETIC P 10/29/2019 ALLEGRA KOHLI MD, Ot E11.621 TYPE 2 DIABETES MELLITUS WITH FOOT ULCER 10/29/2019 ALLEGRA KOHLI MD, Ot L97.523 NON-PRS CHRONIC ULCER OTH PRT LEFT FOOT 10/29/2019 ALLEGRA KOHLI MD, Ot M65.072 ABSCESS OF TENDON SHEATH, LEFT ANKLE AND 10/29/2019 ALLEGRA KOHLI MD, Ot E11.42 TYPE 2 DIABETES MELLITUS WITH DIABETIC P 10/29/2019 ALLEGRA KOHLI MD Ot E11.52 TYPE 2 DIABETES W DIABETIC PERIPHERAL AN 10/29/2019 ALLEGRA KOHLI MD, Ot E11.621 TYPE 2 DIABETES MELLITUS WITH FOOT ULCER 10/29/2019 ALLEGRA KOHLI MD, Ot L97.526 NON-PRS CHR ULC OTH PRT L FOOT WITH BNE 10/29/2019 ALLEGRA KOHLI MD, Ot M65.072 ABSCESS OF TENDON SHEATH, LEFT ANKLE AND 10/29/2019 ALLEGRA KOHLI MD Ot E11.42 TYPE 2 DIABETES MELLITUS WITH DIABETIC P 10/29/2019 ALLEGRA KOHLI MD Ot E11.52 TYPE 2 DIABETES W DIABETIC PERIPHERAL AN 10/29/2019 ALLEGRA KOHLI MD Ot E11.621 TYPE 2 DIABETES MELLITUS WITH FOOT ULCER 10/29/2019 ALLEGRA KOHLI MD, Ot L97.523 NON-PRS CHRONIC ULCER OTH PRT LEFT FOOT 10/29/2019 ALLEGRA KOHLI MD, Ot M65.072 ABSCESS OF TENDON SHEATH, LEFT ANKLE AND 10/29/2019 ALLEGRA KOHLI MD Ot E11.42 TYPE 2 DIABETES MELLITUS WITH DIABETIC P 10/29/2019 ALLEGRA KOHLI MD Ot E11.52 TYPE 2 DIABETES W DIABETIC PERIPHERAL AN 10/29/2019 ALLEGRA KOHLI MD Ot E11.621 TYPE 2 DIABETES MELLITUS WITH FOOT ULCER 10/29/2019 ALLEGRA KOHLI MD Ot I96 GANGRENE, NOT ELSEWHERE CLASSIFIED 10/29/2019 ALLEGRA KOHLI MD Ot L97.523 NON-PRS CHRONIC ULCER OTH PRT LEFT FOOT 10/29/2019 ALLEGRA KOHLI MD Ot M65.072 ABSCESS OF TENDON SHEATH, LEFT ANKLE AND 10/29/2019 ALLEGRA KOHLI MD Ot I73 .9 PERIPHERAL VASCULAR DISEASE, UNSPECIFIED 10/29/2019 ALLEGRA KOHLI MD Ot L97.519 NON-PRS CHRONIC ULCER OTH PRT RIGHT FOOT 10/29/2019 ALLEGRA KOHLI MD Ot E11.42 TYPE 2 DIABETES MELLITUS WITH DIABETIC P 10/29/2019 ALLEGRA KOHLI MD Ot E11.52 TYPE 2 DIABETES W DIABETIC PERIPHERAL AN 10/29/2019 ALLEGRA KOHLI MD Ot E11.621 TYPE 2 DIABETES MELLITUS WITH FOOT ULCER 10/29/2019 ALLEGRA KOHLI MD Ot I96 GANGRENE, NOT ELSEWHERE CLASSIFIED 10/29/2019 ALLEGRA KOHLI MD Ot L97.522 NON-PRS CHRONIC ULCER OTH PRT LEFT FOOT 10/29/2019 ALLEGRA KOHLI MD Ot M65.072 ABSCESS OF TENDON SHEATH, LEFT ANKLE AND 10/29/2019 ALLEGRA KOHLI MD Ot E11.42 TYPE 2 DIABETES MELLITUS WITH DIABETIC P 10/29/2019 ALLEGRA KOHLI MD Ot E11.52 TYPE 2 DIABETES W DIABETIC PERIPHERAL AN 10/29/2019 ALLEGRA KOHLI MD Ot E11.621 TYPE 2 DIABETES MELLITUS WITH FOOT ULCER 10/29/2019 ALLEGRA KOHLI MD Ot L97.523 NON-PRS CHRONIC ULCER OTH PRT LEFT FOOT 10/29/2019 ALLEGRA KOHLI MD Ot M65.072 ABSCESS OF TENDON SHEATH, LEFT ANKLE AND 10/29/2019 ALLEGRA KOHLI MD Ot E11.42 TYPE 2 DIABETES MELLITUS WITH DIABETIC P 10/29/2019 ALLEGRA KOHLI MD Ot E11.52 TYPE 2 DIABETES W DIABETIC PERIPHERAL AN 10/29/2019 ALLEGRA KOHLI MD Ot E11.621 TYPE 2 DIABETES MELLITUS WITH FOOT ULCER 10/29/2019 ALLEGRA KOHLI MD Ot L97.522 NON-PRS CHRONIC ULCER OTH PRT LEFT FOOT 10/29/2019 ALLEGRA KOHLI MD Ot M65.072 ABSCESS OF TENDON SHEATH, LEFT ANKLE AND 10/29/2019 JG VALERA MD Ot E11.42 TYPE 2 DIABETES MELLITUS WITH DIABETIC P 10/29/2019 LO JG BELL Ot E11.52 TYPE 2 DIABETES W DIABETIC PERIPHERAL AN 10/29/2019 LO JG BELL Ot E11.621 TYPE 2 DIABETES MELLITUS WITH FOOT ULCER 10/29/2019 LO JG BELL Ot I10 ESSENTIAL (PRIMARY) HYPERTENSION 10/29/2019 LO JG BELL Ot I73.9 PERIPHERAL VASCULAR DISEASE, UNSPECIFIED 10/29/2019 LO JG BELL Ot L97.522 NON- PRS CHRONIC ULCER OTH PRT LEFT FOOT 10/29/2019 LO JG BELL Ot M65.072 ABSCESS OF TENDON SHEATH, LEFT ANKLE AND 10/29/2019 LO JG BELL Ot E11.42 TYPE 2 DIABETES MELLITUS WITH DIABETIC P 10/29/2019 LO JG BELL Ot E11.52 TYPE 2 DIABETES W DIABETIC PERIPHERAL AN 10/29/2019 LO JG BELL Ot E11.621 TYPE 2 DIABETES MELLITUS WITH FOOT ULCER 10/29/2019 LO JG BELL Ot I10 ESSENTIAL (PRIMARY) HYPERTENSION 10/29/2019 JG VALERA MD Ot L97.522 NON- PRS CHRONIC ULCER OTH PRT LEFT FOOT 10/29/2019 LO JG BELL Ot M65.072 ABSCESS OF TENDON SHEATH, LEFT ANKLE AND 10/29/2019 LO JG BELL Ot E11.42 TYPE 2 DIABETES MELLITUS WITH DIABETIC P 10/29/2019 LO JG BELL Ot E11.621 TYPE 2 DIABETES MELLITUS WITH FOOT ULCER 10/29/2019 LO JG BELL Ot I10 ESSENTIAL (PRIMARY) HYPERTENSION 10/29/2019 LO JG BELL Ot I73.9 PERIPHERAL VASCULAR DISEASE, UNSPECIFIED 10/29/2019 LO JG BELL Ot M65.072 ABSCESS OF TENDON SHEATH, LEFT ANKLE AND 10/29/2019 LO JG BELL Ot E11.42 TYPE 2 DIABETES MELLITUS WITH DIABETIC P 10/29/2019 LO JG BELL Ot E11.52 TYPE 2 DIABETES W DIABETIC PERIPHERAL AN 10/29/2019 LO JG BELL Ot E11.621 TYPE 2 DIABETES MELLITUS WITH FOOT ULCER 10/29/2019 LO JG BELL Ot I10 ESSENTIAL (PRIMARY) HYPERTENSION 10/29/2019 JG VALERA MD Ot L97.522 NON- PRS CHRONIC ULCER OTH PRT LEFT FOOT 10/29/2019 JG VALERA MD Ot M65.072 ABSCESS OF TENDON SHEATH, LEFT ANKLE AND 10/29/2019 JG VALERA MD Ot E11.42 TYPE 2 DIABETES MELLITUS WITH DIABETIC P 10/29/2019 JG VALERA MD Ot E11.52 TYPE 2 DIABETES W DIABETIC PERIPHERAL AN 10/29/2019 JG VALERA MD Ot E11.621 TYPE 2 DIABETES MELLITUS WITH FOOT ULCER 10/29/2019 JG VALERA MD Ot I10 ESSENTIAL (PRIMARY) HYPERTENSION 10/29/2019 JG VALERA MD Ot I73.9 PERIPHERAL VASCULAR DISEASE, UNSPECIFIED 10/29/2019 JG VALERA MD Ot L97.522 NON- PRS CHRONIC ULCER OTH PRT LEFT FOOT 10/29/2019 JG VALERA MD Ot M65.072 ABSCESS OF TENDON SHEATH, LEFT ANKLE AND 10/29/2019 ALLEGRA KOHLI MD Ot E11.42 TYPE 2 DIABETES MELLITUS WITH DIABETIC P 10/29/2019 ALLEGRA KOHLI MD, Ot E11.52 TYPE 2 DIABETES W DIABETIC PERIPHERAL AN 10/29/2019 ALLEGRA KOHLI MD, Ot E11.621 TYPE 2 DIABETES MELLITUS WITH FOOT ULCER 10/29/2019 ALLEGRA KOHLI MD Ot L97.522 NON-PRS CHRONIC ULCER OTH PRT LEFT FOOT 10/29/2019 ALLEGRA KOHLI MD Ot M65.072 ABSCESS OF TENDON SHEATH, LEFT ANKLE AND 10/29/2019 ALLEGRA KOHLI MD Ot E11.42 TYPE 2 DIABETES MELLITUS WITH DIABETIC P 10/29/2019 ALLEGRA KOHLI MD Ot E11.52 TYPE 2 DIABETES W DIABETIC PERIPHERAL AN 10/29/2019 ALLEGRA KOHLI MD Ot E11.621 TYPE 2 DIABETES MELLITUS WITH FOOT ULCER 10/29/2019 ALLEGRA KOHLI MD Ot L97.523 NON-PRS CHRONIC ULCER OTH PRT LEFT FOOT 10/29/2019 ALLEGRA KOHLI MD, Ot M65.072 ABSCESS OF TENDON SHEATH, LEFT ANKLE AND 10/29/2019 ALLEGRA KOHLI MD Ot E11.42 TYPE 2 DIABETES MELLITUS WITH DIABETIC P 10/29/2019 ALLEGRA KOHLI MD Ot E11.52 TYPE 2 DIABETES W DIABETIC PERIPHERAL AN 10/29/2019 ALLEGRA KOHLI MD Ot E11.621 TYPE 2 DIABETES MELLITUS WITH FOOT ULCER 10/29/2019 ALLEGRA KOHLI MD Ot I96 GANGRENE, NOT ELSEWHERE CLASSIFIED 10/29/2019 ALLEGRA KOHLI MD, Ot L97.522 NON-PRS CHRONIC ULCER OTH PRT LEFT FOOT 10/29/2019 ALLEGRA KOHLI MD, Ot M65.072 ABSCESS OF TENDON SHEATH, LEFT ANKLE AND 10/29/2019 ALLEGRA KOHLI MD, Ot E11.42 TYPE 2 DIABETES MELLITUS WITH DIABETIC P 10/29/2019 ALLEGRA KOHLI MD, Ot E11.52 TYPE 2 DIABETES W DIABETIC PERIPHERAL AN 10/29/2019 ALLEGRA KOHLI MD, Ot E11.621 TYPE 2 DIABETES MELLITUS WITH FOOT ULCER 10/29/2019 ALLEGRA KOHLI MD, Ot I96 GANGRENE, NOT ELSEWHERE CLASSIFIED 10/29/2019 ALLEGRA KOHLI MD, Ot L97.523 NON-PRS CHRONIC ULCER OTH PRT LEFT FOOT 10/29/2019 ALLEGRA KOHLI MD, Ot M65.072 ABSCESS OF TENDON SHEATH, LEFT ANKLE AND 10/29/2019 ALLEGRA KOHLI MD, Ot E11.42 TYPE 2 DIABETES MELLITUS WITH DIABETIC P 10/29/2019 ALLEGRA KOHLI MD, Ot E11.52 TYPE 2 DIABETES W DIABETIC PERIPHERAL AN 10/29/2019 ALLEGRA KOHLI MD, Ot E11.621 TYPE 2 DIABETES MELLITUS WITH FOOT ULCER 10/29/2019 ALLEGRA KOHLI MD, Ot L97.523 NON-PRS CHRONIC ULCER OTH PRT LEFT FOOT 10/29/2019 ALLEGRA KOHLI MD, Ot M65.072 ABSCESS OF TENDON SHEATH, LEFT ANKLE AND 10/29/2019 ALLEGRA KOHLI MD Ot E11.42 TYPE 2 DIABETES MELLITUS WITH DIABETIC P 10/29/2019 ALLEGRA KOHLI MD, Ot E11.52 TYPE 2 DIABETES W DIABETIC PERIPHERAL AN 10/29/2019 ALLEGRA KOHLI MD, Ot E11.621 TYPE 2 DIABETES MELLITUS WITH FOOT ULCER 10/29/2019 ALLEGRA KOHLI MD, Ot L97.526 NON-PRS CHR ULC OTH PRT L FOOT WITH BNE 10/29/2019 ALLEGRA KOHLI MD, Ot M65.072 ABSCESS OF TENDON SHEATH, LEFT ANKLE AND 10/29/2019 ALLEGRA KOHLI MD, Ot E11.42 TYPE 2 DIABETES MELLITUS WITH DIABETIC P 10/29/2019 ALLEGRA KOHLI MD Ot E11.52 TYPE 2 DIABETES W DIABETIC PERIPHERAL AN 10/29/2019 ALLEGRA KOHLI MD, Ot E11.621 TYPE 2 DIABETES MELLITUS WITH FOOT ULCER 10/29/2019 ALLEGRA KOHLI MD Ot L97.523 NON-PRS CHRONIC ULCER OTH PRT LEFT FOOT 10/29/2019 ALLEGRA KOHLI MD Ot M65.072 ABSCESS OF TENDON SHEATH, LEFT ANKLE AND 10/29/2019 KAYLA TOPETE APRN Ot E11.621 TYPE 2 DIABETES MELLITUS WITH FOOT ULCER 10/29/2019 KAYLA TOPETE APRN Ot L97.522 NON-PRS CHRONIC ULCER OTH PRT LEFT FOOT Procedures Code [place] [address] ROUT INE VENIPUNCTURE 08/22/2013 03114 MICR O ALBUMIN-IN HOUSE 08/22/2013 29621 A1C (IN-HOUSE) 08/22/2013 63648 LIPI D PANEL 08/22/2013 62033 CBC 08/22/[id number] GF R CALC (RESULT ONLY) 08/22/2013 23666 CMP 08/22/[id number] MATHIS OF LEFT FOOT MUSCLE, OPEN APPRO 06/13/2019 Results Test Result Range Complete blood count (CBC) with automate d white blood cell (WBC) differential - 11/11/17 22:40 Blood leukocytes automated count (number/volume) 5.6 10*3/uL 4.3-11.0 Blood erythrocytes automated count (number/volume) 4.29 10*6/uL 4.35-5.85 Venous blood hemoglobin measurement (mass/volume) 12.7 g/dL 13.3-17.7 Blood hematocrit (volume fraction) 36 % 40-54 Automated erythrocyte mean corpuscular volume 85 [ foz_us] 80-99 Automated erythrocyte mean corpuscular h emoglobin (mass per erythrocyte) 30 pg 25-34 Automated erythrocyte mean corpuscular h emoglobin concentration measurement (mass/volume) 35 g/dL 32-36 Automated erythrocyte distribution width ratio 12. 7 % 10.0- 14.5 Automated blood platelet count (count/volume) 347 10*3/uL [...] 10*3 1.0-4.0 Blood monocytes automated count (number/volume) 0. 6 10*3 0.0-1.0 Automated eosinophil count 0.3 10*3/uL 0 .0-0.3 Automated blood basophil count (count/volume) 0.0 10*3/uL 0.0-0.1 PT panel in platelet poor plasma by coag ulation assay - 11/11/17 22:40 Prothrombin time (PT) in platelet poor plasma by coagu lation assay 12.7 s 12.2-14.7 INR in platelet poor plasma or blood by coagulation as say 0.9 0.8-1.4 Activated partial thromboplastin time (a PTT) in platelet poor plasma bycoagulation assay - 11/11/17 22:40 Activated partial thromboplastin time (a PTT) in platelet poor plasma bycoagulation assay 28 s 24-35 Blood lactic acid measurement (moles/vol ume) - 11/11/17 22:40 Blood lactic acid measurement [...] 5-14 Serum or plasma urea nitrogen measurement (mass/volume ) 15 mg/dL 7-18 Serum or plasma creatinine measurement (mass/volume) 0.78 mg/dL 0.60-1.30 Serum or plasma urea nitrogen/creatinine mass ratio 19 NRG Serum or plasma creatinine measurement w ith calculation of estimated glomerular filtration rate > NRG Serum or plasma glucose measurement (mass/volume) 196 mg/dL 70-105 Serum or plasma calcium measurement (mass/volume) 8.9 mg/dL 8.5-10.1 Serum or plasma total bilirubin measurement (mass/volu me) 0.4 mg/dL 0.1-1.0 Serum or plasma alkaline phosphatase [place] surement (enzymatic activity/volume) 108 U/L 40-136 Serum or plasma aspartate aminotransfera se measurement (enzymatic activity/volume) 31 U/L 5-34 Serum or plasma alanine aminotransferase measurement (enzymatic activity/volume) 30 U/L 0-55 Serum or plasma protein measurement (mass/volume) 7.6 g/dL 6.4-8.2 Serum or plasma albumin measurement (mass/volume) 3.8 g/dL 3.2-4.5 Serum or plasma C reactive protein measu rement (mass/volume) - 11/11/17 22:40 Serum or plasma C reactive protein measurement (mass/v olume) 0.27 mg/dL 0.00-0.50 Erythrocyte sedimentation rate by melody gren method - 11/11/17 22:40 Erythrocyte sedimentation rate by westergren method 55 mm 0- 30 Bacterial blood culture - 11/11/17 22:40 Bacterial blood culture NG NRG Bacterial blood culture - 11/11/17 23:08 Bacterial blood culture NG NRG Capillary blood glucose measurement by g lucometer (mass/volume) - 11/11/17 23:14 Capillary blood glucose measurement by glucometer (mas s/volume) 155 mg/dL 70-110 Gram stain microscopy - 11/11/17 23:18 GRAM STAIN RESULT FEW GRAM POSITIVE COCCI NR Bacteria identification in wound by cult ure - 11/11/17 23:18 Bacteria identification in wound by culture [id number] NR FREE TEXT EXTERNAL SENSITIVITY REPORTED 11/14/17 9: 00 NRG QUANTITY OF GROWTH Scant Growth NRG MRSA AGAR Screening test for MRSA is N EGATIVE (Final to follow) NR Bacterial susceptibility panel - 8 23:18 Oxacillin susceptibility test by minimum inhibitory co ncentration 0.5 NRG Gentamicin susceptibility test by minimum inhibitory c oncentration <= NRG Clindamycin susceptibility test by minimum inhibitory concentration <= NRG Erythromycin susceptibility test by minimum inhibitory concentration >= NRG Trimethoprim/sulfamethoxazole susceptibi lity test by minimum inhibitoryconcentration S NRG Vancomycin susceptibility test by minimum inhibitory c oncentration <= NRG Levofloxacin susceptibility test by minimum inhibitory concentration <= NRG Rifampin susceptibility test by minimum inhibitory con centration <= NRG Tetracycline susceptibility test by minimum inhibitory concentration <= NRG Bacterial susceptibility panel - 8 23:18 Gentamicin susceptibility test by minimum inhibitory c oncentration <= NRG Trimethoprim/sulfamethoxazole susceptibi lity test by minimum inhibitoryconcentration S NRG Tobramycin susceptibility test by minimum inhibitory c oncentration <= NRG Cefazolin susceptibility test by minimum inhibitory co ncentration R NRG Ceftriaxone susceptibility test by minimum inhibitory concentration <= NRG Piperacillin/tazobactam susceptibility t est by minimum inhibitory concentration S NRG Ciprofloxacin susceptibility test by minimum inhibitor y concentration <= NRG Meropenem susceptibility test by minimum inhibitory co ncentration <= NRG Aztreonam susceptibility test by minimum inhibitory co ncentration <= NRG Cefepime susceptibility test by minimum inhibitory con centration <= NRG Complete blood count (CBC) with automate d white blood cell (WBC) differential - 11/12/17 04:25 Blood leukocytes automated count (number/volume) 5.6 10*3/uL 4.3-11.0 Blood erythrocytes automated count (number/volume) 4.20 10*6/uL 4.35-5.85 Venous blood hemoglobin measurement (mass/volume) 12.4 g/dL 13.3-17.7 Blood hematocrit (volume fraction) 36 % 40-54 Automated erythrocyte mean corpuscular volume 85 [ foz_us] 80-99 Automated erythrocyte mean corpuscular h emoglobin (mass per erythrocyte) 30 pg 25-34 Automated erythrocyte mean corpuscular h emoglobin concentration measurement (mass/volume) 35 g/dL 32-36 Automated erythrocyte distribution width ratio 12. 6 % 10.0- 14.5 Automated blood platelet count (count/volume) 336 10*3/uL 130-400 Automated blood platelet mean volume measurement 9.5 [foz_us] 7.4-10.4 Automated blood neutrophils/100 leukocytes 48 % 42-75 Automated blood lymphocytes/100 leukocytes 38 % 12-44 Blood monocytes/100 leukocytes 10 % 0-12 Automated blood eosinophils/100 leukocytes 4 % 0-10 Automated blood basophils/100 leukocytes 1 % 0-10 Blood neutrophils automated count (number/volume) 2.7 10*3 1.8-7.8 Blood lymphocytes automated count (number/volume) 2.1 10*3 1.0-4.0 Blood monocytes automated count (number/volume) 0. 5 10*3 0.0-1.0 Automated eosinophil count 0.2 10*3/uL 0 .0-0.3 Automated blood basophil count (count/volume) 0.1 10*3/uL 0.0-0.1 Comprehensive metabolic panel - 11/12/17 04:25 Serum or plasma sodium measurement (moles/volume) 138 mmol/L 135-145 Serum or plasma potassium measurement (moles/volume) 4.3 mmol/L 3.6-5.0 Serum or plasma chloride measurement (moles/volume) 105 mmol/L 98-107 Carbon dioxide 25 mmol/L 21-32 Serum or plasma anion gap determination (moles/volume) 8 mmol/L 5-14 Serum or plasma urea nitrogen measurement (mass/volume ) 14 mg/dL 7-18 Serum or plasma creatinine measurement (mass/volume) 0.80 mg/dL 0.60-1.30 Serum or plasma urea nitrogen/creatinine mass ratio 18 NRG Serum or plasma creatinine measurement w ith calculation of estimated glomerular filtration rate > NRG Serum or plasma glucose measurement (mass/volume) 290 mg/dL 70-105 Serum or plasma calcium measurement (mass/volume) 9.1 mg/dL 8.5-10.1 Serum or plasma total bilirubin measurement (mass/volu me) 0.4 mg/dL 0.1-1.0 Serum or plasma alkaline phosphatase [place] surement (enzymatic activity/volume) 101 U/L 40-136 Serum or plasma aspartate aminotransfera se measurement (enzymatic activity/volume) 36 U/L 5-34 Serum or plasma alanine aminotransferase measurement (enzymatic activity/volume) 29 U/L 0-55 Serum or plasma protein measurement (mass/volume) 6.7 g/dL 6.4-8.2 Serum or plasma albumin measurement (mass/volume) 3.4 g/dL 3.2-4.5 CULTURE, URINE - 07/13/18 15:34 CULTURE, URINE, ROUTINE SEE NOTE NRG PSA - 04/15/19 12:00 PSA, TOTAL 2.0 ng/mL < OR = 4.0 Hemoglobin A1c measurement - 06/04/19 11 :10 Blood hemoglobin A1C measurement (mass/volume) 13. 8 % 4.0- 5.6 MEAN BLOOD GLUCOSE 349 % <=126 Gram stain microscopy - 06/05/19 14:23 Gram stain microscopy Few gram negative bacilli NRG Bacteria identification in wound by cult ure - 06/05/19 14:23 Bacteria identification in wound by culture [id number] NRG FREE TEXT EXTERNAL NO SUSCEPTIBILITY PERFORMED NRG QUANTITY OF GROWTH Moderate Growth NRG FREE TEXT ENTRY 2 NO INDUCIBLE CLINDAMYCIN RESISTA NCE NRG Dirithromycin susceptibility test by dis k diffusion - 06/05/19 14:23 Gentamicin susceptibility test by minimum inhibitory c oncentration <= NRG Trimethoprim/sulfamethoxazole susceptibi lity test by minimum inhibitoryconcentration S NRG Levofloxacin susceptibility test by minimum inhibitory concentration <= NRG Ampicillin susceptibility test by minimum inhibitory c oncentration > NRG Cefazolin susceptibility test by minimum inhibitory co ncentration 16 NRG Ceftriaxone susceptibility test by minimum inhibitory concentration <= NRG Piperacillin/tazobactam susceptibility t est by minimum inhibitory concentration S NRG Ciprofloxacin susceptibility test by minimum inhibitor y concentration <= NRG Meropenem susceptibility test by minimum inhibitory co ncentration <= NRG Amoxicillin and clavulanate potassium susc ANGEL <= NRG Imipenem susceptibility test by minimum inhibitory con centration S NRG Dirithromycin susceptibility test by dis k diffusion - 06/05/19 14:23 Oxacillin susceptibility test by minimum inhibitory co ncentration 1 NRG Clindamycin susceptibility test by minimum inhibitory concentration <= NRG Erythromycin susceptibility test by minimum inhibitory concentration > NRG Trimethoprim/sulfamethoxazole susceptibi lity test by minimum inhibitoryconcentration > NRG Vancomycin susceptibility test by minimum inhibitory c oncentration 1 NRG Levofloxacin susceptibility test by minimum inhibitory concentration <= NRG Rifampin susceptibility test by minimum inhibitory con centration <= NRG Cefazolin susceptibility test by minimum inhibitory co ncentration <= NRG Linezolid susceptibility test by minimum inhibitory co ncentration 2 NRG Penicillin G susceptibility test by minimum inhibitory concentration > NRG Moxifloxacin susceptibility test by minimum inhibitory concentration <= NRG Minocycline susc ANGEL <= NRG Dirithromycin susceptibility test by dis k diffusion - 06/05/19 14:23 Gentamicin susceptibility test by minimum inhibitory c oncentration <= NRG Trimethoprim/sulfamethoxazole susceptibi lity test by minimum inhibitoryconcentration S NRG Levofloxacin susceptibility test by minimum inhibitory concentration <= NRG Ampicillin susceptibility test by minimum inhibitory c oncentration R NRG Cefazolin susceptibility test by minimum inhibitory co ncentration <= NRG Ceftriaxone susceptibility test by minimum inhibitory concentration <= NRG Piperacillin/tazobactam susceptibility t est by minimum inhibitory concentration S NRG Ciprofloxacin susceptibility test by minimum inhibitor y concentration <= NRG Meropenem susceptibility test by minimum inhibitory co ncentration <= NRG Amoxicillin and clavulanate potassium susc ANGEL <= NRG Imipenem susceptibility test by minimum inhibitory con centration <= NRG Complete urinalysis with reflex to cultu re - 06/09/19 01:36 Urine color determination YELLOW NRG Urine clarity determination CLEAR NR G Urine pH measurement by test strip 6 5-9 Specific gravity of urine by test strip 1.015 1.016-1.022 Urine protein assay by test strip, semi-quantitative 3+ NEGATIVE Urine glucose detection by automated test strip NE GATIVE NEGATIVE Erythrocytes detection in urine sediment by light micr oscopy 1+ NEGATIVE Urine ketones detection by automated test strip NE GATIVE NEGATIVE Urine nitrite detection by test strip NEGATIVE NEGATIVE Urine total bilirubin detection by test strip NEGA TIVE NEGATIVE Urine urobilinogen measurement by automated test strip (mass/volume) NORMAL NORMAL Urine leukocyte esterase detection by dipstick 1+ NEGATIVE Automated urine sediment erythrocyte cou nt by microscopy (number/high power field) RARE NRG Automated urine sediment leukocyte count by microscopy (number/high power field) NONE NRG Bacteria detection in urine sediment by light microsco py TRACE NRG Squamous epithelial cells detection in u rine sediment by light microscopy RARE NRG Crystals detection in urine sediment by light microsco py NONE NRG Casts detection in urine sediment by light microscopy NONE NRG Mucus detection in urine sediment by light microscopy NEGATIVE NRG Complete urinalysis with reflex to culture CULTURE PENDING NRG Bacterial urine culture - 06/09/19 01:36 Bacterial urine culture NG NRG Complete urinalysis with reflex to cultu re - 06/12/19 00:00 Urine color determination YELLOW NRG Urine clarity determination CLEAR NR G Urine pH measurement by test strip 7 5-9 Specific gravity of urine by test strip 1.010 1.016-1.022 Urine protein assay by test strip, semi-quantitative 3+ NEGATIVE Urine glucose detection by automated test strip 2+ NEGATIVE Erythrocytes detection in urine sediment by light micr oscopy 3+ NEGATIVE Urine ketones detection by automated test strip NE GATIVE NEGATIVE Urine nitrite detection by test strip NEGATIVE NEGATIVE Urine total bilirubin detection by test strip NEGA TIVE NEGATIVE Urine urobilinogen measurement by automated test strip (mass/volume) NORMAL NORMAL Urine leukocyte esterase detection by dipstick NEG ATIVE NEGATIVE Automated urine sediment erythrocyte cou nt by microscopy (number/high power field) [HPF] NRG Automated urine sediment leukocyte count by microscopy (number/high power field) RARE NRG Bacteria detection in urine sediment by light microsco py TRACE NRG Crystals detection in urine sediment by light microsco py NONE NRG Casts detection in urine sediment by light microscopy NONE NRG Mucus detection in urine sediment by light microscopy NEGATIVE NRG Complete urinalysis with reflex to culture NO NRG Gram stain microscopy - 06/12/19 14:45 Gram stain microscopy Moderate Gram positive cocci in clusters NRG Bacteria identification in wound by cult ure - 06/12/19 14:45 Bacteria identification in wound by culture [id number] NR FREE TEXT EXTERNAL SUSCEPTIBILITY REPORTED 06/16 1 3:25 NRG QUANTITY OF GROWTH FEW NRG Dirithromycin susceptibility test by dis k diffusion - 06/12/19 14:45 Oxacillin susceptibility test by minimum inhibitory co ncentration > NRG Clindamycin susceptibility test by minimum inhibitory concentration R NRG Erythromycin susceptibility test by minimum inhibitory concentration > NRG Vancomycin susceptibility test by minimum inhibitory c oncentration <= NRG Levofloxacin susceptibility test by minimum inhibitory concentration <= NRG Rifampin susceptibility test by minimum inhibitory con centration <= NRG Cefazolin susceptibility test by minimum inhibitory co ncentration R NRG Ceftriaxone susceptibility test by minimum inhibitory concentration <= NRG Linezolid susceptibility test by minimum inhibitory co ncentration 2 NRG Moxifloxacin susceptibility test by minimum inhibitory concentration S NRG Dirithromycin susceptibility test by dis k diffusion - 06/12/19 14:45 Oxacillin susceptibility test by minimum inhibitory co ncentration 1 NRG Clindamycin susceptibility test by minimum inhibitory concentration <= NRG Vancomycin susceptibility test by minimum inhibitory c oncentration 1 NRG Levofloxacin susceptibility test by minimum inhibitory concentration <= NRG Rifampin susceptibility test by minimum inhibitory con centration <= NRG Cefazolin susceptibility test by minimum inhibitory co ncentration R NRG Linezolid susceptibility test by minimum inhibitory co ncentration 4 NRG Penicillin G susceptibility test by minimum inhibitory concentration 0.5 NRG Moxifloxacin susceptibility test by minimum inhibitory concentration S NRG Minocycline susc ANGEL 2 NRG Dirithromycin susceptibility test by dis k diffusion - 06/12/19 14:45 Gentamicin susceptibility test by minimum inhibitory c oncentration <= NRG Trimethoprim/sulfamethoxazole susceptibi lity test by minimum inhibitoryconcentration S NRG Levofloxacin susceptibility test by minimum inhibitory concentration <= NRG Ampicillin susceptibility test by minimum inhibitory c oncentration > NRG Cefazolin susceptibility test by minimum inhibitory co ncentration > NRG Ceftriaxone susceptibility test by minimum inhibitory concentration <= NRG Piperacillin/tazobactam susceptibility t est by minimum inhibitory concentration S NRG Ciprofloxacin susceptibility test by minimum inhibitor y concentration <= NRG Meropenem susceptibility test by minimum inhibitory co ncentration <= NRG Amoxicillin and clavulanate potassium susc ANGEL > NRG Blood lactic acid measurement (moles/vol ume) - 06/12/19 15:09 Blood lactic acid measurement (moles/volume) 0.93 mmol/L 0.50-2.00 Complete blood count (CBC) with automate d white blood cell (WBC) differential - 06/12/19 16:36 Blood leukocytes automated count (number/volume) 11.7 10*3/uL 4.3-11.0 Blood erythrocytes automated count (number/volume) 3.38 10*6/uL 4.35-5.85 Venous blood hemoglobin measurement (mass/volume) 9.6 g/dL 13.3-17.7 Blood hematocrit (volume fraction) 29 % 40-54 Automated erythrocyte mean corpuscular volume 86 [ foz_us] 80-99 Automated erythrocyte mean corpuscular h emoglobin (mass per erythrocyte) 28 pg 25-34 Automated erythrocyte mean corpuscular h emoglobin concentration measurement (mass/volume) 33 g/dL 32-36 Automated erythrocyte distribution width ratio 12. 8 % 10.0- 14.5 Automated blood platelet count (count/volume) 550 10*3/uL 130-400 Automated blood platelet mean volume measurement 9.3 [foz_us] 7.4-10.4 Automated blood neutrophils/100 leukocytes 69 % 42-75 Automated blood lymphocytes/100 leukocytes 21 % 12-44 Blood monocytes/100 leukocytes 8 % 0-12 Automated blood eosinophils/100 leukocytes 2 % 0-10 Automated blood basophils/100 leukocytes 0 % 0-10 Blood neutrophils automated count (number/volume) 8.1 10*3 1.8-7.8 Blood lymphocytes automated count (number/volume) 2.4 10*3 1.0-4.0 Blood monocytes automated count (number/volume) 0. 9 10*3 0.0-1.0 Automated eosinophil count 0.3 10*3/uL 0 .0-0.3 Automated blood basophil count (count/volume) 0.1 10*3/uL 0.0-0.1 Comprehensive metabolic panel - 06/12/19 16:36 Serum or plasma sodium measurement (moles/volume) 139 mmol/L 135-145 Serum or plasma potassium measurement (moles/volume) 4.2 mmol/L 3.6-5.0 Serum or plasma chloride measurement (moles/volume) 105 mmol/L 98-107 Carbon dioxide 25 mmol/L 21-32 Serum or plasma anion gap determination (moles/volume) 9 mmol/L 5-14 Serum or plasma urea nitrogen measurement (mass/volume ) 15 mg/dL 7-18 Serum or plasma creatinine measurement (mass/volume) 0.77 mg/dL 0.60-1.30 Serum or plasma urea nitrogen/creatinine mass ratio 19 NRG Serum or plasma creatinine measurement w ith calculation of estimated glomerular filtration rate > NRG Serum or plasma glucose measurement (mass/volume) 222 mg/dL 70-105 Serum or plasma calcium measurement (mass/volume) 8.7 mg/dL 8.5-10.1 Serum or plasma total bilirubin measurement (mass/volu me) 0.2 mg/dL 0.1-1.0 Serum or plasma alkaline phosphatase [place] surement (enzymatic activity/volume) 124 U/L 40-136 Serum or plasma aspartate aminotransfera se measurement (enzymatic activity/volume) 22 U/L 5-34 Serum or plasma alanine aminotransferase measurement (enzymatic activity/volume) 16 U/L 0-55 Serum or plasma protein measurement (mass/volume) 6.9 g/dL 6.4-8.2 Serum or plasma albumin measurement (mass/volume) 2.9 g/dL 3.2-4.5 CALCIUM CORRECTED 9.6 mg/dL 8.5-10.1 Bacterial blood culture - 06/12/19 16:36 Bacterial blood culture NG NRG Hemoglobin A1c measurement - 06/12/19 16 :36 Blood hemoglobin A1C measurement (mass/volume) 13. 2 % 4.0- 5.6 MEAN BLOOD GLUCOSE 332 % <=126 Bacterial blood culture - 06/12/19 16:45 Bacterial blood culture NG NRG Capillary blood glucose measurement by g lucometer (mass/volume) - 06/12/19 16:46 Capillary blood glucose measurement by glucometer (mas s/volume) 223 mg/dL 70-110 Capillary blood glucose measurement by g lucometer (mass/volume) - 06/12/19 20:17 Capillary blood glucose measurement by glucometer (mas s/volume) 245 mg/dL 70-110 Methicillin resistant Staphylococcus aur eus (MRSA) screening culture - 06/12/19 21:00 Methicillin resistant Staphylococcus aureus (MRSA) scr eening culture NEG NRG Capillary blood glucose measurement by g lucometer (mass/volume) - 06/13/19 05:36 Capillary blood glucose measurement by glucometer (mas s/volume) 321 mg/dL 70-110 Complete blood count (CBC) with automate d white blood cell (WBC) differential - 06/13/19 05:39 Blood leukocytes automated count (number/volume) 14.4 10*3/uL 4.3-11.0 Blood erythrocytes automated count (number/volume) 2.11 10*6/uL 4.35-5.85 Venous blood hemoglobin measurement (mass/volume) 5.9 g/dL 13.3-17.7 Blood hematocrit (volume fraction) 19 % 40-54 Automated erythrocyte mean corpuscular volume 89 [ foz_us] 80-99 Automated erythrocyte mean corpuscular h emoglobin (mass per erythrocyte) 28 pg 25-34 Automated erythrocyte mean corpuscular h emoglobin concentration measurement (mass/volume) 32 g/dL 32-36 Automated erythrocyte distribution width ratio 12. 8 % 10.0- 14.5 Automated blood platelet count (count/volume) 661 10*3/uL 130-400 Automated blood platelet mean volume measurement 10.1 [foz_us] 7.4-10.4 Automated blood neutrophils/100 leukocytes 67 % 42-75 Automated blood lymphocytes/100 leukocytes 21 % 12-44 Blood monocytes/100 leukocytes 9 % 0-12 Automated blood eosinophils/100 leukocytes 2 % 0-10 Automated blood basophils/100 leukocytes 0 % 0-10 Blood neutrophils automated count (number/volume) 9.7 10*3 1.8-7.8 Blood lymphocytes automated count (number/volume) 3.0 10*3 1.0-4.0 Blood monocytes automated count (number/volume) 1. 4 10*3 0.0-1.0 Automated eosinophil count 0.4 10*3/uL 0 .0-0.3 Automated blood basophil count (count/volume) 0.1 10*3/uL 0.0-0.1 Comprehensive metabolic panel - 06/13/19 05:39 Serum or plasma sodium measurement (moles/volume) 138 mmol/L 135-145 Serum or plasma potassium measurement (moles/volume) 4.5 mmol/L 3.6-5.0 Serum or plasma chloride measurement (moles/volume) 107 mmol/L 98-107 Carbon dioxide 23 mmol/L 21-32 Serum or plasma anion gap determination (moles/volume) 8 mmol/L 5-14 Serum or plasma urea nitrogen measurement (mass/volume ) 18 mg/dL 7-18 Serum or plasma creatinine measurement (mass/volume) 0.95 mg/dL 0.60-1.30 Serum or plasma urea nitrogen/creatinine mass ratio 19 NRG Serum or plasma creatinine measurement w ith calculation of estimated glomerular filtration rate > NRG Serum or plasma glucose measurement (mass/volume) 335 mg/dL 70-105 Serum or plasma calcium measurement (mass/volume) 8.3 mg/dL 8.5-10.1 Serum or plasma total bilirubin measurement (mass/volu me) 0.2 mg/dL 0.1-1.0 Serum or plasma alkaline phosphatase [place] surement (enzymatic activity/volume) 135 U/L 40-136 Serum or plasma aspartate aminotransfera se measurement (enzymatic activity/volume) 29 U/L 5-34 Serum or plasma alanine aminotransferase measurement (enzymatic activity/volume) 19 U/L 0-55 Serum or plasma protein measurement (mass/volume) 6.8 g/dL 6.4-8.2 Serum or plasma albumin measurement (mass/volume) 2.7 g/dL 3.2-4.5 CALCIUM CORRECTED 9.3 mg/dL 8.5-10.1 Complete blood count (CBC) with automate d white blood cell (WBC) differential - 06/13/19 07:40 Blood leukocytes automated count (number/volume) 10.3 10*3/uL 4.3-11.0 Blood erythrocytes automated count (number/volume) 3.31 10*6/uL 4.35-5.85 Venous blood hemoglobin measurement (mass/volume) 9.4 g/dL 13.3-17.7 Blood hematocrit (volume fraction) 29 % 40-54 Automated erythrocyte mean corpuscular volume 87 [ foz_us] 80-99 Automated erythrocyte mean corpuscular h emoglobin (mass per erythrocyte) 28 pg 25-34 Automated erythrocyte mean corpuscular h emoglobin concentration measurement (mass/volume) 33 g/dL 32-36 Automated erythrocyte distribution width ratio 12. 8 % 10.0- 14.5 Automated blood platelet count (count/volume) 511 10*3/uL 130-400 Automated blood platelet mean volume measurement 9.1 [foz_us] 7.4-10.4 Automated blood neutrophils/100 leukocytes 67 % 42-75 Automated blood lymphocytes/100 leukocytes 22 % 12-44 Blood monocytes/100 leukocytes 9 % 0-12 Automated blood eosinophils/100 leukocytes 2 % 0-10 Automated blood basophils/100 leukocytes 0 % 0-10 Blood neutrophils automated count (number/volume) 7.0 10*3 1.8-7.8 Blood lymphocytes automated count (number/volume) 2.2 10*3 1.0-4.0 Blood monocytes automated count (number/volume) 0. 9 10*3 0.0-1.0 Automated eosinophil count 0.2 10*3/uL 0 .0-0.3 Automated blood basophil count (count/volume) 0.0 10*3/uL 0.0-0.1 Comprehensive metabolic panel - 06/13/19 07:40 Serum or plasma sodium measurement (moles/volume) 139 mmol/L 135-145 Serum or plasma potassium measurement (moles/volume) 4.4 mmol/L 3.6-5.0 Serum or plasma chloride measurement (moles/volume) 108 mmol/L 98-107 Carbon dioxide 22 mmol/L 21-32 Serum or plasma anion gap determination (moles/volume) 9 mmol/L 5-14 Serum or plasma urea nitrogen measurement (mass/volume ) 16 mg/dL 7-18 Serum or plasma creatinine measurement (mass/volume) 0.89 mg/dL 0.60-1.30 Serum or plasma urea nitrogen/creatinine mass ratio 18 NRG Serum or plasma creatinine measurement w ith calculation of estimated glomerular filtration rate > NRG Serum or plasma glucose measurement (mass/volume) 301 mg/dL 70-105 Serum or plasma calcium measurement (mass/volume) 8.0 mg/dL 8.5-10.1 Serum or plasma total bilirubin measurement (mass/volu me) 0.2 mg/dL 0.1-1.0 Serum or plasma alkaline phosphatase [place] surement (enzymatic activity/volume) 126 U/L 40-136 Serum or plasma aspartate aminotransfera se measurement (enzymatic activity/volume) 25 U/L 5-34 Serum or plasma alanine aminotransferase measurement (enzymatic activity/volume) 17 U/L 0-55 Serum or plasma protein measurement (mass/volume) 6.3 g/dL 6.4-8.2 Serum or plasma albumin measurement (mass/volume) 2.6 g/dL 3.2-4.5 CALCIUM CORRECTED 9.1 mg/dL 8.5-10.1 [id number] - 06/13/19 07:40 [id number] SPECIMEN AVAILABLE NRG Capillary blood glucose measurement by g lucometer (mass/volume) - 06/13/19 10:46 Capillary blood glucose measurement by glucometer (mas s/volume) 104 mg/dL 70-110 Bacteria identification in isolate by an aerobe culture - 06/13/19 15:54 Bacteria identification in isolate by anaerobe culture NOANA NRG Gram stain microscopy - 06/13/19 15:54 Gram stain microscopy NO BACTERIA SEEN NRG Bacteria identification in wound by cult ure - 06/13/19 15:54 Bacteria identification in wound by culture [id number] NRG FREE TEXT EXTERNAL REFER TO PREV CULTURE FOR SUSCEPTIBILITY NRG QUANTITY OF GROWTH Rare NRG Dirithromycin susceptibility test by dis k diffusion - 06/13/19 15:54 Gentamicin susceptibility test by minimum inhibitory c oncentration <= NRG Trimethoprim/sulfamethoxazole susceptibi lity test by minimum inhibitoryconcentration S NRG Levofloxacin susceptibility test by minimum inhibitory concentration <= NRG Ampicillin susceptibility test by minimum inhibitory c oncentration > NRG Cefazolin susceptibility test by minimum inhibitory co ncentration 4 NRG Ceftriaxone susceptibility test by minimum inhibitory concentration <= NRG Piperacillin/tazobactam susceptibility t est by minimum inhibitory concentration S NRG Ciprofloxacin susceptibility test by minimum inhibitor y concentration <= NRG Meropenem susceptibility test by minimum inhibitory co ncentration <= NRG Amoxicillin and clavulanate potassium susc ANGEL <= NRG Imipenem susceptibility test by minimum inhibitory con centration S NRG Dirithromycin susceptibility test by dis k diffusion - 06/13/19 15:54 Oxacillin susceptibility test by minimum inhibitory co ncentration 0.5 NRG Clindamycin susceptibility test by minimum inhibitory concentration <= NRG Erythromycin susceptibility test by minimum inhibitory concentration > NRG Trimethoprim/sulfamethoxazole susceptibi lity test by minimum inhibitoryconcentration > NRG Vancomycin susceptibility test by minimum inhibitory c oncentration 1 NRG Levofloxacin susceptibility test by minimum inhibitory concentration <= NRG Rifampin susceptibility test by minimum inhibitory con centration <= NRG Cefazolin susceptibility test by minimum inhibitory co ncentration <= NRG Linezolid susceptibility test by minimum inhibitory co ncentration 2 NRG Penicillin G susceptibility test by minimum inhibitory concentration > NRG Moxifloxacin susceptibility test by minimum inhibitory concentration <= NRG Minocycline susc ANGEL <= NRG Capillary blood glucose measurement by g lucometer (mass/volume) - 06/13/19 17:53 Capillary blood glucose measurement by glucometer (mas s/volume) 141 mg/dL 70-110 Capillary blood glucose measurement by g lucometer (mass/volume) - 06/13/19 21:11 Capillary blood glucose measurement by glucometer (mas s/volume) 276 mg/dL 70-110 Complete blood count (CBC) with automate d white blood cell (WBC) differential - 06/14/19 05:10 Blood leukocytes automated count (number/volume) 13.8 10*3/uL 4.3-11.0 Blood erythrocytes automated count (number/volume) 3.46 10*6/uL 4.35-5.85 Venous blood hemoglobin measurement (mass/volume) 9.8 g/dL 13.3-17.7 Blood hematocrit (volume fraction) 30 % 40-54 Automated erythrocyte mean corpuscular volume 88 [ foz_us] 80-99 Automated erythrocyte mean corpuscular h emoglobin (mass per erythrocyte) 28 pg 25-34 Automated erythrocyte mean corpuscular h emoglobin concentration measurement (mass/volume) 32 g/dL 32-36 Automated erythrocyte distribution width ratio 12. 7 % 10.0- 14.5 Automated blood platelet count (count/volume) 562 10*3/uL 130-400 Automated blood platelet mean volume measurement 9.7 [foz_us] 7.4-10.4 Automated blood neutrophils/100 leukocytes 79 % 42-75 Automated blood lymphocytes/100 leukocytes 13 % 12-44 Blood monocytes/100 leukocytes 8 % 0-12 Automated blood eosinophils/100 leukocytes 1 % 0-10 Automated blood basophils/100 leukocytes 0 % 0-10 Blood neutrophils automated count (number/volume) 10.9 10*3 1.8-7.8 Blood lymphocytes automated count (number/volume) 1.7 10*3 1.0-4.0 Blood monocytes automated count (number/volume) 1. 1 10*3 0.0-1.0 Automated eosinophil count 0.1 10*3/uL 0 .0-0.3 Automated blood basophil count (count/volume) 0.0 10*3/uL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
--- NOTE | 2019-12-28 13:45 | NUR ---
UPDATED PT TO DR WAS GOING TO BE CALLING ANOTHER DR ON HIS CARE.
--- NOTE | 2019-12-28 14:01 | NUR ---
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
[2019-12-28] MEDS ORDERED: HYDROcodone/APAP 5 MG/325 MG (LORTAB) TAB PO ONE (14:30)
--- NOTE | 2019-12-28 14:34 | ED General ---
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 He has been seen at [facility] and was started on an antibiotic (exact medication unknown) and Neurontin. He states he still has severe pain despite taking these medications. He has an appointment to continue workup next Monday but states he cannot tolerate the pain in the meantime. He has diabetes. He denies any alcohol consumption or use of psychotropic medications. Allergies and Home Medications Allergies Coded Allergies: Tyson Known Allergies (Verified Allergy, Unknown, 01/30/07) Home Medications Amlodipine Besylate 10 Mg Tablet, 10 MG PO DAILY Prescribed by: AMY ALLEN on 06/18/19 1136 Amoxicillin/Potassium Clav 1 Each Tablet, 1 EACH PO BID Prescribed by: AMY ALLEN on 06/18/19 1136 Hydrocodone Bit/Acetaminophen 1 Tab Tab, 1 TAB PO Q4H PRN for PAIN-MODERATE Prescribed by: AMY ALLEN on 06/18/19 1136 Hydrocodone/Acetaminophen 1 Each Tablet, 1 EACH PO Q4H PRN for PAIN-BREAKTHROUGH Prescribed by: MYA SOLIZ on 12/28/19 1436 Ibuprofen 200 Mg Tablet, 400 MG PO BID PRN for PAIN-MILD, (Reported) Insulin Aspart 300 Units/3 Ml Solution, 3 UNITS SQ AC Prescribed by: AMY ALLEN on 06/18/19 1136 Insulin Detemir 100 Unit/1 Ml Insuln.pen, 20 UNITS SC BID Prescribed by: AMY ALLEN on 06/18/19 113 Losartan Potassium 50 Mg Tablet, 50 MG PO DAILY Prescribed by: AMY ALLEN on 06/18/19 1136 Nystatin 100,000 Unit/1 Ml Oral.susp, 5 ML PO Q6HR Prescribed by: AMY ALLEN on 06/18/19 1136 Patient Home Medication List Home Medication List Reviewed: Yes Review of Systems Review of Systems Constitutional: no symptoms reported EENTM: no symptoms reported Respiratory: no symptoms reported Cardiovascular: no symptoms reported Gastrointestinal: no symptoms reported Genitourinary: see HPI Musculoskeletal: no symptoms reported Skin: no symptoms reported Psychiatric/Neurological: No Symptoms Reported Hematologic/Lymphatic: No Symptoms Reported Immunological/Allergic: no symptoms reported Past Ppgnyri-Ectycy-Jbzrqk Hx Past Med/Social Hx: Reviewed Nursing Past Med/Soc Hx Patient Social History Alcohol Use: Denies Use Recreational Drug Use: No 2nd Hand Smoke Exposure: No Recent Foreign Travel: No Contact w/Someone Who Travel: No Recent Infectious Disease Expo: No Recent Hopitalizations: No Immunizations Up To Date Tetanus Booster (TDap): Unknown Past Medical History Surgeries: Yes (RIGHT LOWER LUNG LOBECTOMY--FUNGAL INFECTION; COLONOSCOPY/EGD) Lobectomy Respiratory: Yes (RIGHT LOWER LUNG LOBECTOMY--FUNGAL INFECTION) Currently Using CPAP: No Currently Using BIPAP: No Cardiac: Yes (SVT) Hypertension, Irregular Heartbeat Neurological: Yes (LIKELY PERIPHERAL NEUROPATHY IN FEET/HANDS) Neuropathy Reproductive Disorders: No Genitourinary: No Gastrointestinal: Yes (GASTRIC ULCER) Ulcer Musculoskeletal: No Endocrine: Yes Diabetes, Insulin dep HEENT: Yes (double vision-resolved at this time) Loss of Vision: Denies Hearing Impairment: Denies Cancer: No Psychosocial: No Integumentary: No Blood Disorders: No Physical Exam Vital Signs Vital Signs - First Documented 12/28/19 12/28/19 12:46 14:42 Temp 36.4 Pulse 87 Resp 18 B/P (MAP) 121/69 (86) Pulse Ox 98 O2 Delivery Room Air Capillary Refill : Less Than 3 Seconds Height, Weight, BMI Height: 5'7.00" Weight: 136lbs. 7.0oz. 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 Norm as Tested Skin: Normal Color, Warm/Dry, Other (mild gynecomastia with tenderness of the area line and nearby tissues) Progress/Results/Core Measures Suspected Sepsis Recent Fever Within 48 Hours: No Infection Criteria Present: None New/Unexplained Altered Menta: No Sepsis Screen: No Definite Risk SIRS Temperature: Pulse: 87 Respiratory Rate: 18 Blood Pressure 121 /69 Mean: 86 Results/Orders My Orders Orders - MYA JACKSON MD Hydrocodone/Apap 5/325 Tablet (Lortab 5 (12/28/19 14:30) Medications Given in ED Current Medications Medications Dose Ordered Sig/Edu Route Start Time Stop Time Status Last Admin Dose Admin Acetaminophen/ Hydrocodone Bitart 1 tab ONCE ONCE PO 12/28/19 14:30 12/28/19 14:31 DC 12/28/19 14:41 1 TAB Vital Signs/I&O 12/28/19 12/28/19 12:46 14:42 Temp 36.4 Pulse 87 77 Resp 18 16 B/P (MAP) 121/69 (86) 141/71 Pulse Ox 98 98 O2 Delivery Room Air Capillary Refill : Less Than 3 Seconds Blood Pressure Mean: 86 Progress Note : Progress Note Patient has gynecomastia and pain that does not seem to be related to substance abuse or psychotropic medications. He therefore should have a hormonal workup to investigate for other causes such as endocrine/pituitary tumors. He would also possibly be a candidate for MRI of the brain. Prolactin labs are not available on the weekend at the [facility] lab and MRI is also not available. I discussed the case with Dr. Allen. She agrees to help facilitate workup in outpatient setting. In the meantime I will prescribe hydrocodone for his pain. He received a hydrocodone before departure. 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 Departure Impression Primary Impression: Gynecomastia, male Additional Impressions: Mastodynia Post-nasal drainage Disposition: HOME, SELF-CARE Condition: Improved Departure-Patient Inst. Decision time for Depature: 14:30 Referrals: [facility] (PCP) Primary Care Physician ARACELI TOLBERT (Family) Primary Care Physician Patient Instructions: Mastalgia, When Men Develop Breasts (Gynecomastia) Add. Discharge Instructions: The appropriate workup for your symptoms include hormone testing that should be performed at the clinic and is not immediately available in the emergency room. Additionally, if lab testing indicates, an MRI of the brain could be performed. MRI is not available through the emergency room services. MRI needs to be scheduled on an outpatient basis from the clinic. You may continue taking medications as previously prescribed. For pain you may take ibuprofen up to 600 mg every 6 hours as needed. Ibuprofen should only be used for short-term treatment of pain, especially in the presence of diabetes. For pain not controlled by ibuprofen, use hydrocodone as prescribed. Return to care if you have worsening symptoms or symptoms not controlled by ibuprofen and hydrocodone. If you use hydrocodone, you may wish to use a stool softener such as Colace once or twice a day to prevent constipation. For your postnasal drainage, consider using allergy medications such as Claritin (loratadine) add Flonase (fluticasone) nasal spray. These can be purchased [id number]. All discharge instructions reviewed with patient and/or family. Voiced understan mahamed. Scripts Hydrocodone/Acetaminophen (Hydrocodone-Acetamin 5-325 mg) 1 Each Tablet 1 EACH PO Q4H PRN for PAIN-BREAKTHROUGH, #30 TAB Prov: MYA JACKSON MD 12/28/19 Copy Copies To 1: AMY ALLEN MD, JOSHUA T MD December 28, 2019 14:34
[2019-12-28] MEDS ORDERED: HYDR-83 PO (14:35)
[2019-12-28 14:42] VITALS: BP 141/71
== END 2019-12-28 14:42 | disposition home or self-care (01) ==
LOC: EDUNIT# 12:34 → ER 12:35
DX: N62 Hypertrophy of breast (principal); R09.82 Postnasal drip; I10 Essential (primary) hypertension; E11.40 Type 2 diabetes mellitus with diabetic neuropathy, unspecified; Z79.4 Long term (current) use of insulin
CPT/HCPCS: 99283

== ENCOUNTER 2021-07-09 20:35 | Inpatient (IN) | payer MEDICARE ==
[~2021-07-09] VITALS: Ht 170.2 cm; Wt 66.0 kg
[~2021-07-09 20:35] MED LIST changes: +AMLO-251 PO; -AMLO10TA7 PO; -LISI-552 PO; +LISI20TA26 PO
[2021-07-09] MEDS ORDERED: ASPIRIN 81 MG CHEW (CHILDREN'S ASA) PO ONE (21:00)
[2021-07-09 21:03] LABS: BASOPHILS # (AUTO) 0.1 10^3/uL (0.0-0.1); BASOPHILS % (AUTO) 1 % (0-10); EOSINOPHILS # (AUTO) 0.6 10^3/uL (0.0-0.3); EOSINOPHILS % (AUTO) 8 % (0-10); HEMATOCRIT 33 % (40-54); LYMPHOCYTES # (AUTO) 2.7 10^3/uL (1.0-4.0); LYMPHOCYTES % (AUTO) 35 % (12-44); MEAN CORPUSCULAR HEMOGLOBIN 29 pg (25-34); MEAN CORPUSCULAR HGB CONC 33 g/dL (32-36); MEAN CORPUSCULAR VOLUME 88 fL (80-99); MEAN PLATELET VOLUME 9.9 fL (9.0-12.2); MONOCYTES # (AUTO) 0.8 10^3/uL (0.0-1.0); MONOCYTES % (AUTO) 11 % (0-12); NEUTROPHILS # (AUTO) 3.4 10^3/uL (1.8-7.8); NEUTROPHILS % (AUTO) 45 % (42-75); PLATELET COUNT 372 10^3/uL (130-400); WHITE BLOOD COUNT 7.5 10^3/uL (4.3-11.0)
[2021-07-09] MEDS: NITROGLYCERIN 0.4 MG SL TABS BTL 25'S SL PRN ×2 (21:03→21:12)
[2021-07-09 21:12] LABS: ALBUMIN 3.6 GM/DL (3.2-4.5)
[2021-07-09 21:13] LABS: POTASSIUM 4.7 MMOL/L (3.6-5.0)
[2021-07-09 21:14] LABS: CALCIUM 8.8 MG/DL (8.5-10.1)
[2021-07-09 21:15] LABS: TOTAL PROTEIN 7.9 GM/DL (6.4-8.2)
[2021-07-09] MEDS ORDERED: NITROGLYCERIN 2% OINT 1 GM UNIT DOSE PACKET TOP ONE (21:15)
[2021-07-09 21:17] LABS: BILIRUBIN,TOTAL 0.3 MG/DL (0.1-1.0); INR 0.9 (0.8-1.4)
[2021-07-09 21:19] LABS: CREATININE SERUM 2.08 MG/DL (0.60-1.30)
[2021-07-09 21:21] LABS: MAGNESIUM 2.4 MG/DL (1.6-2.4)
--- NOTE | 2021-07-09 21:21 | Diagnostic Imaging Report ---
INDICATION: History of lung cancer, post-partial lung resection. Chest pain. TECHNIQUE: Single view chest 9:01 PM. CORRELATION STUDY: 06/18/2019. FINDINGS: Heart size and mediastinum are mildly prominent but generally stable given difference in technique. Likely what appears to be largely chronic change about the lung parenchyma. Mildly elevated right diaphragm with slight blunting of the right costophrenic angle, likely chronic pleural thickening. No new pulmonary infiltrate-like opacity. IMPRESSION: Mild right lung volume loss with likely chronic pleural thickening. No acute cardiopulmonary abnormality. Dictated by: Dictated on workstation # [id number]
--- NOTE | 2021-07-09 21:24 | ED Chest Pain ---
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), ham smoker Exam Limitations: language barrier, other (PT IS STILL A VERY LIMITED HISTORIAN, EVEN WITH USING AN MICROSTRATEGY DEVELOPER) History of Present Illness Date Seen by Provider: Jul 09, 2021 Time Seen by Provider: 20:46 Initial Comments PT ARRIVES VIA POV FROM HOME C/O LEFT CHEST PAIN RADIATING DOWN LEFT ARM--SINCE 1500 TODAY PAIN BEGAN WHILE OUTSIDE BLOWING LEAVES RATES PAIN 2/10 NOW NO SHORTNESS OF BREATH PT HAS HAD INCREASED SWELLING IN HIS LEGS LATELY--BUT IS UNCLEAR HOW LONG THIS HAS BEEN GOING ON NO FEVER OR RECENT ILLNESS OR COUGH PT DENIES ANY PRIOR CARDIAC PROBLEMS PT IS INSULIN DEPENDENT DIABETIC AND HAS HTN PT HAS HAD AMITA AND Panviva COVTOPSEC VACCINE PCP: VICTORINO Allergies and Home Medications Allergies Coded Allergies: Tyson Known Allergies (Verified Allergy, Unknown, 01/30/07) Patient Home Medication List Home Medication List Reviewed: Yes Amlodipine Besylate (Amlodipine Besylate) 10 Mg Tablet, 10 MG PO DAILY Prescribed by: AMY ALLEN on 06/18/19 1136 Amoxicillin/Potassium Clav (Augmentin 875-125 Tablet) 1 Each Tablet, 1 EACH PO BID Prescribed by: AMY ALLEN on 06/18/19 1136 Hydrocodone Bit/Acetaminophen (Lortab 5 Mg Tablet) 1 Tab Tab, 1 TAB PO Q4H PRN for PAIN-MODERATE Prescribed by: AMY ALLEN on 06/18/19 1136 Hydrocodone/Acetaminophen (Hydrocodone-Acetamin 5-325 mg) 1 Each Tablet, 1 EACH PO Q4H PRN for PAIN-BREAKTHROUGH Prescribed by: MYA SOLIZ on 12/28/19 1436 Ibuprofen (Advil) 200 Mg Tablet, 400 MG PO BID PRN for PAIN-MILD, (Reported) Entered as Reported by: JUVENAL BLANCAS on 06/13/19 0926 Insulin Aspart (Novolog Flexpen) 300 Units/3 Ml Solution, 3 UNITS SQ AC Prescribed by: AMY ALLEN on 06/18/19 1136 Insulin Detemir (Levemir Flextouch) 100 Unit/1 Ml Insuln.pen, 20 UNITS SC BID Prescribed by: AMY ALLEN on 06/18/19 1136 Losartan Potassium (Losartan Potassium) 50 Mg Tablet, 50 MG PO DAILY Prescribed by: AMY ALLEN on 06/18/19 1136 Nystatin (Nystatin) 100,000 Unit/1 Ml Oral.susp, 5 ML PO Q6HR Prescribed by: AMY ALLEN on 06/18/19 1136 Review of Systems Review of Systems Constitutional: no symptoms reported Respiratory: No Symptoms Reported Cardiovascular: See HPI, Chest Pain Musculoskeletal: see HPI (LEFT ARM APIN ) Past Btwcrzb-Jtwszd-Dxrqbz Hx Patient Social History Tobacco Use?: No Substance use?: No Alcohol Use?: No Immunizations Up To Date Tetanus Booster (TDap): Unknown Past Medical History Surgery/Hospitalization HX: LEFT FOOT ABSCESS-I&D/DEBRIDEMENT 2018 Surgeries: Yes (RIGHT LOWER LUNG LOBECTOMY--FUNGAL INFECTION; COLONOSCOPY/EGD;CARDIAC CATH) Cardiac, Lobectomy Respiratory: Yes (RIGHT LOWER LUNG LOBECTOMY--FUNGAL INFECTION) Currently Using CPAP: No Currently Using BIPAP: No Cardiac: Yes (SVT; NORMAL CARDIAC CATH 03/2010 ) Hypertension, Irregular Heartbeat Neurological: Yes (LIKELY PERIPHERAL NEUROPATHY IN FEET/HANDS) Neuropathy Reproductive Disorders: No Genitourinary: No Gastrointestinal: Yes (GASTRIC ULCER) Ulcer Musculoskeletal: Yes (LEFT FOOT ABSCESS 2018) Endocrine: Yes Diabetes, Insulin dep HEENT: Yes (double vision-resolved at this time) Loss of Vision: Denies Hearing Impairment: Denies Cancer: No Psychosocial: No Integumentary: Yes (LEFT FOOT ABSCESS 2018) Blood Disorders: No Physical Exam Vital Signs Vital Signs - First Documented 07/09/21 20:45 Temp 36.3 Pulse 88 Resp 16 B/P (MAP) 250/122 (164) Pulse Ox 100 O2 Delivery Room Air Capillary Refill : Height, Weight, BMI Height: 5'7.00" Weight: 136lbs. 7.0oz. 61.662192dp; 24.00 BMI Method:Stated General Appearance: No Apparent Distress, Thin, Other (SMILING, DOES NOT APPEAR TO BE IN ANY DISCOMFORT OR DISTRESS. 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, 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 Norm 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 Skin: Normal Color (PT IS ), Warm/Dry; No Rash Progress/Results/Core Measures Results/Orders Lab Results Laboratory Tests Test 07/09/21 20:55 Range/Units White Blood Count 7.5 4.3-11.0 10^3/uL Red Blood Count 3.78 L 4.30-5.52 10^6/uL Hemoglobin 11.0 L 13.3-17.7 g/dL Hematocrit 33 L 40-54 % Mean Corpuscular Volume 88 80-99 fL Mean Corpuscular Hemoglobin 29 25-34 pg Mean Corpuscular Hemoglobin Concent 33 32-36 g/dL Red Cell Distribution Width 13.0 10.0-14.5 % Platelet Count 372 130-400 10^3/uL Mean Platelet Volume 9.9 9.0-12.2 fL Immature Granulocyte % (Auto) 0 % Neutrophils (%) (Auto) 45 42-75 % Lymphocytes (%) (Auto) 35 12-44 % Monocytes (%) (Auto) 11 0-12 % Eosinophils (%) (Auto) 8 0-10 % Basophils (%) (Auto) 1 0-10 % Neutrophils # (Auto) 3.4 1.8-7.8 10^3/uL Lymphocytes # (Auto) 2.7 1.0-4.0 10^3/uL Monocytes # (Auto) 0.8 0.0-1.0 10^3/uL Eosinophils # (Auto) 0.6 H 0.0-0.3 10^3/uL Basophils # (Auto) 0.1 0.0-0.1 10^3/uL Immature Granulocyte # (Auto) 0.0 0.0-0.1 10^3/uL Prothrombin Time 13.0 12.2-14.7 SEC INR Comment 0.9 0.8-1.4 Activated Partial Thromboplast Time 29 24-35 SEC Sodium Level 136 135-145 MMOL/L Potassium Level 4.7 3.6-5.0 MMOL/L Chloride Level 105 98-107 MMOL/L Carbon Dioxide Level 21 21-32 MMOL/L Anion Gap 10 5-14 MMOL/L Blood Urea Nitrogen 30 H 7-18 MG/DL Creatinine 2.08 H 0.60-1.30 MG/DL Estimat Glomerular Filtration Rate 32 BUN/Creatinine Ratio 14 Glucose Level 198 H 70-105 MG/DL Calcium Level 8.8 8.5-10.1 MG/DL Corrected Calcium 9.1 8.5-10.1 MG/DL Magnesium Level 2.4 1.6-2.4 MG/DL Total Bilirubin 0.3 0.1-1.0 MG/DL Aspartate Amino Transf (AST/SGOT) 30 5-34 U/L Alanine Aminotransferase (ALT/SGPT) 24 0-55 U/L Alkaline Phosphatase 135 40-136 U/L Total Creatine Kinase 168 30-200 U/L Creatine Kinase MB 8.2 *H <6.6 NG/ML Myoglobin 324.9 H 10.0-92.0 NG/ML Troponin I 0.174 H <0.028 NG/ML B-Type Natriuretic Peptide 517.5 H <100.0 PG/ML Total Protein 7.9 6.4-8.2 GM/DL Albumin 3.6 3.2-4.5 GM/DL Amylase Level 103 25-125 U/L Lipase 19 8-78 U/L My Orders Orders - LISA VU DO Cbc With Automated Diff (07/09/21 20:46) Magnesium (07/09/21 20:46) Chest 1 View, Ap/Pa Only (07/09/21 20:46) Ekg Tracing (07/09/21 20:46) Comprehensive Metabolic Panel (07/09/21 20:46) Myoglobin Serum (07/09/21 20:46) Protime With Inr (07/09/21 20:46) Partial Thromboplastin Time (07/09/21 20:46) O2 (07/09/21 20:46) Monitor-Rhythm Ecg Trace Only (07/09/21 20:46) Ed Iv/Invasive Line Start (07/09/21 20:46) Creatine Kinase (07/09/21 20:46) Creatine Kinase Mb (07/09/21 20:46) Lipase (07/09/21 20:46) Amylase (07/09/21 20:46) Bnp Spencer (07/09/21 20:46) Troponin I Caitlyn (07/09/21 20:46) Nitroglycerin 0.4 Mg Btl 25's (Nitrostat (07/09/21 21:00) Aspirin Chewable Tablet (Baby Aspirin Ch (07/09/21 21:00) Nitroglycerin Ointment (Nitrobid Ointme (07/09/21 21:15) Medications Given in ED Current Medications Medications Dose Ordered Sig/Edu Route Start Time Stop Time Status Last Admin Dose Admin Aspirin 324 mg ONCE ONCE PO 07/09/21 21:00 07/09/21 21:01 DC 07/09/21 21:03 324 MG Nitroglycerin 0.4 mg UD PRN SL 07/09/21 21:00 07/09/21 21:12 0.4 MG Nitroglycerin 1 inch ONCE ONCE TOP 07/09/21 21:15 07/09/21 21:16 DC 07/09/21 21:20 1 INCH Vital Signs/I&O 07/09/21 20:45 Temp 36.3 Pulse 88 Resp 16 B/P (MAP) 250/122 (164) Pulse Ox 100 O2 Delivery Room Air Progress Progress Note : Progress Note MULTIPLE ATTEMPTS TO OBTAIN BLOOD PRESSURES, USING DIFFERENT CUFFS AND ON BOTH ARMS WOULD NOT READ FIRST BP THAT WAS READABLE, COULD ONLY READ A DIASTOLIC OF 126, SYSTOLIC TOO HIGH TO READ GIVEN NTG SL X 2 AND FIRST COMPLETE BP WAS 250/122. PAIN FREE WITH NTG SL X 2, THEN PLACED NITROPASTE FOR PERSISTENTLY ELEVATED BLOOD PRESSURE GIVEN LASIX, TOPROL XL AND AMLODIPINE, PER DR. MONTERO'S INSTRUCTIONS NO DETERIORATION IN PT'S CONDITION DURING ER STAY Initial ECG Impression Date: Jul 09, 2021 Initial ECG Impression Time: 20:49 Initial ECG Rate: 88 Initial ECG Rhythm: Normal Sinus Initial ECG Impression: Nonspecific Changes Diagnostic Imaging Comments CXR--PER RADIOLOGIST REPORT AT 2129 FINDINGS: Heart size and mediastinum are mildly prominent but generally stable given difference in technique. Likely what appears to be largely chronic change about the lung parenchyma. Mildly elevated right diaphragm with slight blunting of the right costophrenic angle, likely chronic pleural thickening. No new pulmonary infiltrate-like opacity. IMPRESSION: Mild right lung volume loss with likely chronic pleural thickening. No acute cardiopulmonary abnormality. Reviewed: Reviewed by Me Departure Communication (Admissions) 2139--SPOKE WITH DR. MONTERO, BOOK CANVASSER, ORDERS NOTED FOR LASIX, TOPROL XL AND AMLODIPINE. HE ADVISES TO ADMIT TO HOSPITALIST AND HE WILL SEE PT IN CONSULT 2142--SPOKE WITH DR. DELGADO, HOSPITALIST FOR [facility], ACCEPTS PT FOR ADMIT. ADDITIONAL ORDERS FOR CLONIDINE PRN NOTED. Impression Primary Impression: Chest pain Additional Impressions: Elevated troponin Malignant hypertension Acute renal insufficiency IDDM (insulin dependent diabetes mellitus) Elevated brain natriuretic peptide (BNP) level Disposition: ADMITTED INPATIENT Condition: Improved Admissions Decision to Admit Reason: Admit from ER (General) Decision to Admit/Date: Jul 09, 2021 Time/Decision to Admit Time: 21:40 Departure-Patient Inst. Referrals: [facility] (PCP) Primary Care Physician ARACELI TOLBERT (Family) Primary Care Physician LISA VU DO Jul 09, 2021 21:24
[2021-07-09 21:35] LABS: CREATINE KINASE MB 8.2 NG/ML (<6.6)
[2021-07-09] MEDS ORDERED: meTOprolol SUCCINATE 100 MG (TOPROL XL) TAB PO ONE (22:00)
[2021-07-09] MEDS ORDERED: FUROSEMIDE 40 MG/4 ML INJ (LASIX) IVP ONE (22:00)
[2021-07-09] MEDS ORDERED: ENOXAPARIN 80 MG/0.8 ML (LOVENOX) SYR SC ONE (22:00)
[2021-07-09] MEDS ORDERED: amLODIPine 10 MG (NORVASC) TAB ONE (22:33)
[2021-07-09 23:19] VITALS: BP 197/97
[2021-07-09] MEDS ORDERED: cloNIDine 0.1 MG (CATAPRES) TAB PO PRN (23:45)
[2021-07-10] MEDS ORDERED: NITROGLYCERIN 0.4 MG SL TABS BTL 25'S SL PRN (00:15)
[2021-07-10] MEDS ORDERED: ONDANSETRON 4 MG/2 ML (SDV) Z0FRAN IVP PRN (00:15)
[2021-07-10] MEDS ORDERED: morphine INJ 4 MG/ML 1 ML (VIAL/SYRINGE) IV PRN (00:15)
[2021-07-10] MEDS: CATHETER FLUSH 10 ML SYR IV SCH ×4 (03:35→20:08)
[2021-07-10 06:01] LABS: BASOPHILS # (AUTO) 0.1 10^3/uL (0.0-0.1); BASOPHILS % (AUTO) 1 % (0-10); EOSINOPHILS # (AUTO) 0.6 10^3/uL (0.0-0.3); EOSINOPHILS % (AUTO) 8 % (0-10); HEMATOCRIT 32 % (40-54); HEMOGLOBIN 10.4 g/dL (13.3-17.7); LYMPHOCYTES # (AUTO) 2.6 10^3/uL (1.0-4.0); LYMPHOCYTES % (AUTO) 35 % (12-44); MEAN CORPUSCULAR HEMOGLOBIN 29 pg (25-34); MEAN CORPUSCULAR HGB CONC 33 g/dL (32-36); MEAN CORPUSCULAR VOLUME 88 fL (80-99); MEAN PLATELET VOLUME 10.6 fL (9.0-12.2); MONOCYTES # (AUTO) 0.9 10^3/uL (0.0-1.0); MONOCYTES % (AUTO) 12 % (0-12); NEUTROPHILS # (AUTO) 3.2 10^3/uL (1.8-7.8); NEUTROPHILS % (AUTO) 43 % (42-75); PLATELET COUNT 364 10^3/uL (130-400); WHITE BLOOD COUNT 7.4 10^3/uL (4.3-11.0)
[2021-07-10 06:30] LABS: POTASSIUM 4.3 MMOL/L (3.6-5.0)
[2021-07-10 06:31] LABS: CALCIUM 8.7 MG/DL (8.5-10.1)
[2021-07-10] MEDS: inSUlin ASPART (NovoLOG) 1 UNIT/0.01 ML (CHARGE PER UNIT) SC SCH ×4 (06:33→20:19)
[2021-07-10 06:36] LABS: CREATININE SERUM 1.93 MG/DL (0.60-1.30)
--- NOTE | 2021-07-10 07:02 | Diagnostic Imaging Report ---
Portable erect AP chest at 6:11. Indication: Chest pain The heart size is within normal limits and stable when compared to 07/09/2021. The lungs remain generally clear. There is no evidence for failure, pneumonia or for significant pleural effusion. Mild chronic pulmonary changes are again seen in the right lung base. The mediastinum is not widened. The osseous structures are intact. Impression: Stable chest. There has been no adverse change since the prior exam. Dictated by: Dictated on workstation # [id number]
[2021-07-10 08:00] VITALS: BP 155/84
[2021-07-10] MEDS ORDERED: amLODIPine 5 MG (NORVASC) TAB PO SCH (09:00)
--- NOTE | 2021-07-10 09:05 | Short Stay Summary-Hospitalist ---
History of Present Illness HPI/Chief Complaint Chief complaint: Chest pain with elevated troponin with malignant hypertension History of present illness: This is a 65-year-old male who presents to the ER with chest pain found to have subtle elevation in troponin with malignant hypertension and elevated creatinine. His son is at the bedside and they are from [facility] and seismograph supervisor was having difficulty due to the dialect. Patient denies any pain but does report lower extremity edema and leg pain the last several weeks. We will continue monitoring patient closely transferred to the floor and appreciate cardiology input. Echocardiogram will be completed. Source: patient, family, otorhinolaryngologist Exam Limitations: language barrier Date Seen 07/10/21 Time Seen by a Provider: 10:30 Attending Physician Myrna Romeo DO [facility] Referring Physician Date of Admission Jul 09, 2021 at 21:45 Home Medications & Allergies Home Medications Reviewed patient Home Medication Reconciliation performed by pharmacy medication reconciliations biodiesel production technician and/or nursing. Patients Allergies have been reviewed. Allergies Allergies Coded Allergies NKANo Known Allergies (Verified Allergy, Unknown, 01/30/07) Past Khplffu-Zvccxw-Junike Hx Patient Social History Marrital Status: single Employed/Student: unemployed Tobacco Use?: No Smoking Status: Never a Smoker Smokeless Tobacco Frequency: Never a User Use of E-Cig and/or Vaping dev: No Substance use?: No Alcohol Use?: No Pt feels they are or have been: No Immunizations Up To Date Date of Influenza Vaccine: May 10, 2021 First/Initial COVID19 Vaccinat: Tetanus Booster (TDap): Less Than 5 Years Hepatitis A: Yes Hepatitis B: Yes Current Status Communicates: Verbally Primary Language: Sami Preferred Spoken Language: Sami Is interpretation needed?: Yes Implanted or Applied Medical D: None Past Medical History Surgeries: Cardiac, Lobectomy Currently Using CPAP: No Currently Using BIPAP: No Hypertension, Irregular Heartbeat Neuropathy Ulcer Diabetes, Insulin dep Loss of Vision: Denies Hearing Impairment: Denies Blood Disorders: No Review of Systems Constitutional: see HPI EENTM: no symptoms reported Respiratory: no symptoms reported Cardiovascular: chest pain Gastrointestinal: no symptoms reported Genitourinary: no symptoms reported Musculoskeletal: no symptoms reported Skin: no symptoms reported Psychiatric/Neurological: No Symptoms Reported All Other Systems Reviewed Negative Unless Noted: Yes Physical Exam Physical Exam Vital Signs Vital Signs - First Documented 07/09/21 20:45 Temp 36.3 Pulse 88 Resp 16 B/P (MAP) 250/122 (164) Pulse Ox 100 O2 Delivery Room Air Capillary Refill : Less Than 3 Seconds Height, Weight, BMI Height: 5'7.00" Weight: 136lbs. 7.0oz. 61.155927dy; 22.78 BMI Method:Stated General Appearance: No Apparent Distress, Chronically ill, Thin, Other (SMILING, DOES NOT APPEAR TO BE IN ANY DISCOMFORT OR DISTRESS. 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 Short Stay Diagnosis Discharge Diagnosis-Short Stay Admission Diagnosis Chest pain Final Discharge Diagnosis Assessment: Chest pain Elevated troponin Malignant hypertension Acute on chronic kidney disease DM Neuropathy Conclusion Plan Plan: Transfer to fourth floor Stress test as an outpatient? Echo Monitor creatinine Ambulate Diagnosis/Problems Diagnosis/Problems (1) Chest pain Status: Acute (2) Elevated troponin Status: Acute (3) Insulin dependent diabetes mellitus Status: Chronic (4) Hypertension Status: Chronic Clinical Quality Measures AMI/AHF: ASA po Prior to arrival: Yes MYRNA ROMEO DO Jul 10, 2021 09:05
[2021-07-10] MEDS: ASPIRIN E.C. 81 MG (ECOTRIN) TAB PO SCH (09:15)
[2021-07-10] MEDS: amLODIPine 10 MG (NORVASC) TAB PO SCH (09:15)
[2021-07-10] MEDS: meTOprolol SUCCINATE 100 MG (TOPROL XL) TAB PO SCH (09:17)
--- NOTE | 2021-07-10 10:35 | Consultation-Cardiology ---
HPI-Cardiology Cardiology Consultation: Date of Consultation 07/10/21 Time Seen by a Provider: 09:45 Date of Admission Attending Physician Myrna Romeo DO Admitting Physician [facility] Consulting Physician RAYMON MONTERO MD, MA, FACP, FACC, [facility] [place], [facility] Physician requesting consult HPI: Chief Complaint: Palpitation, L arm discomfort, gen malaise 65 yo man admitted to Dr Romeo on 07/09/21 after he presented with gen malaise and palpitation and L arm discomfort. Communication with him was through his son who interpreted for us. He does not report any cp. States is unable to describe his palp: felt like a hard heart beat at times. Had onset of shoulder and L arm discomfort in the afternoon on 07/09/21 and it resolved that night. Now is left with chronic numbness of both hands and forearms that has been present continuously for years. Also notes bilateral ankle swelling for several days that has resolved since admission. Denies syncope. Denies fever or chills Review of Systems-Cardiology Review of Systems Constitutional: As described under HPI Eyes: No vision change Ears/Nose/Throat: No ear discharge, No nasal drainage, No recent hearing loss Respiratory: As described under HPI Cardiovascular: As described under HPI Gastrointestinal: No constipation, No diarrhea, No nausea, No vomiting Genitourinary: No dysuria, No hematuria, No urine frequency changes Musculoskeletal: As describe under HPI; No back pain, No joint pain Skin: No rash, No ulcerations Psychiatric/Neurological: No seizure, No focal weakness, No syncope Hematologic: No bleeding abnormalities YZO-[id number]-Tqckvl Hx Patient Social History Smoking Status: Never a Smoker 2nd Hand Smoke Exposure: No Have you traveled recently?: No Alcohol Use?: No Pt feels they are or have been: No Immunizations Up To Date Tetanus Booster (TDap): Unknown Date of Influenza Vaccine: May 10, 2021 Past Medical History PMH As described under Assessment. Family Medical History Family Medical History: Does not report h/o CAD or SCD in first degree relatives Allergies and Home Medications Allergies Coded Allergies: NKANo Known Allergies (Verified Allergy, Unknown, 01/30/07) Patient Home Medication List Home Medication List Reviewed: Yes Amlodipine Besylate (Amlodipine Besylate) 10 Mg Tablet, 10 MG PO DAILY Prescribed by: AMY ALLEN on 06/18/19 1136 Amoxicillin/Potassium Clav (Augmentin 875-125 Tablet) 1 Each Tablet, 1 EACH PO BID Prescribed by: AMY ALLEN on 06/18/19 1136 Hydrocodone Bit/Acetaminophen (Lortab 5 Mg Tablet) 1 Tab Tab, 1 TAB PO Q4H PRN for PAIN-MODERATE Prescribed by: AMY ALLEN on 06/18/19 1136 Hydrocodone/Acetaminophen (Hydrocodone-Acetamin 5-325 mg) 1 Each Tablet, 1 EACH PO Q4H PRN for PAIN-BREAKTHROUGH Prescribed by: MYA SOLIZ on 12/28/19 1436 Ibuprofen (Advil) 200 Mg Tablet, 400 MG PO BID PRN for PAIN-MILD, (Reported) Entered as Reported by: JUVENAL BLANCAS on 06/13/19 0926 Insulin Aspart (Novolog Flexpen) 300 Units/3 Ml Solution, 3 UNITS SQ AC Prescribed by: AMY ALLEN on 06/18/19 1136 Insulin Detemir (Levemir Flextouch) 100 Unit/1 Ml Insuln.pen, 20 UNITS SC BID Prescribed by: AMY ALLEN on 06/18/19 1136 Losartan Potassium (Losartan Potassium) 50 Mg Tablet, 50 MG PO DAILY Prescribed by: AMY ALLEN on 06/18/19 1136 Nystatin (Nystatin) 100,000 Unit/1 Ml Oral.susp, 5 ML PO Q6HR Prescribed by: AMY ALLEN on 06/18/19 1136 Physical Exam-Cardiology Physical Exam Vital Signs/I&O 07/09/21 07/09/21 07/09/21 07/09/21 23:00 23:19 23:19 23:19 Temp 36.4 35.6 Pulse 82 60 Resp 16 13 B/P (MAP) 223/103 197/97 (130) Pulse Ox 100 100 100 100 O2 Delivery Room Air Room Air Room Air Room Air 07/09/21 07/10/21 07/10/21 07/10/21 23:30 01:00 04:00 04:00 Temp 35.7 Pulse 60 58 58 Resp 12 B/P (MAP) Pulse Ox 100 100 O2 Delivery Room Air Room Air 07/10/21 07/10/21 07:00 08:00 Temp 37.1 Pulse 59 59 Resp 16 B/P (MAP) 155/84 (107) Pulse Ox 100 O2 Delivery Room Air 07/10/21 00:00 Intake Total 0 ml Output Total 750 ml Balance -750 ml Capillary Refill : Less Than 3 Seconds Constitutional: AAO x 3, well-developed, well-nourished HEENT: EOMI, hearing is well preserved; No xanthelasmas are seen Neck: carotid pulses are 2 + bilaterally Respiratory: No accessory muscle use; other (good, bilateral air entry) Cardiovascular: regular rate-rhythm, S1 and S2, systolic murmur (soft CLAUDIA at card base) Gastrointestinal: No tender; soft; No guarding, No rebound; audible bowel sounds Extremities: No clubbing, No cyanosis, No significant edema Neurologic/Psychiatric: oriented x 3, other (moves all limbs equally) Skin: warm/dry; No rash on exposed areas, No ulcerations on exposed areas Data Review Labs Laboratory Tests 07/09/21 20:55: White Blood Count 7.5, Red Blood Count 3.78L, Hemoglobin 11.0L, Hematocrit 33L, Mean Corpuscular Volume 88, Mean Corpuscular Hemoglobin 29, Mean Corpuscular Hemoglobin Concent 33, Red Cell Distribution Width 13.0, Platelet Count 372, Mean Platelet Volume 9.9, Immature Granulocyte % (Auto) 0, Neutrophils (%) (Auto) 45, Lymphocytes (%) (Auto) 35, Monocytes (%) (Auto) 11, Eosinophils (%) (Auto) 8, Basophils (%) (Auto) 1, Neutrophils # (Auto) 3.4, Lymphocytes # (Auto) 2.7, Monocytes # (Auto) 0.8, Eosinophils # (Auto) 0.6H, Basophils # (Auto) 0.1, Immature Granulocyte # (Auto) 0.0, Prothrombin Time 13.0, INR Comment 0.9, A ctivated Partial Thromboplast Time 29, Sodium Level 136, Potassium Level 4.7, Chloride Level 105, Carbon Dioxide Level 21, Anion Gap 10, Blood Urea Nitrogen 30H, Creatinine 2.08H, Estimat Glomerular Filtration Rate 32, BUN/Creatinine Ratio 14, Glucose Level 198H, Calcium Level 8.8, Corrected Calcium 9.1, Magnesium Level 2.4, Total Bilirubin 0.3, Aspartate Amino Transf (AST/SGOT) 30, Alanine Aminotransferase (ALT/SGPT) 24, Alkaline Phosphatase 135, Total Creatine Kinase 168, Creatine Kinase MB 8.2*H, Myoglobin 324.9H, Troponin I 0.174H, B- Type Natriuretic Peptide 517.5H, Total Protein 7.9, Albumin 3.6, Amylase Level 103, Lipase 19 07/10/21 00:01: Glucometer 123H 07/10/21 05:06: White Blood Count 7.4, Red Blood Count 3.59L, Hemoglobin 10.4L, Hematocrit 32L, Mean Corpuscular Volume 88, Mean Corpuscular Hemoglobin 29, Mean Corpuscular Hemoglobin Concent 33, Red Cell Distribution Width 12.7, Platelet Count 364, Mean Platelet Volume 10.6, Immature Granulocyte % (Auto) 0, Neutrophils (%) (Auto) 43, Lymphocytes (%) (Auto) 35, Monocytes (%) (Auto) 12, Eosinophils (%) (Auto) 8, Basophils (%) (Auto) 1, Neutrophils # (Auto) 3.2, Lymphocytes # (Auto) 2.6, Monocytes # (Auto) 0.9, Eosinophils # (Auto) 0.6H, Basophils # (Auto) 0.1, Immature Granulocyte # (Auto) 0.0, Sodium Level 139, Potassium Level 4.3, Chloride Level 107, Carbon Dioxide Level 23, Anion Gap 9, Blood Urea Nitrogen 30H, Creatinine 1.93H, Estimat Glomerular Filtration Rate 35, BUN/Creatinine Ratio 16, Glucose Level 134H, Calcium Level 8.7, Troponin I 0.157H, Triglycerides Level 116, Cholesterol Level 204H, LDL Cholesterol Direct 136H, VLDL Cholesterol 23, HDL Cholesterol 54 Laboratory Tests 07/09/21 20:55 07/10/21 05:06 A/P-Cardiology Assessment/Admission Diagnosis Malignant hypertension (resulting in ac diastolic CHF) Mild troponin elevation - type 2 MA due to ac diastolic CHF due to malignant hypertension DM II, complicated by diabetic nephropathy - CKD 4 Card cath in 2009: no significant CAD Abnormal ECG: NSR, old ASMI vs LVH Discussion and Recomendations * Treat with ASA and beta-john and amlodipine * Clonidine prn * Echo * Monitor labs * I discussed his CV issues in detail with him and his son and answered their questions Clinical Quality Measures AMI/AHF: ASA po Prior to arrival: Yes RAYMON MONTERO MD FACP FAC CCDS Jul 10, 2021 10:35
[2021-07-10 12:00] VITALS: BP 159/76
[2021-07-10 14:49] VITALS: BP 176/82
[2021-07-10 16:00] VITALS: BP 159/69
[2021-07-10 19:45] VITALS: BP 175/80
[2021-07-10] MEDS ORDERED: HYDROcodone/APAP 5 MG/325 MG (LORTAB) TAB PO PRN (22:45)
[2021-07-10 23:07] VITALS: BP_SYST 145; BP_SYST 147; BP_DIAS 67; BP_DIAS 75
[2021-07-11 04:30] VITALS: BP 145/68
[2021-07-11] MEDS: CATHETER FLUSH 10 ML SYR IV SCH (05:35)
[2021-07-11] MEDS: inSUlin ASPART (NovoLOG) 1 UNIT/0.01 ML (CHARGE PER UNIT) SC SCH ×2 (05:35→11:34)
[2021-07-11 06:24] LABS: BASOPHILS # (AUTO) 0.1 10^3/uL (0.0-0.1); BASOPHILS % (AUTO) 1 % (0-10); EOSINOPHILS # (AUTO) 0.4 10^3/uL (0.0-0.3); EOSINOPHILS % (AUTO) 6 % (0-10); HEMATOCRIT 30 % (40-54); LYMPHOCYTES # (AUTO) 1.7 10^3/uL (1.0-4.0); LYMPHOCYTES % (AUTO) 28 % (12-44); MEAN CORPUSCULAR HEMOGLOBIN 29 pg (25-34); MEAN CORPUSCULAR HGB CONC 33 g/dL (32-36); MEAN CORPUSCULAR VOLUME 88 fL (80-99); MEAN PLATELET VOLUME 10.5 fL (9.0-12.2); MONOCYTES # (AUTO) 0.6 10^3/uL (0.0-1.0); MONOCYTES % (AUTO) 10 % (0-12); NEUTROPHILS # (AUTO) 3.3 10^3/uL (1.8-7.8); NEUTROPHILS % (AUTO) 55 % (42-75); PLATELET COUNT 319 10^3/uL (130-400); WHITE BLOOD COUNT 6.1 10^3/uL (4.3-11.0)
[2021-07-11 06:28] LABS: POTASSIUM 4.8 MMOL/L (3.6-5.0)
[2021-07-11 06:29] LABS: CALCIUM 8.4 MG/DL (8.5-10.1)
[2021-07-11 06:34] LABS: CREATININE SERUM 2.24 MG/DL (0.60-1.30)
[2021-07-11 06:36] LABS: MAGNESIUM 2.3 MG/DL (1.6-2.4)
[2021-07-11 07:06] LABS: EOSINOPHILS % (MANUAL) 4 %; LYMPHOCYTES % (MANUAL) 27 %; MONOCYTES % (MANUAL) 15 %; NEUTROPHILS % (MANUAL) 54 %
[2021-07-11 07:21] VITALS: BP 174/74
[2021-07-11] MEDS: ASPIRIN E.C. 81 MG (ECOTRIN) TAB PO SCH (08:32)
[2021-07-11] MEDS: meTOprolol SUCCINATE 100 MG (TOPROL XL) TAB PO SCH (08:32)
[2021-07-11] MEDS: amLODIPine 10 MG (NORVASC) TAB PO SCH (08:32)
[2021-07-11 11:15] VITALS: BP 138/63
[2021-07-11] MEDS ORDERED: ASPI-1238 PO (12:29)
[2021-07-11] MEDS ORDERED: INSU100I14 SQ (12:29)
[2021-07-11] MEDS ORDERED: [UNRECOGNIZED DRUG - CODE] MC (12:29)
[2021-07-11] MEDS ORDERED: ACHD5005 PO ×2 (12:29→13:08)
[2021-07-11] MEDS ORDERED: AMLO-251 PO (12:29)
[2021-07-11] MEDS ORDERED: MTP100TCR PO (12:29)
[2021-07-11] MEDS ORDERED: INSU100I29 SC (12:29)
--- NOTE | 2021-07-11 12:30 | Discharge Summary ---
Discharge Summary Hospital Course Was the Problem List Reviewed?: Yes Problems/Dx: (1) Chest pain Status: Acute (2) Elevated troponin Status: Acute (3) Insulin dependent diabetes mellitus Status: Chronic (4) Hypertension Status: Chronic Hospital Course Date of Admission: Jul 09, 2021 at 21:45 Admission Diagnosis : Family Physician/Provider: Vinicius Macias Date of Discharge: 07/11/21 Discharge Diagnosis: Chest pain, elevated troponin likely due to chronic kidney disease, diabetes, neuropathy Hospital Course: Short hospital course after admitted for chest pain with subtle elevation in troponin prompting cardiology consult. Overall he did very well he stabilized malignant hypertension more manageable on Toprol of 200 mg and amlodipine of 10 and he was sent home with prescriptions and close follow-up for an outpatient stress test. Labs and Pending Lab Test: Laboratory Tests 07/10/21 15:23: Glucometer 233H 07/10/21 20:12: Glucometer 225H 07/11/21 05:17: Glucometer 190H 07/11/21 05:58: White Blood Count 6.1, Red Blood Count 3.41L, Hemoglobin 10.0L, Hematocrit 30L, Mean Corpuscular Volume 88, Mean Corpuscular Hemoglobin 29, Mean Corpuscular Hemoglobin Concent 33, Red Cell Distribution Width 12.6, Platelet Count 319, Mean Platelet Volume 10.5, Immature Granulocyte % (Auto) 0, Neutrophils (%) (Auto) 55, Lymphocytes (%) (Auto) 28, Monocytes (%) (Auto) 10, Eosinophils (%) (Auto) 6, Basophils (%) (Auto) 1, Neutrophils # (Auto) 3.3, Lymphocytes # (Auto) 1.7, Monocytes # (Auto) 0.6, Eosinophils # (Auto) 0.4H, Basophils # (Auto) 0.1, Immature Granulocyte # (Auto) 0.0, Neutrophils % (Manual) 54, Lymphocytes % (Manual) 27, Monocytes % (Manual) 15, Eosinophils % (Manual) 4, Sodium Level 135, Potassium Level 4.8, Chloride Level 105, Carbon Dioxide Level 19L, Anion Gap 11, Blood Urea Nitrogen 43H, Creatinine 2.24H, Estimat Glomerular Filtration Rate 30, BUN/Creatinine Ratio 19, Glucose Level 195H, Calcium Level 8.4L, Magnesium Level 2.3 07/11/21 10:35: Glucometer 254H Home Meds Active Easy Comfort Pen Needle (Pen Needle, Diabetic) 1 Each Dis.needle Each MC ACHS Aspirin EC (Aspirin) 81 Mg Tablet.dr 81 Mg PO DAILY Metoprolol Succinate 100 Mg Tab.er.24h 200 Mg PO DAILY Novolog Flexpen (Insulin Aspart) 300 Units/3 Ml Solution 3 Units SQ AC Amlodipine Besylate 10 Mg Tablet 10 Mg PO DAILY Levemir Flextouch (Insulin Detemir) 100 Unit/1 Ml Insuln.pen 20 Units SC BID Losartan Potassium 50 Mg Tablet 50 Mg PO DAILY Assessment/Pt Instructions PCP in 1 week Discharge Planning: <30 minutes discharge planning Discharge Instructions Discharge Diet: ADA Diet Activity as Tolerated: Yes Discharge Physical Examination Vital Signs Vital Signs Date Time Temp Pulse Resp B/P (MAP) Pulse Ox O2 Delivery O2 Flow Rate FiO2 07/11/21 11:15 36.8 57 16 138/63 (88) 99 Room Air General Appearance: No Apparent Distress, WD/WN, Chronically ill Allergies: Coded Allergies: NKANo Known Allergies (Verified Allergy, Unknown, 01/30/07) Discharge Summary Date of Admission Jul 09, 2021 at 21:45 Date of Discharge Discharge Date: Jul 11, 2021 Admission Diagnosis Chest pain Discharge Diagnosis Plan: Transfer to fourth floor Stress test as an outpatient? Echo Monitor creatinine Ambulate (1) Chest pain Status: Acute (2) Elevated troponin Status: Acute (3) Insulin dependent diabetes mellitus Status: Chronic (4) Hypertension Status: Chronic Clinical Quality Measures AMI/AHF: ASA po Prior to arrival: Yes AGUSTIN DELGADO DO Jul 11, 2021 12:30
== END 2021-07-11 13:30 | disposition home or self-care (01) | DRG 280 ==
LOC: EDUNIT# 20:35 → ER 20:36 → CSD 21:45 → 4TH 07-10 14:23
PROVIDERS: ADMIT Internal Medicine; ATTEND Internal Medicine
DX: I13.0 Hypertensive heart and chronic kidney disease with heart failure and stage 1 through stage 4 chronic kidney disease, or unspecified chronic kidney disease (principal); I50.31 Acute diastolic (congestive) heart failure; I21.A1 Myocardial infarction type 2; N18.4 Chronic kidney disease, stage 4 (severe); N17.9 Acute kidney failure, unspecified; E11.22 Type 2 diabetes mellitus with diabetic chronic kidney disease; E11.42 Type 2 diabetes mellitus with diabetic polyneuropathy; Z79.4 Long term (current) use of insulin; Z90.2 Acquired absence of lung [part of]
CPT/HCPCS: 36415; 71045; 80048; 80053; 80061; 82150; 82550; 82553; 82947; 83690; 83735; 83874; 83880; 84484; 85007; 85025; 85027; 85610; 85730; 93005; 93041; 93306; 94760

== ENCOUNTER 2021-08-02 16:47 | Emergency (ER) | payer MEDICARE ==
[~2021-08-02] VITALS: Ht 170 cm; Wt 65.7 kg
[~2021-08-02 16:47] MED LIST changes: +ASPI-1238 PO; +MTP100TCR PO; +[UNRECOGNIZED DRUG - CODE] MC
--- NOTE | 2021-08-02 17:43 | ED Cardiac General ---
History of Present Illness General Chief Complaint: Cardiac/General Problems Stated Complaint: HIGH BP Source: patient Exam Limitations: no limitations (MADHURI WATSON MD) History of Present Illness Date Seen by Provider: Aug 02, 2021 Time Seen by Provider: 17:30 Initial Comments Patient is a 65-year-old male who speaks broken Grenadian that was sent over from [facility] clinic for elevated blood pressure concern for hypertensive e mergency. Patient had a scheduled follow-up from hospitalization earlier in the month. On arrival he was found to have blood pressures in the 2 40-2 50 range. He is completely asymptomatic. No chest pain, no shortness of breath, not lightheaded or dizzy. Not nauseous. Reported by his primary care doctor at [facility] he has been not taking his blood pressure medicines due to concern for his kidneys. The patient tells me that he has been taking them. I am kind of doubtful. He seems to go back and forth as to whether he is taking them or not. He is not having any problems urinating. No diarrhea. He is getting quite a bit of swelling in his lower extremities. States that he checks his blood sugar at home and says it is anywhere from 90-200. No recent illnesses. All other review of systems reviewed and negative except as stated Associated Systoms: Denies Symptoms (MADHURI WATSON MD) Allergies and Home Medications Allergies Coded Allergies: Tyson Known Allergies (Verified Allergy, Unknown, 01/30/07) Patient Home Medication List Home Medication List Reviewed: Yes (MADHURI WATSON MD) Amlodipine Besylate (Amlodipine Besylate) 10 Mg Tablet, 10 MG PO DAILY Prescribed by: AGUSTIN DELGADO on 07/11/21 1229 Aspirin (Aspirin EC) 81 Mg Tablet.dr, 81 MG PO DAILY Prescribed by: AGUSTIN DELGADO on 07/11/21 1229 Hydrocodone Bit/Acetaminophen (HYDROcodone/APAP 5 MG/325 MG TAB) 1 Tab Tab, 1 EA PO Q4H PRN for PAIN-MODERATE (5-7) Prescribed by: AGUSTIN DELGADO on 07/11/21 1309 Insulin Aspart (Novolog Flexpen) 300 Units/3 Ml Solution, 3 UNITS SQ AC Prescribed by: AGUSTIN DELGADO on 07/11/21 1229 Insulin Detemir (Levemir Flextouch) 100 Unit/1 Ml Insuln.pen, 20 UNITS SC BID Prescribed by: AGUSTIN DELGADO on 07/11/21 1229 Metoprolol Succinate (Metoprolol Succinate) 100 Mg Tab.er.24h, 200 MG PO DAILY Prescribed by: AGUSTIN DELGADO on 07/11/21 1229 Pen Needle, Diabetic (Easy Comfort Pen Needle) 1 Each Dis.needle, EACH MC ACHS, (DME) Prescribed by: AGUSTIN DELGADO on 07/11/21 1229 Review of Systems Review of Systems Constitutional: see HPI EENTM: No Symptoms Reported Respiratory: SOA at Rest Cardiovascular: No Symptoms Reported Gastrointestinal: No Symptoms Reported Genitourinary: No Symptoms Reported Musculoskeletal: no symptoms reported Skin: no symptoms reported Psychiatric/Neurological: No Symptoms Reported (MADHURI WATSON MD) All Other Systems Reviewed Negative Unless Noted: Yes (MADHURI WATSON MD) Past Yqztrgb-Ubfpdb-Jhopyw Hx Immunizations Up To Date Tetanus Booster (TDap): Unknown First/Initial COVID19 Vaccinat: (MADHURI WATSON MD) Past Medical History Surgery/Hospitalization HX: LEFT FOOT ABSCESS-I&D/DEBRIDEMENT 2018 Surgeries: Yes (RIGHT LOWER LUNG LOBECTOMY--FUNGAL INFECTION; COLONOSCOPY/EGD;CARDIAC CATH) Cardiac, Lobectomy Respiratory: Yes (RIGHT LOWER LUNG LOBECTOMY--FUNGAL INFECTION) Currently Using CPAP: No Currently Using BIPAP: No Cardiac: Yes (SVT; NORMAL CARDIAC CATH 03/2010 ) Hypertension, Irregular Heartbeat Neurological: Yes (LIKELY PERIPHERAL NEUROPATHY IN FEET/HANDS) Neuropathy Reproductive Disorders: No Genitourinary: No Gastrointestinal: Yes (GASTRIC ULCER) Ulcer Musculoskeletal: Yes (LEFT FOOT ABSCESS 2018) Endocrine: Yes Diabetes, Insulin dep HEENT: Yes (double vision-resolved at this time) Loss of Vision: Denies Hearing Impairment: Denies Cancer: No Psychosocial: No Integumentary: Yes (LEFT FOOT ABSCESS 2018) Blood Disorders: No (MADHURI WATSON MD) Physical Exam Vital Signs Vital Signs - First Documented 08/02/21 17:18 Temp 36.7 Pulse 71 Resp 14 B/P (MAP) 243/106 (151) Pulse Ox 100 O2 Delivery Room Air (MINNA SINGH) Vital Signs Capillary Refill : (MADHURI WATSON MD) Height, Weight, BMI Height: 5'7.00" Weight: 136lbs. 7.0oz. 61.963807rp; 22.78 BMI Method:Stated General Appearance: No Apparent Distress, WD/WN HEENT: PERRL/EOMI, Moist Mucous Membranes Neck: Normal Inspection Respiratory: Lungs Clear, Normal Breath Sounds, No Accessory Muscle Use, No Res piratory Distress Cardiovascular: Regular Rate, Rhythm, Normal Peripheral Pulses Gastrointestinal: Normal Bowel Sounds, Non Tender, Soft Extremity: Normal Capillary Refill, Normal Inspection, Normal Range of Motion, Non Tender, No Calf Tenderness, Pedal Edema (3+ bilateral) Neurologic/Psychiatric: Alert, Oriented x3, No Motor/Sensory Deficits, Normal Mood/Affect, driller portable II-XII Norm as Tested Skin: Normal Color, Warm/Dry (MADHURI WATSON MD) Progress/Results/Core Measures Results/Orders Lab Results Laboratory Tests Test 08/02/21 17:30 Range/Units White Blood Count 6.5 4.3-11.0 10^3/uL Red Blood Count 3.27 L 4.30-5.52 10^6/uL Hemoglobin 9.3 L 13.3-17.7 g/dL Hematocrit 29 L 40-54 % Mean Corpuscular Volume 89 80-99 fL Mean Corpuscular Hemoglobin 28 25-34 pg Mean Corpuscular Hemoglobin Concent 32 32-36 g/dL Red Cell Distribution Width 13.2 10.0-14.5 % Platelet Count 414 H 130-400 10^3/uL Mean Platelet Volume 9.7 9.0-12.2 fL Immature Granulocyte % (Auto) 0 % Neutrophils (%) (Auto) 46 42-75 % Lymphocytes (%) (Auto) 35 12-44 % Monocytes (%) (Auto) 13 H 0-12 % Eosinophils (%) (Auto) 6 0-10 % Basophils (%) (Auto) 1 0-10 % Neutrophils # (Auto) 3.0 1.8-7.8 10^3/uL Lymphocytes # (Auto) 2.3 1.0-4.0 10^3/uL Monocytes # (Auto) 0.8 0.0-1.0 10^3/uL Eosinophils # (Auto) 0.4 H 0.0-0.3 10^3/uL Basophils # (Auto) 0.1 0.0-0.1 10^3/uL Immature Granulocyte # (Auto) 0.0 0.0-0.1 10^3/uL Sodium Level 140 135-145 MMOL/L Potassium Level 4.1 3.6-5.0 MMOL/L Chloride Level 110 H 98-107 MMOL/L Carbon Dioxide Level 20 L 21-32 MMOL/L Anion Gap 10 5-14 MMOL/L Blood Urea Nitrogen 36 H 7-18 MG/DL Creatinine 2.35 H 0.60-1.30 MG/DL Estimat Glomerular Filtration Rate 28 BUN/Creatinine Ratio 15 Glucose Level 120 H 70-105 MG/DL Calcium Level 8.5 8.5-10.1 MG/DL B-Type Natriuretic Peptide 1085.2 H <100.0 PG/ML (MINNA SINGH) My Orders Orders - MINNA SINGH Amlodipine Tablet (Norvasc Tablet) (08/03/21 09:00) Losartan Tablet (Cozaar Tablet) (08/02/21 18:30) Metoprolol Tartrate (Ir) Tab (Lopressor (08/02/21 18:30) Hydrochlorothiazide Cap/Tablet (Hctz Cap (08/02/21 18:30) Furosemide Injection (Lasix Injection) (08/02/21 18:30) Amlodipine Tablet (Norvasc Tablet) (08/02/21 18:45) Amlodipine Tablet (Norvasc Tablet) (08/02/21 19:00) Nitroglycerin 0.4 Mg Btl 25's (Nitrostat (08/02/21 19:15) (MINNA SINGH) Medications Given in ED Current Medications Medications Dose Ordered Sig/Edu Route Start Time Stop Time Status Last Admin Dose Admin Furosemide 40 mg ONCE ONCE IVP 08/02/21 18:30 08/02/21 18:31 DC 08/02/21 18:47 40 MG Metoprolol Tartrate 25 mg ONCE ONCE PO 08/02/21 18:30 08/02/21 18:31 DC 08/02/21 18:47 25 MG Nitroglycerin 0.4 mg ONCE ONCE SL 08/02/21 19:15 08/02/21 19:16 DC 08/02/21 19:19 0.4 MG (MINNA SINGH) Vital Signs/I&O 08/02/21 08/02/21 08/02/21 17:18 18:40 19:17 Temp 36.7 Pulse 71 69 67 Resp 14 16 14 B/P (MAP) 243/106 (151) 248/107 241/108 Pulse Ox 100 100 100 O2 Delivery Room Air Room Air Room Air (MINNA SINGH) Progress Progress Note : Time: 18:23 Progress Note Assumed care of the patient at shift change. I agree with above documented history and physical exam by the prior provider. Plan to give him doses of his previously prescribed doses of metoprolol, amlodipine. He already took his losartan this morning and his hydrochlorothiazide at 1 PM. He says he just picked up a prescription for hydrochlorothiazide today. Instructed him to take that again in the morning. We will give him 40 mg of Lasix for his moderately elevated BNP. Last BNP was around 500. He is not having any respiratory distress or evidence of acute heart failure beyond bilateral lower extremity edema. The patient states that the edema has been present for the past 2 years. He never picked up metoprolol or amlodipine. He is only taking losartan and today started taking hydrochlorothiazide. (MINNA SINGH) Diagnostic Imaging Diagonstic Imaging: Xray Plain Films/CT/US/NM/MRI: chest Comments [facility], [place] NAME: JAROD PEDRO [facility] REC#: [id number] PT STATUS: REG ER : 1955 PHYSICIAN: MADHURI WATSON MD ADMIT DATE: 08/02/21/ER Signed Date of Exam:08/02/21 CHEST 1 VIEW, AP/PA ONLY HISTORY: Hypertension COMPARISON: 07/10/2021 TECHNIQUE: Frontal view of the chest FINDINGS: There is a small right pleural effusion. There is chronic scarring in the right midlung. The left lung is clear. The cardiac silhouette is stable in size. No left effusion and no pneumothorax is seen. IMPRESSION: 1. Small right pleural effusion. Stable chronic scarring in the right lung. Dictated by: Dictated on workstation # [id number] Dict: 08/02/21 1805 Trans: 08/02/21 1814 [facility] [id number] Interpreted by: SHALOM MORALES MD Electronically signed by: SHALOM MORALES MD 08/02/211813 Reviewed: Reviewed by Me (MINNA SINGH) Departure Impression Primary Impression: Asymptomatic hypertensive urgency Disposition: 01 HOME, SELF-CARE Condition: Stable Departure-Patient Inst. Decision time for Depature: 19:12 (MINNA SINGH) Referrals: [facility] [place] (PCP) Primary Care Physician ARACELI TOLBERT (Family) Primary Care Physician Patient Instructions: Malignant Hypertension (DC) Add. Discharge Instructions: Call your doctor to follow-up in 1 to 2 weeks. Continue taking your hydrochlorothiazide and losartan as prescribed. Start taking amlodipine 10 mg daily. 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 Start taking metoprolol 100 mg daily. 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 All discharge instructions reviewed with patient and/or family. Voiced understa nding. Copy Copies To 1: CECILIO SERRATO KATHRYN M MD Aug 02, 2021 17:42 MINNA SINGH Aug 02, 2021 18:33
[2021-08-02 17:49] LABS: BASOPHILS # (AUTO) 0.1 10^3/uL (0.0-0.1); BASOPHILS % (AUTO) 1 % (0-10); EOSINOPHILS # (AUTO) 0.4 10^3/uL (0.0-0.3); EOSINOPHILS % (AUTO) 6 % (0-10); HEMATOCRIT 29 % (40-54); HEMOGLOBIN 9.3 g/dL (13.3-17.7); LYMPHOCYTES # (AUTO) 2.3 10^3/uL (1.0-4.0); LYMPHOCYTES % (AUTO) 35 % (12-44); MEAN CORPUSCULAR HEMOGLOBIN 28 pg (25-34); MEAN CORPUSCULAR HGB CONC 32 g/dL (32-36); MEAN CORPUSCULAR VOLUME 89 fL (80-99); MEAN PLATELET VOLUME 9.7 fL (9.0-12.2); MONOCYTES # (AUTO) 0.8 10^3/uL (0.0-1.0); MONOCYTES % (AUTO) 13 % (0-12); NEUTROPHILS % (AUTO) 46 % (42-75); PLATELET COUNT 414 10^3/uL (130-400); WHITE BLOOD COUNT 6.5 10^3/uL (4.3-11.0)
[2021-08-02 17:56] LABS: POTASSIUM 4.1 MMOL/L (3.6-5.0)
[2021-08-02 17:57] LABS: CALCIUM 8.5 MG/DL (8.5-10.1)
[2021-08-02 18:02] LABS: CREATININE SERUM 2.35 MG/DL (0.60-1.30)
--- NOTE | 2021-08-02 18:13 | Diagnostic Imaging Report ---
HISTORY: Hypertension COMPARISON: 07/10/2021 TECHNIQUE: Frontal view of the chest FINDINGS: There is a small right pleural effusion. There is chronic scarring in the right midlung. The left lung is clear. The cardiac silhouette is stable in size. No left effusion and no pneumothorax is seen. IMPRESSION: 1. Small right pleural effusion. Stable chronic scarring in the right lung. Dictated by: Dictated on workstation # [id number]
[2021-08-02] MEDS ORDERED: meTOprolol TARTRATE 25 MG (LOPRESSOR) TABLET PO ONE (18:30)
[2021-08-02] MEDS ORDERED: LOSARTAN 100 MG (COZAAR) TABLET PO ONE (18:30)
[2021-08-02] MEDS ORDERED: FUROSEMIDE 40 MG/4 ML INJ (LASIX) IVP ONE (18:30)
[2021-08-02] MEDS ORDERED: amLODIPine 5 MG (NORVASC) TAB PO SCH ×2 (18:45→19:00)
[2021-08-02] MEDS ORDERED: NITROGLYCERIN 0.4 MG SL TABS BTL 25'S SL ONE (19:15)
[2021-08-02 19:52] VITALS: BP 207/99
[2021-08-03] MEDS ORDERED: amLODIPine 5 MG (NORVASC) TAB PO SCH (09:00)
== END 2021-08-02 19:54 | disposition home or self-care (01) ==
LOC: EDUNIT# 16:47 → ER 16:48
DX: I16.0 Hypertensive urgency (principal); E11.42 Type 2 diabetes mellitus with diabetic polyneuropathy; I10 Essential (primary) hypertension; Z79.4 Long term (current) use of insulin; Z79.82 Long term (current) use of aspirin; Z79.899 Other long term (current) drug therapy
CPT/HCPCS: 36415; 71045; 80048; 83880; 85025

== ENCOUNTER 2021-08-09 20:08 | Inpatient (IN) | payer MEDICARE ==
[~2021-08-09] VITALS: Ht 165 cm; Wt 59.3 kg
[2021-08-09] MEDS ORDERED: HYDR25TA4 PO (20:39)
[2021-08-09] MEDS ORDERED: FURO20TA4 PO (20:39)
[2021-08-09] MEDS ORDERED: gabapentin (20:39)
[2021-08-09] MEDS ORDERED: PANTOPRAZOLE 40 MG (PROTONIX) VIAL IV ONE (21:00)
[2021-08-09] MEDS ORDERED: ONDANSETRON 4 MG/2 ML (SDV) Z0FRAN IVP ONE ×2 (21:00→21:45)
[2021-08-09 21:07] LABS: BASOPHILS # (AUTO) 0.1 10^3/uL (0.0-0.1); BASOPHILS % (AUTO) 1 % (0-10); EOSINOPHILS # (AUTO) 0.1 10^3/uL (0.0-0.3); EOSINOPHILS % (AUTO) 2 % (0-10); HEMATOCRIT 34 % (40-54); HEMOGLOBIN 10.7 g/dL (13.3-17.7); LYMPHOCYTES % (AUTO) 16 % (12-44); MEAN CORPUSCULAR HEMOGLOBIN 28 pg (25-34); MEAN CORPUSCULAR HGB CONC 32 g/dL (32-36); MEAN CORPUSCULAR VOLUME 88 fL (80-99); MEAN PLATELET VOLUME 9.8 fL (9.0-12.2); MONOCYTES # (AUTO) 0.4 10^3/uL (0.0-1.0); MONOCYTES % (AUTO) 6 % (0-12); NEUTROPHILS # (AUTO) 4.8 10^3/uL (1.8-7.8); NEUTROPHILS % (AUTO) 75 % (42-75); PLATELET COUNT 436 10^3/uL (130-400); WHITE BLOOD COUNT 6.4 10^3/uL (4.3-11.0)
[2021-08-09] MEDS ORDERED: hydrALAZINE (APESOLINE) 20 MG/ML VIAL IV ONE (21:15)
[2021-08-09 21:38] LABS: ALBUMIN 3.3 GM/DL (3.2-4.5); CHLORIDE 103 MMOL/L (98-107); SODIUM 139 MMOL/L (135-145)
[2021-08-09 21:39] LABS: CALCIUM 8.8 MG/DL (8.5-10.1)
[2021-08-09 21:40] LABS: AMYLASE 62 U/L (25-125)
[2021-08-09 21:41] LABS: GLUCOSE 174 MG/DL (70-105); TOTAL PROTEIN 7.7 GM/DL (6.4-8.2)
[2021-08-09 21:42] LABS: BILIRUBIN,TOTAL 0.4 MG/DL (0.1-1.0); CARBON DIOXIDE 26 MMOL/L (21-32)
[2021-08-09 21:44] LABS: ALKALINE PHOSPHATASE 167 U/L (40-136); CREATININE SERUM 2.38 MG/DL (0.60-1.30)
[2021-08-09 21:45] LABS: GFR ESTIMATED 28
[2021-08-09] MEDS ORDERED: SCOPOLAMINE 1.5 MG (TRANSDERM-SCOP) PATCH TD ONE (21:45)
[2021-08-09 21:46] LABS: BUN/CREATININE RATIO 13
[2021-08-09 21:47] LABS: ALANINE AMINOTRANSFERASE 25 U/L (0-55)
[2021-08-09 21:48] LABS: MAGNESIUM 2.2 MG/DL (1.6-2.4)
[2021-08-09 21:49] LABS: LIPASE 5 U/L (8-78)
--- NOTE | 2021-08-09 21:52 | ED General ---
General Chief Complaint: Cardiac/General Problems Stated Complaint: VOM,LIGHT HEADED,HIGH BP,DIZZY,BLURED VISON Nursing Triage Note: c/o high blood pressure, feeling lightheaded, vomitting today. 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) Exam Limitations: Language Barrier History of Present Illness Date Seen by Provider: Aug 09, 2021 Time Seen by Provider: 20:45 Initial Comments PT ARRIVES VIA POV FROM HOME WITH SON--SON STATES HE LIVES WITH PT PT WITH MULTIPLE COMPLAINTS BEGAN FEELING BAD THIS MORNING WHEN HE GOT UP PT'S BLOOD PRESSURE HAS READ "HIGH" ALL DAY TODAY--HOME BP MONITORY WOULD NOT GIVE AN ACTUAL READING C/O LIGHTHEADEDNESS AND DIZZINESS --ROOM SPINNING HAS BEEN HAVING NAUSEA AND VOMITING TODAY NO DIARRHEA NO HEADACHE HAS HAD SOME BLURRY VISION NO ABDOMINAL PAIN NO BACK PAIN NO CHEST PAIN NO SHORTNESS OF BREATH NO SYNCOPE NO PARESTHESIAS OR MOTOR DEFICITS NO PALPITATIONS NO SWELLING IN LEGS/FEET OR PAIN IN CALVES NO NECK PAIN OR STIFFNESS NO FEVER OR RECENT ILLNESS NO COUGH OR URI/SINUS SYMPTOMS PT WAS ADMITTED 07/09-07/11/21 FOR CHEST PAIN, WITH ELEVATED TROPONIN, CHF-- WAS DISMISSED WITH RX FOR TOPROL XL BUT PT STOPPED IT AFTER 3 DAYS BECAUSE HE THOUGHT IT MADE HIM SHORT OF BREATH. PT HAS BEEN TAKING LASIX 20 MG, LOSARTAN 100 MG AND ASA 81 MG PT FOLLOWED UP LAST WEEK WITH REMOTE SENSING ENGINEER AT [facility], WHO ADDED HCTZ 25 MG HAS NOT FOLLOWED UP WITH CLINICAL SERVICES ASSISTANT AT ANY TIME, NOR DOES HE HAVE AN APPOINTMENT WITH CARDIOLOGY PT IS STILL WEARING 3 TELEMETRY PATCHES ON HIS CHEST FROM THAT HOSPITALIZATION. MULTIPLE VISITS RECENTLY FOR ELEVATED BLOOD PRESSURE AND CARDIAC ISSUES PCP; [facility] Allergies and Home Medications Allergies Coded Allergies: NKANo Known Allergies (Verified Allergy, Unknown, 01/30/07) Patient Home Medication List Home Medication List Reviewed: Yes Aspirin (Aspirin EC) 81 Mg Tablet.dr, 81 MG PO DAILY, (Reported) Entered as Reported by: MARGARITA MG on 08/10/211611 Last Action: Reviewed Furosemide (Furosemide) 20 Mg Tablet, 20 MG PO DAILY PRN for FLUID RETENTION, (Reported) Entered as Reported by: SANGEETA PURVIS on 08/09/212038 Last Action: Reviewed Hydrochlorothiazide (Hydrochlorothiazide) 25 Mg Tablet, 25 MG PO DAILY, (Reported) Entered as Reported by: SANGEETA PURVIS on 08/09/212038 Last Action: Held Insulin Aspart (Novolog Flexpen) 300 Units/3 Ml Solution, 8 UNITS SQ AC, (Reported) Entered as Reported by: MARGARITA MG on 08/10/211611 Last Action: Converted Insulin Detemir (Levemir Flextouch) 100 Unit/1 Ml Insuln.pen, 8 UNIT SQ BID, (Reported) Entered as Reported by: MARGARITA MG on 08/10/211612 Last Action: Converted Losartan Potassium (Losartan Potassium) 100 Mg Tablet, 100 MG PO DAILY, (Reported) Entered as Reported by: MARGARITA MG on 08/10/211611 Last Action: Reviewed Discontinued Medications Amlodipine Besylate (Amlodipine Besylate) 10 Mg Tablet, 10 MG PO DAILY Discontinued Reason: No Longer Taking Prescribed by: AGUSTIN DELGADO on 07/11/211228 Last Action: Discontinued Aspirin (Aspirin EC) 81 Mg Tablet.dr, 81 MG PO DAILY Discontinued Reason: Duplicate Order Prescribed by: AGUSTIN DELGADO on 07/11/211228 Last Action: Discontinued Hydrocodone Bit/Acetaminophen (HYDROcodone/APAP 5 MG/325 MG TAB) 1 Tab Tab, 1 EA PO Q4H PRN for PAIN-MODERATE (5-7) Discontinued Reason: No Longer Taking Prescribed by: AGUSTIN DELGADO on 07/11/211308 Last Action: Discontinued Insulin Aspart (Novolog Flexpen) 300 Units/3 Ml Solution, 3 UNITS SQ AC Discontinued Reason: Duplicate Order Prescribed by: AGUSTIN DELGADO on 07/11/211228 Last Action: Discontinued Insulin Detemir (Levemir Flextouch) 100 Unit/1 Ml Insuln.pen, 20 UNITS SC BID Discontinued Reason: Duplicate Order Prescribed by: AGUSTIN DELGADO on 07/11/211228 Last Action: Discontinued Metoprolol Succinate (Metoprolol Succinate) 100 Mg Tab.er.24h, 200 MG PO DAILY Discontinued Reason: No Longer Taking Prescribed by: AGUSTIN DELGADO on 07/11/211228 Last Action: Discontinued Pen Needle, Diabetic (Easy Comfort Pen Needle) 1 Each Dis.needle, EACH [facility] ACHS, (DME) Discontinued Reason: No Longer Taking Prescribed by: AGUSTIN DELGADO on 12/5/21 1229 Last Action: Discontinued [gabapentin] , (Reported) Discontinued Reason: No Longer Taking Entered as Reported by: SANGEETA PURVIS on 08/09/212038 Last Action: Discontinued Review of Systems Review of Systems Constitutional: see HPI; No diaphoresis; dizziness, malaise, weakness EENTM: see HPI, blurred vision Respiratory: no symptoms reported Cardiovascular: see HPI; No chest pain, No edema, No palpitations, No syncope Gastrointestinal: see HPI; No abdominal pain, No diarrhea; loss of appetite, nausea, vomiting Genitourinary: no symptoms reported Musculoskeletal: no symptoms reported Skin: no symptoms reported Psychiatric/Neurological: See HPI (DIZZINESS); Denies Headache, Denies Numbness, Denies Paresthesia, Denies Seizure, Denies Tingling, Denies Weakness Hematologic/Lymphatic: No Symptoms Reported Immunological/Allergic: no symptoms reported Past Somhbjd-Lyehyb-Mallta Hx Patient Social History Tobacco Use?: No Substance use?: No Alcohol Use?: No Pt feels they are or have been: No Immunizations Up To Date Tetanus Booster (TDap): Unknown First/Initial COVID19 Vaccinat: Past Medical History Surgery/Hospitalization HX: htn, iddm, svt, peripheral neuropathy, gerd, right lower lobectomy, colonoscopy, heart cath. Surgeries: Yes (RIGHT LOWER LUNG LOBECTOMY--FUNGAL INFECTION; COLONOSCOPY/EGD;CARDIAC CATH) Cardiac, Lobectomy Respiratory: Yes (RIGHT LOWER LUNG LOBECTOMY--FUNGAL INFECTION) Currently Using CPAP: No Currently Using BIPAP: No Cardiac: Yes (SVT; NORMAL CARDIAC CATH 03/2010 ) Hypertension, Irregular Heartbeat Neurological: Yes (LIKELY PERIPHERAL NEUROPATHY IN FEET/HANDS) Neuropathy Reproductive Disorders: No Genitourinary: No Gastrointestinal: Yes (GASTRIC ULCER) Ulcer Musculoskeletal: Yes (LEFT FOOT ABSCESS 2018) Endocrine: Yes Diabetes, Insulin dep HEENT: Yes (double vision-resolved at this time) Loss of Vision: Denies Hearing Impairment: Denies Cancer: No Psychosocial: No Integumentary: Yes (LEFT FOOT ABSCESS 2018) Blood Disorders: Yes (CHRONIC ANEMIA) Physical Exam Vital Signs Vital Signs - First Documented 08/09/21 20:34 Temp 36.6 Pulse 76 Resp 18 B/P (MAP) 193/101 (131) Pulse Ox 100 O2 Delivery Room Air Capillary Refill : Less Than 3 Seconds Height, Weight, BMI Height: 5'7.00" Weight: 136lbs. 7.0oz. 61.979513cg; 22.00 BMI Method:Stated General Appearance: Thin, Other (KEEPS EYES CLOSED. VOMITING/DRY HEAVING) HEENT: PERRL/EOMI, Pale Conjunctivae (L), Pale Conjunctivae (R), Other (ORAL MUCOSA DRY) Neck: Normal Inspection Respiratory: Normal Breath Sounds, No Accessory Muscle Use, No Respiratory D istress Cardiovascular: Regular Rate, Rhythm, No Edema, No JVD, No Murmur, Normal Peripheral Pulses Gastrointestinal: Non Tender, Soft Back: No CVA Tenderness Extremity: Normal Capillary Refill, Normal Inspection, No Pedal Edema Neurologic/Psychiatric: Alert, Oriented x3, No Motor/Sensory Deficits, medical fee clerk II- XII Norm as Tested Skin: Warm/Dry, Pallor (PT IS ) Progress/Results/Core Measures Suspected Sepsis SIRS Temperature: Pulse: 76 Respiratory Rate: 18 Blood Pressure 193 /101 Mean: 131 Laboratory Tests 08/09/21 20:54: INR Comment 1.0, Total Bilirubin 0.4 Results/Orders Lab Results Laboratory Tests Test 08/09/21 20:54 08/09/21 21:33 Range/Units White Blood Count 6.4 4.3-11.0 10^3/uL Red Blood Count 3.79 L 4.30-5.52 10^6/uL Hemoglobin 10.7 L 13.3-17.7 g/dL Hematocrit 34 L 40-54 % Mean Corpuscular Volume 88 80-99 fL Mean Corpuscular Hemoglobin 28 25-34 pg Mean Corpuscular Hemoglobin Concent 32 32-36 g/dL Red Cell Distribution Width 13.2 10.0-14.5 % Platelet Count 436 H 130-400 10^3/uL Mean Platelet Volume 9.8 9.0-12.2 fL Immature Granulocyte % (Auto) 0 % Neutrophils (%) (Auto) 75 42-75 % Lymphocytes (%) (Auto) 16 12-44 % Monocytes (%) (Auto) 6 0-12 % Eosinophils (%) (Auto) 2 0-10 % Basophils (%) (Auto) 1 0-10 % Neutrophils # (Auto) 4.8 1.8-7.8 10^3/uL Lymphocytes # (Auto) 1.0 1.0-4.0 10^3/uL Monocytes # (Auto) 0.4 0.0-1.0 10^3/uL Eosinophils # (Auto) 0.1 0.0-0.3 10^3/uL Basophils # (Auto) 0.1 0.0-0.1 10^3/uL Immature Granulocyte # (Auto) 0.0 0.0-0.1 10^3/uL Prothrombin Time 13.2 12.2-14.7 SEC INR Comment 1.0 0.8-1.4 Activated Partial Thromboplast Time 31 24-35 SEC Sodium Level 139 135-145 MMOL/L Potassium Level 4.0 3.6-5.0 MMOL/L Chloride Level 103 98-107 MMOL/L Carbon Dioxide Level 26 21-32 MMOL/L Anion Gap 10 5-14 MMOL/L Blood Urea Nitrogen 31 H 7-18 MG/DL Creatinine 2.38 H 0.60-1.30 MG/DL Estimat Glomerular Filtration Rate 28 BUN/Creatinine Ratio 13 Glucose Level 174 H 70-105 MG/DL Calcium Level 8.8 8.5-10.1 MG/DL Corrected Calcium 9.4 8.5-10.1 MG/DL Magnesium Level 2.2 1.6-2.4 MG/DL Total Bilirubin 0.4 0.1-1.0 MG/DL Aspartate Amino Transf (AST/SGOT) 20 5-34 U/L Alanine Aminotransferase (ALT/SGPT) 25 0-55 U/L Alkaline Phosphatase 167 H 40-136 U/L Troponin I 0.144 H <0.028 NG/ML B-Type Natriuretic Peptide 1074.9 H <100.0 PG/ML Total Protein 7.7 6.4-8.2 GM/DL Albumin 3.3 3.2-4.5 GM/DL Amylase Level 62 25-125 U/L Lipase 5 L 8-78 U/L Serum Alcohol < 10 <10 MG/DL Glucometer 159 H 70-110 MG/DL My Orders Orders - LISBETH RAYMOND DO Ed Iv/Invasive Line Start (08/09/21 20:46) Ekg Tracing (08/09/21 20:46) Monitor-Rhythm Ecg Trace Only (08/09/21 20:46) Alcohol (08/09/21 20:46) Amylase (08/09/21 20:46) Bnp [place] (08/09/21 20:46) Cbc With Automated Diff (08/09/21 20:46) Comprehensive Metabolic Panel (08/09/21 20:46) Drug Screen Stat (Urine) (08/09/21 20:46) Lipase (08/09/21 20:46) Magnesium (08/09/21 20:46) Protime With Inr (08/09/21 20:46) Partial Thromboplastin Time (08/09/21 20:46) Ua Culture If Indicated (08/09/21 20:46) Ed Iv/Invasive Line Start (08/09/21 20:46) Ondansetron Injection (Zofran Injectio (08/09/21 21:00) Pantoprazole Injection (Protonix Injecti (08/09/21 21:00) Chest 1 View, Ap/Pa Only (08/09/21 20:49) Troponin I Caitlyn (08/09/21 20:49) Hydralazine Injection (Apresoline Inject (08/09/21 21:15) Scopolamine Patch (Transderm-Scop Patch) (08/09/21 21:45) Ondansetron Injection (Zofran Injectio (08/09/21 21:45) Ct Head Wo-R/O Stroke (08/09/21 21:36) Accucheck Stat ONCE (08/09/21 21:38) Medications Given in ED Vital Signs/I&O 08/09/21 20:34 Temp 36.6 Pulse 76 Resp 18 B/P (MAP) 193/101 (131) Pulse Ox 100 O2 Delivery Room Air Capillary Refill : Less Than 3 Seconds Blood Pressure Mean: 131 Point of Care Testing Finger Stick Blood Glucose: 159 Progress Note : Progress Note GIVEN IV FLUIDS, ZOFRAN, SCOPOLAMINE PATCH, DROPERIDOL ALSO GIVEN HYDRALAZINE FOR ELEVATED BLOOD PRESSURE NO DETERIORATION IN PT'S CONDITION DURING ER STAY, STILL WITH C/O NAUSEA, AND STILL WITH DRY HEAVING ECG Initial ECG Impression Date: Aug 09, 2021 Initial ECG Impression Time: 20:47 Initial ECG Rate: 70 Initial ECG Rhythm: Normal Sinus Initial ECG Impression: Nonspecific Changes Initial ECG Comparisson: Unchanged Diagnostic Imaging Comments CXR--PER RADIOLOGIST REPORT AT 2158 FINDINGS: Stable curvilinear opacities in the right lung base suspected to represent atelectasis versus scarring. There is no interval lung infiltrate. There is blunting of the right costophrenic angle region which may represent a pleural effusion. Pulmonary vasculature and cardiac silhouette are within normal limits. There are degenerative spurs involving the spine. IMPRESSION: 1: Stable atelectasis or scarring in the right lung base region. 2: There is blunting of the right costophrenic angle region which may represent a small right pleural effusion. CT HEAD--PER RADIOLOGIST VIA PHONE AT 4 Findings: There is no evidence of acute cerebral infarct, intracranial hemorrhage, or gross mass effect. The brain parenchymal volume appears appropriate for patient's age. There is progression of patchy and confluent areas of low-attenuation white matter changes involving both cerebral hemispheres and periventricular regions, likely representing chronic small vessel ischemic disease and leukoaraiosis. 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 There is normal yin-white matter distinction. There is no significant midline shift or herniation. There is no evidence of hydrocephalus. The basal cisterns are unremarkable. The skull, extracranial soft tissue, and orbits are unremarkable. The paranasal sinuses are unremarkable. Temporal bones show no significant abnormality. IMPRESSION: There is interval progression of age-related brain parenchymal changes with no evidence of acute intracranial process. There is no dense vessel sign seen. Results of this report were discussed with Dr. Lisbeth Raymond via the telephone on 08/09/2021 at 2224 hours. Reviewed: Reviewed by Ms Departure Communication (Admissions) 2227--SPOKE WITH DR. ABRAHAM, CLINICAL SERVICES ASSISTANT, WILL SEE PT IN CONSULT. ORDERS NOTED 2232--SPOKE WITH DR. ALLEN, REHAB TECHNICIAN FOR [facility]. ACCEPTS PT FOR ADMIT. Impression Primary Impression: Malignant hypertension Additional Impressions: Elevated troponin CHF (congestive heart failure) Insulin dependent diabetes mellitus Chronic anemia INTRACTABLE VERTIGO WITH NAUSEA AND VOMITING Chronic renal insufficiency Disposition: ADMITTED INPATIENT Condition: Stable Admissions Decision to Admit Reason: Admit from ER (General) Decision to Admit/Date: Aug 09, 2021 Time/Decision to Admit Time: 22:30 Departure-Patient Inst. Referrals: [facility] [place]) Primary Care Physician ARACELI TOLBERT (Family) Primary Care Physician LISBETH RAYMOND DO Aug 09, 2021 21:52
--- NOTE | 2021-08-09 21:53 | Diagnostic Imaging Report ---
CLINICAL INDICATION: Patient with high blood pressure, feeling lightheaded with vomiting. EXAM: Portable chest x-ray upright view. COMPARISON: Chest x-ray dated 08/02/2021. FINDINGS: Stable curvilinear opacities in the right lung base suspected to represent atelectasis versus scarring. There is no interval lung infiltrate. There is blunting of the right costophrenic angle region which may represent a pleural effusion. Pulmonary vasculature and cardiac silhouette are within normal limits. There are degenerative spurs involving the spine. IMPRESSION: 1: Stable atelectasis or scarring in the right lung base region. 2: There is blunting of the right costophrenic angle region which may represent a small right pleural effusion. Dictated by: Dictated on workstation # [id number]
[2021-08-09 21:54] LABS: PROTHROMBIN TIME PATIENT 13.2 SEC (12.2-14.7)
--- NOTE | 2021-08-09 22:38 | Diagnostic Imaging Report ---
Clinical Indications: Patient with complaints of high blood pressure, feeling lightheaded and vomiting today. Exam: Axial CT scan of the brain performed without IV contrast. High-resolution axial CT brain images with sagittal and coronal reformations were also created. Auto Exposure Controls were utilized during the CT exam to meet ALARA standards for radiation dose reduction. Comparison: CT scan of the head, face, cervical spine without contrast dated 04/12/2017. Findings: There is no evidence of acute cerebral infarct, intracranial hemorrhage, or gross mass effect. The brain parenchymal volume appears appropriate for patient's age. There is progression of patchy and confluent areas of low-attenuation white matter changes involving both cerebral hemispheres and periventricular regions, likely representing chronic small vessel ischemic disease and leukoaraiosis. 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 There is normal yin-white matter distinction. There is no significant midline shift or herniation. There is no evidence of hydrocephalus. The basal cisterns are unremarkable. The skull, extracranial soft tissue, and orbits are unremarkable. The paranasal sinuses are unremarkable. Temporal bones show no significant abnormality. IMPRESSION: There is interval progression of age-related brain parenchymal changes with no evidence of acute intracranial process. There is no dense vessel sign seen. Results of this report were discussed with Dr. Lisbeth Raymond via the telephone on 08/09/2021 at 2224 hours. Dictated by: Dictated on workstation # [id number]
[2021-08-09] MEDS ORDERED: amLODIPine 10 MG (NORVASC) TAB PO ONE (22:45)
[2021-08-09] MEDS ORDERED: DROPERIDOL 5 MG/2 ML (INAPSINE) ED ONLY! IV ONE (23:00)
[2021-08-09] MEDS ORDERED: 1/2 NS IV SOLUTION 1,000 ML IV ONE (23:41)
[2021-08-09 23:48] VITALS: BP 196/92
[2021-08-10] VITALS (10 sets, daily range): BP systolic 142–193; BP diastolic 57–93
[2021-08-10] MEDS: SCOPOLAMINE 1.5 MG (TRANSDERM-SCOP) PATCH TOP SCH (00:43)
[2021-08-10] MEDS: 1/2 NS IV SOLUTION 1,000 ML IV SCH ×2 (00:44→20:02)
[2021-08-10] MEDS ORDERED: DROPERIDOL 5 MG/2 ML (INAPSINE) ED ONLY! IV PRN (00:45)
[2021-08-10] MEDS: ONDANSETRON 4 MG/2 ML (SDV) Z0FRAN IVP PRN ×2 (00:48→09:02)
[2021-08-10 06:23] LABS: BASOPHILS % (AUTO) 0 % (0-10); EOSINOPHILS % (AUTO) 0 % (0-10); HEMATOCRIT 30 % (40-54); HEMOGLOBIN 9.9 g/dL (13.3-17.7); LYMPHOCYTES # (AUTO) 0.9 10^3/uL (1.0-4.0); LYMPHOCYTES % (AUTO) 11 % (12-44); MEAN CORPUSCULAR HEMOGLOBIN 28 pg (25-34); MEAN CORPUSCULAR HGB CONC 33 g/dL (32-36); MEAN CORPUSCULAR VOLUME 87 fL (80-99); MEAN PLATELET VOLUME 10.4 fL (9.0-12.2); MONOCYTES # (AUTO) 0.2 10^3/uL (0.0-1.0); MONOCYTES % (AUTO) 2 % (0-12); NEUTROPHILS # (AUTO) 7.6 10^3/uL (1.8-7.8); NEUTROPHILS % (AUTO) 87 % (42-75); PLATELET COUNT 479 10^3/uL (130-400); WHITE BLOOD COUNT 8.8 10^3/uL (4.3-11.0)
[2021-08-10 06:38] LABS: POTASSIUM 4.1 MMOL/L (3.6-5.0)
[2021-08-10 06:39] LABS: CALCIUM 8.6 MG/DL (8.5-10.1)
[2021-08-10 06:44] LABS: CREATININE SERUM 2.57 MG/DL (0.60-1.30)
[2021-08-10] MEDS ORDERED: FUROSEMIDE 20 MG (LASIX) TAB PO SCH (07:00)
[2021-08-10 07:14] LABS: BAND NEUTROPHILS 0 %; BASOPHILS % (MANUAL) 0 %; EOSINOPHILS % (MANUAL) 0 %; LYMPHOCYTES % (MANUAL) 9 %; MONOCYTES % (MANUAL) 1 %; NEUTROPHILS % (MANUAL) 88 %; RBC MORPH NORMAL; REACTIVE LYMPHOCYTES 2 %
[2021-08-10] MEDS: amLODIPine 10 MG (NORVASC) TAB PO SCH (08:45)
[2021-08-10] MEDS: LOSARTAN 100 MG (COZAAR) TABLET PO SCH (08:45)
[2021-08-10] MEDS: PANTOPRAZOLE 40 MG (PROTONIX) VIAL IV SCH (08:45)
[2021-08-10] MEDS: FUROSEMIDE 20 MG (LASIX) TAB PO SCH ×2 (08:46→08:50)
[2021-08-10] MEDS: inSUlin ASPART (NovoLOG) 1 UNIT/0.01 ML (CHARGE PER UNIT) SC SCH ×3 (10:18→20:58)
--- NOTE | 2021-08-10 10:34 | History & Physical ---
HPI History of Present Illness: Son rosy. Pt came to the ER due to elevated blood pressure and vomiting. They thought he might have blood in his vomit. Yesterday his blood pressure was high, his home machine indicated it was high. He reports it has been anywhere 160 to high up until yesterday. Yesterday he started feeling nauseated and dizzy , he states he still feels like he is off balance if he gets up, but he hasn't been out of bed since getting here. He feels lightheaded when he sits up in bed, feels like he can't get up. Denies headache, chest pain. He has had nausea with the vomiting. Denies diarrhea or abdominal pain. Denies pain with urination. Admits decreased urination, feels like he needs to go but can't go as much since yesterday. States he is taking medications as prescribed, he is on losartan and HCTZ for blood pressure. He was on metoprolol but he stopped last week due to feeling so fatigued and weak that he couldn't walk up the stairs, and that did improve with stopping it. He reports being told to stop the amlodipine that was started in July and stay on the HCTZ and losartan. Son thinks that was due to being told that the losartan was better for the kidneys than the amlodipine. He takes lasix as needed which he states ends up being about every other day. Reviewed last clinic note from 08/06/21 which actually notes to restart amlodipine 10 mg daily, and they did not restart metoprolol even though BP was high due to low heart rates at home. Source: patient, family Exam Limitations: language barrier Date seen by provider: Aug 10, 2021 Time Seen by Provider: 10:33 Attending Physician Amy Soares MD [facility] [place] Consult Date of Admission Aug 09, 2021 at 22:33 Home Medications Home Medications Reviewed patient Home Medication Reconciliation performed by pharmacy medication reconciliations cable television technician and/or nursing. Patients Allergies have been reviewed. Allergies Coded Allergies: NKANo Known Allergies (Verified Allergy, Unknown, 01/30/07) DPU-Gmzjjt-Dvpbvm Hx Patient Social History 2nd Hand Smoke Exposure: No Recent Hopitalizations: No Alcohol Use?: No Have you traveled recently?: No Immunizations Up To Date Tetanus Booster (TDap): Unknown Influenza Vaccine Up-to-Date: Yes; Up-to-Date (05/10/21) First/Initial COVID19 Vaccinat: 10/29/2020 COVID19 Vaccine Outside Medical Sales Representative: Wilmer Past Medical History PMHx: DMII HTN CKD CAD SurgHx: Partial lung resection on right, fungal infection I&D of foot for diabetic foot wound/injury with screw in bottom of foot Review of Systems ([facility]) Constitutional: other (febrile illness about a month ago that resolved) EENTM: throat pain (mild); No nose congestion Respiratory: No cough, No short of breath Cardiovascular: No chest pain Gastrointestinal: see HPI; No abdominal pain Genitourinary: see HPI Musculoskeletal: No joint pain, No muscle pain Skin: No rash Reviewed Test Results Reviewed Test Results Lab Laboratory Tests Test 08/09/21 20:54 08/09/21 21:33 08/10/21 06:08 08/10/21 10:05 Range/Units White Blood Count 6.4 8.8 4.3-11.0 10^3/uL Red Blood Count 3.79 L 3.48 L 4.30-5.52 10^6/uL Hemoglobin 10.7 L 9.9 L 13.3-17.7 g/dL Hematocrit 34 L 30 L 40-54 % Mean Corpuscular Volume 88 87 80-99 fL Mean Corpuscular Hemoglobin 28 28 25-34 pg Mean Corpuscular Hemoglobin Concent 32 33 32-36 g/dL Red Cell Distribution Width 13.2 13.2 10.0-14.5 % Platelet Count 436 H 479 H 130-400 10^3/uL Mean Platelet Volume 9.8 10.4 9.0-12.2 fL Immature Granulocyte % (Auto) 0 0 % Neutrophils (%) (Auto) 75 87 H 42-75 % Lymphocytes (%) (Auto) 16 11 L 12-44 % Monocytes (%) (Auto) 6 2 0-12 % Eosinophils (%) (Auto) 2 0 0-10 % Basophils (%) (Auto) 1 0 0-10 % Neutrophils # (Auto) 4.8 7.6 1.8-7.8 10^3/uL Lymphocytes # (Auto) 1.0 0.9 L 1.0-4.0 10^3/uL Monocytes # (Auto) 0.4 0.2 0.0-1.0 10^3/uL Eosinophils # (Auto) 0.1 0.0 0.0-0.3 10^3/uL Basophils # (Auto) 0.1 0.0 0.0-0.1 10^3/uL Immature Granulocyte # (Auto) 0.0 0.0 0.0-0.1 10^3/uL Prothrombin Time 13.2 12.2-14.7 SEC INR Comment 1.0 0.8-1.4 Activated Partial Thromboplast Time 31 24-35 SEC Sodium Level 139 136 135-145 MMOL/L Potassium Level 4.0 4.1 3.6-5.0 MMOL/L Chloride Level 103 102 98-107 MMOL/L Carbon Dioxide Level 26 21 21-32 MMOL/L Anion Gap 10 13 5-14 MMOL/L Blood Urea Nitrogen 31 H 35 H 7-18 MG/DL Creatinine 2.38 H 2.57 H 0.60-1.30 MG/DL Estimat Glomerular Filtration Rate 28 25 BUN/Creatinine Ratio 13 14 Glucose Level 174 H 327 H 70-105 MG/DL Calcium Level 8.8 8.6 8.5-10.1 MG/DL Corrected Calcium 9.4 8.5-10.1 MG/DL Magnesium Level 2.2 1.6-2.4 MG/DL Total Bilirubin 0.4 0.1-1.0 MG/DL Aspartate Amino Transf (AST/SGOT) 20 5-34 U/L Alanine Aminotransferase (ALT/SGPT) 25 0-55 U/L Alkaline Phosphatase 167 H 40-136 U/L Troponin I 0.144 H 0.135 H <0.028 NG/ML B-Type Natriuretic Peptide 1074.9 H <100.0 PG/ML Total Protein 7.7 6.4-8.2 GM/DL Albumin 3.3 3.2-4.5 GM/DL Amylase Level 62 25-125 U/L Lipase 5 L 8-78 U/L Serum Alcohol < 10 <10 MG/DL Glucometer 159 H 352 H 70-110 MG/DL Neutrophils % (Manual) 88 % Lymphocytes % (Manual) 9 % Monocytes % (Manual) 1 % Eosinophils % (Manual) 0 % Basophils % (Manual) 0 % Band Neutrophils 0 % Reactive Lymphocytes 2 % Blood Morphology Comment NORMAL Total Creatine Kinase 56 30-200 U/L Creatine Kinase MB 4.0 <6.6 NG/ML Radiology CXR 08/09/21: IMPRESSION: 1: Stable atelectasis or scarring in the right lung base region. 2: There is blunting of the right costophrenic angle region which may represent a small right pleural effusion. CT head 08/09/21: IMPRESSION: There is interval progression of age-related brain parenchymal changes with no evidence of acute intracranial process. There is no dense vessel sign seen. Physical Exam-([facility]) Physical Exam Vital Signs VS - Last 72 Hours, by Label 08/09/21 08/09/21 08/09/21 08/09/21 20:34 23:06 23:44 23:48 Temp 36.6 36.7 36.3 Pulse 76 104 102 104 Resp 18 18 18 B/P (MAP) 193/101 (131) 192/82 196/92 (126) Pulse Ox 100 99 100 O2 Delivery Room Air Room Air Room Air 08/10/21 08/10/21 08/10/21 08/10/21 00:00 00:03 01:00 01:00 Pulse 107 105 105 Resp 34 13 B/P (MAP) 193/93 (126) 155/65 (101) Pulse Ox 100 100 99 O2 Delivery Room Air Room Air Room Air 08/10/21 08/10/21 08/10/21 08/10/21 02:00 03:00 03:52 07:00 Temp 36.8 Pulse 101 101 98 101 Resp 12 15 B/P (MAP) 155/73 (101) 151/77 (98) 156/67 (96) Pulse Ox 99 98 99 O2 Delivery Room Air Room Air Room Air 08/10/21 08/10/21 08/10/21 08/10/21 08:00 08:00 12:00 13:00 Temp 37.4 36.7 Pulse 105 96 94 Resp 16 16 B/P (MAP) 157/75 (102) 146/57 (86) Pulse Ox 98 99 99 O2 Delivery Room Air Room Air Room Air 08/10/21 08/10/21 08/10/21 08/10/21 14:00 14:30 15:00 16:00 Pulse 96 96 93 93 Resp 16 16 16 14 B/P (MAP) 156/71 (99) Pulse Ox 99 100 100 98 O2 Delivery Room Air Room Air Room Air Room Air Capillary Refill : Less Than 3 Seconds General Appearance: WD/WN, no apparent distress Eyes: Bilateral Eye PERRL, Bilateral Eye EOMI HEENT: pharynx normal; No pharyngeal erythema, No tonsillar exudate Respiratory: lungs clear, normal breath sounds Cardiovascular: regular rate, rhythm, no edema, no murmur Gastrointestinal: normal bowel sounds, non tender, soft Extremities: no pedal edema Neurologic/Psychiatric: supervisor cook room II-XII nml as tested, alert, normal mood/affect, other (normal finger to nose testing, unable to stand to feet due to dizziness/off balance) Skin: normal color, warm/dry Assessment/Plan Assessment/Plan Admission Status: Inpatient Order (span 2 midnights) Reason for Inpatient Admission: Hypertensive urgency with elevated troponin (1) Kidney insufficiency Status: Acute Assessment & Plan: Since July 2021, creatinine above 2, but most recent value prior was 08/2019 and was 1.18 at that time, and the year before normal. Suspect CKD, but with only one month of abnormal, is not yet clear his baseline. Renal dose medications, monitor. (2) Dizziness Status: Acute Assessment & Plan: Uncertain exact etiology, consider cerebellar problem, will check carotid US, consider MRI. (3) Hypertensive emergency Status: Acute Assessment & Plan: Improved with amlodipine which he was to have been on outpatient. Appreciate Cardiology recommendations. (4) Elevated troponin Status: Acute Assessment & Plan: Cardiology consulted, suspect type II HI, stress test pending. (5) Insulin dependent diabetes mellitus Status: Chronic Assessment & Plan: Resume home insulin (6) Anemia Status: Chronic Assessment & Plan: Normocytic anemia which has been noted for many years on prior labs, ferritin normal and TIBC high in 2019 suggesting anemia of chornic disease. Qualifiers: Qualified Codes: D63.8 - Anemia in other chronic diseases classified elsewhere (7) Cerebellar infarct Status: Chronic Assessment & Plan: Stable chronic finding on CT of left cerebellum. Continue aspirin. (8) Elevated brain natriuretic peptide (BNP) level Status: Acute (9) Mixed hyperlipidemia (10) DVT prophylaxis Status: Acute Assessment & Plan: Enoxaparin Clinical Quality Measures AMI/AHF: ASA po Prior to arrival: AMY Melton MD Aug 10, 2021 10:34
[2021-08-10 14:00] LABS: OCCULT BLOOD,GASTRIC FLUID NEGATIVE (NEGATIVE)
[2021-08-10] MEDS ORDERED: LOSA100T57 PO (16:12)
[2021-08-10] MEDS ORDERED: INSU100I14 SQ (16:12)
[2021-08-10] MEDS ORDERED: ASPI-1238 PO (16:12)
[2021-08-10] MEDS ORDERED: INSU100I29 SQ (16:13)
--- NOTE | 2021-08-10 16:40 | Diagnostic Imaging Report ---
PROCEDURE: US carotid duplex, bilateral. TECHNIQUE: Multiple real-time grayscale images were obtained over the carotid arteries in various projections, bilaterally. Additional spectral analysis and color Doppler duplex images were also obtained. INDICATION: Dizziness and hypertension. COMPARISON: None available. FINDINGS: Right carotid circulation: There is mild plaque formation in the right carotid bifurcation. Based on grayscale images and flow velocity criteria, there is mild stenoses (<50%) of the right internal carotid artery. Left carotid circulation: There is moderate plaque formation in the left carotid bifurcation. Based on grayscale images and flow velocity criteria, there is moderate stenoses (50-69%) of the left internal carotid artery. Flow in the bilateral vertebral arteries is antegrade. IMPRESSION: 1. Mild (<50%) stenosis of the right internal carotid artery. 2. Moderate (50-69%) stenosis of the left internal carotid artery. Society of Radiologist in Ultrasound Consensus: Normal: ICA PSV is <125 cm/sec and no plaque or intimal thickening is visible sonographically ICA/CCA PSV ratio <2.0 ICA EDV <40 cm/sec Mild (<50% ICA stenosis): ICA PSV is <125 cm/sec and plaque or intimal thickening is visible sonographically ICA/CCA PSV ratio <2.0 ICA EDV <40 cm/sec Moderate (50-69% ICA stenosis) ICA PSV is 125-230 cm/sec and plaque is visible sonographically ICA/CCA PSV ratio of 2.0-4.0 ICA EDV of 40-100 cm/sec Severe (?70% ICA stenosis but less than near occlusion): ICA PSV is >230 cm/sec and visible plaque and luminal narrowing are seen at abbott-scale and color Doppler ultrasound (the higher the Doppler parameters lie above the threshold of 230 cm/sec, the greater the likelihood of severe disease) ICA/CCA PSV ratio >4 ICA EDV >100 cm/sec Near occlusion of the ICA Velocity parameters may not apply, since velocities may be high, low, or undetectable Markedly narrowed lumen at color or power Doppler ultrasound Total occlusion of the ICA: No detectable patent lumen at babott-scale ultrasound and no flow with spectral, power, and color Doppler ultrasound May be compensatory increased velocity in the contralateral carotid Parameters based on the consensus panel Abbott-Scale and Doppler ultrasound criteria published June 2003, Radiology, Volume 229. DOPPLER (peak systolic velocity M/S Right Left CCA 1.26 1.56 ICA Proximal .93 1.46 ICA Mid .98 1.54 ICA Distal .75 1.47 RATIO .78 .99 ECA 1.59 2.50 VERT .73 N/A Dictated by: Dictated on workstation # [id number]
[2021-08-10] MEDS ORDERED: REGADENOSON 0.4 MG/5 ML SYR (LEXISCAN) IV ONE (17:00)
--- NOTE | 2021-08-10 17:05 | Consultation-Cardiology ---
HPI-Cardiology Cardiology Consultation: Date of Consultation 08/10/2021 Date of Admission 08/09/2021 Attending Physician Idalia Soares MD Admitting Physician [place], [facility] Consulting Physician JACKSON ABRAHAM JR, MD HPI: Time Seen by a Provider: 17:00 Chief Complaint: Reason for consultation: Elevated troponin and hypertensive urgency. I had the pleasure of seeing Papi on the cardiac stepdown unit at [facility] in [place], [place] this afternoon. He has a history of poorly controlled hypertension. He was actually here in the hospital in July 2021 due to the same. Yesterday he had been checking his blood pressure because he was feeling dizzy. His blood pressure machine just read "high" because his blood pressure was out of range. Later in the day he started having nausea and vomiting. He became concerned and came to the hospital for further evaluation. He was found to have a markedly elevated blood pressure while he was in the emergency room. He also had an elevated troponin and BNP level and he was admitted for further treatment. Last evening I spoke with the emergency room physician and had him give the patient amlodipine 10 mg. The patient received another dose this morning. He denies any headache. He denies chest discomfort, dyspnea, paroxysmal nocturnal dyspnea, orthopnea, palpitations, lightheadedness, syncope, or ankle edema. His main complaint before the vomiting was just dizziness. Today he still feels somewhat dizzy and unsteady on his feet. Because of the hypertension and abnormal troponin level, a cardiology consultation was requested. Certain portions of this document may have been dictated utilizing voice recognition technology. Inherent to this technology, typographical and grammatical errors may exist. As much as I am diligent to identify and correct these mistakes, some errors may remain in the document. Review of Systems-Cardiology Review of Systems Other comments Review of 10 organ systems is as per the history of present illness, otherwise negative. FXZ-Icrbyn-Donwun Hx Patient Social History 2nd Hand Smoke Exposure: No Have you traveled recently?: No Alcohol Use?: No Pt feels they are or have been: No Immunizations Up To Date Tetanus Booster (TDap): Unknown Date of Influenza Vaccine: May 07, 2022 Past Medical History PMH As described under Assessment. Family Medical History Family Medical History: Does not report h/o CAD or SCD in first degree relatives Allergies and Home Medications Allergies Coded Allergies: NKANo Known Allergies (Verified Allergy, Unknown, 01/30/07) Patient Home Medication List Home Medication List Reviewed: Yes Aspirin (Aspirin EC) 81 Mg Tablet.dr, 81 MG PO DAILY, (Reported) Entered as Reported by: MARGARITA MG on 08/10/211611 Last Action: Reviewed Furosemide (Furosemide) 20 Mg Tablet, 20 MG PO DAILY PRN for FLUID RETENTION, (Reported) Entered as Reported by: SANGEETA PURVIS on 08/09/212038 Last Action: Reviewed Hydrochlorothiazide (Hydrochlorothiazide) 25 Mg Tablet, 25 MG PO DAILY, (Reported) Entered as Reported by: SANGEETA PURVIS on 08/09/212038 Last Action: Reviewed Insulin Aspart (Novolog Flexpen) 300 Units/3 Ml Solution, 8 UNITS SQ AC, (Reported) Entered as Reported by: MARGARITA MG on 08/10/211611 Last Action: Reviewed Insulin Detemir (Levemir Flextouch) 100 Unit/1 Ml Insuln.pen, 8 UNIT SQ BID, (Reported) Entered as Reported by: MARGARITA MG on 08/10/211612 Last Action: Reviewed Losartan Potassium (Losartan Potassium) 100 Mg Tablet, 100 MG PO DAILY, (Reported) Entered as Reported by: MARGARITA MG on 08/10/211611 Last Action: Reviewed Discontinued Medications Amlodipine Besylate (Amlodipine Besylate) 10 Mg Tablet, 10 MG PO DAILY Discontinued Reason: No Longer Taking Prescribed by: AGUSTIN DELGADO on 07/11/211228 Last Action: Discontinued Aspirin (Aspirin EC) 81 Mg Tablet., 81 MG PO DAILY Discontinued Reason: Duplicate Order Prescribed by: AGUSTIN DELGADO on 07/11/211228 Last Action: Discontinued Hydrocodone Bit/Acetaminophen (HYDROcodone/APAP 5 MG/325 MG TAB) 1 Tab Tab, 1 EA PO Q4H PRN for PAIN-MODERATE (5-7) Discontinued Reason: No Longer Taking Prescribed by: AGUSTIN DELGADO on 07/11/21 1309 Last Action: Discontinued Insulin Aspart (Novolog Flexpen) 300 Units/3 Ml Solution, 3 UNITS SQ AC Discontinued Reason: Duplicate Order Prescribed by: AGUSTIN DELGADO on 07/11/211228 Last Action: Discontinued Insulin Detemir (Levemir Flextouch) 100 Unit/1 Ml Insuln.pen, 20 UNITS SC BID Discontinued Reason: Duplicate Order Prescribed by: AGUSTIN DELGADO on 07/11/211228 Last Action: Discontinued Metoprolol Succinate (Metoprolol Succinate) 100 Mg Tab.er.24h, 200 MG PO DAILY Discontinued Reason: No Longer Taking Prescribed by: AGUSTIN DELGADO on 07/11/211228 Last Action: Discontinued Pen Needle, Diabetic (Easy Comfort Pen Needle) 1 Each Dis.needle, EACH MC ACHS, (DME) Discontinued Reason: No Longer Taking Prescribed by: AGUSTIN DELGADO on 07/11/211228 Last Action: Discontinued [gabapentin] , (Reported) Discontinued Reason: No Longer Taking Entered as Reported by: SANGEETA PURVIS on 08/09/212038 Last Action: Discontinued Exam Vital Signs Vital Signs Date Time Temp Pulse Resp B/P (MAP) Pulse Ox O2 Delivery O2 Flow Rate FiO2 08/10/21 16:00 93 14 156/71 (99) 98 Room Air 08/10/21 12:00 36.7 Physical Exam General: Alert. No acute distress. Well nourished and appears stated age. Eye: Extraocular movements are intact. Conjunctivae are clear. There are no xanthelasma. HENT: Normocephalic. Atraumatic. Carotid pulsations 2/2 without bruits. Neck: Jugular venous pressure does not appear elevated. No thyromegaly appreciated. Respiratory: Lungs are clear to auscultation. Respirations are non-labored. Breath sounds are equal. Symmetrical chest wall expansion. Cardiovascular: Normal rate. Regular rhythm. No murmur. No gallop. Point of maximal impulse is not appear displaced. Good pulses equal in all extremities. No edema. Gastrointestinal: Soft. Normal bowel sounds. Skin: Skin turgor is normal. There is no pallor. Musculoskeletal: No kyphosis or scoliosis appreciated. Neurologic: Alert and oriented to person, place, time. Cranial nerves 3-12 appear grossly intact. The patient has good motor tone strength in the upper and lower extremities bilaterally. Psychiatric: Cooperative. Appropriate mood & affect. Labs Laboratory Tests Test 08/09/21 20:54 08/09/21 21:33 08/10/21 06:08 08/10/21 10:05 Range/Units White Blood Count 6.4 8.8 4.3-11.0 10^3/uL Red Blood Count 3.79 L 3.48 L 4.30-5.52 10^6/uL Hemoglobin 10.7 L 9.9 L 13.3-17.7 g/dL Hematocrit 34 L 30 L 40-54 % Mean Corpuscular Volume 88 87 80-99 fL Mean Corpuscular Hemoglobin 28 28 25-34 pg Mean Corpuscular Hemoglobin Concent 32 33 32-36 g/dL Red Cell Distribution Width 13.2 13.2 10.0-14.5 % Platelet Count 436 H 479 H 130-400 10^3/uL Mean Platelet Volume 9.8 10.4 9.0-12.2 fL Immature Granulocyte % (Auto) 0 0 % Neutrophils (%) (Auto) 75 87 H 42-75 % Lymphocytes (%) (Auto) 16 11 L 12-44 % Monocytes (%) (Auto) 6 2 0-12 % Eosinophils (%) (Auto) 2 0 0-10 % Basophils (%) (Auto) 1 0 0-10 % Neutrophils # (Auto) 4.8 7.6 1.8-7.8 10^3/uL Lymphocytes # (Auto) 1.0 0.9 L 1.0-4.0 10^3/uL Monocytes # (Auto) 0.4 0.2 0.0-1.0 10^3/uL Eosinophils # (Auto) 0.1 0.0 0.0-0.3 10^3/uL Basophils # (Auto) 0.1 0.0 0.0-0.1 10^3/uL Immature Granulocyte # (Auto) 0.0 0.0 0.0-0.1 10^3/uL Prothrombin Time 13.2 12.2-14.7 SEC INR Comment 1.0 0.8-1.4 Activated Partial Thromboplast Time 31 24-35 SEC Sodium Level 139 136 135-145 MMOL/L Potassium Level 4.0 4.1 3.6-5.0 MMOL/L Chloride Level 103 102 98-107 MMOL/L Carbon Dioxide Level 26 21 21-32 MMOL/L Anion Gap 10 13 5-14 MMOL/L Blood Urea Nitrogen 31 H 35 H 7-18 MG/DL Creatinine 2.38 H 2.57 H 0.60-1.30 MG/DL Estimat Glomerular Filtration Rate 28 25 BUN/Creatinine Ratio 13 14 Glucose Level 174 H 327 H 70-105 MG/DL Calcium Level 8.8 8.6 8.5-10.1 MG/DL Corrected Calcium 9.4 8.5-10.1 MG/DL Magnesium Level 2.2 1.6-2.4 MG/DL Total Bilirubin 0.4 0.1-1.0 MG/DL Aspartate Amino Transf (AST/SGOT) 20 5-34 U/L Alanine Aminotransferase (ALT/SGPT) 25 0-55 U/L Alkaline Phosphatase 167 H 40-136 U/L Troponin I 0.144 H 0.135 H <0.028 NG/ML B-Type Natriuretic Peptide 1074.9 H <100.0 PG/ML Total Protein 7.7 6.4-8.2 GM/DL Albumin 3.3 3.2-4.5 GM/DL Amylase Level 62 25-125 U/L Lipase 5 L 8-78 U/L Serum Alcohol < 10 <10 MG/DL Glucometer 159 H 352 H 70-110 MG/DL Neutrophils % (Manual) 88 % Lymphocytes % (Manual) 9 % Monocytes % (Manual) 1 % Eosinophils % (Manual) 0 % Basophils % (Manual) 0 % Band Neutrophils 0 % Reactive Lymphocytes 2 % Blood Morphology Comment NORMAL Total Creatine Kinase 56 30-200 U/L Creatine Kinase MB 4.0 <6.6 NG/ML Test 08/10/21 13:25 08/10/21 15:31 Range/Units Gastric Fluid Occult Blood NEGATIVE NEGATIVE Glucometer 327 H 70-110 MG/DL Radiology Electrocardiogram from this morning shows sinus rhythm with possible old a nteroseptal myocardial infarction. Diagnosis/Problems Diagnosis/Problems (1) Hypertensive emergency Assessment & Plan: His blood pressure seems to be improving with resumption of his losartan and the addition of losartan. Given his chronic kidney disease, I would recommend that we do not resume the hydrochlorothiazide. (2) Elevated troponin Status: Acute Assessment & Plan: He has a borderline abnormal troponin level. This is in the setting of a hypertensive emergency. This may represent a type II non-ST elevation myocardial infarction due to supply/demand mismatch. However, given his abnormal electrocardiogram, I recommend further evaluation with a nuclear stress test. I recommend he start taking aspirin 81 mg daily for primary prevention. He has been instructed to take this during a previous admission but may have stopped the medication. (3) Abnormal electrocardiogram Assessment & Plan: As above, his electrocardiogram shows possible old anteroseptal myocardial infarction. In light of the abnormal troponin levels, I recommend a nuclear stress test. (4) Mixed hyperlipidemia Assessment & Plan: He is diabetic and his LDL level is above 100. I recommend he start low-dose statin medication which I have taken the liberty of ordering. (5) Stage 4 chronic kidney disease Assessment & Plan: We will need to watch his renal function closely and avoid any nephrotoxic medications. As above, I recommend we stop his hydrochlorothiazide. JACKSON ABRAHAM JR, MD Aug 10, 2021 17:05
[2021-08-10 19:57] LABS: BILIRUBIN,URINE NEGATIVE (NEGATIVE); CLARITY,URINE CLEAR; COLOR,URINE YELLOW; GLUCOSE, URINE (UA) 1+ (NEGATIVE); KETONES,URINE NEGATIVE (NEGATIVE); LEUKOCYTE ESTERASE ,URINE NEGATIVE (NEGATIVE); NITRITE,URINE NEGATIVE (NEGATIVE); PROTEIN,URINE 2+ (NEGATIVE)
[2021-08-10] MEDS ORDERED: ENOXAPARIN 40 MG/0.4 ML (LOVENOX) SYR SQ SCH (20:00)
[2021-08-10 20:05] LABS: AMORPHOUS SEDIMENT,UR RARE AMOR URATES /LPF; BACTERIA,URINE TRACE /HPF; RBC,URINE 0-2 /HPF; WBC,URINE 0-2 /HPF
[2021-08-10 20:10] LABS: AMPHETAMINE SCREEN, URINE NEGATIVE (NEGATIVE); BARBITURATE SCREEN URINE NEGATIVE (NEGATIVE); BENZODIAZEPINES SCREEN URINE NEGATIVE (NEGATIVE); CANNABINOID SCREEN, URINE NEGATIVE (NEGATIVE); COCAINE SCREEN URINE NEGATIVE (NEGATIVE); METHADONE STAT NEGATIVE (NEGATIVE); METHAMPHETAMINE SCREEN URINE S NEGATIVE (NEGATIVE); OPIATE SCREEN URINE NEGATIVE (NEGATIVE); OXYCODONE STAT NEGATIVE (NEGATIVE); PROPOXYPHENE STAT NEGATIVE (NEGATIVE); TRICYCLIC ANTIDEPRESSANTS SCRE NEGATIVE (NEGATIVE)
[2021-08-10] MEDS: ROSUVASTATIN 10 MG (CRESTOR) TABLET PO SCH (20:48)
[2021-08-10] MEDS ORDERED: INSULIN DETEMIR 8 UNIT SQ SCH (21:00)
[2021-08-10] MEDS: ENOXAPARIN 30 MG/0.3 ML (LOVENOX) SYR SQ SCH (22:49)
[2021-08-11] VITALS (7 sets, daily range): BP systolic 139–185; BP diastolic 65–88
[2021-08-11 05:06] LABS: HEMATOCRIT 30 % (40-54); HEMOGLOBIN 9.9 g/dL (13.3-17.7); MEAN CORPUSCULAR HEMOGLOBIN 28 pg (25-34); MEAN CORPUSCULAR HGB CONC 33 g/dL (32-36); MEAN CORPUSCULAR VOLUME 86 fL (80-99); MEAN PLATELET VOLUME 10.7 fL (9.0-12.2); PLATELET COUNT 467 10^3/uL (130-400); WHITE BLOOD COUNT 10.5 10^3/uL (4.3-11.0)
[2021-08-11 05:23] LABS: POTASSIUM 3.5 MMOL/L (3.6-5.0)
[2021-08-11 05:24] LABS: CALCIUM 8.3 MG/DL (8.5-10.1)
[2021-08-11] MEDS: inSUlin ASPART (NovoLOG) 1 UNIT/0.01 ML (CHARGE PER UNIT) SC SCH ×8 (05:30→21:18)
[2021-08-11] MEDS ORDERED: NON-FORMULARY MEDICATION 1 EA EA (Insulin Aspart (Novolog Flexpen) 8 UNITS) SQ SCH (07:00)
[2021-08-11] MEDS ORDERED: CATHETER FLUSH 10 ML SYR IV PRN (07:15)
[2021-08-11] MEDS ORDERED: REGADENOSON 0.4 MG/5 ML SYR (LEXISCAN) IV ONE (08:10)
--- NOTE | 2021-08-11 08:33 | Cardiology Progress Note ---
Progress Note-Cardiology Events since last exam Date Seen by Provider: Aug 11, 2021 Time Seen by Provider: 08:30 Events since last exam I am seeing him due to hypertensive emergency and elevated troponin. His nausea and vomiting have resolved. He denies chest pain, dyspnea, palpitations, syncope, or ankle edema. Today he feels very weak. He thinks this is because his blood sugar is low even though it was 109. Certain portions of this document may have been dictated utilizing voice recognition technology. Inherent to this technology, typographical and grammatical errors may exist. As much as I am diligent to identify and correct these mistakes, some errors may remain in the document. Vitals Last set of Vitals Signs Vital Signs 08/11/21 08/11/21 08:00 08:23 Temp 37.0 Pulse 77 Resp 18 B/P (MAP) 185/77 (113) Pulse Ox 98 O2 Delivery Room Air Labs Labs Laboratory Tests 08/11/21 04:30 Exam Vital Signs Vital Signs Date Time Temp Pulse Resp B/P (MAP) Pulse Ox O2 Delivery O2 Flow Rate FiO2 08/11/21 08:23 77 185/77 (113) 08/11/21 08:00 98 Room Air 08/11/21 08:00 37.0 18 Physical Exam General: Alert. No acute distress. Eye: No xanthelasma. HENT: Normocephalic. Neck: Jugular venous pressure does not appear elevated. Respiratory: Lungs are clear to auscultation. Respirations are non-labored. Breath sounds are equal. Symmetrical chest wall expansion. Cardiovascular: Normal rate. Regular rhythm. No murmur. No gallop. No edema. Gastrointestinal: Soft. Normal bowel sounds. Skin: Warm. Dry. Neurologic: Alert and oriented to person, place, time. Cranial nerves 3-11 grossly intact. Psychiatric: Cooperative. Appropriate mood & affect. Labs Laboratory Tests Test 08/10/21 13:25 08/10/21 15:31 08/10/21 20:30 08/11/21 04:30 Range/Units Gastric Fluid Occult Blood NEGATIVE NEGATIVE Glucometer 327 H 427 *H 70-110 MG/DL White Blood Count 10.5 4.3-11.0 10^3/uL Red Blood Count 3.48 L 4.30-5.52 10^6/uL Hemoglobin 9.9 L 13.3-17.7 g/dL Hematocrit 30 L 40-54 % Mean Corpuscular Volume 86 80-99 fL Mean Corpuscular Hemoglobin 28 25-34 pg Mean Corpuscular Hemoglobin Concent 33 32-36 g/dL Red Cell Distribution Width 13.2 10.0-14.5 % Platelet Count 467 H 130-400 10^3/uL Mean Platelet Volume 10.7 9.0-12.2 fL Sodium Level 136 135-145 MMOL/L Potassium Level 3.5 L 3.6-5.0 MMOL/L Chloride Level 103 98-107 MMOL/L Carbon Dioxide Level 24 21-32 MMOL/L Anion Gap 9 5-14 MMOL/L Blood Urea Nitrogen 43 H 7-18 MG/DL Creatinine 3.00 #H 0.60-1.30 MG/DL Estimat Glomerular Filtration Rate 21 BUN/Creatinine Ratio 14 Glucose Level 111 H 70-105 MG/DL Calcium Level 8.3 L 8.5-10.1 MG/DL Test 08/11/21 07:26 08/11/21 10:39 Range/Units Glucometer 109 287 H 70-110 MG/DL Radiology REGADENOSON NUCLEAR STRESS TEST (08/11/2021): 1. Normal heart rate and blood pressure response to regadenoson with resting hypertension. 2. There was no chest discomfort, arrhythmias, or electrocardiogram changes during the test. 3. There was normal myocardial perfusion in all segments without evidence of infarction or ischemia. 4. There was normal wall motion in all segments with a calculated ejection fraction of 57%. Diagnosis/Problems Diagnosis/Problems (1) Hypertensive emergency Status: Acute Assessment & Plan: His blood pressure seems to be improving with resumption of his losartan and the addition of amlodipine. Given his chronic kidney disease, I stopped his hydrochlorothiazide. He was prescribed beta-john in the past but did not want to take this medication because he thought it would make him short of breath. (2) Elevated troponin Status: Acute Assessment & Plan: He had a borderline abnormal troponin level. This is in the setting of a hypertensive emergency. This may represent a type II non-ST elevati on myocardial infarction due to supply/demand mismatch. However, given his abnormal electrocardiogram, I had him undergo a nuclear stress test this morning. I recommend he continue on low strength aspirin. His nuclear stress test was normal other than being hypertensive. From a cardiac standpoint, the patient can be discharged home. 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 (3) Abnormal electrocardiogram Assessment & Plan: As above, his initial electrocardiogram shows possible old anteroseptal myocardial infarction. His follow-up electrocardiogram showed nonspecific T wave inversion. In light of the abnormal troponin levels, I had him undergo a nuclear stress test which was normal as outlined above. I suspect the initial electrocardiogram showing poor R wave progression may have been due to lead placement and the nonspecific T wave inversion is likely due to left ventricular hypertrophy. No additional cardiac testing is indicated for this abnormality at this point in time. (4) Mixed hyperlipidemia Assessment & Plan: He is diabetic and his LDL level is above 100. I started him on low-dose statin medication. (5) Stage 4 chronic kidney disease Status: Chronic Assessment & Plan: We will need to watch his renal function closely and avoid any nephrotoxic medications. As above, I recommend we stop his hydrochlorothiazide. JACKSON ABRAHAM JR, MD Aug 11, 2021 08:33
--- NOTE | 2021-08-11 09:51 | Progress Note ---
Subjective Subjective/Events-last exam Son interpreting. Afebrile, states he still feels fairly dizzy, has mild occasional blurry vision. Denies headache. Had stress test this morning. Objective Exam Last Set of Vital Signs Vital Signs Date Time Temp Pulse Resp B/P (MAP) Pulse Ox O2 Delivery O2 Flow Rate FiO2 08/11/21 08:23 77 185/77 (113) 08/11/21 08:00 37.0 18 100 Room Air Capillary Refill : Less Than 3 Seconds I&O Intake and Output 08/10/21 23:59 Intake Total 1860 ml Output Total 200 ml Balance 1660 ml Intake Oral 860 ml IV Total 1000 ml Output Urine Total 200 ml # Voids 5 # Bowel Movements 1 # Emeses 1 General: Alert, No Acute Distress Lungs: Clear to Auscultation, Normal Air Movement Heart: Regular Rate, No Murmurs Abdomen: Normal Bowel Sounds, Soft Extremities: No Edema Psych/Mental Status: Mood NL Results/Procedures Lab Laboratory Tests 08/10/21 10:05: Glucometer 352H 08/10/21 13:25: Gastric Fluid Occult Blood NEGATIVE 08/10/21 15:31: Glucometer 327H 08/10/21 20:30: Glucometer 427*H 08/11/21 04:30: White Blood Count 10.5, Red Blood Count 3.48L, Hemoglobin 9.9L, Hematocrit 30L, Mean Corpuscular Volume 86, Mean Corpuscular Hemoglobin 28, Mean Corpuscular Hemoglobin Concent 33, Red Cell Distribution Width 13.2, Platelet Count 467H, Mean Platelet Volume 10.7, Sodium Level 136, Potassium Level 3.5L, Chloride Level 103, Carbon Dioxide Level 24, Anion Gap 9, Blood Urea Nitrogen 43H, Creatinine 3.00#H, Estimat Glomerular Filtration Rate 21, BUN/Creatinine Ratio 14, Glucose Level 111H, Calcium Level 8.3L 08/11/21 07:26: Glucometer 109 Radiology CXR 08/09/21: IMPRESSION: 1: Stable atelectasis or scarring in the right lung base region. 2: There is blunting of the right costophrenic angle region which may represent a small right pleural effusion. CT head 08/09/21: IMPRESSION: There is interval progression of age-related brain parenchymal changes with no evidence of acute intracranial process. There is no dense vessel sign seen. Assessment/Plan Assessment/Plan (1) Kidney insufficiency Status: Acute Assessment & Plan: Since July 2021, creatinine above 2, but most recent value prior was 08/2019 and was 1.18 at that time, and the year before normal. Suspect CKD, but with only one month of abnormal, is not yet clear his baseline. Renal dose medications, monitor. 08/11 reviewed clinic chart and 03/2020 had creatinine 1.34, 05/2021 creatinine 1.71, so has rapidly accelerated since Jul 2021. Has been referred urgently outpatient to [facility] as of 08/10, if renal function worsens, may need inpatient transfer. Check renal US with arterial dopplers today. (2) Dizziness Status: Acute Assessment & Plan: Uncertain exact etiology, consider cerebellar problem, will check carotid US, consider MRI. 08/11 persistent vertigo, carotid US with moderate left stenosis, mild right. Will obtain MRI today and order PT. (3) Hypertensive emergency Status: Acute Assessment & Plan: Improved with amlodipine which he was to have been on outpatient. Appreciate Cardiology recommendations. (4) Elevated troponin Status: Acute Assessment & Plan: Cardiology consulted, suspect type II MO, stress test result s pending. (5) Insulin dependent diabetes mellitus Status: Chronic Assessment & Plan: Resume home insulin (6) Anemia Status: Chronic Assessment & Plan: Normocytic anemia which has been noted for many years on prior labs, ferritin normal and TIBC high in 2019 suggesting anemia of chronic disease. Qualifiers: Qualified Codes: D63.8 - Anemia in other chronic diseases classified elsewhere (7) Cerebellar infarct Status: Chronic Assessment & Plan: Stable chronic finding on CT of left cerebellum. Continue aspirin. (8) Elevated brain natriuretic peptide (BNP) level Status: Acute Assessment & Plan: No peripheral edema, he has declined furosemide due to no swelling. (9) Mixed hyperlipidemia (10) DVT prophylaxis Status: Acute Assessment & Plan: Enoxaparin Clinical Quality Measures AMI/AHF: ASA po Prior to arrival: AMY Melton MD Aug 11, 2021 09:51
--- NOTE | 2021-08-11 10:01 | Diagnostic Imaging Report ---
INDICATION: Dyspnea and hypertension PA and lateral views of the chest are obtained with comparison made to study of 06/18/2019. Overall heart size and pulmonary vascularity are within normal limits. There is continued elevation of the right hemidiaphragm with blunting of the right costophrenic sulcus. This may be due to chronic scarring. Apparent postoperative findings are present in the posterior lateral aspect of the right 6th rib. There is no consolidation. No pneumothorax or definite pleural fluid is appreciated. IMPRESSION: Chronic scarring in the right lower hemithorax without acute abnormality or significant adverse change. Dictated by: Dictated on workstation # [id number]
[2021-08-11] MEDS: FUROSEMIDE 20 MG (LASIX) TAB PO SCH (10:07)
[2021-08-11] MEDS: ASPIRIN E.C. 81 MG (ECOTRIN) TAB PO SCH (10:07)
[2021-08-11] MEDS: PANTOPRAZOLE 40 MG (PROTONIX) VIAL IV SCH (10:07)
[2021-08-11] MEDS: amLODIPine 10 MG (NORVASC) TAB PO SCH (10:07)
[2021-08-11] MEDS: LOSARTAN 100 MG (COZAAR) TABLET PO SCH (10:07)
--- NOTE | 2021-08-11 11:02 | Physical Therapy Evaluation ---
PT Evaluation-General Medical Diagnosis Admission Date Aug 09, 2021 at 22:33 Medical Diagnosis: dizziness, HTN, vomiting Onset Date: Aug 09, 2021 Therapy Diagnosis Therapy Diagnosis: impaired mobility, balance Height/Weight Height (Feet): 5 Height (Inches): 7.00 Weight (Pounds): 136 Weight (Ounces): 7.0 Precautions Precautions/Isolations: Standard Precautions Referral Physician: Rodger Reason for Referral: Evaluation/Treatment Medical History Additional Medical History PMHx: DMII HTN CKD CAD SurgHx: Partial lung resection on right, fungal infection I&D of foot for diabetic foot wound/injury with screw in bottom of foot Reviewed History: Yes Social History Current Living Status: Spouse Entry Into Home: Stairs With Railing PT Steps Into Home: 3 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 Prior Prior Level of Function SCALE: Activities may be completed with or without assistive devices. 3-Yggsyazqxg-nlvdygh completes the activity by him/herself with no assistance from a helper. 5-Set-up or Clean-up Assistance-helper sets up or cleans up; patient completes activity. [place] assists only prior to or following the activity. 4-Supervision or Touching Assistance-helper provides verbal cues and/or touching/steadying and/or contact guard assistance as patient completes activity. Assistance may be provided throughout the activity or intermittently. 3-Partial/Moderate Assistance-helper does LESS THAN HALF the effort. [place] lifts, holds or supports trunk or limbs, but provides less than half the effort. 2-Substantial/Maximal Assistance-helper does MORE THAN HALF the effort. [place] lifts or holds trunk or limbs and provides more than half the effort. 5-Zhzbcvdra-sxoihj does ALL the effort. Patient does none of the effort to complete the activity. Or, the assistance of 2 or more helpers is required for the patient to complete the activity. If activity was not attempted, code reason: 7-Patient Refused. 9-Not Applicable-not attempted and the patient did not perform the activity before the current illness, exacerbation or injury. 10-Not Attempted due to Environmental Limitations-(lack of equipment, weather restraints, etc.). 88-Not Attempted due to Medical Conditions or Safety Concerns. Bed Mobility: 6 Transfers (B,C,W/C): 6 Gait: 6 Stairs: 6 Indoor Mobility (Ambulation): Independent Stairs: Independent PT Evaluation-Current Subjective Patient in bed pre tx, agrees to PT, has minor neck pain. Patient has a family member in the room that translates. Pt/Family Goals "to stop the dizziness" Objective Patient Orientation: Person, Place, Situation ROM/Strength ROM Lower Extremities WNL Strength Lower Extremities BLE grossly 4/5 except dorsiflexion 4-/5 bilaterally Sensory Vision: Functional Hearing: Functional Sensation Right Lower Extremit: Intact Sensation Left Lower Extremity: Intact Sensation Lower Extremities Patient states he has numbness in both legs but appears to have intact light touch sensation. Transfers Roll Left to Right (QC): 6 Lying to Sitting/Side of Bed(Q: 6 Sit to Stand (QC): 6 Chair/Txb-ja-Uuxyn Xfer(QC): 4 Gait Does the Patient Walk?: Yes Mode of Locomotion: Walk Anticipated Mode of Locomotion: Walk Walk 10 feet (QC): 4 Walk 50 ft with 2 Turns(QC): 4 Walk 150 ft (QC): 4 Distance: 150' Gait Assistive Device: FWW Comments/Gait Description CGA, slow ambulation, he is unsteady, has occasional slight LOB but doesn't need assist to correct at this time. Balance Sitting Static: Normal Sitting Dynamic: Normal Standing Static: Fair Standing Dynamic: Poor Treatment BLE seated exercises x20 (AP, LAQ) Assessment/Needs Patient in recliner post tx with nurse call, family in room. Instructed patient and family member that if patient needs to get up then they need to call the nurse since the patient is still unsteady. Patient has impaired mobility and balance, needs assist during ambulation. Rehab Potential: Fair PT Associate Account Manager Goals Associate Account Manager Goals PT Associate Account Manager Goals Time Frame: Aug 18, 2021 Roll Left & Right (QC): 6 Sit to Lying (QC): 6 Lying-Sitting on Side/Bed(QC): 6 Sit to Stand (QC): 6 Chair/Doq-no-Etqmf Xfer(QC): 6 Walk 10 feet (QC): 6 Walk 50ft with 2 Turns (QC): 6 Walk 150 ft (QC): 6 PT Plan Problem List Problem List: Activity Tolerance, Functional Strength, Safety, Balance, Gait, Transfer, Bed Mobility, ROM Treatment/Plan Treatment Plan: Continue Plan of Care Treatment Plan: Education, Functional Activity Gerardo, Functional Strength, Gait, Safety, Therapeutic Exercise, Transfers Treatment Duration: Aug 18, 2021 Frequency: 6 times per week Estimated Hrs Per Day: .25 hour per day Patient and/or Family Agrees t: Yes Safety Risks/Education Patient Education: Gait Training, Transfer Techniques, Correct Positioning, Safety Issues Teaching Recipient: Patient Teaching Methods: Demonstration, Discussion Response to Teaching: Reinforcement Needed Discharge Recommendations Plan Patient will perform bed mobility and transfers, ambulation, functional strengthening, stair training, gait training, balance and endurance training, and education, to improve functional mobility and independence at home. Therapy Discharge Recommendati: Scheduled Assistance, Home & Family, Post Acute PT Time/GCodes Time In: 1024 Time Out: 1036 Total Billed Treatment Time: 12 Total Billed Treatment 1 visit HUMBERTO RICHMOND PT Aug 11, 2021 11:02
--- NOTE | 2021-08-11 11:37 | NUCLEAR STRESS TEST ---
REGADENOSON NUCLEAR STRESS Date of procedure: 08/11/2021. Primary care provider: Vinicius Dao APRN Admitting physician: Idalia Soares MD. INDICATION: Abnormal troponin level. BASELINE ELECTROCARDIOGRAM: Sinus rhythm with nonspecific inferolateral T wave changes STRESS TEST PROCEDURE: This was initially intended to be a treadmill nuclear stress test but the patient stated he was too weak to walk on the treadmill. The patient was administered 0.4 mg of intravenous Regadenoson. The resting heart rate was 79 bpm and the peak heart rate was 87 bpm. The resting blood pressure was 185/77 mmHg and the minimum blood pressure was 153/56 mmHg. This represents a normal heart rate and a normal blood pressure response to Regadenoson with resting hypertension. The test was stopped due to the protocol. There was no chest discomfort during the test. There were no arrhythmias during the test. There were no significant stress induced electrocardiogram changes. NUCLEAR PROCEDURE: The patient was administered 9.8 mCi of intravenous technetium 99m Tetrofosmin at rest for the rest images. The patient was subsequently administered 28.9 mCi of intravenous technetium 99m Tetrofosmin at peak stress for the stress images. Following an appropriate wait after each injection, imaging was obtained. The images were subsequently processed and reformatted in the usual views. Gated imaging was obtained. The image quality was adequate with a mild degree of gastrointestinal attenuation artifact. CT attenuation correction was used as a adjunct to standard imaging. Both the corrected and uncorrected images were reviewed for interpretation. NUCLEAR RESULTS: There was normal myocardial perfusion in all segments without evidence of infarction or ischemia. There was normal left ventricular chamber size with an end-diastolic volume of 83 mL and an end-systolic volume of 36 mL. There was no evidence of transient ischemic dilatation. The TID ratio was 1. There was normal wall motion in all segments with a calculated ejection fraction of 57%. IMPRESSION: 1. Normal heart rate and blood pressure response to regadenoson with resting hypertension. 2. There was no chest discomfort, arrhythmias, or electrocardiogram changes during the test. 3. There was normal myocardial perfusion in all segments without evidence of infarction or ischemia. 4. There was normal wall motion in all segments with a calculated ejection fraction of 57%. Certain portions of this document may have been dictated utilizing voice recognition technology. Inherent to this technology, typographical and grammatical errors may exist. As much as I am diligent to identify and correct these mistakes, some errors may remain in the document. JACKSON ABRAHAM JR, MD Aug 11, 2021 11:37
--- NOTE | 2021-08-11 11:58 | Diagnostic Imaging Report ---
PROCEDURE: MR imaging of the brain without contrast. TECHNIQUE: Multiplanar, multisequence MR imaging of the brain was performed without contrast. INDICATION: Dizziness. FINDINGS: There are no prior MRI brain examinations available for comparison. The CT head exam performed on 08/09/2021 failed to show any sign of an acute intracranial abnormality. On this exam, there is no mass, shift of the midline, or hemorrhage to suggest an acute intracranial abnormality. However on the diffusion series, there is a linear 2 x 10 mm area of increased signal in the white matter of the left parietal lobe posteriorly just superior to the level of the lateral ventricles. There is no corresponding area of diminished signal in this region on the ADC series. Even so, this may represent a small subacute nonhemorrhagic infarct. The ventricles are not abnormally dilated and stable in size when compared to the prior CT head exam. The FLAIR series does show extensive areas of increased signal in the periventricular white matter bilaterally. These findings are nonspecific but may be related to encephalomalacia from microvascular ischemia. Cortical atrophy is also evident. The degree of atrophy is consistent with the patient's age. The sella is not enlarged, and the expected carotid flow voids are evident bilaterally. The orbits are symmetrical and within normal limits. The sinuses are generally clear. The seventh and eighth nerve complexes are unremarkable. IMPRESSION: 1. There is a small linear area of increased signal in the left parietal lobe on the diffusion series. This does suggest a subacute nonhemorrhagic infarct. 2. There is no acute intracranial abnormality identified. 3. There are senescent changes including cortical atrophy and periventricular encephalomalacia. Dictated by: Dictated on workstation # [id number]
--- NOTE | 2021-08-11 14:40 | Diagnostic Imaging Report ---
EXAMINATION: Renal arterial Doppler. INDICATION: Hypertension. FINDINGS: There are no prior renal Doppler examinations available for comparison. The CT abdomen/pelvis exam of 08/26/2019 failed to show any abnormality of either kidney. Both kidneys were identified. The right kidney measures 10.0 x 4.4 x 4.9 cm while the left kidney is estimated to be 10.3 x 3.9 x 4.0 cm. There is no evidence for a solid renal mass or for hydronephrosis of either kidney. The renal cortices are normal in thickness and echogenicity. Spectral and color-flow imaging of the renal arteries and aorta was performed. The renal artery/aorta ratios are within normal limits. There is no evidence for a hemodynamically significant stenosis of either renal artery. The arcuate resistive indices on the right are also within normal limits, but the resistive indices of the arcuate vessels on the left are elevated. IMPRESSION: 1. There is no evidence for a solid renal mass or for an acute abnormality. 2. There is no sign of renal artery stenosis. Dictated by: Dictated on workstation # [id number]
[2021-08-11] MEDS: 1/2 NS IV SOLUTION 1,000 ML IV SCH (17:24)
[2021-08-11] MEDS: ROSUVASTATIN 10 MG (CRESTOR) TABLET PO SCH (21:37)
[2021-08-11] MEDS: ENOXAPARIN 30 MG/0.3 ML (LOVENOX) SYR SQ SCH (21:37)
[2021-08-12 00:05] VITALS: BP 143/62
[2021-08-12 04:00] VITALS: BP 161/77
[2021-08-12 05:53] LABS: HEMATOCRIT 31 % (40-54); HEMOGLOBIN 10.2 g/dL (13.3-17.7); MEAN CORPUSCULAR HEMOGLOBIN 28 pg (25-34); MEAN CORPUSCULAR HGB CONC 33 g/dL (32-36); MEAN CORPUSCULAR VOLUME 86 fL (80-99); MEAN PLATELET VOLUME 10.3 fL (9.0-12.2); PLATELET COUNT 430 10^3/uL (130-400); WHITE BLOOD COUNT 8.3 10^3/uL (4.3-11.0)
[2021-08-12 06:11] LABS: POTASSIUM 3.9 MMOL/L (3.6-5.0)
[2021-08-12 06:12] LABS: CALCIUM 8.3 MG/DL (8.5-10.1)
[2021-08-12 06:16] LABS: CREATININE SERUM 3.23 MG/DL (0.60-1.30)
[2021-08-12] MEDS: inSUlin ASPART (NovoLOG) 1 UNIT/0.01 ML (CHARGE PER UNIT) SC SCH ×7 (06:45→22:00)
[2021-08-12 07:45] VITALS: BP 177/80
[2021-08-12] MEDS: LOSARTAN 100 MG (COZAAR) TABLET PO SCH (08:31)
[2021-08-12] MEDS: amLODIPine 10 MG (NORVASC) TAB PO SCH (08:31)
[2021-08-12] MEDS: FUROSEMIDE 20 MG (LASIX) TAB PO SCH (08:32)
[2021-08-12] MEDS: PANTOPRAZOLE 40 MG (PROTONIX) VIAL IV SCH (08:32)
[2021-08-12] MEDS: ASPIRIN E.C. 81 MG (ECOTRIN) TAB PO SCH (08:32)
--- NOTE | 2021-08-12 10:42 | Cardiology Progress Note ---
Progress Note-Cardiology Events since last exam Date Seen by Provider: Aug 12, 2021 Time Seen by Provider: 10:38 Events since last exam I am seeing him due to abnormal troponin level and hypertensive emergency. He remains on the cardiac stepdown unit. He denies chest discomfort, dyspnea, palpitations, syncope, or ankle edema. He has been deciding what insulin dose he will take. Certain portions of this document may have been dictated utilizing voice recognition technology. Inherent to this technology, typographical and grammatical errors may exist. As much as I am diligent to identify and correct these mistakes, some errors may remain in the document. Vitals Last set of Vitals Signs Vital Signs 08/12/21 07:45 Temp 36.9 Pulse 87 Resp 12 B/P (MAP) 177/80 (112) Pulse Ox 98 O2 Delivery Room Air Labs Labs Laboratory Tests 08/12/21 05:45 Exam Vital Signs Vital Signs Date Time Temp Pulse Resp B/P (MAP) Pulse Ox O2 Delivery O2 Flow Rate FiO2 08/12/21 07:45 36.9 87 12 177/80 (112) 98 Room Air Physical Exam General: Alert. No acute distress. Eye: No xanthelasma. HENT: Normocephalic. Neck: Jugular venous pressure does not appear elevated. Respiratory: Lungs are clear to auscultation. Respirations are non-labored. Breath sounds are equal. Symmetrical chest wall expansion. Cardiovascular: Normal rate. Regular rhythm. No murmur. No gallop. No edema. Gastrointestinal: Soft. Normal bowel sounds. Skin: Warm. Dry. Neurologic: Alert and oriented to person, place, time. Cranial nerves 3-11 grossly intact. Psychiatric: Cooperative. Appropriate mood & affect. Labs Laboratory Tests Test 08/11/21 10:39 08/11/21 14:48 08/11/21 16:20 08/11/21 21:10 Range/Units Glucometer 287 H 282 H 287 H 142 H 70-110 MG/DL Test 08/12/21 01:25 08/12/21 05:45 08/12/21 06:39 08/12/21 08:46 Range/Units Glucometer 201 H 233 H 197 H 70-110 MG/DL White Blood Count 8.3 4.3-11.0 10^3/uL Red Blood Count 3.61 L 4.30-5.52 10^6/uL Hemoglobin 10.2 L 13.3-17.7 g/dL Hematocrit 31 L 40-54 % Mean Corpuscular Volume 86 80-99 fL Mean Corpuscular Hemoglobin 28 25-34 pg Mean Corpuscular Hemoglobin Concent 33 32-36 g/dL Red Cell Distribution Width 13.1 10.0-14.5 % Platelet Count 430 H 130-400 10^3/uL Mean Platelet Volume 10.3 9.0-12.2 fL Sodium Level 134 L 135-145 MMOL/L Potassium Level 3.9 3.6-5.0 MMOL/L Chloride Level 102 98-107 MMOL/L Carbon Dioxide Level 22 21-32 MMOL/L Anion Gap 10 5-14 MMOL/L Blood Urea Nitrogen 44 H 7-18 MG/DL Creatinine 3.23 H 0.60-1.30 MG/DL Estimat Glomerular Filtration Rate 19 BUN/Creatinine Ratio 14 Glucose Level 233 H 70-105 MG/DL Calcium Level 8.3 L 8.5-10.1 MG/DL Diagnosis/Problems Diagnosis/Problems (1) Hypertensive emergency Status: Acute Assessment & Plan: His blood pressure seems to be improving with resumption of his losartan and the addition of amlodipine. Given his chronic kidney disease, I stopped his hydrochlorothiazide. He was prescribed beta-john in the past but did not want to take this medication because he thought it would make him short of breath. However, his renal function is getting worse. We we will stop the losartan. I will start him on hydralazine 3 times daily. We may need to add another agent if we cannot control his blood pressure with amlodipine and hydralazine. His renal artery ultrasound did not show any evidence of renal artery stenosis. (2) Elevated troponin Status: Acute Assessment & Plan: He had a borderline abnormal troponin level. This is in the setting of a hypertensive emergency. This may represent a type II non-ST elevation myocardial infarction due to supply/demand mismatch. His nuclear str ess test was normal other than being hypertensive. Due to the worsening renal function and persistently elevated blood pressures, he will need to stay in the hospital for at least another 24-48 hours until his blood pressure and kidney function improved. (3) Acute kidney injury superimposed on chronic kidney disease Assessment & Plan: As above, his kidney function has gotten worse. He did receive some half-normal saline which the hospitalist has now discontinued. As above, I previously stopped his hydrochlorothiazide and I will now stop his losartan. (4) Abnormal electrocardiogram Assessment & Plan: As above, his initial electrocardiogram shows possible old anteroseptal myocardial infarction. His follow-up electrocardiogram showed nonspecific T wave inversion. In light of the abnormal troponin levels, I had him undergo a nuclear stress test which was normal as outlined above. I suspect the initial electrocardiogram showing poor R wave progression may have been due to lead placement and the nonspecific T wave inversion is likely due to left ventricular hypertrophy. No additional cardiac testing is indicated for this abnormality at this point in time. (5) Mixed hyperlipidemia Assessment & Plan: He is diabetic and his LDL level is above 100. I started him on low-dose statin medication. (6) Stage 4 chronic kidney disease Status: Chronic Assessment & Plan: We will need to watch his renal function closely and avoid any nephrotoxic medications. As above, I have stopped hydrochlorothiazide and losartan. JACKSON ABRAHAM JR, MD Aug 12, 2021 10:41
[2021-08-12 11:20] VITALS: BP 161/74
--- NOTE | 2021-08-12 11:58 | Physical Therapy Daily Note ---
PT Daily Note-Current Subjective Patient agrees to PT. Son present. Mental Status Attachments: IV Transfers SCALE: Activities may be completed with or without assistive devices. 9-Upxuuafquz-klhfvxi completes the activity by him/herself with no assistance from a helper. 5-Set-up or Clean-up Assistance-helper sets up or cleans up; patient completes activity. [place] assists only prior to or following the activity. 4-Supervision or Touching Assistance-helper provides verbal cues and/or touching/steadying and/or contact guard assistance as patient completes activity. Assistance may be provided throughout the activity or intermittently. 3-Partial/Moderate Assistance-helper does LESS THAN HALF the effort. [place] lifts, holds or supports trunk or limbs, but provides less than half the effort. 2-Substantial/Maximal Assistance-helper does MORE THAN HALF the effort. [place] lifts or holds trunk or limbs and provides more than half the effort. 1-Prmkkrxle-rjptqy does ALL the effort. Patient does none of the effort to complete the activity. Or, the assistance of 2 or more helpers is required for the patient to complete the activity. If activity was not attempted, code reason: 7-Patient Refused. 9-Not Applicable-not attempted and the patient did not perform the activity before the current illness, exacerbation or injury. 10-Not Attempted due to Environmental Limitations-(lack of equipment, weather restraints, etc.). 88-Not Attempted due to Medical Conditions or Safety Concerns. Lying to Sitting/Side of Bed(Q: 6 Sit to Stand (QC): 4 Chair/Itc-cu-Uiujv Xfer(QC): 4 CGA for OOB activity due to being unsteady Gait Training Does the Patient Walk?: Yes Distance: 400' Walk 10 feet (QC): 4 Walk 50 ft with 2 Turns(QC): 4 Walk 150 ft (QC): 4 Gait Assistive Device: FWW listing to right with 3 episodes of LOB with self correct Exercises Seated Therapy Exercises: Ankle pumps, Chair press-ups, Hip flexion Seated Reps: 12 Assessment Patient is up in recliner with needs met. Increase activity as tolerated by patient. Slightly unsteady with ambulation. PT Chemistry Lab Instructor Goals Half-Way Goals PT Half-Way Goals Time Frame: Aug 18, 2021 Roll Left & Right (QC): 6 Sit to Lying (QC): 6 Lying-Sitting on Side/Bed(QC): 6 Sit to Stand (QC): 6 Chair/Ptd-kg-Twpwf Xfer(QC): 6 Walk 10 feet (QC): 6 Walk 50ft with 2 Turns (QC): 6 Walk 150 ft (QC): 6 PT Plan Treatment/Plan Treatment Plan: Continue Plan of Care Treatment Plan: Education, Functional Activity Gerardo, Functional Strength, Gait, Safety, Therapeutic Exercise, Transfers Treatment Duration: Aug 18, 2021 Frequency: 6 times per week Estimated Hrs Per Day: .25 hour per day Patient and/or Family Agrees t: Yes Time/GCodes Time In: 1130 Time Out: 1144 Total Billed Treatment Time: 14 Total Billed Treatment 1 visit FA 14 min ALEXIS GRADY PT Aug 12, 2021 11:58
--- NOTE | 2021-08-12 13:37 | Progress Note ---
Subjective Subjective/Events-last exam Son interpreting. States he is feeling a little better, still off balance, but maybe not quite as bad. Denies headache, chest pain or swelling. He in fact is bothered that he doesn't feel convinced about his kidney problems since he doesn't have symptoms. He is very hesitant when discussing possible need for di alysis and thinks he will not need it, wonders about resuming some home diuretic teas he was using before that he says made him urinate more than he is now. Objective Exam Last Set of Vital Signs Vital Signs Date Time Temp Pulse Resp B/P (MAP) Pulse Ox O2 Delivery O2 Flow Rate FiO2 08/12/21 12:31 79 08/12/21 11:20 36.8 16 161/74 (103) 99 Room Air Capillary Refill : Less Than 3 Seconds I&O Intake and Output 08/12/21 00:00 Intake Total 600 ml Output Total 600 ml Balance 0 ml Intake Oral 600 ml Output Urine Total 600 ml # Voids 3 General: Alert, No Acute Distress Lungs: Clear to Auscultation, Normal Air Movement Heart: Regular Rate, No Murmurs Abdomen: Normal Bowel Sounds, Soft Extremities: No Edema Neuro: Normal Speech Results/Procedures Lab Laboratory Tests 08/11/21 14:48: Glucometer 282H 08/11/21 16:20: Glucometer 287H 08/11/21 21:10: Glucometer 142H 08/12/21 01:25: Glucometer 201H 08/12/21 05:45: White Blood Count 8.3, Red Blood Count 3.61L, Hemoglobin 10.2L, Hematocrit 31L, Mean Corpuscular Volume 86, Mean Corpuscular Hemoglobin 28, Mean Corpuscular Hemoglobin Concent 33, Red Cell Distribution Width 13.1, Platelet Count 430H, Mean Platelet Volume 10.3, Sodium Level 134L, Potassium Level 3.9, Chloride Level 102, Carbon Dioxide Level 22, Anion Gap 10, Blood Urea Nitrogen 44H, Creatinine 3.23H, Estimat Glomerular Filtration Rate 19, BUN/Creatinine Ratio 14, Glucose Level 233H, Calcium Level 8.3L 08/12/21 06:39: Glucometer 233H 08/12/21 08:46: Glucometer 197H 08/12/21 11:04: Glucometer 134H Radiology CXR 08/09/21: IMPRESSION: 1: Stable atelectasis or scarring in the right lung base region. 2: There is blunting of the right costophrenic angle region which may represent a small right pleural effusion. CT head 08/09/21: IMPRESSION: There is interval progression of age-related brain parenchymal changes with no evidence of acute intracranial process. There is no dense vessel sign seen. Assessment/Plan Assessment/Plan (1) Kidney insufficiency Status: Acute Assessment & Plan: Since July 2021, creatinine above 2, but most recent value prior was 08/2019 and was 1.18 at that time, and the year before normal. Suspect CKD, but with only one month of abnormal, is not yet clear his baseline. Renal dose medications, monitor. 08/11 reviewed clinic chart and 03/2020 had creatinine 1.34, 05/2021 creatinine 1.71, so has rapidly accelerated since Jul 2021. Has been referred urgently outpatient to Nephro as of 08/10, if renal function worsens, may need inpatient transfer. Check renal US with arterial dopplers today. 08/12- renal artery dopplers okay, no hydronephrosis or renal masses. Cr up to 3.23, but potassium still okay and he still does not appear to be fluid overloaded. Discussed with Cardiology, will readjust blood pressure medications. Discussed with patient and if worsening tomorrow, likely will need to pursue transfer. Son notes he did get a call to schedule the outpatient Nephro referral. (2) Dizziness Status: Acute Assessment & Plan: Uncertain exact etiology, consider cerebellar problem, will check carotid US, consider MRI. 08/11 persistent vertigo, carotid US with moderate left stenosis, mild right. Will obtain MRI today and order PT. 08/12 MRI showed left parietal small linear possible subacute nonhemorrhagic infarct, but this is not in the area I would expect to cause his symptoms. Wiliam junior PT. (3) Hypertensive emergency Status: Acute Assessment & Plan: Improved with amlodipine which he was to have been on outpatient. Appreciate Cardiology recommendations. 08/12 discontinuing losartan due to continued worsening renal function, starting hydralazine per Cardiology discussion due to increasing BP again (4) Elevated troponin Status: Acute Assessment & Plan: Cardiology consulted, suspect type II IA, stress test okay. (5) Insulin dependent diabetes mellitus Status: Chronic Assessment & Plan: Resume home insulin 1/6 blood sugar has been above 200, home insulin dose increased slightly, but he has declined to take higher dose. (6) Anemia Status: Chronic Assessment & Plan: Normocytic anemia which has been noted for many years on prior labs, ferritin normal and TIBC high in 2019 suggesting anemia of chronic disease. Qualifiers: Qualified Codes: D63.8 - Anemia in other chronic diseases classified elsewhere (7) Cerebellar infarct Status: Chronic Assessment & Plan: Stable chronic finding on CT of left cerebellum. Continue aspirin. (8) Elevated brain natriuretic peptide (BNP) level Status: Acute Assessment & Plan: No peripheral edema, he has declined furosemide due to no swelling. (9) Mixed hyperlipidemia (10) DVT prophylaxis Status: Acute Assessment & Plan: Enoxaparin Clinical Quality Measures AMI/AHF: ASA po Prior to arrival: AMY Melton MD Aug 12, 2021 13:37
[2021-08-12] MEDS: hydrALAZINE (APRESOLINE) 25 MG TAB PO SCH ×2 (13:44→22:01)
[2021-08-12 15:47] VITALS: BP 174/79
[2021-08-12] MEDS: 1/2 NS IV SOLUTION 1,000 ML IV SCH (17:26)
[2021-08-12 19:06] VITALS: BP 171/78
[2021-08-12] MEDS ORDERED: PATCH REMOVAL TP SCH (21:00)
[2021-08-12] MEDS: ROSUVASTATIN 10 MG (CRESTOR) TABLET PO SCH (22:01)
[2021-08-12] MEDS: ENOXAPARIN 30 MG/0.3 ML (LOVENOX) SYR SQ SCH (22:01)
[2021-08-12] MEDS: SCOPOLAMINE 1.5 MG (TRANSDERM-SCOP) PATCH TOP SCH (22:09)
[2021-08-13] VITALS (10 sets, daily range): BP systolic 142–176; BP diastolic 72–86
[2021-08-13 05:11] LABS: HEMATOCRIT 29 % (40-54); HEMOGLOBIN 9.8 g/dL (13.3-17.7); MEAN CORPUSCULAR HEMOGLOBIN 29 pg (25-34); MEAN CORPUSCULAR HGB CONC 34 g/dL (32-36); MEAN CORPUSCULAR VOLUME 85 fL (80-99); MEAN PLATELET VOLUME 10.6 fL (9.0-12.2); PLATELET COUNT 411 10^3/uL (130-400); WHITE BLOOD COUNT 7.1 10^3/uL (4.3-11.0)
[2021-08-13 05:24] LABS: POTASSIUM 3.6 MMOL/L (3.6-5.0)
[2021-08-13 05:25] LABS: CALCIUM 7.9 MG/DL (8.5-10.1)
[2021-08-13 05:29] LABS: CREATININE SERUM 2.78 MG/DL (0.60-1.30)
[2021-08-13] MEDS: hydrALAZINE (APRESOLINE) 25 MG TAB PO SCH ×4 (06:47→22:54)
[2021-08-13] MEDS: inSUlin ASPART (NovoLOG) 1 UNIT/0.01 ML (CHARGE PER UNIT) SC SCH ×8 (06:53→23:03)
[2021-08-13] MEDS: ASPIRIN E.C. 81 MG (ECOTRIN) TAB PO SCH (09:23)
[2021-08-13] MEDS: amLODIPine 10 MG (NORVASC) TAB PO SCH (09:23)
[2021-08-13] MEDS: FUROSEMIDE 20 MG (LASIX) TAB PO SCH (09:24)
[2021-08-13] MEDS: PANTOPRAZOLE 40 MG (PROTONIX) VIAL IV SCH (09:25)
--- NOTE | 2021-08-13 09:54 | Cardiology Progress Note ---
Progress Note-Cardiology Events since last exam Date Seen by Provider: Aug 13, 2021 Time Seen by Provider: 09:51 Events since last exam I am following him due to abnormal troponin level and hypertensive emergency. This morning he feels weak and dizzy. He thinks this could be related to medication and has been refusing to take some of his medications. He denies chest pain, dyspnea, palpitations, syncope, or ankle edema. Certain portions of this document may have been dictated utilizing voice recognition technology. Inherent to this technology, typographical and grammatical errors may exist. As much as I am diligent to identify and correct these mistakes, some errors may remain in the document. Vitals Last set of Vitals Signs Vital Signs 08/13/21 08:34 Temp 37.0 Pulse 83 Resp 16 B/P (MAP) 171/84 (113) Pulse Ox 97 O2 Delivery Room Air Labs Labs Laboratory Tests 08/13/21 04:45 Exam Vital Signs Vital Signs Date Time Temp Pulse Resp B/P (MAP) Pulse Ox O2 Delivery O2 Flow Rate FiO2 08/13/21 08:34 37.0 83 16 171/84 (113) 97 Room Air Physical Exam General: Alert. No acute distress. Eye: No xanthelasma. HENT: Normocephalic. Neck: Jugular venous pressure does not appear elevated. Respiratory: Lungs are clear to auscultation. Respirations are non-labored. Breath sounds are equal. Symmetrical chest wall expansion. Cardiovascular: Normal rate. Regular rhythm. No murmur. No gallop. No edema. Gastrointestinal: Soft. Normal bowel sounds. Skin: Warm. Dry. Neurologic: Alert and oriented to person, place, time. Cranial nerves 3-11 grossly intact. Psychiatric: Cooperative. Appropriate mood & affect. Labs Laboratory Tests Test 08/12/21 11:04 08/12/21 15:55 08/12/21 17:24 08/12/21 20:14 Range/Units Glucometer 134 H 71 116 H 276 H 70-110 MG/DL Test 08/13/21 04:45 08/13/21 06:19 08/13/21 08:46 Range/Units White Blood Count 7.1 4.3-11.0 10^3/uL Red Blood Count 3.42 L 4.30-5.52 10^6/uL Hemoglobin 9.8 L 13.3-17.7 g/dL Hematocrit 29 L 40-54 % Mean Corpuscular Volume 85 80-99 fL Mean Corpuscular Hemoglobin 29 25-34 pg Mean Corpuscular Hemoglobin Concent 34 32-36 g/dL Red Cell Distribution Width 12.7 10.0-14.5 % Platelet Count 411 H 130-400 10^3/uL Mean Platelet Volume 10.6 9.0-12.2 fL Sodium Level 129 L 135-145 MMOL/L Potassium Level 3.6 3.6-5.0 MMOL/L Chloride Level 99 98-107 MMOL/L Carbon Dioxide Level 22 21-32 MMOL/L Anion Gap 8 5-14 MMOL/L Blood Urea Nitrogen 42 H 7-18 MG/DL Creatinine 2.78 #H 0.60-1.30 MG/DL Estimat Glomerular Filtration Rate 23 BUN/Creatinine Ratio 15 Glucose Level 166 H 70-105 MG/DL Calcium Level 7.9 L 8.5-10.1 MG/DL Glucometer 159 H 171 H 70-110 MG/DL Diagnosis/Problems Diagnosis/Problems (1) Hypertensive emergency Status: Acute Assessment & Plan: His blood pressure was improving with losartan which she was taking at home and the addition of amlodipine. However, I have stopped the losartan due to worsening renal function. His renal function seems to be improving today. I have started him on hydralazine. I am concerned that he may not take this as prescribed due to the frequency this needs to be taken. I urged him to take the amlodipine and hydralazine. I will stop the furosemide. He will not take beta-john because he thinks this will make him short of breath. (2) Elevated troponin Status: Acute Assessment & Plan: He had a borderline abnormal troponin level. This is in the setting of a hypertensive emergency. This may represent a type II non-ST elevation myocardial infarction due to supply/demand mismatch. His nuclear stress test was normal other than being hypertensive. (3) Acute kidney injury superimposed on chronic kidney disease Assessment & Plan: As above, his kidney function had gotten worse with a peak creatinine on 08/12 that is now starting to come down. I have stopped his hydrochlorothiazide, losartan, and furosemide (4) Abnormal electrocardiogram Assessment & Plan: As above, his initial electrocardiogram shows possible old anteroseptal myocardial infarction. His follow-up electrocardiogram showed nonspecific T wave inversion. In light of the abnormal troponin levels, I had him undergo a nuclear stress test which was normal as outlined above. I suspect the initial electrocardiogram showing poor R wave progression may have been due to lead placement and the nonspecific T wave inversion is likely due to left ventricular hypertrophy. No additional cardiac testing is indicated for this abnormality at this point in time. (5) Mixed hyperlipidemia Assessment & Plan: He is diabetic and his LDL level is above 100. I started him on low-dose statin medication. (6) Stage 4 chronic kidney disease Status: Chronic Assessment & Plan: We will need to watch his renal function closely and avoid any nephrotoxic medications. As above, I have stopped hydrochlorothiazide, furos emide, and losartan. JACKSON ABRAHAM JR, MD Aug 13, 2021 09:54
--- NOTE | 2021-08-13 11:33 | Physical Therapy Daily Note ---
PT Daily Note-Current Subjective Patient agrees to PT. Son present. Mental Status Patient Orientation: Normal For Age Attachments: IV Transfers SCALE: Activities may be completed with or without assistive devices. 4-Vgaqqdjoey-fihjpas completes the activity by him/herself with no assistance from a helper. 5-Set-up or Clean-up Assistance-helper sets up or cleans up; patient completes activity. [place] assists only prior to or following the activity. 4-Supervision or Touching Assistance-helper provides verbal cues and/or touching/steadying and/or contact guard assistance as patient completes activity. Assistance may be provided throughout the activity or intermittently. 3-Partial/Moderate Assistance-helper does LESS THAN HALF the effort. [place] lifts, holds or supports trunk or limbs, but provides less than half the effort. 2-Substantial/Maximal Assistance-helper does MORE THAN HALF the effort. [place] lifts or holds trunk or limbs and provides more than half the effort. 5-Dzglnlcdf-dvcenq does ALL the effort. Patient does none of the effort to complete the activity. Or, the assistance of 2 or more helpers is required for the patient to complete the activity. If activity was not attempted, code reason: 7-Patient Refused. 9-Not Applicable-not attempted and the patient did not perform the activity before the current illness, exacerbation or injury. 10-Not Attempted due to Environmental Limitations-(lack of equipment, weather restraints, etc.). 88-Not Attempted due to Medical Conditions or Safety Concerns. Lying to Sitting/Side of Bed(Q: 6 Sit to Stand (QC): 4 Chair/Doq-dc-Zmfxz Xfer(QC): 4 Gait Training Distance: 400' Walk 10 feet (QC): 4 Walk 50 ft with 2 Turns(QC): 4 Walk 150 ft (QC): 4 Gait Assistive Device: FWW SBA today with much improved balance Assessment Patient did have c/o dizziness during session. BP 170/80. Patient up in recliner with family present. PT Accounts Payable Associate Goals Accounts Payable Associate Goals PT Care Home Goals Time Frame: Aug 18, 2021 Roll Left & Right (QC): 6 Sit to Lying (QC): 6 Lying-Sitting on Side/Bed(QC): 6 Sit to Stand (QC): 6 Chair/Fkg-tl-Bpefp Xfer(QC): 6 Walk 10 feet (QC): 6 Walk 50ft with 2 Turns (QC): 6 Walk 150 ft (QC): 6 PT Plan Treatment/Plan Treatment Plan: Continue Plan of Care Treatment Plan: Education, Functional Activity Gerardo, Functional Strength, Gait, Safety, Therapeutic Exercise, Transfers Treatment Duration: Aug 18, 2021 Frequency: 6 times per week Estimated Hrs Per Day: .25 hour per day Patient and/or Family Agrees t: Yes Time/GCodes Time In: 1050 Time Out: 1103 Total Billed Treatment Time: 13 Total Billed Treatment 1 visit FA 13 min ALEXIS GRADY PT Aug 13, 2021 11:33
--- NOTE | 2021-08-13 14:54 | Progress Note ---
Subjective Subjective/Events-last exam Afebrile, renal function better, but states he is feeling a little worse, more trouble with standing again today although yesterday was doing better. He is concerned the medicines are hurting his kidneys and he wants to use his herbal teas from home. He also thinks his lower home insulin dose is better and is c oncerned his food here is too salty and has too much sugar. Objective Exam Last Set of Vital Signs Vital Signs Date Time Temp Pulse Resp B/P (MAP) Pulse Ox O2 Delivery O2 Flow Rate FiO2 08/13/21 13:00 79 08/13/21 12:00 37.1 16 176/84 (114) 98 Room Air Capillary Refill : Less Than 3 Seconds I&O Intake and Output 08/13/21 00:00 Intake Total 2530 ml Output Total 2075 ml Balance 455 ml Intake Oral 1530 ml IV Total 1000 ml Output Urine Total 2075 ml # Voids 1 General: Alert, No Acute Distress Lungs: Clear to Auscultation, Normal Air Movement Heart: Regular Rate, No Murmurs Extremities: No Edema Neuro: Normal Speech Psych/Mental Status: Mood NL Results/Procedures Lab Laboratory Tests 08/12/21 15:55: Glucometer 71 08/12/21 17:24: Glucometer 116H 08/12/21 20:14: Glucometer 276H 08/13/21 04:45: White Blood Count 7.1, Red Blood Count 3.42L, Hemoglobin 9.8L, Hematocrit 29L, Mean Corpuscular Volume 85, Mean Corpuscular Hemoglobin 29, Mean Corpuscular Hemoglobin Concent 34, Red Cell Distribution Width 12.7, Platelet Count 411H, Mean Platelet Volume 10.6, Sodium Level 129L, Potassium Level 3.6, Chloride Level 99, Carbon Dioxide Level 22, Anion Gap 8, Blood Urea Nitrogen 42H, Creatinine 2.78#H, Estimat Glomerular Filtration Rate 23, BUN/Creatinine Ratio 15, Glucose Level 166H, Calcium Level 7.9L 08/13/21 06:19: Glucometer 159H 08/13/21 08:46: Glucometer 171H 08/13/21 10:41: Glucometer 153H Radiology CXR 08/09/21: IMPRESSION: 1: Stable atelectasis or scarring in the right lung base region. 2: There is blunting of the right costophrenic angle region which may represent a small right pleural effusion. CT head 08/09/21: IMPRESSION: There is interval progression of age-related brain parenchymal changes with no evidence of acute intracranial process. There is no dense vessel sign seen. Assessment/Plan Assessment/Plan (1) Kidney insufficiency Status: Acute Assessment & Plan: Since July 2021, creatinine above 2, but most recent value prior was 08/2019 and was 1.18 at that time, and the year before normal. Suspect CKD, but with only one month of abnormal, is not yet clear his baseline. Renal dose medications, monitor. 08/11 reviewed clinic chart and 03/2020 had creatinine 1.34, 05/2021 creatinine 1.71, so has rapidly accelerated since Jul 2021. Has been referred urgently outpatient to Nephro as of 08/10, if renal function worsens, may need inpatient transfer. Check renal US with arterial dopplers today. 08/12- renal artery dopplers okay, no hydronephrosis or renal masses. Cr up to 3.23, but potassium still okay and he still does not appear to be fluid overloaded. Discussed with Cardiology, will readjust blood pressure medications. Discussed with patient and if worsening tomorrow, likely will need to pursue tra nsfer. Son notes he did get a call to schedule the outpatient Nephro referral. 08/13- Cr down to 2.78, however still having trouble with ambulation, he is hesitant about all the medications, encouraged to continue them today and follow renal function tomorrow. (2) Dizziness Status: Acute Assessment & Plan: Uncertain exact etiology, consider cerebellar problem, will check carotid US, consider MRI. 08/11 persistent vertigo, carotid US with moderate left stenosis, mild right. Will obtain MRI today and order PT. 08/12 MRI showed left parietal small linear possible subacute nonhemorrhagic infarct, but this is not in the area I would expect to cause his symptoms. Continue PT. (3) Hypertensive emergency Status: Acute Assessment & Plan: Improved with amlodipine which he was to have been on outpatient. Appreciate Cardiology recommendations. 08/12 discontinuing losartan due to continued worsening renal function, starting hydralazine per Cardiology discussion due to increasing BP again 08/13 increase hydralazine to QID (4) Elevated troponin Status: Acute Assessment & Plan: Cardiology consulted, suspect type II DE, stress test okay. (5) Insulin dependent diabetes mellitus Status: Chronic Assessment & Plan: Resume home insulin 1/6 blood sugar has been above 200, home insulin dose increased slightly, but he has declined to take higher dose. (6) Anemia Status: Chronic Assessment & Plan: Normocytic anemia which has been noted for many years on prior labs, ferritin normal and TIBC high in 2019 suggesting anemia of chronic disease. Qualifiers: Qualified Codes: D63.8 - Anemia in other chronic diseases classified elsewhere (7) Cerebellar infarct Status: Chronic Assessment & Plan: Stable chronic finding on CT of left cerebellum. Continue aspirin. (8) Elevated brain natriuretic peptide (BNP) level Status: Acute Assessment & Plan: No peripheral edema, he has declined furosemide due to no swelling. (9) Mixed hyperlipidemia (10) DVT prophylaxis Status: Acute Assessment & Plan: Enoxaparin Clinical Quality Measures AMI/AHF: ASA po Prior to arrival: AMY Melton MD Aug 13, 2021 14:53
[2021-08-13] MEDS: ROSUVASTATIN 10 MG (CRESTOR) TABLET PO SCH (22:54)
[2021-08-13] MEDS: ENOXAPARIN 30 MG/0.3 ML (LOVENOX) SYR SQ SCH (22:54)
[2021-08-14 04:00] VITALS: BP 168/77
[2021-08-14 05:43] LABS: HEMATOCRIT 29 % (40-54); HEMOGLOBIN 9.8 g/dL (13.3-17.7); MEAN CORPUSCULAR HEMOGLOBIN 29 pg (25-34); MEAN CORPUSCULAR HGB CONC 34 g/dL (32-36); MEAN CORPUSCULAR VOLUME 85 fL (80-99); MEAN PLATELET VOLUME 10.6 fL (9.0-12.2); PLATELET COUNT 425 10^3/uL (130-400); WHITE BLOOD COUNT 6.6 10^3/uL (4.3-11.0)
[2021-08-14 05:56] LABS: POTASSIUM 3.9 MMOL/L (3.6-5.0)
[2021-08-14 05:58] LABS: CALCIUM 8.1 MG/DL (8.5-10.1)
[2021-08-14 06:02] LABS: CREATININE SERUM 2.82 MG/DL (0.60-1.30)
[2021-08-14 07:23] VITALS: BP 156/75
[2021-08-14] MEDS: inSUlin ASPART (NovoLOG) 1 UNIT/0.01 ML (CHARGE PER UNIT) SC SCH ×2 (08:35→09:30)
--- NOTE | 2021-08-14 09:34 | Progress Note - Hospitalist ---
Subjective HPI/CC On Admission Date Seen by Provider: Aug 14, 2021 Objective Exam Vital Signs Vital Signs Date Time Temp Pulse Resp B/P (MAP) Pulse Ox O2 Delivery O2 Flow Rate FiO2 08/14/21 13:40 08/14/21 11:12 36.9 88 25 100 Room Air Capillary Refill : Less Than 3 Seconds Results/Procedures Lab Laboratory Tests 08/14/21 05:11 Patient resulted labs reviewed. Clinical Quality Measures AMI/AHF: ASA po Prior to arrival: AGUSTIN Diaz DO Aug 14, 2021 09:34
[2021-08-14] MEDS: amLODIPine 10 MG (NORVASC) TAB PO SCH (09:36)
[2021-08-14] MEDS: PANTOPRAZOLE 40 MG (PROTONIX) VIAL IV SCH (09:36)
[2021-08-14] MEDS: hydrALAZINE (APRESOLINE) 25 MG TAB PO SCH (09:36)
[2021-08-14] MEDS: ASPIRIN E.C. 81 MG (ECOTRIN) TAB PO SCH (09:36)
[2021-08-14 11:12] VITALS: BP 177/88
[2021-08-14] MEDS ORDERED: ROSU10TA28 PO (11:37)
[2021-08-14] MEDS ORDERED: HYDR-3923 PO (11:37)
[2021-08-14] MEDS ORDERED: AMLO-251 PO (11:37)
--- NOTE | 2021-08-14 12:10 | Cardiology Progress Note ---
Subjective Date Seen by Provider: Aug 14, 2021 Time Seen by Provider: 12:06 Subjective/Events-last exam Patient is laying down in bed, complaining of intermittent blurred and double vision. Denied any chest pain Review of Systems General: No Chills, No Night Sweats, No Fatigue, No Malaise, No Appetite, No Other HEENT: No Head Aches, No Visual Changes, No Eye Pain, No Ear Pain, No Dysphasia, No Sinus Congestion, No Post Nasal Drip, No Sore Throat, No Other Pulmonary: No Dyspnea, No Cough, No Pleuritic Chest Pain, No Other Cardiovascular: No: Chest Pain, Palpitations, Orthopnea, Paroxysmal Noc. Dyspnea, Edema, Lt Headedness, Other Objective-Cardiology Exam Last Set of Vital Signs Vital Signs 08/14/21 11:12 Temp 36.9 Pulse 88 Resp 25 B/P (MAP) 177/88 (117) Pulse Ox 100 O2 Delivery Room Air I&O Intake and Output 08/14/21 00:00 Intake Total 825 ml Output Total 700 ml Balance 125 ml Intake Oral 825 ml Output Urine Total 700 ml # Voids 3 General: Alert, Oriented X3, Cooperative, No Acute Distress HEENT: Atraumatic, PERRLA Neck: Supple, No JVD, No Thyromegaly Lungs: Clear to Auscultation, Normal Air Movement Heart: Regular Rate, No Murmurs Abdomen: Normal Bowel Sounds, Soft Extremities: No Clubbing, No Cyanosis, No Edema Skin: No Rashes, No Breakdown, No Significant Lesion Neuro: Normal Speech Psych/Mental Status: Mental Status NL, Mood NL Results Lab Laboratory Tests 08/14/21 05:11 A/P-Cardiology Admission Diagnosis Hypertensive emergency Type II myocardial infarction Hyperlipidemia Assessment/Plan Hypertensive emergency, still having moderately elevated blood pressure. Intolerant to ELPIDIO inhibitor and/or ARB, hydrochlorothiazide, furosemide due to acute renal failure Patient is reluctant to take beta-blockers due to shortness of breath. Tolerating amlodipine and hydralazine well. Continue to monitor blood pressure Blurred vision and double vision. Intermittent probably secondary to his hypertensive emergency. Educated about the importance of compliance with medication monitor blood pressure Mild elevation in troponin, probably type II myocardial infarction, seen and managed by Dr. Barajas who recommended follow-up as an outpatient with stress test Hyperlipidemia, started on low-dose statin Acute renal failure, slight improvement. Continue to monitor renal function. SHANNA MELENDEZ MD Aug 14, 2021 12:10
--- NOTE | 2021-08-14 18:13 | Discharge Summary ---
Discharge Summary Hospital Course Was the Problem List Reviewed?: Yes Problems/Dx: (1) Hypertensive emergency Status: Acute (2) Elevated troponin Status: Acute (3) Acute kidney injury superimposed on chronic kidney disease (4) Abnormal electrocardiogram (5) Mixed hyperlipidemia (6) Stage 4 chronic kidney disease Status: Chronic Hospital Course Date of Admission: Aug 09, 2021 at 22:33 Admission Diagnosis : Family Physician/Provider: Vinicius Macias Date of Discharge: 08/14/21 Discharge Diagnosis: HTN urgency, Acute on chronic renal failure, DM Hospital Course: Patient had a brief hospital course after he was admitted for gentle IV fluids and hypertensive urgency. Hydrochlorothiazide and ARB were held. Patient remained stable in the entire hospital course but it was stressed that he needed to take his blood pressure medications on a regular basis. He will need nephrology referral since this appears to be diabetic nephropathy and hypertensive nephropathy. Patient was deemed stable for discharge and able to ambulate but needed a walker to prevent falls. Labs and Pending Lab Test: Laboratory Tests 08/13/21 20:59: Glucometer 163H 08/14/21 05:11: White Blood Count 6.6, Red Blood Count 3.42L, Hemoglobin 9.8L, Hematocrit 29L, Mean Corpuscular Volume 85, Mean Corpuscular Hemoglobin 29, Mean Corpuscular Hemoglobin Concent 34, Red Cell Distribution Width 12.5, Platelet Count 425H, Mean Platelet Volume 10.6, Sodium Level 132L, Potassium Level 3.9, Chloride Level 101, Carbon Dioxide Level 23, Anion Gap 8, Blood Urea Nitrogen 38H, Creatinine 2.82H, Estimat Glomerular Filtration Rate 23, BUN/Creatinine Ratio 13, Glucose Level 164H, Calcium Level 8.1L 08/14/21 07:21: Glucometer 152H 08/14/21 11:07: Glucometer 258H Home Meds Active Hydralazine HCl 25 Mg Tablet 50 Mg PO QID Amlodipine Besylate 10 Mg Tablet 10 Mg PO DAILY Rosuvastatin Calcium 10 Mg Tablet 10 Mg PO HS Reported Levemir Flextouch (Insulin Detemir) 100 Unit/1 Ml Insuln.pen 8 Unit SQ BID Aspirin EC (Aspirin) 81 Mg Tablet.dr 81 Mg PO DAILY Novolog Flexpen (Insulin Aspart) 300 Units/3 Ml Solution 8 Units SQ AC Furosemide 20 Mg Tablet 20 Mg PO DAILY PRN Assessment/Pt Instructions PCP 1 week Discharge Planning: <30 minutes discharge planning Discharge Instructions Discharge Diet: ADA Diet Activity as Tolerated: Yes Discharge Physical Examination Vital Signs Vital Signs Date Time Temp Pulse Resp B/P (MAP) Pulse Ox O2 Delivery O2 Flow Rate FiO2 08/14/21 13:40 08/14/21 11:12 36.9 88 25 100 Room Air General Appearance: No Apparent Distress, WD/WN, Chronically ill Respiratory: Lungs Clear Cardiovascular: Regular Rate, Rhythm Neurologic/Psychiatric: Alert, Oriented x3 Allergies: Coded Allergies: NKANo Known Allergies (Verified Allergy, Unknown, 01/30/07) Discharge Summary Date of Admission Aug 09, 2021 at 22:33 Date of Discharge Aug 14, 2021 at 13:00 Discharge Date: Aug 14, 2021 Discharge Diagnosis (1) Hypertensive emergency Status: Acute Assessment & Plan: His blood pressure was improving with losartan which she was taking at home and the addition of amlodipine. However, I have stopped the losartan due to worsening renal function. His renal function seems to be improving today. I have started him on hydralazine. I am concerned that he may not take this as prescribed due to the frequency this needs to be taken. I urged him to take the amlodipine and hydralazine. I will stop the furosemide. He will not take beta-john because he thinks this will make him short of breath. (2) Elevated troponin Status: Acute Assessment & Plan: He had a borderline abnormal troponin level. This is in the setting of a hypertensive emergency. This may represent a type II non-ST elevation myocardial infarction due to supply/demand mismatch. His nuclear stress test was normal other than being hypertensive. (3) Acute kidney injury superimposed on chronic kidney disease Assessment & Plan: As above, his kidney function had gotten worse with a peak creatinine on 08/12 that is now starting to come down. I have stopped his hydrochlorothiazide, losartan, and furosemide (4) Abnormal electrocardiogram Assessment & Plan: As above, his initial electrocardiogram shows possible old anteroseptal myocardial infarction. His follow-up electrocardiogram showed nonspecific T wave inversion. In light of the abnormal troponin levels, I had him undergo a nuclear stress test which was normal as outlined above. I suspect the initial electrocardiogram showing poor R wave progression may have been due to lead placement and the nonspecific T wave inversion is likely due to left ventricular hypertrophy. No additional cardiac testing is indicated for this abnormality at this point in time. (5) Mixed hyperlipidemia Assessment & Plan: He is diabetic and his LDL level is above 100. I started him on low-dose statin medication. (6) Stage 4 chronic kidney disease Status: Chronic Assessment & Plan: We will need to watch his renal function closely and avoid any nephrotoxic medications. As above, I have stopped hydrochlorothiazide, furosemide, and losartan. Clinical Quality Measures AMI/AHF: ASA po Prior to arrival: AGUSTIN Diaz DO Aug 14, 2021 18:13
--- NOTE | 2021-08-19 22:52 | Physician Query Clarification ---
PQ-Intro New Diagnosis Admission/Discharge Admission Date: Aug 09, 2021 at 22:33 Discharge Date: Aug 14, 2021 at 13:00 AGUSTIN Virgen DO The medical record reflects the following clinical scenario: History/Risk Factors: 65 y/o male patient admitted for IV fluids and hypertensive urgency, hydrochlorothiazide was held continued IV fluides for his kidney function, cerebellar infarct was documented in medical record. Hand P, 08/10: Kidney insufficiency, hypertensive emergency, dizziness consider cerebellar problems, cerebellar infarct. Progress notes, 08/11: Kidney insufficiency, hypertensive emergency, dizziness consider cerebellar problems, cerebellar infarct. Clinical Findings:Brain MRI-no acute abnormality identified. Treatment: IV fluids, aspirin. Question: What condition best reflects the above clinical scenario? Please document a response in the Progress Noter or Discharge Summary. 1.Acute cerebellar infarct 2. Personal history of cerebellar infarct 3. Other, with explanation of the clinical findings. 4. Clinically undetermined, no explanation for the clinical findings. PHYSICIAN RESPONSE What condition reflects above: Other, explanation/clinical finding (HTN encephalopathy) Please remember a lack of response to the above will prompt a phone page by [facility]/Coding staff. In responding to this query, please exercise your independent professional judgment. The purpose of this communication is to more accurately reflect the complexity of your patients condition. The fact that a question is asked does not imply that any particular answer is desired or expected. Thank you for your timely response to this clarification. Requestors name: [ ] Phone # [ ] THIS PHYSICIAN QUERY FORM IS A PERMANENT PART OF THE MEDICAL RECORD DIANELYS AARON Aug 19, 2021 22:52 AGUSTIN DELGADO DO Aug 20, 2021 04:54
== END 2021-08-14 13:00 | disposition home or self-care (01) | DRG 682 ==
LOC: EDUNIT# 20:08 → ER 20:15 → CSD 22:33
PROVIDERS: ADMIT Family Medicine; ATTEND Internal Medicine
DX: N17.9 Acute kidney failure, unspecified (principal); I21.A1 Myocardial infarction type 2; I16.1 Hypertensive emergency; I67.4 Hypertensive encephalopathy; N18.4 Chronic kidney disease, stage 4 (severe); E78.2 Mixed hyperlipidemia; E11.22 Type 2 diabetes mellitus with diabetic chronic kidney disease; I25.10 Atherosclerotic heart disease of native coronary artery without angina pectoris; I12.9 Hypertensive chronic kidney disease with stage 1 through stage 4 chronic kidney disease, or unspecified chronic kidney disease; Z90.2 Acquired absence of lung [part of]; R42 Dizziness and giddiness; D63.8 Anemia in other chronic diseases classified elsewhere; Z79.82 Long term (current) use of aspirin; Z79.4 Long term (current) use of insulin; Z79.899 Other long term (current) drug therapy
CPT/HCPCS: 36415; 70450; 70551; 71045; 71046; 76770; 78452; 80048; 80053; 80306; 80320; 81000; 82150; 82271; 82550; 82553; 82947; 83690; 83735; 83880; 84484; 85007; 85025; 85027; 85610; 85730; 93005; 93017; 93041; 93880; 93975; 96374; 96375; 96376

== ENCOUNTER 2021-12-01 14:34 | Emergency (ER) | payer MEDICARE ==
[2021-12-01 15:45] LABS: BASOPHILS # (AUTO) 0.1 10^3/uL (0.0-0.1); BASOPHILS % (AUTO) 1 % (0-10); EOSINOPHILS # (AUTO) 0.2 10^3/uL (0.0-0.3); EOSINOPHILS % (AUTO) 3 % (0-10); HEMATOCRIT 24 % (40-54); HEMOGLOBIN 7.8 g/dL (13.3-17.7); LYMPHOCYTES % (AUTO) 17 % (12-44); MEAN CORPUSCULAR HEMOGLOBIN 29 pg (25-34); MEAN CORPUSCULAR HGB CONC 32 g/dL (32-36); MEAN CORPUSCULAR VOLUME 89 fL (80-99); MEAN PLATELET VOLUME 9.9 fL (9.0-12.2); MONOCYTES # (AUTO) 0.8 X 10^3 (0.0-1.0); MONOCYTES % (AUTO) 13 % (0-12); NEUTROPHILS # (AUTO) 3.9 X 10^3 (1.8-7.8); NEUTROPHILS % (AUTO) 66 % (42-75); PLATELET COUNT 435 10^3/uL (130-400)
[2021-12-01 15:46] LABS: ALBUMIN 3.3 GM/DL (3.2-4.5)
[2021-12-01 15:47] LABS: POTASSIUM 4.8 MMOL/L (3.6-5.0)
[2021-12-01 15:48] LABS: CALCIUM 8.4 MG/DL (8.5-10.1)
[2021-12-01 15:49] LABS: TOTAL PROTEIN 7.1 GM/DL (6.4-8.2)
[2021-12-01 15:50] LABS: PROTHROMBIN TIME PATIENT 13.4 SEC (12.2-14.7)
[2021-12-01 15:51] LABS: BILIRUBIN,TOTAL 0.2 MG/DL (0.1-1.0)
[2021-12-01 15:53] LABS: CREATININE SERUM 4.21 MG/DL (0.60-1.30)
[2021-12-01] MEDS ORDERED: fentaNYL INJ 100 MCG/2 ML AMP IVP ONE ×2 (16:00→18:30)
[2021-12-01 16:06] LABS: MAGNESIUM 2.8 MG/DL (1.6-2.4)
--- NOTE | 2021-12-01 16:10 | Diagnostic Imaging Report ---
INDICATION: Bilateral leg swelling. EXAMINATION: Portable chest at 04:03 p.m. FINDINGS: There is some volume loss of the right lung base. There is a questionable alveolar infiltrate at the left lung base. IMPRESSION: Right basilar atelectasis and questionable alveolar nodular infiltrate at the left lung base. Dictated by: Dictated on workstation # [id number]
--- NOTE | 2021-12-01 16:28 | Diagnostic Imaging Report ---
INDICATION: Left leg pain. Left leg venous Doppler study was performed in the routine fashion with color flow Doppler and waveform analysis. FINDINGS: The left common femoral vein, superficial femoral vein, popliteal vein and visualized portion of the posterior tibial vein show normal compressibility and venous flow patterns. There is normal augmentation. Some soft tissue edema is noted. IMPRESSION: No evidence of deep vein thrombosis of the major veins of the left leg. Dictated by: Dictated on workstation # [id number]
--- NOTE | 2021-12-01 17:00 | ED Chest Pain ---
General Chief Complaint: General Problems/Pain Stated Complaint: BILAT LEGS SWELLING Nursing Triage Note: PT AMB TO RM 9 WITH SON WITH C/O INCREASED BILAT LEG SWELLING OVER THE LAST FEW WEEKS AND APPROX 10 POUND WEIGHT GAIN OVER 2 WEEKS. NOT ON DIALYSIS YET Source: patient, family, hydro technician, old records Exam Limitations: language barrier History of Present Illness Date Seen by Provider: Dec 01, 2021 Time Seen by Provider: 14:40 Initial Comments This is 65-year-old gentleman presents to the emergency room with complaints of worsening shortness of breath, chest and back pain, and diffuse edema. He is seeing Dr. Farias (paste up artist) at [facility]. His diuretic therapy was recently changed to Bumex 2 mg twice daily. He has having progressive swelling and decreased urine output despite this change. He describes significant fatigue. He also recently has developed pain in the left hip and thigh of unknown cause. There was no injury. He had a recent hospital admission in August at this facility for malignant hypertension and acute on chronic kidney injury. His primary care provider is Dr. Margarita Estrella at the [facility] clinic. His basting cleaner is Dr. Barajas. During his last admission he had a negative stress echo. Patient was seen in the clinic today and referred to the emergency room. He also had a normal renal ultrasound performed today as ordered by Dr. Farias. He is diabetic and states his blood sugars have been well controll ed. Mr. Saldivar is a [place]ralt[place] speaker. He is here with a male bilingual mounter hand. Allergies and Home Medications Allergies Coded Allergies: NKANo Known Allergies (Verified Allergy, Unknown, 01/30/07) Patient Home Medication List Home Medication List Reviewed: Yes Amlodipine Besylate (Amlodipine Besylate) 10 Mg Tablet, 10 MG PO DAILY Prescribed by: AGUSTIN DELGADO on 08/14/21 113 Aspirin (Aspirin EC) 81 Mg Tablet.dr, 81 MG PO DAILY, (Reported) Entered as Reported by: MARGARITA MG on 08/10/21 161 Furosemide (Furosemide) 20 Mg Tablet, 20 MG PO DAILY PRN for FLUID RETENTION, (Reported) Entered as Reported by: SANGEETA PURVIS on 08/09/212038 Hydralazine HCl (Hydralazine HCl) 25 Mg Tablet, 50 MG PO QID Prescribed by: AGUSTIN DELGADO on 08/14/21 1137 Insulin Aspart (Novolog Flexpen) 300 Units/3 Ml Solution, 8 UNITS SQ AC, (Reported) Entered as Reported by: MARGARITA MG on 08/10/21 1612 Insulin Detemir (Levemir Flextouch) 100 Unit/1 Ml Insuln.pen, 8 UNIT SQ BID, (Reported) Entered as Reported by: MARGARITA MG on 08/10/21 1613 Rosuvastatin Calcium (Rosuvastatin Calcium) 10 Mg Tablet, 10 MG PO HS Prescribed by: AGUSTIN DELGADO on 08/14/21 1137 Review of Systems Review of Systems Constitutional: see HPI, weakness EENTM: No Symptoms Reported Respiratory: See HPI Cardiovascular: See HPI Gastrointestinal: No Symptoms Reported Genitourinary: See HPI Musculoskeletal: no symptoms reported Skin: no symptoms reported Psychiatric/Neurological: No Symptoms Reported Endocrine: See HPI Hematologic/Lymphatic: No Symptoms Reported Past Kbvqnfl-Kgvpfl-Sdgvbl Hx Patient Social History Tobacco Use?: No Use of E-Cig and/or Vaping dev: No Substance use?: No Alcohol Use?: No Pt feels they are or have been: No Immunizations Up To Date Tetanus Booster (TDap): Unknown First/Initial COVID19 Vaccinat: 10/29/2020 Past Medical History Surgery/Hospitalization HX: htn, iddm, svt, peripheral neuropathy, gerd, right lower lobectomy, colonoscopy, heart cath. Surgeries: Yes (RIGHT LOWER LUNG LOBECTOMY--FUNGAL INFECTION; COLONOSCOPY/EGD;CARDIAC CATH) Cardiac, Lobectomy Respiratory: Yes (RIGHT LOWER LUNG LOBECTOMY--FUNGAL INFECTION) Currently Using CPAP: No Currently Using BIPAP: No Cardiac: Yes (SVT; NORMAL CARDIAC CATH 03/2010 ) Hypertension, Irregular Heartbeat Neurological: Yes (LIKELY PERIPHERAL NEUROPATHY IN FEET/HANDS) Neuropathy Reproductive Disorders: No Genitourinary: Yes Renal Failure (Chronic kidney disease) Gastrointestinal: Yes (GASTRIC ULCER) Ulcer Musculoskeletal: Yes (LEFT FOOT ABSCESS 2018) Endocrine: Yes Diabetes, Insulin dep HEENT: Yes (double vision-resolved at this time) Loss of Vision: Denies Hearing Impairment: Denies Cancer: No Psychosocial: No Integumentary: Yes (LEFT FOOT ABSCESS 2018) Blood Disorders: Yes (CHRONIC ANEMIA) Physical Exam Vital Signs Vital Signs - First Documented 12/01/21 15:00 Temp 36.6 Pulse 55 Resp 16 B/P (MAP) 149/67 (94) Capillary Refill : Height, Weight, BMI Height: 5'7.00" Weight: 136lbs. 7.0oz. 61.232107fk; 21.78 BMI Method:Stated General Appearance: WD/WN, Mild Distress HEENT: PERRL/EOMI, Normal ENT Inspection Neck: Normal Inspection Respiratory: Lungs Clear, Normal Breath Sounds, No Accessory Muscle Use, Other (Generalized edema from the feet through the abdomen) Cardiovascular: Regular Rate, Rhythm, No Edema, No Murmur Gastrointestinal: Normal Bowel Sounds, Non Tender, Soft Extremity: Swelling, Other (Tenderness over the left hip joint and in the proximal left thigh. 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 Norm as Tested Skin: Normal Color, Warm/Dry Progress/Results/Core Measures Results/Orders Lab Results Laboratory Tests Test 12/01/21 15:10 Range/Units White Blood Count 6.0 4.3-11.0 10^3/uL Red Blood Count 2.70 L 4.30-5.52 10^6/uL Hemoglobin 7.8 L 13.3-17.7 g/dL Hematocrit 24 L 40-54 % Mean Corpuscular Volume 89 80-99 fL Mean Corpuscular Hemoglobin 29 25-34 pg Mean Corpuscular Hemoglobin Concent 32 32-36 g/dL Red Cell Distribution Width 14.8 H 10.0-14.5 % Platelet Count 435 H 130-400 10^3/uL Mean Platelet Volume 9.9 9.0-12.2 fL Immature Granulocyte % (Auto) 0 % Neutrophils (%) (Auto) 66 42-75 % Lymphocytes (%) (Auto) 17 12-44 % Monocytes (%) (Auto) 13 H 0-12 % Eosinophils (%) (Auto) 3 0-10 % Basophils (%) (Auto) 1 0-10 % Neutrophils # (Auto) 3.9 1.8-7.8 X 10^3 Lymphocytes # (Auto) 1.0 1.0-4.0 X 10^3 Monocytes # (Auto) 0.8 0.0-1.0 X 10^3 Eosinophils # (Auto) 0.2 0.0-0.3 10^3/uL Basophils # (Auto) 0.1 0.0-0.1 10^3/uL Immature Granulocyte # (Auto) 0.0 0.0-0.1 10^3/uL Prothrombin Time 13.4 12.2-14.7 SEC INR Comment 1.0 0.8-1.4 Activated Partial Thromboplast Time 34 24-35 SEC D-Dimer 3.14 H 0.00-0.49 UG/ML Sodium Level 136 135-145 MMOL/L Potassium Level 4.8 3.6-5.0 MMOL/L Chloride Level 107 98-107 MMOL/L Carbon Dioxide Level 14 L 21-32 MMOL/L Anion Gap 15 H 5-14 MMOL/L Blood Urea Nitrogen 62 H 7-18 MG/DL Creatinine 4.21 H 0.60-1.30 MG/DL Estimat Glomerular Filtration Rate 15 BUN/Creatinine Ratio 15 Glucose Level 141 H 70-105 MG/DL Calcium Level 8.4 L 8.5-10.1 MG/DL Corrected Calcium 9.0 8.5-10.1 MG/DL Magnesium Level 2.8 H 1.6-2.4 MG/DL Total Bilirubin 0.2 0.1-1.0 MG/DL Aspartate Amino Transf (AST/SGOT) 60 H 5-34 U/L Alanine Aminotransferase (ALT/SGPT) 64 H 0-55 U/L Alkaline Phosphatase 185 H 40-136 U/L Myoglobin 232.0 H 10.0-92.0 NG/ML Troponin I 0.097 H <0.028 NG/ML B-Type Natriuretic Peptide 1369.8 H <100.0 PG/ML Total Protein 7.1 6.4-8.2 GM/DL Albumin 3.3 3.2-4.5 GM/DL My Orders Orders - MYA JACKSON MD [facility] [place] (12/01/21 14:41) Cbc With Automated Diff (12/01/21 14:41) Comprehensive Metabolic Panel (12/01/21 14:41) Ed Iv/Invasive Line Start (12/01/21 14:41) Ekg Tracing (12/01/21 14:41) Monitor-Rhythm Ecg Trace Only (12/01/21 14:41) Magnesium (12/01/21 15:24) Chest 1 View, Ap/Pa Only (12/01/21 15:24) Myoglobin Serum (12/01/21 15:24) Protime With Inr (12/01/21 15:24) Partial Thromboplastin Time (12/01/21 15:24) O2 (12/01/21 15:24) Fibrin Degradation Products (12/01/21 15:24) Troponin I [place] (12/01/21 15:24) Us Venous Lower Ext Lt (12/01/21 15:57) Fentanyl Inj (Sublimaze Injection) (12/01/21 16:00) Fentanyl Inj (Sublimaze Injection) (12/01/21 18:30) Morphine Injection (Morphine Injection (12/01/21 19:55) Medications Given in ED Current Medications Medications Dose Ordered Sig/Edu Route Start Time Stop Time Status Last Admin Dose Admin Fentanyl Citrate 50 mcg ONCE ONCE IVP 12/01/21 16:00 12/01/21 16:01 DC 12/01/21 16:09 50 MCG Fentanyl Citrate 50 mcg ONCE ONCE IVP 12/01/21 18:30 12/01/21 18:31 DC 12/01/21 18:35 50 MCG Vital Signs/I&O 12/01/21 15:00 Temp 36.6 Pulse 55 Resp 16 B/P (MAP) 149/67 (94) Blood Pressure Mean: 94 Progress Progress Note #1: Time: 17:45 Progress Note Patient has had progression of his renal failure and progressive edema despite altering diuretic therapy. His renal failure treatment requirements likely now exceed our facilities capacities as he is in need of nephrology consultation and possible dialysis. The etiology of his chest pain is uncertain, but he did have a slightly elevated troponin. The significance of this troponin is unknown given the extent of his renal failure. I discussed transfer to [facility] for nephrology consultation and possible dialysis. We again used the hydro technician language line via phone. Questions were answered and patient was agreeable to transfer. At this time he is uncertain if he will accept transfer by EMS because he is afraid of cost. Vital signs are stable. Patient's left leg was evaluated by ultrasound. No DVT was identified. D-dimer was elevated. Further evaluation for possible PE is not possible at this time because he cannot tolerate contrast and VQ scan is not available. Patient had a mild sinus bradycardia and it was noted that he recently started Coreg. Progress Note #2: Time: 20:05 Progress Note Patient had consented to transfer to [facility] and was accepted with bed assignment. However, when EMS came to transport him, he expressed a reconsideration and did not want to board the ambulance with them. I get engaged in a conversation with the patient. I explained that his renal function is worsening to the extent he should have prompt attention from a paste up artist. My goal for him is to receive nephrology care as soon as possible to avoid any further progression of renal failure and attempt to avoid dialysis if possible. Patient also expressed concern about controlling pain in his left hip. This pain seemed to be joint pain as he had pain directly over the hip joint with palpation and rotation. There was no injury reported. He was given a dose of morphine 5 mg prior to transport. Patient did eventually express understanding of my concerns and consented to transfer. Initial ECG Impression Date: Dec 01, 2021 Initial ECG Impression Time: 15:06 Initial ECG Rate: 52 Initial ECG Rhythm: S.Tach Comment Sinus bradycardia with subtle ST changes. Changes were nondiagnostic for STEMI. No abnormal intervals or axis deviation. These findings were unchanged from prior. Diagnostic Imaging Diagonstic Imaging: Ultrasound Plain Films/CT/US/NM/MRI: chest, leg Comments Left lower extremity venous Doppler discussed with medical equipment technician and report reviewed. See report below: NAME: JAROD SALDIVAR [facility] REC#: [id number] PT STATUS: REG ER : 1955 PHYSICIAN: MYA JACKSON MD ADMIT DATE: 12/01/21/ER Signed Date of Exam:12/01/21 US VENOUS LOWER EXT LT INDICATION: Left leg pain. Left leg venous Doppler study was performed in the routine fashion with color flow Doppler and waveform analysis. FINDINGS: The left common femoral vein, superficial femoral vein, popliteal vein and visualized portion of the posterior tibial vein show normal compressibility and venous flow patterns. There is normal augmentation. Some soft tissue edema is noted. IMPRESSION: No evidence of deep vein thrombosis of the major veins of the left leg. Dictated by: Dictated on workstation # [id number] Dict: 12/01/21 1626 Trans: 12/01/21 1627 [id number] Interpreted by: HERNÁN MACIAS MD Electronically signed by: HERNÁN MACIAS MD 12/01/21 1627 Diagonstic Imaging: Xray Plain Films/CT/US/NM/MRI: chest Comments Chest x-ray viewed by me and report reviewed. See report below: NAME: JAROD SALDIVAR [facility] REC#: [id number] PT STATUS: REG ER : 1955 PHYSICIAN: MYA JACKSON MD ADMIT DATE: 12/01/21/ER Signed Date of Exam:12/01/21 CHEST 1 VIEW, AP/PA ONLY INDICATION: Bilateral leg swelling. EXAMINATION: Portable chest at 04:03 p.m. FINDINGS: There is some volume loss of the right lung base. There is a questionable alveolar infiltrate at the left lung base. IMPRESSION: Right basilar atelectasis and questionable alveolar nodular infiltrate at the left lung base. Dictated by: Dictated on workstation # [id number] Dict: 12/01/21 1605 Trans: 12/01/21 1644 [id number] [id number] Interpreted by: BRIAN POST MD Electronically signed by: BRIAN POST MD 12/01/21 1644 Departure Impression Primary Impression: Acute on chronic renal failure Qualified Codes: N17.9 - Acute kidney failure, unspecified; N18.9 - Chronic kidney disease, unspecified Additional Impressions: Chest pain Qualified Codes: R07.89 - Other chest pain Elevated troponin Anasarca Left hip pain Disposition: XFER SHT-TRM HOSP Condition: Stable Transfer Transfer Reason: Exceeds level of care Time Spoke to Accepting Phy: 17:00 Transfer Progress Notes Transfer accepted by Dr. Greenfield. Transfer Time: 20:07 Transfer Facility: [facility] Method of Transfer: EMS Departure-Patient Inst. Referrals: [facility] (PCP) Primary Care Physician ARACELI TOLBERT (Family) Primary Care Physician Copy Copies To 1: CECILIO SERRATO JOSHUA T MD Dec 01, 2021 17:00
[2021-12-01 18:30] VITALS: BP 143/64
[2021-12-01] MEDS ORDERED: morphine INJ 10 MG/ML 1ML (SYR OR VIAL) IVP STA (19:55)
== END 2021-12-01 19:42 | disposition short-term general hospital (02) ==
LOC: EDUNIT# 14:34 → ER 14:35
DX: N17.9 Acute kidney failure, unspecified (principal); N18.9 Chronic kidney disease, unspecified; R07.9 Chest pain, unspecified; R77.8 Other specified abnormalities of plasma proteins; R60.1 Generalized edema; M25.552 Pain in left hip; E11.9 Type 2 diabetes mellitus without complications; Z79.4 Long term (current) use of insulin
CPT/HCPCS: 36415; 71045; 80053; 83735; 83874; 83880; 84484; 85025; 85379; 85610; 85730; 93005; 93041

== ENCOUNTER → 2021-12-01 | Outpatient (CLI) | payer MEDICARE ==
[~2021-12-01] MED LIST changes: +FURO20TA4 PO; +HYDR-3923 PO; +HYDR25TA4 PO; +INSU100I29 SQ; +LOSA100T57 PO; +ROSU10TA28 PO; +gabapentin
--- NOTE | 2021-12-01 13:09 | Diagnostic Imaging Report ---
PROCEDURE: US Renal Bilateral. TECHNIQUE: Multiple Real-time grayscale images were obtained over the kidneys in various projections bilaterally. INDICATION: Renal failure. COMPARISON: 08/11/2021. FINDINGS: The right kidney measures 11 cm and the left kidney 11 cm. The size and echogenicity are stable and normal bilaterally. There is no hydronephrosis or mass. The prevoid bladder volume could not be assessed. IMPRESSION: Negative renal sonogram. Dictated by: Dictated on workstation # [id number]
== END ==
LOC: RAD 10:35
PROVIDERS: ATTEND Internal Medicine
DX: N18.4 Chronic kidney disease, stage 4 (severe) (principal)
CPT/HCPCS: 76770

== ENCOUNTER → 2022-08-12 | Outpatient (CLI) | payer MEDICARE ==
[~2022-08-12] MED LIST changes: +OMEP20TA56 PO; -OMEP20TA7 PO
[2022-08-12 10:46] LABS: BASOPHILS # (AUTO) 0.1 10^3/uL (0.0-0.1); BASOPHILS % (AUTO) 1 % (0-10); EOSINOPHILS # (AUTO) 0.5 10^3/uL (0.0-0.3); EOSINOPHILS % (AUTO) 5 % (0-10); HEMATOCRIT 35 % (40-54); HEMOGLOBIN 11.8 g/dL (13.3-17.7); LYMPHOCYTES # (AUTO) 1.7 10^3/uL (1.0-4.0); LYMPHOCYTES % (AUTO) 16 % (12-44); MEAN CORPUSCULAR HEMOGLOBIN 31 pg (25-34); MEAN CORPUSCULAR HGB CONC 34 g/dL (32-36); MEAN CORPUSCULAR VOLUME 91 fL (80-99); MEAN PLATELET VOLUME 9.5 fL (9.0-12.2); MONOCYTES # (AUTO) 1.4 10^3/uL (0.0-1.0); MONOCYTES % (AUTO) 13 % (0-12); NEUTROPHILS # (AUTO) 7.3 10^3/uL (1.8-7.8); NEUTROPHILS % (AUTO) 66 % (42-75); PLATELET COUNT 309 10^3/uL (130-400); WHITE BLOOD COUNT 11.1 10^3/uL (4.3-11.0)
[2022-08-12 10:59] LABS: ALBUMIN 4.1 GM/DL (3.2-4.5); BILIRUBIN,TOTAL 0.3 MG/DL (0.1-1.0); CALCIUM 9.3 MG/DL (8.5-10.1); CREATININE SERUM 5.79 MG/DL (0.60-1.30); POTASSIUM 4.1 MMOL/L (3.6-5.0); TOTAL PROTEIN 8.3 GM/DL (6.4-8.2)
[2022-08-12 11:20] LABS: ERYTHROCYTE SEDIMENTATION RATE 45 MM/HR (0-30)
== END ==
LOC: WOUNDCARE 09:11
PROVIDERS: ATTEND Family Medicine
DX: T25.292A Burn of second degree of multiple sites of left ankle and foot, initial encounter (principal); E11.621 Type 2 diabetes mellitus with foot ulcer; E11.65 Type 2 diabetes mellitus with hyperglycemia; N18.6 End stage renal disease; E11.40 Type 2 diabetes mellitus with diabetic neuropathy, unspecified; D63.1 Anemia in chronic kidney disease
CPT/HCPCS: 16020; 80053; 83036; 85025; 85652; 86141; 87070; 87205; G0463; 36415; 87077; 87186

== ENCOUNTER → 2022-08-18 | Outpatient (CLI) | payer MEDICARE | LOC: WOUNDCARE 10:34 | PROVIDERS: ATTEND Family Medicine | DX: T25.292A Burn of second degree of multiple sites of left ankle and foot, initial encounter (principal); E11.621 Type 2 diabetes mellitus with foot ulcer; E11.65 Type 2 diabetes mellitus with hyperglycemia; N18.6 End stage renal disease; E11.40 Type 2 diabetes mellitus with diabetic neuropathy, unspecified; D63.1 Anemia in chronic kidney disease; B95.61 Methicillin susceptible Staphylococcus aureus infection as the cause of diseases classified elsewhere; E11.52 Type 2 diabetes mellitus with diabetic peripheral angiopathy with gangrene | CPT/HCPCS: 16020; G0463 ==